=== PATIENT | female | born 1960 | race Caucasian/White ===

== ENCOUNTER 2023-05-18 11:27 | Outpatient (OUT) | payer OTHER, SELFPAY ==
--- NOTE | 2023-05-18 | NM_ITS ---
[address] [address] Patient Name: RADHA VILLAREAL MRN: [id number] date: 1960 Sex: F Assigned Patient Location: [place] Current Patient Location: [place] Accession/Order Number: [id number] Exam Date: 05/18/2023 07:00 Report Date: 05/18/2023 15:59 At the request of: MATEUS UGALDE Procedure: UT bone scan whole body EXAMINATION: UT bone scan whole body HISTORY: MALIGNANT NEOPLASM OF UPPER OUTER QUADRANT OF RIGHT BREAST COMPARISON: No relevant comparison available. TECHNIQUE: After obtaining the patient's consent, Technetium 99m MDP was injected intravenously. Images were obtained approximately two hours later. FINDINGS: ABNORMALITIES: No suspicious foci to suggest metastatic disease. OTHER: Negative. UT/UT bone scan whole body IMPRESSION: 1. No evidence of skeletal metastasis. Electronically authenticated by: KARON HERNANDEZ Date: 05/18/2023 15:59
== END 2023-05-18 11:28 | disposition home or self-care (01) ==
LOC: NM 11:27
PROVIDERS: PCP Internal Medicine; Visit Provider Internal Medicine Hematology & Oncology
DX: C50.411 Malignant neoplasm of upper-outer quadrant of right female breast (principal); Z17.0 Estrogen receptor positive status [ER+]
CPT/HCPCS: 78306; A9503

== ENCOUNTER 2023-06-06 07:13 | Outpatient (OUT) | payer OTHER, SELFPAY ==
--- NOTE | 2023-06-06 | CT_ITS ---
[address] [address] Patient Name: RADHA VILLAREAL MRN: [id number] date: 1960 Sex: F Assigned Patient Location: LAB Current Patient Location: LAB Accession/Order Number: [id number] Exam Date: 06/06/2023 08:50 Report Date: 06/06/2023 17:47 At the request of: LAVERN TOLBERT Procedure: CT chest w con Indication: History of breast cancer. Comparison: None Procedure: Scans were made from the thoracic inlet through the symphysis pubis. Oral contrast Omnipaque was given prior to scanning. 98 mL Omnipaque 300 Intravenous contrast was given during scanning. Dose reduction techniques were achieved by using automated exposure control and/or adjustment of mA and/or kV according to patient size and/or use of iterative reconstruction technique. Chest Findings: Extrathoracic: A 3.2 x 2.3 cm right breast mass is seen. No axillary adenopathy. A 1 cm left thyroid nodule. Pleura: No pleural effusion or pneumothorax. No pleural calcifications Lungs: Mild atelectatic changes in right middle lobe of the lung. A 5 mm nodule in left upper lobe of the lung. No acute consolidation. Patent major airways. No bronchiectasis. Mediastinum/Jennifer: No hilar or mediastinal adenopathy or masses. 8 mm right internal lymph node is seen. Heart/Vessels: No pericardial effusion. No evidence of aortic aneurysm. Other: No aggressive osseous lesions are seen. A 4.2 x 1.7 cm intramuscular lipoma is seen posterior to the left scapula. Abdomen Findings: Liver/Biliary System: Couple of small hypodensities in left lobe of the liver, 4 mm each, too small to categorize. No liver masses are seen. No intra or extrahepatic biliary dilatation. Status postcholecystectomy. Pancreas/Spleen: No pancreatic masses are seen. Pancreatic duct is not dilated. No evidence of pancreatitis. No splenomegaly or splenic lesions. Kidneys/Adrenals: Normal symmetrical nephrograms. No renal masses are seen. No renal or ureteral stones are seen. No hydronephrosis or hydroureter bilaterally. 2 right adrenal nodules are seen measuring 1.4 cm and 1.2 cm. A 2.0 x 1.8 cm left adrenal nodule. Given history of malignancy, metastatic disease cannot be excluded. Aorta/Vessels: No evidence of aortic aneurysm. Patent IVC, renal veins, hepatic veins and portal venous system. Bowel/Fluid/Nodes: No bowel dilatation. No bowel wall thickening. No evidence of bowel obstruction. Colonic diverticulosis with no evidence of diverticulitis. Normal appendix. No ascites or fluid collections. No adenopathy. Other: No aggressive osseous lesions are seen. Pelvis Findings: No pelvic masses or adenopathy. No free fluid seen in the pelvis. Status post hysterectomy. Unremarkable bladder. Other: No aggressive osseous lesions are seen. CT/CT chest w con Impression: 1. A 3.2 x 2.3 cm right breast mass in keeping with known breast cancer. 2. A 5 mm nodule in left upper lobe of the lung. Given history of malignancy, metastatic disease cannot be excluded. Follow-up in 3 month is recommended to confirm stability. 3. 2 right adrenal nodules are seen measuring 1.4 cm and 1.2 cm. A 2.0 x 1.8 cm left adrenal nodule. Given history of malignancy, metastatic disease cannot be excluded. I would recommend CT/MRI adrenal protocol to rule out metastatic disease. 4. An 8 mm right internal mammary lymph node. Again, metastatic adenopathy cannot be excluded. This lymph node should be followed up on the subsequent surveillance exam. 4. Mild atelectatic changes in right middle lobe of the lung. A 1 cm left thyroid nodule. 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 5. Couple of small hepatic hypodensities, 4 mm each, too small to characterize. 6. Colonic diverticulosis with no evidence of diverticulitis. 7. Status post hysterectomy and cholecystectomy. Electronically authenticated by: JAMILA TORRES Date: 06/06/2023 17:47
--- NOTE | 2023-06-06 | CT_ITS ---
[address] [address] Patient Name: RADHA VILLAREAL MRN: [id number] date: 1960 Sex: F Assigned Patient Location: LAB Current Patient Location: LAB Accession/Order Number: [id number] Exam Date: 06/06/2023 08:50 Report Date: 06/06/2023 17:47 At the request of: LAVERN TOLBERT Procedure: CT abdomen pelvis w con Indication: History of breast cancer. Comparison: None Procedure: Scans were made from the thoracic inlet through the symphysis pubis. Oral contrast Omnipaque was given prior to scanning. 98 mL Omnipaque 300 Intravenous contrast was given during scanning. Dose reduction techniques were achieved by using automated exposure control and/or adjustment of mA and/or kV according to patient size and/or use of iterative reconstruction technique. Chest Findings: Extrathoracic: A 3.2 x 2.3 cm right breast mass is seen. No axillary adenopathy. A 1 cm left thyroid nodule. Pleura: No pleural effusion or pneumothorax. No pleural calcifications Lungs: Mild atelectatic changes in right middle lobe of the lung. A 5 mm nodule in left upper lobe of the lung. No acute consolidation. Patent major airways. No bronchiectasis. Mediastinum/Jennifer: No hilar or mediastinal adenopathy or masses. 8 mm right internal lymph node is seen. Heart/Vessels: No pericardial effusion. No evidence of aortic aneurysm. Other: No aggressive osseous lesions are seen. A 4.2 x 1.7 cm intramuscular lipoma is seen posterior to the left scapula. Abdomen Findings: Liver/Biliary System: Couple of small hypodensities in left lobe of the liver, 4 mm each, too small to categorize. No liver masses are seen. No intra or extrahepatic biliary dilatation. Status postcholecystectomy. Pancreas/Spleen: No pancreatic masses are seen. Pancreatic duct is not dilated. No evidence of pancreatitis. No splenomegaly or splenic lesions. Kidneys/Adrenals: Normal symmetrical nephrograms. No renal masses are seen. No renal or ureteral stones are seen. No hydronephrosis or hydroureter bilaterally. 2 right adrenal nodules are seen measuring 1.4 cm and 1.2 cm. A 2.0 x 1.8 cm left adrenal nodule. Given history of malignancy, metastatic disease cannot be excluded. Aorta/Vessels: No evidence of aortic aneurysm. Patent IVC, renal veins, hepatic veins and portal venous system. Bowel/Fluid/Nodes: No bowel dilatation. No bowel wall thickening. No evidence of bowel obstruction. Colonic diverticulosis with no evidence of diverticulitis. Normal appendix. No ascites or fluid collections. No adenopathy. Other: No aggressive osseous lesions are seen. Pelvis Findings: No pelvic masses or adenopathy. No free fluid seen in the pelvis. Status post hysterectomy. Unremarkable bladder. Other: No aggressive osseous lesions are seen. CT/CT abdomen pelvis w con Impression: 1. A 3.2 x 2.3 cm right breast mass in keeping with known breast cancer. 2. A 5 mm nodule in left upper lobe of the lung. Given history of malignancy, metastatic disease cannot be excluded. Follow-up in 3 month is recommended to confirm stability. 3. 2 right adrenal nodules are seen measuring 1.4 cm and 1.2 cm. A 2.0 x 1.8 cm left adrenal nodule. Given history of malignancy, metastatic disease cannot be excluded. I would recommend CT/MRI adrenal protocol to rule out metastatic disease. 4. An 8 mm right internal mammary lymph node. Again, metastatic adenopathy cannot be excluded. This lymph node should be followed up on the subsequent surveillance exam. 4. Mild atelectatic changes in right middle lobe of the lung. A 1 cm left thyroid nodule. 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 5. Couple of small hepatic hypodensities, 4 mm each, too small to characterize. 6. Colonic diverticulosis with no evidence of diverticulitis. 7. Status post hysterectomy and cholecystectomy. Electronically authenticated by: JAMILA TORRES Date: 06/06/2023 17:47
[2023-06-06 07:30] LABS: Estimated GFR (African America >60 (>=60); Estimated GFR (Non-African Ame >60 (>=60)
== END 2023-06-06 07:14 | disposition home or self-care (01) ==
LOC: LAB 07:13
PROVIDERS: PCP Internal Medicine; Visit Provider Nurse Practitioner Family
DX: C50.411 Malignant neoplasm of upper-outer quadrant of right female breast (principal); R97.8 Other abnormal tumor markers; R91.1 Solitary pulmonary nodule
CPT/HCPCS: 36415; 71260; 74177; 82565; Q9967

== ENCOUNTER 2023-06-16 06:48 | Outpatient (OUT) | payer OTHER, SELFPAY ==
--- NOTE | 2023-06-16 06:54 | US_ITS ---
The [address] [address] Patient Name: RADHA VILLAREAL MRN: [id number] date: 1960 Sex: F Assigned Patient Location: US Current Patient Location: US Accession/Order Number: [id number] Exam Date: 06/16/2023 07:05 Report Date: 06/16/2023 07:46 At the request of: MATEUS UGALDE Procedure: US right upper quadrant EXAMINATION: US right upper quadrant HISTORY: Malignant Neoplasm of Right Breast, Elevated Liver Function COMPARISON: No relevant comparison available. TECHNIQUE: Transabdominal evaluation of the right upper quadrant. FINDINGS: LIVER: Normal size and echotexture. 0.4 cm slightly hyperechoic focus within left lobe, also seen on prior CT study, most compatible with a small hemangioma. Color Doppler demonstrates patent hepatic veins. PORTAL VEIN: Duplex Doppler demonstrates normal hepatopetal flow pattern with flow velocity averaging 25 cm/s. GALLBLADDER: Cholecystectomy. BILIARY: No abnormal dilation or stones. Common bile duct diameter is within normal limits. PANCREASE: No visible mass, abnormal atrophy, or duct dilation. KIDNEY: No hydronephrosis. No visible mass or stones. Size: 9.8 x 5.2 x 4.4 cm US/US right upper quadrant IMPRESSION: 1. No acute findings. 2. Small hepatic lesion; nonspecific but consistent with a benign hemangioma. Electronically authenticated by: KARON HERNANDEZ Date: 06/16/2023 07:46
== END 2023-06-16 06:49 | disposition home or self-care (01) ==
LOC: US 06:49
PROVIDERS: PCP Internal Medicine; Visit Provider Internal Medicine Hematology & Oncology
DX: C50.411 Malignant neoplasm of upper-outer quadrant of right female breast (principal); R79.89 Other specified abnormal findings of blood chemistry
CPT/HCPCS: 76705

== ENCOUNTER 2023-09-11 10:13 | Outpatient (OUT) | payer OTHER, SELFPAY ==
--- NOTE | 2023-09-11 10:18 | XR_ITS ---
The [address] [address] Patient Name: RADHA VILLAREAL MRN: [id number] date: 1960 Sex: F Assigned Patient Location: [facility] Current Patient Location: [facility] Accession/Order Number: [id number] Exam Date: 09/11/2023 10:28 Report Date: 09/11/2023 10:55 At the request of: ANUSHKA WHALEN Procedure: XR wrist LT min 3V PROCEDURE: XR wrist LT min 3V HISTORY: Left Wrist Pain M25.532 ; fell 1 month ago COMPARISON: None. FINDINGS: BONES:No fracture, acute abnormality, or significant arthropathy. SOFT TISSUES:No visible soft tissue swelling. EFFUSION:None visible. OTHER: Negative. XR/XR wrist LT min 3V IMPRESSION: 1. No acute bone abnormality. Mild degenerative changes. Electronically authenticated by: KARON HERNANDEZ Date: 09/11/2023 10:55
== END 2023-09-11 10:14 | disposition home or self-care (01) ==
PROVIDERS: PCP Internal Medicine; Visit Provider Internal Medicine
DX: M25.532 Pain in left wrist (principal)
CPT/HCPCS: 73110

== ENCOUNTER 2023-10-26 13:17 | Outpatient (OUT) | payer OTHER, SELFPAY | END 2023-10-26 13:18 | disposition home or self-care (01) | LOC: PST 13:17 | PROVIDERS: PCP Internal Medicine; Visit Provider Surgery | DX: Z01.818 Encounter for other preprocedural examination (principal); Z80.0 Family history of malignant neoplasm of digestive organs ==

== ENCOUNTER 2023-11-04 07:58 | Day surgery (SDC) | payer BC, SELFPAY ==
--- NOTE | 2023-11-04 | OP_ITS ---
OPERATION DATE: 11/04/2023 PREOPERATIVE DIAGNOSIS: Family history of colon cancer. POSTOPERATIVE DIAGNOSIS: Sigmoid diverticulosis. PROCEDURE: Colonoscopy to cecum. SURGEON: Ciaran Dunn M.D. ANESTHESIA: Monitored anesthesia care. ESTIMATED BLOOD LOSS: Zero. INDICATIONS AND CONSENT: Patient is a 63-year-old female with a family history of colon cancer, presents for surveillance colonoscopy. Last colonoscopy was 2016. Indications, risks, benefits, alternatives of proceeding with colonoscopy were explained extensively to the patient, including the risks of bleeding, colon perforation or anesthetic complications. All of her questions were answered. Informed consent was obtained. PROCEDURE: Patient brought to the operating room, placed in the left lateral decubitus position. Monitored anesthesia care was provided. Rectal exam was performed which showed no masses or blood. The scope was inserted into the anal canal. Under direct visualization was advanced. It was advanced to the cecum where cecal markings were clearly identified. Upon withdrawal of the scope, mucosal surfaces were carefully examined. There were no mass lesions or polyps. No inflammatory changes or ulcerations. Within the sigmoid colon, there was moderate sigmoid diverticulosis without inflammatory changes or scarring. The scope was retroflexed in the anal canal. There was no significant hemorrhoidal disease. Scope was then withdrawn. Patient tolerated procedure well, was sent to recovery room in good condition. f/u colonoscopy in 5 years. CC: Dr. Ramesh REN
[2023-11-04 08:00] VITALS: BP 159/66; PULSE 84; RESP 20; TEMP 36.2; O2SAT 100; BMI 32.6
--- OUTSIDE RECORDS SUMMARY | 2023-11-04 08:04 | XMS_ITS | CCD ---
Author Name Unknown Address [address] [place] [address] Organization [facility] Care Team Providers Care Marketing Sales Manager Name Role Phone PEDRO WHALEN Primary Care Physician [phone] Pedro Whalen DO Primary Care Provider Pedro Whalen DO Primary Care Provider DR PEDRO WHALEN Primary Care Unavailable CHARITY HAWTHORNE Consulting Unavailable CHARITY HAWTHORNE Attending Unavailable CHARITY HAWTHORNE Admitting Unavailable Pedro Whalen Unavailable SA DUSTINJU Referring Unavailable MARLEE, PEDRO E Primary Care Unavailable MARLEE, PEDRO E Primary Care Unavailable DUSTIN, TORO Referring Unavailable BLAYNE PRETTY Referring Unavailable BLAYNE PRETTY Attending Unavailable MARLEE, PEDRO E Primary Care Unavailable BALL, PEDRO E Primary Care Unavailable DUSTIN, TORO Referring Unavailable BALL, PEDRO E Primary Care Unavailable BLAYNE PRETTY Attending Unavailable BLAYNE PRETTY R Referring Unavailable BALL, PEDRO E Primary Care Unavailable BALL, PEDRO E Primary Care Unavailable DUSTIN, TORO Attending Unavailable MARLEE, PEDRO E Primary Care Unavailable DUSTIN, TORO Attending Unavailable DUSTIN, TORO Referring Unavailable BALL, PEDRO E Referring Unavailable BALL, PEDRO E Primary Care Unavailable MARCELA WASHINGTON Referring Unavailable BALL, PEDRO E Primary Care Unavailable BLAYNE PRETTY R Referring Unavailable BALL, PEDRO E Primary Care Unavailable BLAYNE PRETTY R Referring Unavailable BLAYNE PRETTY R Attending Unavailable BALL, PEDRO E Primary Care Unavailable BALL, PEDRO E Primary Care Unavailable BALL, PEDRO E Primary Care Unavailable DUSTIN, TORO Attending Unavailable BALL, PEDRO E Primary Care Unavailable DUSTIN, TORO Attending Unavailable DUSTIN, TORO Referring Unavailable BALL, PEDRO E Primary Care Unavailable DUSTIN, TORO Referring Unavailable BALL, PEDRO E Primary Care Unavailable DUSTIN, TORO Attending Unavailable BALL, PEDRO E Primary Care Unavailable DUSTIN, TORO Referring Unavailable BALL, PEDRO E Primary Care Unavailable DUSTIN, TORO Referring Unavailable BALL, PEDRO E Primary Care Unavailable DUSTIN, TORO Referring Unavailable BALL, PEDRO E Primary Care Unavailable DUSTIN, TORO Referring Unavailable BALL, PEDRO E Primary Care Unavailable DUSTIN, TORO Referring Unavailable BALL, PEDRO E Primary Care Unavailable DUSTIN, TORO Referring Unavailable BLAYNE PRETTY R Referring Unavailable BALL, PEDRO E Primary Care Unavailable DUSTIN, TORO Attending Unavailable BALL, PEDRO E Primary Care Unavailable BALL, PEDRO E Primary Care Unavailable DUSTIN, TORO Referring Unavailable BALL, PEDRO E Primary Care Unavailable DUSTIN, TORO Attending Unavailable BALL, PEDRO E Primary Care Unavailable DUSTIN, TORO Referring Unavailable FELIXMARCELA Attending Unavailable TRAM, BLAYNE R Referring Unavailable BALL, PEDRO E Primary Care Unavailable BALL, PEDRO E Primary Care Unavailable DUSTIN, TORO Referring Unavailable BALL, PEDRO E Primary Care Unavailable DUSTIN, TORO Referring Unavailable BALL, PEDRO E Primary Care Unavailable DUSTIN, TORO Attending Unavailable BALL, PEDRO E Primary Care Unavailable DUSTIN, TORO Referring Unavailable BALL, PEDRO E Primary Care Unavailable DUSTIN, TORO Referring Unavailable FELIXKATINAY Referring Unavailable BALL, PEDRO E Primary Care Unavailable BALL, PEDRO E Primary Care Unavailable DUSTIN, TORO Referring Unavailable BLAYNE PRETTY R Referring Unavailable BALL, PEDRO E Primary Care Unavailable BALL, PEDRO E Primary Care Unavailable DUSTIN, TORO Attending Unavailable FELIX, MARCELA Referring Unavailable BALL, PEDRO E Primary Care Unavailable BALL, PEDRO E Primary Care Unavailable DUSTIN, TORO Referring Unavailable BALL, PEDRO E Primary Care Unavailable DUSTIN, TORO Attending Unavailable DUSTIN, TORO Referring Unavailable BALL, PEDRO E Primary Care Unavailable DUSTIN, TORO Attending Unavailable BALL, PEDRO E Primary Care Unavailable BLAYNE PRETTY R Referring Unavailable BLAYNE PRETTY R Attending Unavailable BALL, PEDRO E Primary Care Unavailable BLAYNE PRETTY R Referring Unavailable BLAYNE PRETTY R Attending Unavailable BALL, PEDRO E Primary Care Unavailable NILLCiaran R Attending Unavailable Dustin, Toro A Referring Unavailable Dustin, Toro A Admitting Unavailable Dustin, Toro A Attending Unavailable Blayne Pretty R Admitting Unavailable Blayne Pretty R Attending Unavailable Blayne Pretty R Referring Unavailable NILLCiaran R Attending Unavailable NILLCiaran R Attending Unavailable MARLEE, PEDRO Referring Unavailable NILLCiaran R Attending Unavailable Allergies Allergy Classification Reported Allergen(s) Allergy Type Date of Onset Reaction(s) Facility (20 sources) Doxycycline; Translations: [doxycycline] Drug Allergy 08-26-20 13 Unknown, [facility] Comment on above: monocycline allery s coral reaction (1 source) Doxycycline Drug Allergy 06-13-20 13 [facility] (1 source) Penicillins Drug allergy (disorder) [facility] (11 sources) Penicillins (Antibiotic) Propensity to adverse reactions Unknown [facility] Other (9 sources) Sulfamethoxazole Drug Allergy Unknown [facility] Other (13 sources) Tetracycline; Translations: [tetracycline] Drug Allergy Unknown [facility] [place] (7 sources) Penicillin; Translations: [penicillin] Drug Allergy Unknown [facility] [place] (7 sources) Substance with penicillin structure and antibacterial mechanism of action (substance) Drug allergy Unknown [facility] Other (5 sources) patient allergy list reviewed by nurse or physicia Propensity to adverse reactions 12-19-19 Comment:Done [facility] Other (7 sources) Sulfamethoxazole-Tr imethoprim *ANTI-INFECTIVE AGEN Propensity to adverse reactions Comment:Fatigu e [facility] Other (2 sources) Sulfonamides (Antibiotic); Translations: [sulfa drugs] Propensity to adverse reactions to drug [facility] [place] Medications Current Medications Medication Drug Class(es) Dates Sig (Normalized) Sig (Original) acetaminophen 325 mg / oxyCODONE hydrochloride 5 mg oral tablet (1 source) Opioid Agonist Start: 10-23-2022 End: 10-28-2022 acetaminophen-ox ycodone 325 mg-5 mg Tab 1 tab(s), Oral, q3hr Pain, 18 tab(s), Refill(s) 0, take with food or milk, [facility]/pharmacy #[id number], 157.5, cm, 10/15/22 14:57:00 EST, Height/Length Dosing, 82.1, kg, 10/15/22 14:57:00 EST, Weight Dosing Start Date: 10/23/22 Stop Date: 10/28/22 Status: Ordered amLODIPine 5 mg oral tablet (20 sources) Dihydropyridine Calcium Channel Mark Start: 10-29-2022 take 1 tablet by mouth once daily amLODIPine 5 mg Tab 5 mg = 1 tab(s), Oral, Daily, Refills(s) 0 Start Date: 11/04/22 Status: Ordered Comment on above: TAKE 1 TABLET BY ADINA TH EVERY DAY FOR 30 DAYS anastrozole 1 mg oral tablet (20 sources) Aromatase Inhibitor Start: 09-12-2022 End: 12-08-2022 take 1 tablet by mouth once daily Arimidex 1 mg Tab 1 mg = 1 tab(s), Oral, Daily, Hormone, Refills(s) 0 Start Date: 10/07/22 Status: Ordered Comment on above: Take 1 tablet by adina th once daily. clindamycin 150 mg oral capsule (8 sources) Lincosamide Antibacterial Start: 03-20-2023 take 3 capsules by mouth twice daily Clindamycin HCl 150 MG 3 capsules Orally twice daily for 7 days Mar, Active losartan potassium 25 mg oral tablet (20 sources) Angiotensin 2 Receptor Mark Start: 10-15-2022 take 1 tablet by mouth twice daily losartan 25 mg Tab 25 mg = 1 tab(s), Oral, BID, High blood pressure Start Date: 10/15/22 Status: Ordered Start: 10-15-2022 take 1 tablet by mouth once da juan manuel losartan 25 mg Tab 25 mg = 1 tab(s), Oral, Daily, High blood pressure Start Date: 10/15/22 Status: Ordered Comment on above: TAKE 1 TABLET BY ADINA TH TWICE A DAY FOR 30 DAYS omeprazole 10 mg delayed release oral capsule (20 sources) Proton Pump Inhibitor Start: 10-15-2022 take 1 capsule by mouth once daily omeprazole 10 mg Cap-EC 10 mg = 1 cap(s), Oral, Daily, Control of stomach acid Start Date: 10/15/22 Status: Ordered OMEPRAZOLE ORAL Take by mouth. 0 Active Comment on above: Take by mouth. Vitamin D3 1000 intl units oral tablet (5 sources) Start: 10-15-2022 take 1 tablet by mouth once daily Vitamin D3 1000 intl units oral tablet = 1 tab(s), Oral, Daily, Prophylaxis Start Date: 10/15/22 Status: Ordered Completed/Discontinued Medications Medication Drug Class(es) Dates Sig (Normalized) Sig (Original) ascorbic acid 4700 mg / polyethylene glycol 3350 830075 mg / potassium chloride 1015 mg / sodium ascorbate 5900 mg / sodium chloride 2690 mg / sodium sulfate 7500 mg powder for oral solution (20 sources) Osmotic Laxative, Vitamin C Start: 06-09-2013 MoviPrep 100 GM as directed Orally 1 for 1 May, Not-Taking atorvastatin 20 mg oral tablet (14 sources) HMG-CoA Reductase Inhibitor Start: 11-17-2017 take 1 tablet by mouth once atorvastatin (LIPITOR) 20 mg tablet Take 1 tablet by mouth every afternoon. 0 05/31/2023 Active Comment on above: Take 1 tablet by adina th every afternoon. cholecalciferol, vitamin D3, (VITAMIN D3 ORAL) (20 sources) cholecalciferol, vitamin D3, (VITAMIN D3 ORAL) Take by mouth. 0 Active Comment on above: Take by mouth. ergocalciferol, vitamin D2, (VITAMIN D2 ORAL) (11 sources) End: 11-10-2022 ergocalciferol, vitamin D2, (VITAMIN D2 ORAL) Take by mouth. 0 11/10/2022 Discontinued (Discontinued by Patient) ergocalciferol, vitamin D2, (VITAMIN D2 ORAL) Take by mouth. 0 Active Comment on above: Take by mouth. Problems Active Problems Problem Classification Problem Date Documented Date Episodic/Chronic Cancer of breast (20 sources) Malignant neoplasm of upper-outer quadrant of female breast; Translations: [Malignant neoplasm of upper-outer quadrant of right female breast] Onset: 2 Chronic Cataract (4 sources) Age-related nuclear cataract, right eye; Translations: [AGE-REL NUCLEAR CATARACT RT EYE] Onset: 2 Chronic Diabetes mellitus without complication (4 sources) Type 2 diabetes mellitus without complication; Translations: [Diabetes mellitus without mention of complication, type II or unspecified type, not stated as uncontrolled] 09-16-2023 Chronic Diabetes mellitus without complication (20 sources) Impaired fasting glycemia; Translations: [Impaired fasting glucose] Onset: 3 Episodic Disorders of lipid metabolism (20 sources) Pure hypercholesterolemia; Translations: [Familial hypercholesterolemia] Onset: 6 Chronic Diverticulosis and diverticulitis (20 sources) Diverticular disease of colon; Translations: [Diverticulosis of colon] Onset: 5 09-16-2023 Chronic Esophageal disorders (8 sources) Gastro-esophageal reflux disease without esophagitis; Translations: [Gastroesophageal reflux disease] Onset: 2 10-15-2022 Chronic Esophageal disorders (4 sources) Esophageal disorders; Translations: [Gastro-esophageal reflux disease with esophagitis, without bleeding] Essential hypertension (20 sources) Hypertensive disorder; Translations: [Essential hypertension] Onset: 5 10-15-2022 Chronic Inflammation; infection of eye (except that caused by tuberculosis or sexually transmitteddisease) (3 sources) Acute conjunctivitis; Translations: [Unspecified acute conjunctivitis, bilateral] Episodic Nonmalignant breast conditions (16 sources) Lump in lower outer quadrant of right breast; Translations: [Unspecified lump in the right breast, lower outer quadrant] Onset: 2 Episodic Nutritional deficiencies (8 sources) Vitamin D deficiency; Translations: [Vitamin D deficiency, unspecified] Onset: 3 Chronic Other and ill-defined heart disease (4 sources) Cardiomegaly; Translations: [Cardiomegaly] Onset: 7 09-16-2023 Chronic Other endocrine disorders (4 sources) Adrenal mass; Translations: [Other specified disorders of adrenal gland] Chronic Other endocrine disorders (1 source) Hyperparathyroidism 09-16-2023 Chronic Other gastrointestinal disorders (1 source) Adrenal mass 09-16-2023 Episodic Other inflammatory condition of skin (6 sources) Rosacea; Translations: [Rosacea, unspecified] 09-16-2023 Chronic Other lower respiratory disease (5 sources) Nodule of lung; Translations: [Solitary pulmonary nodule] 09-16-2023 Episodic Other non-traumatic joint disorders (1 source) Pain in left wrist Episodic Other nutritional; endocrine; and metabolic disorders (11 sources) Body mass index 30+ - obesity; Translations: [Body mass index 31.0-31.9, adult] Onset: 7 08-26-2022 Chronic Other nutritional; endocrine; and metabolic disorders (5 sources) Hypercalcemia; Translations: [Hypercalcemia] Chronic Other nutritional; endocrine; and metabolic disorders (4 sources) Obesity; Translations: [Obesity, unspecified] 09-16-2023 Chronic Other nutritional; endocrine; and metabolic disorders (3 sources) Simple obesity ; Translations: [Other obesity due to excess calories] Chronic Other nutritional; endocrine; and metabolic disorders (11 sources) History of primary hyperparathyroidism; Translations: [Personal history of other endocrine, nutritional and metabolic disease] Episodic Other nutritional; endocrine; and metabolic disorders (1 source) Personal history of other endocrine, nutritional and metabolic disease Episodic Other nutritional; endocrine; and metabolic disorders (5 sources) H/O: endocrine disorder; Translations: [Personal history of other endocrine, nutritional and metabolic disease] Episodic Other screening for suspected conditions (not mental disorders or infectious disease) (14 sources) Ultrasonography of breast abnormal; Translations: [Abnormal finding on evaluation procedure] Onset: 3 08-29-2022 Episodic Other upper respiratory infections (6 sources) Acute maxillary sinusitis; Translations: [Acute recurrent maxillary sinusitis] Onset: 5 Episodic Residual codes; unclassified (1 source) Acquired absence of both cervix and uterus; Translations: [ACQUIRED ABSENCE BOTH CERVIX AND UTERUS] Onset: 2 Episodic Residual codes; unclassified (20 sources) Family history of malignant neoplasm of gastrointestinal tract; Translations: [Family history of colon cancer] Episodic Residual codes; unclassified (3 sources) Estrogen receptor positive status [ER+]; Translations: [Malignant neoplasm of upper-outer quadrant of right breast in female, estrogen receptor positive (HCC) (HCC)] Onset: 3 Episodic Residual codes; unclassified (1 source) Family history of malignant neoplasm of digestive organs Episodic Residual codes; unclassified (1 source) Family history of malignant neoplasm of digestive organ; Translations: [Family history of malignant neoplasm of digestive organs] Onset: 3 Episodic Residual codes; unclassified (1 source) Family history of cancer of colon 09-16-2023 Episodic Residual codes; unclassified (1 source) Tobacco user 09-16-2023 Episodic Skin and subcutaneous tissue infections (7 sources) Localized infection of skin AND/OR subcutaneous tissue; Translations: [Local infection of the skin and subcutaneous tissue, unspecified] Episodic Substance-related disorders (5 sources) Tobacco user; Translations: [Nicotine dependence, cigarettes, in remission] Chronic Thyroid disorders (7 sources) Thyroid nodule; Translations: [Nontoxic single thyroid nodule] Onset: 3 Chronic Unclassified (3 sources) Long-term current use of drug therapy; Translations: [Long-term (current) use of other medications] Onset: 7 Past or Other Problems Problem Classification Problem Date Documented Date Episodic/Chronic Abdominal pain (3 sources) Left lower quadrant pain; Translations: [Left lower quadrant pain] Onset: 05-07-2015 Episodic Genitourinary symptoms and ill-defined conditions (3 sources) Dysuria; Translations: [Dysuria] Onset: 01-16-2015 Episodic Other liver diseases (3 sources) Elevated levels of transaminase & lactic acid dehydrogenase; Translations: [Nonspecific elevation of levels of transaminase or lactic acid dehydrogenase (LDH)] Onset: 09-15-2017 Episodic Other skin disorders (4 sources) Sebaceous cyst; Translations: [Sebaceous cyst] Resolved: 10-07-2022 Episodic Retinal detachments; defects; vascular occlusion; and retinopathy (5 sources) Serous retinal detachment; Translations: [Serous retinal detachment, left eye] Onset: 06-03-2022 Episodic Screening and history of mental health and substance abuse codes (3 sources) History of tobacco use; Translations: [Personal history of tobacco use, presenting hazards to health] Onset: 09-15-2017 Episodic Results Test Name Value Interpretation Reference Range Facility Insurance Correspondenceon 0 10-27-2023 Insurance Correspondence [id number]#[id number] F [facility] Consent for Procedure/Surger yon 10-08-2023 Consent for Procedure/Surgery [id number]#[id number] F [facility] Ambulatory Visit Summaryon 1 12-08-2022 Ambulatory Visit Summary ANGELIQUE CHERY :1960 Visit Date:10/07/2023 Ambulatory Visit Instructions Your Care Team Attending Physician - Ciaran REES MD Primary Care Physician - PEDRO WHALEN DO Referring Physician - PEDRO WHALEN DO This Is Your Medications List Contact prescribing physician if questions or concerns amlodipine (amLODIPine 5 mg Tab) anastrozole (Arimidex 1 mg Tab) losartan (losartan 25 mg Tab) Procedures Performed Breast lumpectomy (10/23/2022), Colonoscopy (2016), Colonoscopy (2012), Colonoscopy (2009), Colonoscopy (2005), Biopsy of parathyroid gland, Cataract extraction, Cataract extraction, Cholecystectomy, LASIK, Parathyroidectomy, Repair of retinal detachment, Vaginal hysterectomy. Discharge Vitals Heart Rate (Peripheral) 72 Respiratory Rate 16 Blood Pressure 126/78 Height 157.4 cm Height 62 in Weight 81.1 kg Weight 178.42 lb BMI 32.73 What to do next Scheduled Follow-Up Appointments Thursday 8:45 AM EDT Where: [facility] Thursday 9:30 AM EDT Where: [facility] Medications What How Much When Instructions Unchanged amlodipine (amLODIPine 5 mg Tab) 1 Tablets By Mouth Every day Contact prescribing physician if questions or concerns Unchanged anastrozole (Arimidex 1 mg Tab) 1 Tablets By Mouth Every day Hormone Contact prescribing physician if questions or concerns Unchanged losartan (losartan 25 mg Tab) 1 Tablets By Mouth 2 times a day Contact prescribing physician if questions or concerns Allergies doxycycline (Blisters) penicillin sulfa drugs tetracycline Problems Ongoing - Any problem that you are currently receiving treatment for. Abnormal ultrasound of breast Acid reflux Adrenal nodule BMI 32.0-32.9,adult Breast cancer of upper-outer quadrant of right female breast Cardiomegaly Diverticular disease of colon Family history of colon cancer in mother HTN (hypertension) Hyperlipidemia Hyperparathyroidism Mass of lower outer quadrant of right breast Mass of upper outer quadrant of right breast Nodule of lung Obesity Pure hypercholesterolemia Rosacea Thyroid nodule Tobacco user Type 2 diabetes mellitus without complication Vitamin D deficiency Patient Survey You may receive a survey via text or e-mail asking about your office visit. Please share your experience with us by completing your survey. We appreciate your feedback and thank you for choosing us for your care. [facility]07[facility] -------- ANGELIQUE CHERY ([id number]) 1960 F Date Time Provider Department 10/07/23 NANCY MARADIAGA During your visit today, we recorded the following information about you: Nancy Maradiaga RN 10/07/2023 2:00 PM Signed ----- Message from Blayne Pretty MD sent at 10/07/2023 1:56 PM EST ----- Please inform the patient that her liver functions are normal. Tumor marker remains slightly elevated but stable. Most likely not significant. We will continue as planned and see her back as scheduled. Nancy Maradiaga RN 10/07/2023 2:00 PM Signed Pt notified and verbalizes understanding. Nancy Maradiaga RN Allergies As of Date: 10/07/2023 Noted Allergy Reaction DOXYCYCLINE 06/13/2013 16 - Unknown 4 - Hives Comments: monocycline allery same reaction Date Reviewed: 10/06/2023 Reviewed by: Bhavesh January - Fully Assessed Reason for Visit: Results [95] Prescriptions as of 10/07/2023 - anastrozole (ARIMIDEX) 1 mg tablet Take 1 tablet by mouth once daily. - losartan (COZAAR) 25 mg tablet TAKE 1 TABLET BY MOUTH TWICE A DAY FOR 30 DAYS - amLODIPine (NORVASC) 5 mg tablet TAKE 1 TABLET BY MOUTH EVERY DAY FOR 30 DAYS - cholecalciferol, vitamin D3, (VITAMIN D3 ORAL) Take by mouth. Problem List As Of Date: 10/07/2023 (None) Encounter Status:Closed by NANCY MARADIAGA on 10/07/23 Normal [facility] Consultation Noteon 10-07-20 Consultation Note [id number] F Normal [facility] 25(OH)D3 SerPl-ncon 2022 25-hydroxyvitamin D3 [Mass/Vol] 55.0 ng/mL Normal 31.0-80.0 [facility] Comment on above: Order Comment: Speci men Type: BLOOD SPECIMENOrdering Facility: Dr Whalen and Dr Hodge Office Address: [address] [place] [address], [place] [address] Result Comment: Clas sification of 25 [place] Vitamin D status: Deficiency/Insufficiency: < or = 30 ng/ml. Sufficiency/Optimal Levels: 31-80 ng/mL Toxicity: > 100 ng/mL. Test performed by chemiluminescent immunoassay. Performed By: #### 1 989-3 ####[facility] LABCLIA [id number] [facility] [id number] [address] [place] CBC W Auto Differential pane l (Bld)on 10-06-2023 Basophils (Bld) [#/Vol] 0.03 10*3/uL Normal <0.11 [facility] Comment on above: Order Comment: Speci men Type: BLOOD SPECIMENOrdering Facility: [facility] Address: [address] [place] [address] Performed By: #### 5 7021-8 ####[facility] LABCLIA [id number] [place] [address] Basophils/100 WBC (Bld) 0.4 % Normal [facility] Comment on above: Order Comment: Speci men Type: BLOOD SPECIMENOrdering Facility: [facility] Address: [address] [place] [address] Performed By: #### 5 7021-8 ####[facility] LABCLIA [id number] [place] [address] Differential cell count method Nom (Bld) Auto Normal [facility] Comment on above: Order Comment: Speci men Type: BLOOD SPECIMENOrdering Facility: [facility] Address: [address] [place] [address] Performed By: #### 5 7021-8 ####[facility] LABCLIA [id number] [place] [address] Eosinophils (Bld) [#/Vol] 0.17 10*3/uL Normal <0.46 [facility] Comment on above: Order Comment: Speci men Type: BLOOD SPECIMENOrdering Facility: [facility] Address: [address] [place] [address] Performed By: #### 5 7021-8 ####[facility] LABIA [id number] [place] [address] Eosinophils/100 WBC (Bld) 2.4 % Normal [facility] Comment on above: Order Comment: Speci men Type: BLOOD SPECIMENOrdering Facility: [facility] Address: [address] [place] [address] Performed By: #### 5 7021-8 ####[facility] LABCLIA [id number] [place] [address] Erythrocyte distribution width (RBC) [Ratio] 14.2 % Normal 11.5-15.0 [facility] Comment on above: Order Comment: Speci men Type: BLOOD SPECIMENOrdering Facility: [facility] Address: [address] [place] [address] Performed By: #### 5 7021-8 ####[facility] LABCLIA [id number] [place] [address] Hematocrit (Bld) [Volume fraction] 39.7 % Normal 36.0-46.0 [facility] Comment on above: Order Comment: Speci men Type: BLOOD SPECIMENOrdering Facility: [facility] Address: [address] [place] [address] Performed By: #### 5 7021-8 ####[facility] LABCLIA [id number] [place] [address] Hemoglobin (Bld) [Mass/Vol] 12.9 g/dL Normal 11.5-15.5 [facility] Comment on above: Order Comment: Speci men Type: BLOOD SPECIMENOrdering Facility: [facility] Address: [address] [place] [address] Performed By: #### 5 7021-8 ####[facility] LABCLIA [id number] [place] [address] Immature granulocytes (Bld) [#/Vol] 0.07 10*3/uL Normal <0.10 [facility] Comment on above: Order Comment: Speci men Type: BLOOD SPECIMENOrdering Facility: [facility] Address: [address] [place] [address] Performed By: #### 5 7021-8 ####[facility] LABCLIA [id number] [place] [address] Immature granulocytes/100 WBC (Bld) 1.0 % Normal [facility] Comment on above: Order Comment: Speci men Type: BLOOD SPECIMENOrdering Facility: [facility] Address: [address] [place] [address] Performed By: #### 5 7021-8 ####[facility] LABCLIA [id number] [place] [address] Lymphocytes (Bld) [#/Vol] 1.33 10*3/uL Normal 1.00-4.00 [facility] Comment on above: Order Comment: Speci men Type: BLOOD SPECIMENOrdering Facility: [facility] Address: [address] [place] [address] Performed By: #### 5 7021-8 ####[facility] LABCLIA [id number] [place] [address] Lymphocytes/100 WBC (Bld) 19.1 % Normal [facility] Comment on above: Order Comment: Speci men Type: BLOOD SPECIMENOrdering Facility: [facility] Address: [address] [place] [address] Performed By: #### 5 7021-8 ####[facility] LABCLIA [id number] [place] [address] MCH (RBC) [Entitic mass] 29.1 pg Normal 26.0-34.0 [facility] Comment on above: Order Comment: Speci men Type: BLOOD SPECIMENOrdering Facility: [facility] Address: [address] [place] [address] Performed By: #### 5 7021-8 ####[facility] LABCLIA [id number] [place] [address] MCHC (RBC) [Mass/Vol] 32.5 g/dL Normal 30.5-36.0 [facility] Comment on above: Order Comment: Speci men Type: BLOOD SPECIMENOrdering Facility: [facility] Address: [address] [place] [address] Performed By: #### 5 7021-8 ####[facility] LABCLIA [id number] [place] [address] MCV (RBC) [Entitic vol] 89.4 fL Normal 80.0-100.0 [facility] Comment on above: Order Comment: Speci men Type: BLOOD SPECIMENOrdering Facility: [facility] Address: [address] [place] [address] Performed By: #### 5 7021-8 ####[facility] LABCLIA [id number] [place] [address] Monocytes (Bld) [#/Vol] 0.55 10*3/uL Normal <0.87 [facility] Comment on above: Order Comment: Speci men Type: BLOOD SPECIMENOrdering Facility: [facility] Address: [address] [place] [address] Performed By: #### 5 7021-8 ####[facility] LABCLIA [id number] [place] [address] Monocytes/100 WBC (Bld) 7.9 % Normal [facility] Comment on above: Order Comment: Speci men Type: BLOOD SPECIMENOrdering Facility: [facility] Address: [address] [place] [address] Performed By: #### 5 7021-8 ####[facility] LABCLIA [id number] [place] [address] Neutrophils (Bld) [#/Vol] 4.83 10*3/uL Normal 1.45-7.50 [facility] Comment on above: Order Comment: Speci men Type: BLOOD SPECIMENOrdering Facility: [facility] Address: [address] [place] [address] Performed By: #### 5 7021-8 ####[facility] LABCLIA [id number] [place] [address] Neutrophils/100 WBC (Bld) 69.2 % Normal [facility] Comment on above: Order Comment: Speci men Type: BLOOD SPECIMENOrdering Facility: [facility] Address: [address] [place] [address] Performed By: #### 5 7021-8 ####[facility] LABCLIA [id number] [place] [address] Nucleated RBC (Bld) [#/Vol] 10*3/uL Normal <0.01 [facility] Comment on above: Order Comment: Speci men Type: BLOOD SPECIMENOrdering Facility: [facility] Address: [address] [place] [address] Performed By: #### 5 7021-8 ####[facility] LABCLIA [id number] [place] [address] Nucleated RBC/100 WBC (Bld) [Ratio] 0.0 /100 WBC Normal [facility] Comment on above: Order Comment: Speci men Type: BLOOD SPECIMENOrdering Facility: [facility] Address: [address] [place] [address] Performed By: #### 5 7021-8 ####[facility] LABCLIA [id number] [place] [address] Platelet mean volume (Bld) [Entitic vol] 10.1 fL Normal 9.0-12.7 [facility] Comment on above: Order Comment: Speci men Type: BLOOD SPECIMENOrdering Facility: [facility] Address: [address] [place] [address] Performed By: #### 5 7021-8 ####[facility] LABCLIA [id number] [place] [address] Platelets (Bld) [#/Vol] 219 10*3/uL Normal 150-400 [facility] Comment on above: Order Comment: Speci men Type: BLOOD SPECIMENOrdering Facility: [facility] Address: [address] [place] [address] Performed By: #### 5 7021-8 ####[facility] LABCLIA [id number] [place] [address] RBC (Bld) [#/Vol] 4.44 10*6/uL Normal 3.90-5.20 [facility] Comment on above: Order Comment: Speci men Type: BLOOD SPECIMENOrdering Facility: [facility] Address: [address] [place] [address] Performed By: #### 5 7021-8 ####[facility] LABCLIA [id number] [place] [address] WBC (Bld) [#/Vol] 6.98 10*3/uL Normal 3.70-11.00 [facility] Comment on above: Order Comment: Speci men Type: BLOOD SPECIMENOrdering Facility: [facility] Address: [place] [address] Performed By: #### 5 7021-8 ####[facility] LABCLIA [id number] [place] [address] CNOVSPon 10-06-2023 CNOVSP Visit (SP) Office ([place]) -------- ANGELIQUE CHERY ([id number]) 1960 F Date Time Provider Department 10/06/23 3:30 PM BLAYNE PRETTY During your visit today, we recorded the following information about you: Temperature Pulse Respiration Blood pressure 97.3 degrees 85/minute 18/minute 139/61 Weight Height 80.9 kg 1.536 Blayne Patel MD 10/07/2023 6:42 AM Signed PATIENT NAME: Angelique Chery DATE: 10/06/2023 PRIMARY CARE PHYSICIAN: Pedro Whalen, OTHER PHYSICIANS: Dr. Ciaran Rees, Dr. Earnest Davis, Dr. Toro Chan Portions of this encounter note have been copied from my note from 07/14/2023 and has been updated where appropriate, and reflect my current medical decision making from today. CC: This is a 63 year old female with a history of breast cancer, seen for scheduled follow-up. INTERIM HISTORY: Since the patient's last visit here she has had no significant medical changes. She remains on Arimidex and is tolerating well. She has noticed no changes in her breasts. No abdominal pain, change in bowel habits, or other GI symptoms. No bone pain or other systemic complaints. Overall she feels quite well. MEDICATIONS: Current Outpatient Medications Medication Sig anastrozole (ARIMIDEX) 1 mg tablet Take 1 tablet by mouth once daily. losartan (COZAAR) 25 mg tablet TAKE 1 TABLET BY MOUTH TWICE A DAY FOR 30 DAYS amLODIPine (NORVASC) 5 mg tablet TAKE 1 TABLET BY MOUTH EVERY DAY FOR 30 DAYS cholecalciferol, vitamin D3, (VITAMIN D3 ORAL) Take by mouth. No current facility-administered medications for this visit. ALLERGIES: ALLERGIES Allergen Reactions Doxycycline Unknown, Hives monocycline allery same reaction PAST MEDICAL HISTORY: PAST MEDICAL HISTORY Diagnosis Date Breast lump Right PAST SURGICAL HISTORY: PAST SURGICAL HISTORY Procedure Laterality Date LASIK PAST SURGICAL HISTORY OF Biopsy Parathyroid gland REMOVAL GALLBLADDER REMV CATARACT EXTRACAP,INSERT LENS REPAIR RETINAL DETACHMENT SCLERAL BUCKLING VAGINAL HYSTERECTOMY FAMILY HISTORY: FAMILY HISTORY Problem Relation Age of Onset Dementia Mother Colon Cancer Mother Breast Cancer Father other (Cardiac arrest) Father Leukemia Father SOCIAL HISTORY: Social History Tobacco Use Smoking status: Former Types: Cigarettes Quit date: 1999 Years since quittin.9 Passive exposure: Past Smokeless tobacco: Never Vaping Use Vaping Use: Never used Substance Use Topics Alcohol use: Not Currently Drug use: Never COMPLETE REVIEW OF SYSTEMS: CONSTITUTION: Negative for pain, fatigue, weight loss, or appetite loss. EENT: Negative for mouth soreness, antibiotics use, epistaxis, visual problems, neck or facial swelling, fever/chills, bleeding gums, or hearing loss. CV: Negative for edema, calf swelling, palpitations, or chest pain. RESPIRATORY: Negative for cough, SOB, hemoptysis, or wheezing. GI: Negative for nausea/vomiting, heartburn, vomiting blood, dysphasia, diarrhea, blood in stool, constipation, early satiety, PICA, vegetarian, poor nutrition, abdominal fullness, or abdominal pain. NEUROLOGICAL: Negative for numbness/tingling, dizziness, gait disturbance, headache, speech disturbance, tremor, hemiparesis/sensory loss, or change in mental status. MUSCULOSKELETAL: right arm/axillary tenderness with certain ROM SKIN: Negative for hair loss, bruising, nail changes, rash, itching, pallor, or jaundice. ENDO/URO: Negative for hot flashes, cold or heat intolerance, urinary frequency, urinary hesitancy, menorrhagia, or hematuria. PSYCH: Negative for anxiety, depression, or other. PHYSICAL EXAM: BP 139/61 Pulse 85 Temp 36.3 ?C (97.3 ?F) (Temporal) Resp 18 Ht 153.6 cm (5' 0.47 ) Wt 80.9 kg (178 lb 5.6 oz) SpO2 98% BMI 34.29 kg/m? General: Alert and oriented, no distress, pleasant and cooperative. Heart: Regular, normal S1 and S2, no murmurs, rubs, or gallops Lungs: Clear to auscultation bilaterally Abdomen: Benign Extremities: Feet/ankles without edema, posterior tibial pulses full and symmetrical, right arm with swelling BREAST: right breast upper outer quadrant fullness consistent with fibrous tissue from previous surgery/radiation. No new masses. No adenopathy. PATHOLOGY: 10/23/2022 Right breast lumpectomy and sentinel node procedure (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 Margins negative for invasive carcinoma. DCIS present at deep margin, focal. 2 benign lymph nodes identified (0/2). Oncotype recurrence score 12 08/26/2022 Right breast core biopsy ([facility]) Invasive ductal carcinoma, grade 2. ER 80 to 90%, MT 40 to 50%, HER2 negative RADIOLOGY/OTHER STUDIES: 07/06/2023 PET scan IMPRESSION: 1. Neck: No suspicious hypermetabolic foci 2. Chest: Surgical changes in the right breast right axillary reg (more content not included)... Normal [facility] Cancer Ag27-29 SerPl-aCncon 10-06-2023 Cancer Ag 27-29 Qn 47.6 [arb'U]/mL High <38.6 C [facility] Comment on above: Order Comment: Speci men Type: BLOOD SPECIMENOrdering Facility: [facility] Address: [address] [place] [address] Result Comment: The CA27.29 test was performed using the [email or web address] XP chemiluminometric immunoassay method. Results obtained with different assay methods or kits cannot be used interchangeably. Performed By: #### 1 7842-6 ####[facility] LABCLIA [id number] [facility] [id number] [address] [place] Comprehensive metabolic 2000 panelon 10-06-2023 Albumin [Mass/Vol] 4.2 g/dL Normal 3.9-4.9 [facility] Comment on above: Order Comment: Speci men Type: BLOOD SPECIMENOrdering Facility: [facility] Address: [address] [place] [address] Performed By: #### 2 4323-8 ####[facility] LABCLIA [id number] [place] [address] ALP [Catalytic activity/Vol] 244 U/L High 34-123 [facility] Comment on above: Order Comment: Speci men Type: BLOOD SPECIMENOrdering Facility: [facility] Address: [address] [place] [address] Performed By: #### 2 4323-8 ####[facility] LABCLIA [id number] [place] [address] ALT [Catalytic activity/Vol] 21 U/L Normal 7-38 [facility] Comment on above: Order Comment: Speci men Type: BLOOD SPECIMENOrdering Facility: [facility] Address: [address] [place] [address] Performed By: #### 2 4323-8 ####[facility] LABCLIA [id number] [place] [address] Anion gap [Moles/Vol] 10 mmol/L Normal 9-18 [facility] Comment on above: Order Comment: Speci men Type: BLOOD SPECIMENOrdering Facility: [facility] Address: [address] [place] [address] Performed By: #### 2 4323-8 ####[facility] LABCLIA [id number] [place] [address] AST [Catalytic activity/Vol] 34 U/L Normal 13-35 [facility] Comment on above: Order Comment: Speci men Type: BLOOD SPECIMENOrdering Facility: [facility] Address: [address] [place] [address] Performed By: #### 2 4323-8 ####[facility] LABCLIA [id number] [place] [address] Bilirubin [Mass/Vol] 0.7 mg/dL Normal 0.2-1.3 [facility] Comment on above: Order Comment: Speci men Type: BLOOD SPECIMENOrdering Facility: [facility] Address: [address] [place] [address] Performed By: #### 2 4323-8 ####[facility] LABCLIA [id number] [place] [address] Calcium [Mass/Vol] 9.9 mg/dL Normal 8.5-10.2 [facility] Comment on above: Order Comment: Speci men Type: BLOOD SPECIMENOrdering Facility: [facility] Address: [address] [place] [address] Performed By: #### 2 4323-8 ####[facility] LABCLIA [id number] [place] [address] Chloride [Moles/Vol] 102 mmol/L Normal 97-105 [facility] Comment on above: Order Comment: Speci men Type: BLOOD SPECIMENOrdering Facility: [facility] Address: [address] [place] [address] Performed By: #### 2 4323-8 ####[facility] LABCLIA [id number] [place] [address] CO2 [Moles/Vol] 29 mmol/L Normal 22-30 [facility] Comment on above: Order Comment: Speci men Type: BLOOD SPECIMENOrdering Facility: [facility] Address: [address] [place] [address] Performed By: #### 2 4323-8 ####[facility] LABCLIA [id number] [place] [address] Creatinine [Mass/Vol] 0.77 mg/dL Normal 0.58-0.96 [facility] Comment on above: Order Comment: Nic espinosa Type: BLOOD SPECIMENOrdering Facility: [facility] Address: [address] [place] [address] Performed By: #### 2 4323-8 ####[facility] LABCLIA [id number] [place] [address] Creatinine and Glomerular filtration rate.predicted panel (S/P/Bld) 87 mL/min/1.73m??? Normal >=60 [facility] Comment on above: Order Comment: Nic espinosa Type: BLOOD SPECIMENOrdering Facility: [facility] Address: [address] [place] [address] Result Comment: Salima mated Glomerular Filtration Rate (eGFR) is calculated using the 2020 CKD-EPI creatinine equation. This equation utilizes serum creatinine, sex, and age as parameters. The creatinine assay has traceable calibration to isotope dilution-mass spectrometry. Refer to KDIGO guidelines for clinical interpretation. In patients with unstable renal function, e.g. those with acute kidney injury, the eGFR may not accurately reflect actual GFR. Performed By: #### 2 4323-8 ####[facility] LABIA [id number] [place] [address] Glucose [Mass/Vol] 109 mg/dL High 74-99 [facility] Comment on above: Order Comment: Nic espinosa Type: BLOOD SPECIMENOrdering Facility: [facility] Address: [address] [place] [address] Result Comment: The [place] Diabetes Association (ADA) provides guidance for cutoff values for fasting glucose and random glucose. The ADA defines fasting as no caloric intake for at least 8 hours. Fasting plasma glucose results between 100 to 125 mg/dL indicate increased risk for diabetes (prediabetes). Fasting plasma glucose results greater than or equal to 126 mg/dL meet the criteria for diagnosis of diabetes. In the absence of unequivocal hyperglycemia, results should be confirmed by repeat testing. In a patient with classic symptoms of hyperglycemia or hyperglycemic crisis, random plasma glucose results greater than or equal to 200 mg/dL meet the criteria for diagnosis of diabetes. Reference: Standards of Medical Care in Diabetes 2016, [place] [employer] Association. Diabetes Care. 2016.39(Suppl 1). Performed By: #### 2 4323-8 ####[facility] LABCLIA [id number] [place] [address] Potassium [Moles/Vol] 4.1 mmol/L Normal 3.7-5.1 [facility] Comment on above: Order Comment: Speci men Type: BLOOD SPECIMENOrdering Facility: [facility] Address: [address] [place] [address] Performed By: #### 2 4323-8 ####[facility] LABCLIA [id number] [place] [address] Protein [Mass/Vol] 8.8 g/dL High 6.3-8.0 [facility] Comment on above: Order Comment: Speci men Type: BLOOD SPECIMENOrdering Facility: [facility] Address: [address] [place] [address] Performed By: #### 2 4323-8 ####[facility] LABCLIA [id number] [place] [address] Sodium [Moles/Vol] 141 mmol/L Normal 136-144 [facility] Comment on above: Order Comment: Speci men Type: BLOOD SPECIMENOrdering Facility: [facility] Address: [address] [place] [address] Performed By: #### 2 4323-8 ####[facility] LABCLIA [id number] [place] [address] Urea nitrogen [Mass/Vol] 14 mg/dL Normal 7-21 [facility] Comment on above: Order Comment: Speci men Type: BLOOD SPECIMENOrdering Facility: [facility] Address: [address] [place] [address] Performed By: #### 2 4323-8 ####[facility] LABCLIA [id number] [place] [address] HbA1c (Bld)on 10-06-2023 Average glucose Estimated from glycated hemoglobin (Bld) [Mass/Vol] 108 mg/dL Normal [facility] Comment on above: Order Comment: Emilyi men Type: BLOOD SPECIMENOrdering Facility: Dr Teresa Hodge Office Address: [address] [place] [address] Result Comment: eAG: (Estimated average glucose) is a calculated value from HgbA1c and is dealer compliance representative of the average blood glucose level in the last 2-3 month period. Performed By: #### 5 5454-3 ####[facility] LABIA [id number] [place] [address] [place] [facility] HbA1c (Bld) [Mass fraction] 5.4 % Normal 4.3-5.6 [facility] Comment on above: Order Comment: Speci jesús Type: BLOOD SPECIMENOrdering Facility: Dr Teresa Hodge Office Address: [address] [place] [address] Result Comment: [place] Diabetes Association guidelines indicate that patients with HgbA1c in the range 5.7-6.4% are at increased risk for development of diabetes, and intervention by lifestyle modification may be beneficial. HgbA1c greater or equal to 6.5% is considered diagnostic of diabetes. Performed By: #### 5 5454-3 ####[facility] [id number] [place] [id number] [place] TSH SerPl-aCncon 10-06-2023 TSH Qn 0.786 m[IU]/L Normal 0.270-4.200 [facility] Comment on above: Order Comment: Speci men Type: BLOOD SPECIMENOrdering Facility: Dr Teresa Hodge Office Address: [address] [place] [address] Performed By: #### 3 016-3 ####[facility] LABIA [id number] [place] [id number] [place] Physician Referralon 09-15- 023 Physician Referral [id number] 1032 [id number]#1.00TIF F Normal [facility] Consultation Noteon 07-15-20 Consultation Note [id number] [id number]#1.00CD:1 27 Normal [facility] CBC W Auto Differential pane l (Bld)on 07-14-2023 Basophils (Bld) [#/Vol] 0.03 10*3/uL Normal <0.11 [facility] Comment on above: Order Comment: Speci men Type: BLOOD SPECIMENOrdering Facility: [facility] Address: [address] [place] [address] Performed By: #### 5 7021-8 ####[facility] LABCLIA [id number] [place] [address] Basophils/100 WBC (Bld) 0.4 % Normal [facility] Comment on above: Order Comment: Speci men Type: BLOOD SPECIMENOrdering Facility: [facility] Address: [address] [place] [address] Performed By: #### 5 7021-8 ####[facility] LABIA [id number] [place] [address] Differential cell count method Nom (Bld) Auto Normal [facility] Comment on above: Order Comment: Speci men Type: BLOOD SPECIMENOrdering Facility: [facility] Address: [address] [place] [address] Performed By: #### 5 7021-8 ####[facility] LABCLIA [id number] [place] [address] Eosinophils (Bld) [#/Vol] 0.22 10*3/uL Normal <0.46 [facility] Comment on above: Order Comment: Speci men Type: BLOOD SPECIMENOrdering Facility: [facility] Address: [address] [place] [address] Performed By: #### 5 7021-8 ####[facility] LABCLIA [id number] [place] [address] Eosinophils/100 WBC (Bld) 3.1 % Normal [facility] Comment on above: Order Comment: Speci men Type: BLOOD SPECIMENOrdering Facility: [facility] Address: [address] [place] [address] Performed By: #### 5 7021-8 ####[facility] LABCLIA [id number] [place] [address] Erythrocyte distribution width (RBC) [Ratio] 15.0 % Normal 11.5-15.0 [facility] Comment on above: Order Comment: Speci men Type: BLOOD SPECIMENOrdering Facility: [facility] Address: [address] [place] [address] Performed By: #### 5 7021-8 ####[facility] LABCLIA [id number] [place] [address] Hematocrit (Bld) [Volume fraction] 40.5 % Normal 36.0-46.0 [facility] Comment on above: Order Comment: Speci men Type: BLOOD SPECIMENOrdering Facility: [facility] Address: [address] [place] [address] Performed By: #### 5 7021-8 ####[facility] LABCLIA [id number] [place] [address] Hemoglobin (Bld) [Mass/Vol] 12.7 g/dL Normal 11.5-15.5 [facility] Comment on above: Order Comment: Speci men Type: BLOOD SPECIMENOrdering Facility: [facility] Address: [address] [place] [address] Performed By: #### 5 7021-8 ####[facility] LABCLIA [id number] [place] [address] Immature granulocytes (Bld) [#/Vol] 0.09 10*3/uL Normal <0.10 [facility] Comment on above: Order Comment: Speci men Type: BLOOD SPECIMENOrdering Facility: [facility] Address: [address] [place] [address] Performed By: #### 5 7021-8 ####[facility] LABCLIA [id number] [place] [address] Immature granulocytes/100 WBC (Bld) 1.3 % Normal [facility] Comment on above: Order Comment: Speci men Type: BLOOD SPECIMENOrdering Facility: [facility] Address: [address] [place] [address] Performed By: #### 5 7021-8 ####[facility] LABCLIA [id number] [place] [address] Lymphocytes (Bld) [#/Vol] 1.25 10*3/uL Normal 1.00-4.00 [facility] Comment on above: Order Comment: Speci men Type: BLOOD SPECIMENOrdering Facility: [facility] Address: [address] [place] [address] Performed By: #### 5 7021-8 ####[facility] LABCLIA [id number] [place] [address] Lymphocytes/100 WBC (Bld) 17.8 % Normal [facility] Comment on above: Order Comment: Speci men Type: BLOOD SPECIMENOrdering Facility: [facility] [facility] Address: [address] [place] [address] Performed By: #### 5 7021-8 ####[facility] LABCLIA [id number] [place] [address] MCH (RBC) [Entitic mass] 28.7 pg Normal 26.0-34.0 [facility] Comment on above: Order Comment: Speci men Type: BLOOD SPECIMENOrdering Facility: [facility] Address: [address] [place] [address] Performed By: #### 5 7021-8 ####[facility] LABCLIA [id number] [place] [address] MCHC (RBC) [Mass/Vol] 31.4 g/dL Normal 30.5-36.0 [facility] Comment on above: Order Comment: Speci men Type: BLOOD SPECIMENOrdering Facility: [facility] Address: [address] [place] [address] Performed By: #### 5 7021-8 ####[facility] LABCLIA [id number] [place] [address] MCV (RBC) [Entitic vol] 91.6 fL Normal 80.0-100.0 [facility] Comment on above: Order Comment: Speci men Type: BLOOD SPECIMENOrdering Facility: [facility] Address: [address] [place] [address] Performed By: #### 5 7021-8 ####[facility] LABCLIA [id number] [place] [address] Monocytes (Bld) [#/Vol] 0.67 10*3/uL Normal <0.87 [facility] Comment on above: Order Comment: Speci men Type: BLOOD SPECIMENOrdering Facility: [facility] Address: [address] [address] Performed By: #### 5 7021-8 ####[facility] LABCLIA [id number] [place] [address] Monocytes/100 WBC (Bld) 9.5 % Normal [facility] Comment on above: Order Comment: Speci men Type: BLOOD SPECIMENOrdering Facility: [facility] Address: [address] [place] [address] Performed By: #### 5 7021-8 ####[facility] LABCLIA [id number] [place] [address] Neutrophils (Bld) [#/Vol] 4.76 10*3/uL Normal 1.45-7.50 [facility] Comment on above: Order Comment: Speci men Type: BLOOD SPECIMENOrdering Facility: [facility] Address: [address] [place] [address] Performed By: #### 5 7021-8 ####[facility] LABCLIA [id number] [place] [address] Neutrophils/100 WBC (Bld) 67.9 % Normal [facility] Comment on above: Order Comment: Speci men Type: BLOOD SPECIMENOrdering Facility: [facility] Address: [address] [place] [address] Performed By: #### 5 7021-8 ####[facility] LABCLIA [id number] [place] [address] Nucleated RBC (Bld) [#/Vol] 10*3/uL Normal <0.01 [facility] Comment on above: Order Comment: Speci men Type: BLOOD SPECIMENOrdering Facility: [facility] Address: [address] [place] [address] Performed By: #### 5 7021-8 ####[facility] LABCLIA [id number] [place] [address] Nucleated RBC/100 WBC (Bld) [Ratio] 0.0 /100 WBC Normal [facility] Comment on above: Order Comment: Speci men Type: BLOOD SPECIMENOrdering Facility: [facility] Address: [address] [place] [address] Performed By: #### 5 7021-8 ####[facility] LABCLIA [id number] [place] [address] Platelet mean volume (Bld) [Entitic vol] 9.9 fL Normal 9.0-12.7 [facility] Comment on above: Order Comment: Speci men Type: BLOOD SPECIMENOrdering Facility: [facility] Address: [address] [place] [address] Performed By: #### 5 7021-8 ####[facility] LABCLIA [id number] [place] [address] Platelets (Bld) [#/Vol] 232 10*3/uL Normal 150-400 [facility] Comment on above: Order Comment: Speci men Type: BLOOD SPECIMENOrdering Facility: [facility] Address: [address] [place] [address] Performed By: #### 5 7021-8 ####[facility] [id number] [place] [address] RBC (Bld) [#/Vol] 4.42 10*6/uL Normal 3.90-5.20 [facility] Comment on above: Order Comment: Speci men Type: BLOOD SPECIMENOrdering Facility: [facility] Address: [address] [place] [address] Performed By: #### 5 7021-8 ####[facility] [id number] [place] [address] WBC (Bld) [#/Vol] 7.02 10*3/uL Normal 3.70-11.00 [facility] Comment on above: Order Comment: Speci men Type: BLOOD SPECIMENOrdering Facility: [facility] Address: [address] [place] [address] Performed By: #### 5 7021-8 ####[facility] [id number] [place] [address] CNOVSPon 07-14-2023 CNOVS Visit (SP) Office (HEMASA) -------- ANGELIQUE CHERY ([id number]) 1960 F Date Time Provider Department 07/14/23 1:45 PM BLAYNE PRETTY During your visit today, we recorded the following information about you: Temperature Pulse Respiration Blood pressure 97.7 degrees 78/minute 16/minute 132/78 Weight 80.5 kg Blayne Pretty MD 07/15/2023 7:52 AM Signed PATIENT NAME: Angelique Chery DATE: 07/14/2023 PRIMARY CARE PHYSICIAN: Pedro Whalen, OTHER PHYSICIANS: Dr. Ciaran Rees, Dr. Earnest Davis, Dr. Toro Chan Portions of this encounter note have been copied from my note from 06/15/2023 and has been updated where appropriate, and reflect my current medical decision making from today. CC: This is a 63 year old female with a history of stage I breast cancer and recently discovered elevated tumor markers, seen for scheduled follow-up. INTERIM HISTORY: Labs obtained at the patient's last visit here revealed significantly abnormal LFTs. The patient was recently started on Lipitor which was discontinued, and subsequent LFTs improved. She underwent a PET scan to evaluate for metastases. The PET scan revealed subtle uptake in the right breast and axillary area, felt to be postop/postradiation changes. No evidence of metastases. A diagnostic mammogram and right breast ultrasound revealed an apparent seroma plus postop changes, but no evidence of malignancy. On follow-up today the patient feels well. She has no significant discomfort in her right breast. No other systemic symptoms. She remains on adjuvant hormonal therapy with Arimidex which she is tolerating. MEDICATIONS: Current Outpatient Medications Medication Sig atorvastatin (LIPITOR) 20 mg tablet Take 1 tablet by mouth every afternoon. anastrozole (ARIMIDEX) 1 mg tablet Take 1 tablet by mouth once daily. losartan (COZAAR) 25 mg tablet TAKE 1 TABLET BY MOUTH TWICE A DAY FOR 30 DAYS amLODIPine (NORVASC) 5 mg tablet TAKE 1 TABLET BY MOUTH EVERY DAY FOR 30 DAYS cholecalciferol, vitamin D3, (VITAMIN D3 ORAL) Take by mouth. No current facility-administered medications for this visit. ALLERGIES: ALLERGIES Allergen Reactions Doxycycline Unknown, Hives monocycline allery same reaction PAST MEDICAL HISTORY: PAST MEDICAL HISTORY Diagnosis Date Breast lump Right PAST SURGICAL HISTORY: PAST SURGICAL HISTORY Procedure Laterality Date LASIK PAST SURGICAL HISTORY OF Biopsy Parathyroid gland REMOVAL GALLBLADDER REMV CATARACT EXTRACAP,INSERT LENS REPAIR RETINAL DETACHMENT SCLERAL BUCKLING VAGINAL HYSTERECTOMY FAMILY HISTORY: FAMILY HISTORY Problem Relation Age of Onset Dementia Mother Colon Cancer Mother Breast Cancer Father other (Cardiac arrest) Father Leukemia Father SOCIAL HISTORY: Social History Tobacco Use Smoking status: Former Types: Cigarettes Quit date: 2000 Years since quittin.7 Passive exposure: Past Smokeless tobacco: Never Vaping Use Vaping Use: Never used Substance Use Topics Alcohol use: Not Currently Drug use: Never COMPLETE REVIEW OF SYSTEMS: CONSTITUTION: Negative for pain, fatigue, weight loss, or appetite loss. EENT: Negative for mouth soreness, antibiotics use, epistaxis, visual problems, neck or facial swelling, fever/chills, bleeding gums, or hearing loss. CV: Negative for edema, calf swelling, palpitations, or chest pain. RESPIRATORY: Negative for cough, SOB, hemoptysis, or wheezing. GI: Negative for nausea/vomiting, heartburn, vomiting blood, dysphasia, diarrhea, blood in stool, constipation, early satiety, PICA, vegetarian, poor nutrition, abdominal fullness, or abdominal pain. NEUROLOGICAL: Negative for numbness/tingling, dizziness, gait disturbance, headache, speech disturbance, tremor, hemiparesis/sensory loss, or change in mental status. MUSCULOSKELETAL: right arm/axillary tenderness with certain ROM SKIN: Negative for hair loss, bruising, nail changes, rash, itching, pallor, or jaundice. ENDO/URO: Negative for hot flashes, cold or heat intolerance, urinary frequency, urinary hesitancy, menorrhagia, or hematuria. PSYCH: Negative for anxiety, depression, or other. PHYSICAL EXAM: BP 132/78 Pulse 78 Temp 36.5 ?C (97.7 ?F) (Temporal) Resp 16 Wt 80.5 kg (177 lb 6.4 oz) SpO2 97% BMI 34.11 kg/m? General: Alert and oriented, no distress, pleasant and cooperative. Heart: Regular, normal S1 and S2, no murmurs, rubs, or gallops Lungs: Clear to auscultation bilaterally Abdomen: Benign Extremities: Feet/ankles without edema, posterior tibial pulses full and symmetrical, right arm with swelling BREAST: right breast upper outer quadrant fullness consistent with fibrous tissue from previous surgery/radiation. No new masses. No adenopathy. PATHOLOGY: 10/23/2022 Right breast lumpectomy and sentinel node procedure ([facility]) Invasive ductal carcinom (more content not included)... Normal [facility] Cancer Ag27-29 SerPl-aCncon 07-14-2023 Cancer Ag 27-29 Qn 48.3 [arb'U]/mL High <38.6 C [facility] Comment on above: Order Comment: Speci men Type: BLOOD SPECIMENOrdering Facility: [facility] Address: [address] [address] Result Comment: The CA27.29 test was performed using the Siemens AdExtentaur XP chemiluminometric immunoassay method. Results obtained with different assay methods or kits cannot be used interchangeably. Performed By: #### 1 7842-6 ####[facility] LABCLIA [id number] [place] [address] [facility] Comprehensive metabolic 2000 panelon 07-14-2023 Albumin [Mass/Vol] 4.2 g/dL Normal 3.9-4.9 [facility] Comment on above: Order Comment: Speci men Type: BLOOD SPECIMENOrdering Facility: [facility] Address: [address] [place] [address] Performed By: #### 2 4323-8 ####[facility] LABCLIA [id number] [place] [address] ALP [Catalytic activity/Vol] 241 U/L High 34-123 [facility] Comment on above: Order Comment: Speci men Type: BLOOD SPECIMENOrdering Facility: [facility] Address: [address] [place] [address] Performed By: #### 2 4323-8 ####[facility] LABCLIA [id number] [place] [address] ALT [Catalytic activity/Vol] 26 U/L Normal 7-38 [facility] Comment on above: Order Comment: Speci men Type: BLOOD SPECIMENOrdering Facility: [facility] Address: [address] [address] Performed By: #### 2 4323-8 ####[facility] LABCLIA [id number] [place] [address] Anion gap [Moles/Vol] 8 mmol/L Low 9-18 [facility] Comment on above: Order Comment: Speci men Type: BLOOD SPECIMENOrdering Facility: [facility] Address: [address] [address] Performed By: #### 2 4323-8 ####[facility] LABCLIA [id number] [place] [address] AST [Catalytic activity/Vol] 44 U/L High 13-35 [facility] Comment on above: Order Comment: Speci men Type: BLOOD SPECIMENOrdering Facility: [facility] Address: [address] [place] [address] Performed By: #### 2 4323-8 ####[facility] LABCLIA [id number] [place] [address] Bilirubin [Mass/Vol] 0.8 mg/dL Normal 0.2-1.3 [facility] Comment on above: Order Comment: Speci men Type: BLOOD SPECIMENOrdering Facility: [facility] Address: [address] [place] [address] Performed By: #### 2 4323-8 ####[facility] LABCLIA [id number] [place] [address] Calcium [Mass/Vol] 9.8 mg/dL Normal 8.5-10.2 [facility] Comment on above: Order Comment: Speci men Type: BLOOD SPECIMENOrdering Facility: [facility] Address: [address] [place] [address] Performed By: #### 2 4323-8 ####[facility] LABCLIA [id number] [place] [address] Chloride [Moles/Vol] 103 mmol/L Normal 97-105 [facility] Comment on above: Order Comment: Speci men Type: BLOOD SPECIMENOrdering Facility: [facility] Address: [address] [place] [address] Performed By: #### 2 4323-8 ####[facility] LABCLIA [id number] [place] [address] CO2 [Moles/Vol] 29 mmol/L Normal 22-30 [facility] Comment on above: Order Comment: Speci men Type: BLOOD SPECIMENOrdering Facility: [facility] Address: [address] [address] Performed By: #### 2 4323-8 ####[facility] LABCLIA [id number] [place] [address] Creatinine [Mass/Vol] 0.85 mg/dL Normal 0.58-0.96 [facility] Comment on above: Order Comment: Speci men Type: BLOOD SPECIMENOrdering Facility: [facility] Address: [address] [address] Performed By: #### 2 4323-8 ####[facility] LABCLIA [id number] [place] [address] Creatinine and Glomerular filtration rate.predicted panel (S/P/Bld) 77 mL/min/1.73m??? Normal >=60 [facility] Comment on above: Order Comment: Speci men Type: BLOOD SPECIMENOrdering Facility: [facility] Address: [address] [place] [address] Result Comment: Salima mated Glomerular Filtration Rate (eGFR) is calculated using the 2020 CKD-EPI creatinine equation. This equation utilizes serum creatinine, sex, and age as parameters. The creatinine assay has traceable calibration to isotope dilution-mass spectrometry. Refer to KDIGO guidelines for clinical interpretation. In patients with unstable renal function, e.g. those with acute kidney injury, the eGFR may not accurately reflect actual GFR. Performed By: #### 2 4323-8 ####[facility] LABCLIA [id number] [place] [address] Glucose [Mass/Vol] 98 mg/dL Normal 74-99 [facility] Comment on above: Order Comment: Speci men Type: BLOOD SPECIMENOrdering Facility: [facility] Address: [address] [address] Result Comment: The [place] Diabetes Association (ADA) provides guidance for cutoff values for fasting glucose and random glucose. The ADA defines fasting as no caloric intake for at least 8 hours. Fasting plasma glucose results between 100 to 125 mg/dL indicate increased risk for diabetes (prediabetes). Fasting plasma glucose results greater than or equal to 126 mg/dL meet the criteria for diagnosis of diabetes. In the absence of unequivocal hyperglycemia, results should be confirmed by repeat testing. In a patient with classic symptoms of hyperglycemia or hyperglycemic crisis, random plasma glucose results greater than or equal to 200 mg/dL meet the criteria for diagnosis of diabetes. Reference: Standards of Medical Care in Diabetes 2016, [place] [employer]. Diabetes Care. 2016.39(Suppl 1). Performed By: #### 2 4323-8 ####[facility] LABCLIA [id number] [place] [address] Potassium [Moles/Vol] 4.3 mmol/L Normal 3.7-5.1 [facility] Comment on above: Order Comment: Speci men Type: BLOOD SPECIMENOrdering Facility: [facility] Address: [address] [place] [address] Performed By: #### 2 4323-8 ####[facility] LABCLIA [id number] [place] [address] Protein [Mass/Vol] 8.9 g/dL High 6.3-8.0 [facility] Comment on above: Order Comment: Speci men Type: BLOOD SPECIMENOrdering Facility: [facility] Address: [address] [place] [address] Performed By: #### 2 4323-8 ####[facility] LABCLIA [id number] [place] [address] Sodium [Moles/Vol] 140 mmol/L Normal 136-144 [facility] Comment on above: Order Comment: Speci men Type: BLOOD SPECIMENOrdering Facility: [facility] Address: [address] [address] Performed By: #### 2 4323-8 ####[facility] LABCLIA [id number] [place] [address] Urea nitrogen [Mass/Vol] 12 mg/dL Normal 7-21 [facility] Comment on above: Order Comment: Speci men Type: BLOOD SPECIMENOrdering Facility: [facility] Address: [place] [address] Performed By: #### 2 4323-8 ####[facility] LABCLIA [id number] [place] [address] Physician Orderon 07-13-2023 Physician Order [id number]:1 27 Normal [facility] 07-10-2023 CNPN Telephone (NCCAP) -------- ANGELIQUE CHERY ([id number]) 1960 F Date Time Provider Department 07/10/23 TORO CHAN [facility] During your visit today, we recorded the following information about you: Latisha Hutchinson 07/10/2023 7:14 AM Signed [facility] called asking if we could put in an order for a Complete breast ultrasound instead of the Limited, thanks Sayra Cortez LPN 07/10/2023 11:56 AM Signed The only order option is limited. We just typically write on the order-complete. I will adjust and refax the order. Sayra Cortez LPN Allergies As of Date: 07/10/2023 Noted Allergy Reaction DOXYCYCLINE 06/13/2013 16 - Unknown 4 - Hives Comments: monocycline allery same reaction Date Reviewed: 07/09/2023 Reviewed by: Sayra Cortez LPN - Fully Assessed Reason for Visit: Orders [681] Prescriptions as of 07/13/2023 - atorvastatin (LIPITOR) 20 mg tablet Take 1 tablet by mouth every afternoon. - anastrozole (ARIMIDEX) 1 mg tablet Take 1 tablet by mouth once daily. - losartan (COZAAR) 25 mg tablet TAKE 1 TABLET BY MOUTH TWICE A DAY FOR 30 DAYS - amLODIPine (NORVASC) 5 mg tablet TAKE 1 TABLET BY MOUTH EVERY DAY FOR 30 DAYS - cholecalciferol, vitamin D3, (VITAMIN D3 ORAL) Take by mouth. Problem List As Of Date: 07/10/2023 (None) Encounter Status:Closed by LATISHA HUTCHINSON on 07/13/23 [facility] CNOVon 07-09-2023 CNOV Office Visit (RADTSA ) -------- ANGELIQUE CHERY ([id number]) 1960 F Date Time Provider Department 07/09/23 2:30 PM TORO CHAN During your visit today, we recorded the following information about you: Temperature Pulse Respiration Blood pressure 97.5 degrees 85/minute 16/minute 136/82 Weight 80.6 kg Toro Chan MD 07/21/2023 11:44 PM Signed Radiation Oncology - Follow Up Note PATIENT NAME: Angelique Chery PATIENT DIAGNOSIS/PATIENT IDENTIFICATION: Ms. 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 Rees after starting preoperative course of endocrine therapy with Arimidex under the care of Dr. Pretty. Pathology revealed 1.8 cm of intermediate grade IDC with negative invasive margins (focal positive margin for DCIS) with 0/2 sentinel lymph nodes positive for metastatic disease and no plans for further resection. Oncotype score returned low at 12 and chemotherapy was not pursued and she continued on Arimidex. She completed a course of postoperative radiation therapy to the right breast on 01/02/2023 (5005 cGy delivered in 20 fractions). INTERVAL HISTORY/ROS: Ms. Chery returns to clinic today for routine follow-up approximately six months after the completion of her radiation treatments. In the interim, had initial posttreatment imaging with bilateral mammogram and right breast ultrasound on 06/26/2023 which noted was felt to be a postoperative seroma in the right breast with recommendation for short interval follow-up in 6 months (BI-RADS 3). He is also met with Dr. Pretty and her tumor markers were noted to be slowly rising and a PET/CT was ordered and she is meeting with him next week to review the results.. She also had a clinical breast exam last month with Dr. Pretty on 06/15/2023 which was without definite concern for disease. Today she denies any pain/discomfort or skin irritation/breakdown in the right breast but does note some tightness with range of motion. She continues to use a moisturizer and denies any new lumps or bumps or any signs of lymphedema with good range of motion of the right upper extremity. She endorses good energy as she continues to work with good appetite and hydration and stable weight. She has been tolerating her endocrine therapy with Arimidex well without any hot flashes or joint pains. She otherwise denies any recent fevers, chills, headaches, difficulty with speech/swallowing, shortness of breath, chest pain/palpitations, abdominal pain, nausea, vomiting, change in bowel/urinary habits, difficulty with gait/balance, recent falls, etc. The remainder of the review of systems was performed and was otherwise noncontributory. ALLERGIES ALLERGIES Allergen Reactions Doxycycline Unknown, Hives monocycline allery same reaction MEDICATIONS: Current Outpatient Medications: anastrozole (ARIMIDEX) 1 mg tablet losartan (COZAAR) 25 mg tablet amLODIPine (NORVASC) 5 mg tablet cholecalciferol, vitamin D3, (VITAMIN D3 ORAL) atorvastatin (LIPITOR) 20 mg tablet PHYSICAL EXAM: GENERAL: middle-aged woman sitting in chair in no acute distress. VITALS: BP 136/82 Pulse 85 Temp 97.5 Resp 16 Wt 177 lb 12.8 oz (80.7kg) SpO2 99% KPS: 90 HEENT: NC/AT, anicteric sclera HEART: S1S2 LUNGS: non-labored breathing ABDOMEN: soft MUSCULOSKELETAL: no peripheral edema, moves all extremities. NEURO: no focal deficit; AANDO X3. RADIOLOGIC DATA: Bilateral Mammogram and Right Breast Ultrasound (06/26/2023) ASSESSMENT AND PLAN: Ms. 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 Rees after starting preoperative course of endocrine therapy with Arimidex under the care of Dr. Pretty. Pathology revealed 1.8 cm of intermediate grade IDC with negative invasive margins (focal positive margin for DCIS) with 0/2 sentinel lymph nodes positive for metastatic disease and no plans for further resection. Oncotype score returned low at 12 and chemotherapy was not pursued and she continued on Arimidex. She completed a course of postoperative radiation therapy to the right breast on 01/02/2023 (5005 cGy delivered in 20 fractions). Ms. Chery is doing well clinically approximately 6 months after the completion of her radiation treatments to the right breast with no significant residual sequela at this time. She had her initial posttreatment imaging with bilateral mammogram and right breast ultrasound on 06/26/2023 showing what appears to be a postoperative seroma with recommendation for short interval imaging in 6 months ( (more content not included)... Normal [facility] Physician Orderon 07-09-2023 Physician Order [id number]: 127 Normal [facility] NM PET/CT SKULL-THIGH INITon 07-06-2023 NM PET/CT SKULL-THIGH INIT * * *Final Report* * * DATE OF EXAM: Jul 06 2023 2:44PM NRN 0060 - NM PET/CT SKULL-THIGH INIT / PROCEDURE REASON: multiple diagnoses * * * * Physician Interpretation * * * * RESULT: FDG PET/CT SCAN: CLINICAL HISTORY: Breast cancer. INDICATION: Initial treatment strategy. TECHNIQUE: 10.2 mCi 18-FDG IV, followed about 1 hour later by PET imaging from base of the skull to proximal femur. Non contrast CT was performed for attenuation correction and anatomic localization purposes. CT Dose-Length Product (DLP): 226 mGy*cm. CT Dose Reduction Employed: Yes BLOOD GLUCOSE: 93 mg/dL RESULT: NECK: Likely physiological activity in the oral cavity, tonsillar regions, salivary glands. No suspicious hypermetabolic foci. There is no hypermetabolic cervical lymphadenopathy. CHEST: There are aortic and coronary calcifications. There is no hypermetabolic hilar or mediastinal lymphadenopathy. Surgical changes in the right breast right axillary region with low-level activity. Right breast low-attenuation density with adjacent soft tissue stranding measures 2.6 x 3.2 cm with low FDG activity (Max SUV 2). Mild diffuse uptake associated with overlying cutaneous left breast region thickening (Max SUV 3.5). There is no hypermetabolic axillary lymphadenopathy. Activity at the left shoulder likely due to arthritic conditions. There are no hypermetabolic foci in the lungs. ABDOMEN AND PELVIS: The liver is slightly heterogeneous activity but no focal lesions are identified. There are no hypermetabolic foci in the liver, spleen, adrenals. Bilateral adrenal nodular thickening without significant FDG activity. There is no hypermetabolic abdominal or pelvic lymphadenopathy. Physiologic activity is noted in the liver, renal collecting system, bladder and bowel. SKELETON: There are no hypermetabolic osseous lesions. Planer Feeder (topogram) images:No additional findings. IMPRESSION: 1. Neck: No suspicious hypermetabolic foci 2. Chest: Surgical changes in the right breast right axillary region. Right breast density is associated with low-level uptake. Mild diffuse uptake associated with overlying cutaneous thickening. Possibly related to posttreatment changes. Otherwise no suspicious hypermetabolic foci. No hypermetabolic lymphadenopathy. 3. Abdomen and pelvis: No evidence of FDG avid neoplastic process. Bilateral adrenal nodules without significant FDG activity. 4. Skeleton: No hypermetabolic osseous lesions Transcribe Date/Time: Jul 07 2023 11:23A Dictated by: FRANKY OCHOA MD This examination was interpreted and the report reviewed and electronically signed by: FRANKY OCHOA MD on Jul 07 2023 11:41AM EST Thank you for allowing us to participate in the care of your patient. Should there be any questions regarding this interpretation, please call [phone]. If you are unable to reach us at the number above, please feel free to contact [facility] at [phone]. [id number] Normal [facility] Consent for Treatmenton -0 Consent for Treatment [id number]#[id number]: 127 Normal [facility] Consent for Treatment [id number]: 127 Normal [facility] MA Mamm Diag w/CAD if perf a nd 3D Bilon 06-26-2023 MA Mamm Diag w/CAD if perf and 3D Shayan Exam Date/Time: 06/26/2023 08:58 EDT Reason for Exam: C50.411 Malignant neoplasm of upper-outer quadrant of right female breast Report IMPRESSION: BIRADS 3 PROBABLY BENIGN, SHORT INTERVAL FOLLOW-UP INFECTION SHOULD BE EXCLUDED CLINICALLY. SIX-MONTH FOLLOW-UP ULTRASOUND IS SUGGESTED. Follow-up: 6 MONTH RECALL Density: Scattered tissue. Vascular calcifications: No. EXAM: MA Mamm Diag w/CAD if perf and 3D Shayan DATE: 06/26/2023 8:30 AM CLINICAL HISTORY: C50.411 Malignant neoplasm of upper-outer quadrant of right female breast. Right lumpectomy and axillary dissection 10/23/2022. COMPARISONS: 08/25/2022, 08/10/2019, and 08/11/2017. TECHNIQUE: Routine full-field digital mammograms and 3D breast tomosynthesis of both breasts were obtained. FINDINGS: An approximately 3 to 4 cm obscured mass with surrounding surgical clips is noted within the central to superior right breast anteriorly. No significant changes are identified from the prior studies, given differences in technique and positioning. On ultrasound, at the 10:00 position is an approximately 3.5 x 3.3 x 2 cm fluid collection with irregular margin anteriorly and a minimal septation posteriorly, most consistent with a postoperative seroma. No significant solid component, or other findings of concern identified. No suspicious lymphadenopathy within the axilla. Dense Breast: No. CAD analysis was performed and used in the interpretation. Board Certified Radiologists. Accredited by the ACR and FDA. MAMMOGRAPHY IS VERY IMPORTANT TO YOUR HEALTH. Report THE CURRENT [employer] GUIDELINES RECOMMENDS ANNUAL MAMMOGRAPHY BEGINNING AT AGE 40. THIS FACILITY UTILIZES A REMINDER SYSTEM TO ENSURE ALL PATIENTS RECEIVE REMINDER NOTIFICATIONS AT THE APPROPRIATE TIME BASED ON THE RECOMMENDATIONS OF THIS EXAM. Ordering Provider: Toro Chan FINAL REPORT Dictated: 06/26/2023 12:07 pm Russel Mejia MD Signed (Electronic Signature): 06/26/2023 12:07 pm Signed by: Russel Mejia MD Transcribed by: YARELY Technologist: AMY Assessment: BI-RADS Category 3-Probably benign - short interval follow-up Recommendation: Follow-up at short interval [facility] US Breast Unilateral Rt Comp leteon 06-26-2023 US Breast Unilateral Rt Complete Exam Date/Time: 06/26/2023 09:32 EDT Reason for Exam: C50.411 Report PLEASE SEE MA Mamm Diag w/CAD if perf and 3D Shayan REPORT DATED: 06/26/2023. Ordering Provider: Blayne Pretty FINAL REPORT Dictated: 06/26/2023 12:08 pm Russel Mejia MD Signed (Electronic Signature): 06/26/2023 12:08 pm Signed by: Russel Mejia MD Transcribed by: YARELY Technologist: GURMEET [facility] [place] 06-25-2023 CNPN Telephone (HEMASA) -------- ANGELIQUE CHERY ([id number]) 1960 F Date Time Provider Department 06/25/23 INDIO TRIVEDI HEMASA During your visit today, we recorded the following information about you: Indio Trivedi RN 06/25/2023 8:[address] [facility] US called to verify order as Limited, and to only include the upper outer quadrant and axilla. Discussed with DOMINIQUE and our [facility] Breast US order, only allows for LTD (NO complete order available) Verbal order taken for complete breast US to include axilla. Indio Trivedi RN Allergies As of Date: 06/25/2023 Noted Allergy Reaction DOXYCYCLINE 06/13/2013 16 - Unknown 4 - Hives Comments: monocycline allery same reaction Date Reviewed: 06/15/2023 Reviewed by: Lavern Tolbert APRN.BUSINESS PROJECT ANALYST - Fully Assessed Reason for Visit: Orders [681] Prescriptions as of 06/25/2023 - atorvastatin (LIPITOR) 20 mg tablet Take 1 tablet by mouth every afternoon. - anastrozole (ARIMIDEX) 1 mg tablet Take 1 tablet by mouth once daily. - losartan (COZAAR) 25 mg tablet TAKE 1 TABLET BY MOUTH TWICE A DAY FOR 30 DAYS - amLODIPine (NORVASC) 5 mg tablet TAKE 1 TABLET BY MOUTH EVERY DAY FOR 30 DAYS - cholecalciferol, vitamin D3, (VITAMIN D3 ORAL) Take by mouth. Problem List As Of Date: 06/25/2023 (None) Encounter Status:Closed by INDIO TRIVEDI on 06/25/23 Normal [facility] Physician Orderon 06-25-2023 Physician Order [id number]#[id number] :127 Normal [facility] CNPChristiana 06-17-2023 [facility] Telephone ([place]) -------- ANGELIQUE CHERY ([id number]) 1960 F Date Time Provider Department 06/17/23 INDIO TRIVEDI HEMASA During your visit today, we recorded the following information about you: Indio Trivedi RN 06/17/2023 12:52 PM Signed ----- Message from Blayne Pretty MD sent at 06/17/2023 10:52 AM EDT ----- Please inform the patient that her LFTs are stable/slightly improved. Her liver ultrasound was essentially negative, therefore these abnormalities may be more chemical induced versus related to any type of cancer. Agree with stopping Lipitor. If her PET scan shows nothing in her liver and her LFTs remain abnormal we would consider referring her to hepatology. Indio Trivedi RN 06/17/2023 12:56 PM Signed Pt informed of DOMINIQUE message. She will remain off Lipitor. She is agreeable to POC and denies any questions, needs or concerns at this time. Indio Trivedi RN Allergies As of Date: 06/17/2023 Noted Allergy Reaction DOXYCYCLINE 06/13/2013 16 - Unknown 4 - Hives Comments: monocycline allery same reaction Date Reviewed: 06/15/2023 Reviewed by: Lavern Tolbert APRN.BUSINESS PROJECT ANALYST - Fully Assessed Reason for Visit: Results [95] Appointment [186] Prescriptions as of 06/17/2023 - atorvastatin (LIPITOR) 20 mg tablet Take 1 tablet by mouth every afternoon. - anastrozole (ARIMIDEX) 1 mg tablet Take 1 tablet by mouth once daily. - losartan (COZAAR) 25 mg tablet TAKE 1 TABLET BY MOUTH TWICE A DAY FOR 30 DAYS - amLODIPine (NORVASC) 5 mg tablet TAKE 1 TABLET BY MOUTH EVERY DAY FOR 30 DAYS - cholecalciferol, vitamin D3, (VITAMIN D3 ORAL) Take by mouth. Problem List As Of Date: 06/17/2023 (None) Encounter Status:Closed by INDIO TRIVEDI on 06/17/23 Normal [facility] Hepatic function 2000 panelo n 06-17-2023 Albumin [Mass/Vol] 3.9 g/dL Normal 3.9-4.9 [facility] Comment on above: Order Comment: Speci men Type: BLOOD SPECIMENOrdering Facility: [facility] Address: [address] [address] Performed By: #### 2 4325-3 ####[facility] LABCLIA [id number] [place] [address] ALP [Catalytic activity/Vol] 518 U/L High 34-123 [facility] Comment on above: Order Comment: Speci men Type: BLOOD SPECIMENOrdering Facility: [facility] Address: [address] [address] Performed By: #### 2 4325-3 ####[facility] LABCLIA [id number] [place] [address] ALT [Catalytic activity/Vol] 174 U/L High 7-38 [facility] Comment on above: Order Comment: Speci men Type: BLOOD SPECIMENOrdering Facility: [facility] Address: [address] [address] Performed By: #### 2 4325-3 ####[facility] LABCLIA [id number] [place] [address] AST [Catalytic activity/Vol] 314 U/L High 13-35 [facility] Comment on above: Order Comment: Speci men Type: BLOOD SPECIMENOrdering Facility: [facility] Address: [address] [address] Performed By: #### 2 4325-3 ####[facility] LABCLIA [id number] [place] [address] Bilirubin [Mass/Vol] 1.4 mg/dL High 0.2-1.3 [facility] Comment on above: Order Comment: Speci men Type: BLOOD SPECIMENOrdering Facility: [facility] Address: [address] [address] Performed By: #### 2 4325-3 ####[facility] LABCLIA [id number] [place] [address] Bilirubin.conjugated [Mass/Vol] 0.7 mg/dL High <0.2 [facility] Comment on above: Order Comment: Speci men Type: BLOOD SPECIMENOrdering Facility: [facility] Address: [address] [address] Performed By: #### 2 5-3 ####[facility] LABCLIA [id number] [place] [address] Protein [Mass/Vol] 9.0 g/dL High 6.3-8.0 [facility] Comment on above: Order Comment: Speci men Type: BLOOD SPECIMENOrdering Facility: [facility] Address: [address] [place] [address] Performed By: #### 2 4325-3 ####[facility] LABCLIA [id number] [place] [address] [place] 06-16-2023 [facility] Telephone (HEM[place]) -------- ANGELIQUE CHERY ([id number]) 1960 F Date Time Provider Department 06/16/23 INDIO TRIVEDI HEMASA During your visit today, we recorded the following information about you: Indio Trivedi RN 06/16/2023 4:53 PM Signed Liver US reviewed by BRM. Pt aware of normal results. Pt states she started Lipitor, ordered by her PCP, following her Mag labs. She did not take today and will stop indefinitely. She will come tomorrow afternoon to recheck her liver studies, as recommended by BRM. BRM: Please sign pended lab Indio Trivedi RN Allergies As of Date: 06/16/2023 Noted Allergy Reaction DOXYCYCLINE 06/13/2013 16 - Unknown 4 - Hives Comments: monocycline allery same reaction Date Reviewed: 06/15/2023 Reviewed by: Lavern Tolbert APRN.BUSINESS PROJECT ANALYST - Fully Assessed Reason for Visit: Results [95] Primary Visit Diagnosis:Abnormal liver function tests [R79.89] Order(s):HEPATIC FUNCTION PNL [SQHFP] Order #: [id number] FUTURE Prescriptions as of 06/16/2023 - atorvastatin (LIPITOR) 20 mg tablet Take 1 tablet by mouth every afternoon. - anastrozole (ARIMIDEX) 1 mg tablet Take 1 tablet by mouth once daily. - losartan (COZAAR) 25 mg tablet TAKE 1 TABLET BY MOUTH TWICE A DAY FOR 30 DAYS - amLODIPine (NORVASC) 5 mg tablet TAKE 1 TABLET BY MOUTH EVERY DAY FOR 30 DAYS - cholecalciferol, vitamin D3, (VITAMIN D3 ORAL) Take by mouth. Problem List As Of Date: 06/16/2023 (None) Encounter Status:Closed by INDIO TRIVEDI on 06/16/23 Normal [facility] Consultation Noteon 06-16-20 Consultation Note [id number]: 127 Normal [facility] CBC W Auto Differential pane l (Bld)on 06-15-2023 Basophils (Bld) [#/Vol] 10*3/uL Normal <0.11 [facility] Comment on above: Order Comment: Speci men Type: BLOOD SPECIMENOrdering Facility: [facility] Address: [address] [place] [address] Performed By: #### 5 7021-8 ####[facility] LABCLIA [id number] [place] [address] Basophils/100 WBC (Bld) 0.3 % Normal [facility] Comment on above: Order Comment: Speci men Type: BLOOD SPECIMENOrdering Facility: [facility] Address: [address] [place] [address] Performed By: #### 5 7021-8 ####[facility] LABCLIA [id number] [place] [address] Differential cell count method Nom (Bld) Auto Normal [facility] Comment on above: Order Comment: Speci men Type: BLOOD SPECIMENOrdering Facility: [facility] Address: [address] [place] [address] Performed By: #### 5 7021-8 ####[facility] LABCLIA [id number] [place] [address] Eosinophils (Bld) [#/Vol] 0.17 10*3/uL Normal <0.46 [facility] Comment on above: Order Comment: Speci men Type: BLOOD SPECIMENOrdering Facility: [facility] Address: [address] [place] [address] Performed By: #### 5 7021-8 ####[facility] LABCLIA [id number] [place] [address] Eosinophils/100 WBC (Bld) 2.8 % Normal [facility] Comment on above: Order Comment: Speci men Type: BLOOD SPECIMENOrdering Facility: [facility] Address: [address] [address] Performed By: #### 5 7021-8 ####[facility] LABCLIA [id number] [place] [address] Erythrocyte distribution width (RBC) [Ratio] 16.4 % High 11.5-15.0 [facility] Comment on above: Order Comment: Speci men Type: BLOOD SPECIMENOrdering Facility: [facility] Address: [address] [place] [address] Performed By: #### 5 7021-8 ####[facility] LABCLIA [id number] [place] [address] Hematocrit (Bld) [Volume fraction] 41.4 % Normal 36.0-46.0 [facility] Comment on above: Order Comment: Speci men Type: BLOOD SPECIMENOrdering Facility: [facility] Address: [address] [place] [address] Performed By: #### 5 7021-8 ####[facility] LABIA [id number] [place] [address] Hemoglobin (Bld) [Mass/Vol] 12.9 g/dL Normal 11.5-15.5 [facility] Comment on above: Order Comment: Speci men Type: BLOOD SPECIMENOrdering Facility: [facility] Address: [address] [place] [address] Performed By: #### 5 7021-8 ####[facility] LABCLIA [id number] [place] [address] Immature granulocytes (Bld) [#/Vol] 0.10 10*3/uL High <0.10 [facility] Comment on above: Order Comment: Speci men Type: BLOOD SPECIMENOrdering Facility: [facility] Address: [address] [place] [address] Performed By: #### 5 7021-8 ####[facility] LABCLIA [id number] [place] [address] Immature granulocytes/100 WBC (Bld) 1.7 % Normal [facility] Comment on above: Order Comment: Speci men Type: BLOOD SPECIMENOrdering Facility: [facility] Address: [address] [place] [address] Performed By: #### 5 7021-8 ####[facility] LABCLIA [id number] [place] [address] Lymphocytes (Bld) [#/Vol] 0.90 10*3/uL Low 1.00-4.00 [facility] Comment on above: Order Comment: Speci men Type: BLOOD SPECIMENOrdering Facility: [facility] Address: [address] [place] [address] Performed By: #### 5 7021-8 ####[facility] LABCLIA [id number] [place] [address] Lymphocytes/100 WBC (Bld) 14.9 % Normal [facility] Comment on above: Order Comment: Speci men Type: BLOOD SPECIMENOrdering Facility: [facility] Address: [address] [place] [address] Performed By: #### 5 7021-8 ####[facility] LABCLIA [id number] [place] [address] MCH (RBC) [Entitic mass] 28.2 pg Normal 26.0-34.0 [facility] Comment on above: Order Comment: Speci men Type: BLOOD SPECIMENOrdering Facility: [facility] Address: [address] [place] [address] Performed By: #### 5 7021-8 ####[facility] LABCLIA [id number] [place] [address] MCHC (RBC) [Mass/Vol] 31.2 g/dL Normal 30.5-36.0 [facility] Comment on above: Order Comment: Speci men Type: BLOOD SPECIMENOrdering Facility: [facility] Address: [address] [place] [address] Performed By: #### 5 7021-8 ####[facility] LABCLIA [id number] [place] [address] MCV (RBC) [Entitic vol] 90.6 fL Normal 80.0-100.0 [facility] Comment on above: Order Comment: Speci men Type: BLOOD SPECIMENOrdering Facility: [facility] Address: [address] [place] [address] Performed By: #### 5 7021-8 ####[facility] LABCLIA [id number] [place] [address] Monocytes (Bld) [#/Vol] 0.49 10*3/uL Normal <0.87 [facility] Comment on above: Order Comment: Speci men Type: BLOOD SPECIMENOrdering Facility: [facility] Address: [address] [address] Performed By: #### 5 7021-8 ####[facility] LABCLIA [id number] [place] [address] Monocytes/100 WBC (Bld) 8.1 % Normal [facility] Comment on above: Order Comment: Speci men Type: BLOOD SPECIMENOrdering Facility: [facility] Address: [address] [place] [address] Performed By: #### 5 7021-8 ####[facility] LABCLIA [id number] [place] [address] Neutrophils (Bld) [#/Vol] 4.35 10*3/uL Normal 1.45-7.50 [facility] Comment on above: Order Comment: Speci men Type: BLOOD SPECIMENOrdering Facility: [facility] Address: [address] [place] [address] Performed By: #### 5 7021-8 ####[facility] LABCLIA [id number] [place] [address] Neutrophils/100 WBC (Bld) 72.2 % Normal [facility] Comment on above: Order Comment: Speci men Type: BLOOD SPECIMENOrdering Facility: [facility] Address: [address] [place] [address] Performed By: #### 5 7021-8 ####[facility] LABCLIA [id number] [place] [address] Nucleated RBC (Bld) [#/Vol] 10*3/uL Normal <0.01 [facility] Comment on above: Order Comment: Speci men Type: BLOOD SPECIMENOrdering Facility: [facility] Address: [address] [place] [address] Performed By: #### 5 7021-8 ####[facility] LABIA [id number] [place] [address] Nucleated RBC/100 WBC (Bld) [Ratio] 0.0 /100 WBC Normal [facility] Comment on above: Order Comment: Speci men Type: BLOOD SPECIMENOrdering Facility: [facility] Address: [address] [place] [address] Performed By: #### 5 7021-8 ####[facility] LABCLIA [id number] [place] [address] Platelet mean volume (Bld) [Entitic vol] 10.3 fL Normal 9.0-12.7 [facility] Comment on above: Order Comment: Speci men Type: BLOOD SPECIMENOrdering Facility: [facility] Address: [address] [place] [address] Performed By: #### 5 7021-8 ####[facility] LABIA [id number] [place] [address] Platelets (Bld) [#/Vol] 199 10*3/uL Normal 150-400 [facility] Comment on above: Order Comment: Speci men Type: BLOOD SPECIMENOrdering Facility: [facility] Address: [address] Performed By: #### 5 7021-8 ####[facility] LABIA [id number] [place] [address] RBC (Bld) [#/Vol] 4.57 10*6/uL Normal 3.90-5.20 [facility] Comment on above: Order Comment: Speci men Type: BLOOD SPECIMENOrdering Facility: [facility] Address: [address] [address] Performed By: #### 5 7021-8 ####[facility] LABIA [id number] [place] [address] WBC (Bld) [#/Vol] 6.03 10*3/uL Normal 3.70-11.00 [facility] Comment on above: Order Comment: Speci men Type: BLOOD SPECIMENOrdering Facility: [facility] Address: [address] [address] Performed By: #### 5 7021-8 ####[facility] LABIA [id number] [place] [address] CNOVSPon 06-15-2023 OVS Visit (SP) Office (HEMASA) -------- GERDAANGELIQUE LOPEZ ([id number]) 1960 F Date Time Provider Department 06/15/23 11:00 AM BLAYNE PRETTY During your visit today, we recorded the following information about you: Temperature Pulse Respiration Blood pressure 97.6 degrees 76/minute 18/minute 150/76 Weight 80.2 kg Blayne Pretty MD 06/15/2023 8:07 PM Signed PATIENT NAME: Angelique Chery DATE: 06/15/2023 PRIMARY CARE PHYSICIAN: Pedro Whalen DO OTHER PHYSICIANS: Dr. Ciaran Rees, Dr. Earnest Davis, Dr. Toro Chan Portions of this encounter note have been copied from my note from 04/06/2023 and has been updated where appropriate, and reflect my current medical decision making from today. CC: This is a 63 year old female with a history of stage I breast cancer and recently discovered elevated tumor markers, seen for scheduled follow-up. INTERIM HISTORY: Labs obtained at the patient's last visit here revealed slight elevation of her tumor marker, which remained elevated on repeat. Subsequent staging scans were obtained. Bone scan was negative. CT chest/abdomen/pelvis revealed several abnormalities of unclear significance including a small pulmonary nodule, an internal mammary lymph node, small liver lesions, and small adrenal lesions. Also seen was a persistent mass in her right breast at the area of surgery/radiation. On follow-up today the patient feels well. She denies any unusual pain. No fevers, night sweats or weight loss. Appetite and energy remain stable. She remains on adjuvant hormonal therapy with Arimidex, and is tolerated well. MEDICATIONS: Current Outpatient Medications Medication Sig anastrozole (ARIMIDEX) 1 mg tablet Take 1 tablet by mouth once daily. losartan (COZAAR) 25 mg tablet TAKE 1 TABLET BY MOUTH TWICE A DAY FOR 30 DAYS amLODIPine (NORVASC) 5 mg tablet TAKE 1 TABLET BY MOUTH EVERY DAY FOR 30 DAYS cholecalciferol, vitamin D3, (VITAMIN D3 ORAL) Take by mouth. No current facility-administered medications for this visit. ALLERGIES: ALLERGIES Allergen Reactions Doxycycline Unknown, Hives monocycline allery same reaction PAST MEDICAL HISTORY: PAST MEDICAL HISTORY Diagnosis Date Breast lump Right PAST SURGICAL HISTORY: PAST SURGICAL HISTORY Procedure Laterality Date LASIK PAST SURGICAL HISTORY OF Biopsy Parathyroid gland REMOVAL GALLBLADDER REMV CATARACT EXTRACAP,INSERT LENS REPAIR RETINAL DETACHMENT SCLERAL BUCKLING VAGINAL HYSTERECTOMY FAMILY HISTORY: FAMILY HISTORY Problem Relation Age of Onset Dementia Mother Colon Cancer Mother Breast Cancer Father other (Cardiac arrest) Father Leukemia Father SOCIAL HISTORY: Social History Tobacco Use Smoking status: Former Types: Cigarettes Quit date: 1999 Years since quittin.6 Passive exposure: Past Smokeless tobacco: Never Vaping Use Vaping Use: Never used Substance Use Topics Alcohol use: Not Currently Drug use: Never COMPLETE REVIEW OF SYSTEMS: CONSTITUTION: Negative for pain, fatigue, weight loss, or appetite loss. EENT: Negative for mouth soreness, antibiotics use, epistaxis, visual problems, neck or facial swelling, fever/chills, bleeding gums, or hearing loss. CV: Negative for edema, calf swelling, palpitations, or chest pain. RESPIRATORY: Negative for cough, SOB, hemoptysis, or wheezing. GI: Negative for nausea/vomiting, heartburn, vomiting blood, dysphasia, diarrhea, blood in stool, constipation, early satiety, PICA, vegetarian, poor nutrition, abdominal fullness, or abdominal pain. NEUROLOGICAL: Negative for numbness/tingling, dizziness, gait disturbance, headache, speech disturbance, tremor, hemiparesis/sensory loss, or change in mental status. MUSCULOSKELETAL: right arm/axillary tenderness with certain ROM SKIN: Negative for hair loss, bruising, nail changes, rash, itching, pallor, or jaundice. ENDO/URO: Negative for hot flashes, cold or heat intolerance, urinary frequency, urinary hesitancy, menorrhagia, or hematuria. PSYCH: Negative for anxiety, depression, or other. PHYSICAL EXAM: BP 150/76 Pulse 76 Temp 36.4 ?C (97.6 ?F) (Temporal) Resp 18 Wt 80.2 kg (176 lb 12.8 oz) SpO2 97% BMI 33.99 kg/m? General: Alert and oriented, no distress, pleasant and cooperative. Heart: Regular, normal S1 and S2, no murmurs, rubs, or gallops Lungs: Clear to auscultation bilaterally Abdomen: Benign Extremities: Feet/ankles without edema, posterior tibial pulses full and symmetrical, right arm with swelling BREAST: right breast upper outer quadrant fullness consistent with fibrous tissue from previous surgery/radiation. No new masses. No adenopathy. PATHOLOGY: 10/23/2022 Right breast lumpectomy and sentinel node procedure (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 Margins negative for invasive carcinoma. (more content not included)... Normal [facility] [place] 06-15-2023 MARLYN Telephone ([employer]) -------- ANGELIQUE CHERY ([id number]) 1960 F Date Time Provider Department 06/15/23 INDIO TRIVEDI During your visit today, we recorded the following information about you: Indio Trivedi RN 06/15/2023 12:58 PM Signed ----- Message from Blayne Pretty MD sent at 06/15/2023 12:56 PM EDT ----- Please inform the patient that her LFTs are significant elevated which is a new finding. I would recommend a liver/gallbladder ultrasound LESLIE for evaluation. Indio Trivedi RN 06/15/2023 1:08 PM Signed Pt aware of BRM findings. Discussed labs per request. Pt agrees to US. FYI, She does not have a gallbladder. Pt prefers [facility], but is willing to go wherever can get her in the soonest available. BRM would like today or tomorrow if at all possible d/t drastic elevation of liver enzymes (new finding). PSS: please arrange LAURA Macias Natalie, RN 06/15/2023 1:24 PM Signed BRM: Placed new order for STAT US to be completed LAURA Macias Holly, APRN.CNP 06/15/2023 1:59 PM Signed Signed. Lavern Tolbert APRN.Ruth Ann Lara 06/15/2023 2:05 PM Signed Patient has been scheduled for US tomorrow, 06/16 at [facility] at 7 am. Patient notified. Patient to be fasting for 8 hours, fat free supper tonight; patient notified of these instructions. Order faxed June 15, 2023 2:04 PM Ruth Ann Berry Allergies As of Date: 06/15/2023 Noted Allergy Reaction DOXYCYCLINE 06/13/2013 16 - Unknown 4 - Hives Comments: monocycline allery same reaction Date Reviewed: 06/15/2023 Reviewed by: Lavern Tolbert APRN.BUSINESS PROJECT ANALYST - Fully Assessed Reason for Visit: Results [95] Orders [681] Primary Visit Diagnosis:Abnormal liver function tests [R79.89] Other Visit Diagnoses:Malignant neoplasm of upper-outer quadrant of right female breast, unspecified estrogen receptor status (HCC) [C50.411] Elevated liver function tests [R79.89] Order(s):US ABD RIGHT UPPER QUADRANT [[id number]] Order #: [id number] FUTURE Prescriptions as of 06/15/2023 - atorvastatin (LIPITOR) 20 mg tablet Take 1 tablet by mouth every afternoon. - anastrozole (ARIMIDEX) 1 mg tablet Take 1 tablet by mouth once daily. - losartan (COZAAR) 25 mg tablet TAKE 1 TABLET BY MOUTH TWICE A DAY FOR 30 DAYS - amLODIPine (NORVASC) 5 mg tablet TAKE 1 TABLET BY MOUTH EVERY DAY FOR 30 DAYS - cholecalciferol, vitamin D3, (VITAMIN D3 ORAL) Take by mouth. Problem List As Of Date: 06/15/2023 (None) Encounter Status:Closed by INDIO TRIVEDI on 06/15/23 Normal [facility] Cancer Ag27-29 SerPl-aCncon 06-15-2023 Cancer Ag 27-29 Qn 51.9 [arb'U]/mL High <38.6 C [facility] Comment on above: Order Comment: Speci men Type: BLOOD SPECIMENOrdering Facility: [facility] Address: [address] [place] [address] Result Comment: The CA27.29 test was performed using the Siemens Centaur XP chemiluminometric immunoassay method. Results obtained with different assay methods or kits cannot be used interchangeably. Performed By: #### 1 7842-6 ####[facility] LABCLIA [id number] [place] [address] [place] Comprehensive metabolic 2000 panelon 06-15-2023 Albumin [Mass/Vol] 4.0 g/dL Normal 3.9-4.9 [facility] Comment on above: Order Comment: Speci men Type: BLOOD SPECIMENOrdering Facility: [facility] Address: [address] [id number] Performed By: #### 2 4323-8 ####[facility] LABCLIA [id number] [place] [address] ALP [Catalytic activity/Vol] 536 U/L High 34-123 [facility] Comment on above: Order Comment: Speci men Type: BLOOD SPECIMENOrdering Facility: [facility] Address: [address] [address] Performed By: #### 2 4323-8 ####[facility] LABCLIA [id number] [place] [address] ALT [Catalytic activity/Vol] 187 U/L High 7-38 [facility] Comment on above: Order Comment: Speci men Type: BLOOD SPECIMENOrdering Facility: [facility] Address: [address] [address] Performed By: #### 2 4323-8 ####[facility] LABCLIA [id number] [place] [address] Anion gap [Moles/Vol] 12 mmol/L Normal 9-18 [facility] Comment on above: Order Comment: Speci men Type: BLOOD SPECIMENOrdering Facility: [facility] Address: [address] [address] Performed By: #### 2 4323-8 ####[facility] LABCLIA [id number] [place] [address] AST [Catalytic activity/Vol] 377 U/L High 13-35 [facility] Comment on above: Order Comment: Speci men Type: BLOOD SPECIMENOrdering Facility: [facility] Address: [address] [address] Performed By: #### 2 4323-8 ####[facility] LABCLIA [id number] [place] [address] Bilirubin [Mass/Vol] 1.6 mg/dL High 0.2-1.3 [facility] Comment on above: Order Comment: Speci men Type: BLOOD SPECIMENOrdering Facility: [facility] Address: [address] [address] Performed By: #### 2 4323-8 ####[facility] LABCLIA [id number] [place] [address] Calcium [Mass/Vol] 9.8 mg/dL Normal 8.5-10.2 [facility] Comment on above: Order Comment: Speci men Type: BLOOD SPECIMENOrdering Facility: [facility] Address: [address] [place] [address] Performed By: #### 2 4323-8 ####[facility] LABCLIA [id number] [place] [address] Chloride [Moles/Vol] 103 mmol/L Normal 97-105 [facility] Comment on above: Order Comment: Speci men Type: BLOOD SPECIMENOrdering Facility: [facility] Address: [address] [place] [address] Performed By: #### 2 4323-8 ####[facility] LABCLIA [id number] [place] [address] CO2 [Moles/Vol] 25 mmol/L Normal 22-30 [facility] Comment on above: Order Comment: Speci men Type: BLOOD SPECIMENOrdering Facility: [facility] Address: [address] [place] [address] Performed By: #### 2 4323-8 ####[facility] LABCLIA [id number] [place] [address] Creatinine [Mass/Vol] 0.75 mg/dL Normal 0.58-0.96 [facility] Comment on above: Order Comment: Speci men Type: BLOOD SPECIMENOrdering Facility: [facility] Address: [address] [place] [address] Performed By: #### 2 4323-8 ####[facility] LABCLIA [id number] [place] [address] Creatinine and Glomerular filtration rate.predicted panel (S/P/Bld) 90 mL/min/1.73m??? Normal >=60 [facility] Comment on above: Order Comment: Speci men Type: BLOOD SPECIMENOrdering Facility: [facility] Address: [address] [id number] Result Comment: Salima mated Glomerular Filtration Rate (eGFR) is calculated using the 2020 CKD-EPI creatinine equation. This equation utilizes serum creatinine, sex, and age as parameters. The creatinine assay has traceable calibration to isotope dilution-mass spectrometry. Refer to KDIGO guidelines for clinical interpretation. In patients with unstable renal function, e.g. those with acute kidney injury, the eGFR may not accurately reflect actual GFR. Performed By: #### 2 4323-8 ####[facility] LABIA [id number] [place] [address] Glucose [Mass/Vol] 104 mg/dL High 74-99 [facility] Comment on above: Order Comment: Nic espinosa Type: BLOOD SPECIMENOrdering Facility: [facility] Address: [address] [place] [address] Result Comment: The [place] Diabetes Association (ADA) provides guidance for cutoff values for fasting glucose and random glucose. The ADA defines fasting as no caloric intake for at least 8 hours. Fasting plasma glucose results between 100 to 125 mg/dL indicate increased risk for diabetes (prediabetes). Fasting plasma glucose results greater than or equal to 126 mg/dL meet the criteria for diagnosis of diabetes. In the absence of unequivocal hyperglycemia, results should be confirmed by repeat testing. In a patient with classic symptoms of hyperglycemia or hyperglycemic crisis, random plasma glucose results greater than or equal to 200 mg/dL meet the criteria for diagnosis of diabetes. Reference: Standards of Medical Care in Diabetes 2016, [place] [employer] Association. Diabetes Care. 2016.39(Suppl 1). Performed By: #### 2 4323-8 ####[facility] LABIA [id number] [place] [address] Potassium [Moles/Vol] 3.8 mmol/L Normal 3.7-5.1 [facility] Comment on above: Order Comment: Nic espinosa Type: BLOOD SPECIMENOrdering Facility: [facility] Address: [address] [phone] Performed By: #### 2 4323-8 ####[facility] LABIA [id number] [place] [address] Protein [Mass/Vol] 9.2 g/dL High 6.3-8.0 [facility] Comment on above: Order Comment: Speci men Type: BLOOD SPECIMENOrdering Facility: [facility] Address: [address] [place] [address] Performed By: #### 2 4323-8 ####[facility] LABIA [id number] [place] [address] Sodium [Moles/Vol] 140 mmol/L Normal 136-144 [facility] Comment on above: Order Comment: Speci men Type: BLOOD SPECIMENOrdering Facility: [facility] Address: [address] [place] [address] Performed By: #### 2 4323-8 ####[facility] LABIA [id number] [place] [address] Urea nitrogen [Mass/Vol] 12 mg/dL Normal 7-21 [facility] Comment on above: Order Comment: Speci men Type: BLOOD SPECIMENOrdering Facility: [facility] Address: [address] [place] [address] Performed By: #### 2 4323-8 ####[facility] LABIA [id number] [place] [address] Physician Orderon 06-15-2023 Physician Order [id number]#1.00CD:1 27 Normal [facility] [place] 06-08-2023 CNPN Telephone (HEMTSA) -------- ANGELIQUE CHERY ([id number]) 1960 F Date Time Provider Department 06/08/23 SALOME ARVIZU During your visit today, we recorded the following information about you: Salome Arvizu RN 06/08/2023 10:26 AM Signed Patient notified of Dr. Pretty's review of CT scan and that he would like to see her in the next 1-2 weeks for some subtle changes. Plans to recheck lab and discuss next course of action. PSS: Please call patient and schedule. She would prefer to schedule sooner rather than later. LAURA Olivier Amy S 06/08/2023 10:34 AM Signed Riri: Dr Pretty doesn't have any openings in the next 2 weeks. Can you help in scheduling? Riri Saxena RN 06/08/2023 10:41 AM Signed Please go ahead and schedule her in a new patient slot next week as an established patient new problem and give him 30 minutes with her. Thanks LAURA Aponte Amy S 06/08/2023 11:14 AM Signed Spoke to patient AND scheduled her on 06/15/2023 labs @10:45 am AND BRM@11 am. Blayne Rodriguez MD 06/08/2023 12:00 PM Signed Addended by: BLAYNE PRETTY on: 06/08/2023 12:00 PM Modules accepted: Orders Allergies As of Date: 06/08/2023 Noted Allergy Reaction DOXYCYCLINE 06/13/2013 16 - Unknown 4 - Hives Comments: monocycline allery same reaction Date Reviewed: 06/02/2023 Reviewed by: Lavern Tolbert APRN.BUSINESS PROJECT ANALYST - Fully Assessed Reason for Visit: Appointment [186] Primary Visit Diagnosis:Malignant neoplasm of upper-outer quadrant of right female breast, unspecified estrogen receptor status (HCC) [C50.411] Order(s):CBC + DIFF [SQCBCDIF] Order #: [id number] FUTURE COMP METABOLIC PANEL [SQCMP] Order #: [id number] FUTURE CA 27.29 BLOOD [[id number]] Order #: [id number] FUTURE Prescriptions as of 06/08/2023 - anastrozole (ARIMIDEX) 1 mg tablet Take 1 tablet by mouth once daily. - losartan (COZAAR) 25 mg tablet TAKE 1 TABLET BY MOUTH TWICE A DAY FOR 30 DAYS - amLODIPine (NORVASC) 5 mg tablet TAKE 1 TABLET BY MOUTH EVERY DAY FOR 30 DAYS - cholecalciferol, vitamin D3, (VITAMIN D3 ORAL) Take by mouth. Problem List As Of Date: 06/08/2023 (None) Encounter Status:Closed by SALOME ARVIZU on 06/08/23 [facility] [place] 06-01-2023 CNPN Telephone (HEMTSA) -------- ANGELIQUE CHERY ([id number]) 1960 F Date Time Provider Department 06/01/23 INDIO TRIVEDI HEMJATINDER During your visit today, we recorded the following information about you: Indio Trivedi RN 06/01/2023 4:22 PM Signed BRM looking for CT results. Bone scan negative; pt aware. Spoke to pt and she reports, no one called her to schedule CT's at our office. She is available by cell 05/11 telephone encounter does state schedule CT and pt to have bone scan at [facility] (completed 05/18) PSS: Please call to schedule LESLIE LAURA Macias Angela D 06/02/2023 8:00 AM Signed Called [facility] and had to leave a message to ask why only the bone scan was scheduled and not the ct at the same time? And when they call back we will get it scheduled. Indio Trivedi RN 06/02/2023 2:42 PM Signed Please sign pended CRE for pt to have completed for her CT at [facility]. LAURA Macias Tiffany 06/03/2023 7:55 AM Signed CRE order faxed Indio Trivedi RN 06/03/2023 8:31 AM Signed Spoke with [facility] scheduling. CT CAP auth's rec'd. She will call pt today to schedule. LAURA Macias Tiffany 06/04/2023 10:49 AM Signed Patient is scheduled sat jun [address] Allergies As of Date: 06/01/2023 Noted Allergy Reaction DOXYCYCLINE 06/13/2013 16 - Unknown 4 - Hives Comments: monocycline allery same reaction Date Reviewed: 04/08/2023 Reviewed by: Marcela Washington PASydneyC - Fully Assessed Reason for Visit: Appointment [186] Primary Visit Diagnosis:Malignant neoplasm of upper-outer quadrant of right female breast, unspecified estrogen receptor status (HCC) [C50.411] Other Visit Diagnosis:Abnormal tumor markers [R97.8] Order(s):CREATININE BLD [SQCRET] Order #: [id number] FUTURE Prescriptions as of 06/04/2023 - anastrozole (ARIMIDEX) 1 mg tablet Take 1 tablet by mouth once daily. - losartan (COZAAR) 25 mg tablet TAKE 1 TABLET BY MOUTH TWICE A DAY FOR 30 DAYS - amLODIPine (NORVASC) 5 mg tablet TAKE 1 TABLET BY MOUTH EVERY DAY FOR 30 DAYS - cholecalciferol, vitamin D3, (VITAMIN D3 ORAL) Take by mouth. Problem List As Of Date: 06/01/2023 (None) Encounter Status:Closed by LAVERN TOLBERT [facility]02/23 [facility] ([facility]) -------- ANGELIQUE CHERY ([id number]) 1960 F Date Time Provider Department 05/11/23 LATISHA LEES During your visit today, we recorded the following information about you: Latisha Lees RN 05/11/2023 2:18 PM Signed ----- Message from Blayne Pretty MD sent at 05/10/2023 9:15 AM EDT ----- Please inform the patient that her tumor marker has increased slightly. Most likely not significant, but would be reasonable to stage with CT scans and bone scan if the patient is in agreement. Please schedule, we will then call her with results. Latisha Lees RN 05/11/2023 2:23 PM Signed Pt notified of results. Pt will be gone 05/29-06/01. It these can be arranged before or after would be great. Pt would like bone scan done at [facility]. Thanks LAURA Casanova Jodi 05/12/2023 10:09 AM Signed Hello there, could you please put order in and Ill be happy to get it scheduled. Thank you. Nancy Maradiaga RN 05/12/2023 10:15 AM Signed Orders pended. LAURA Mancilla Jodi 05/12/2023 10:30 AM Signed Left message at [facility] to call us back to schedule. Lavern Tolbert APRN.CNP 05/12/2023 10:35 AM Signed Signed. AUGUSTIN Hummel Jodi 05/13/2023 1:18 PM Signed Spoke to [facility], they do have the order, they are checking for prior authorization and they will be calling patient to schedule. Allergies As of Date: 05/11/2023 Noted Allergy Reaction DOXYCYCLINE 06/13/2013 16 - Unknown 4 - Hives Comments: monocycline allery same reaction Date Reviewed: 04/08/2023 Reviewed by: Marcela Washington PASydneyC - Fully Assessed Reason for Visit: Care Coordination [3491] Cmt: New orders Primary Visit Diagnosis:Malignant neoplasm of upper-outer quadrant of right breast in female, estrogen receptor positive (HCC) [C50.411, Z17.0] Other Visit Diagnosis:Elevated tumor markers [R97.8] Order(s):CT ABD/PEL W IVCON [[id number]] Order #: [id number] FUTURE CT CHEST W IVCON [[id number]] Order #: [id number] FUTURE [] iv contrast (will be provided with radiology test)CT Chest ABD/PEL-Inject, intravenously, once for 1 dose.No IV access, insert saline lock prior to the beginning of sedation, infusion, injection of imaging exam. Discontinue saline lock post exam. If Pt. has a central line or IVAD, may access for administration according to line specific nursing protocol. Once exam is complete flush line and de-access according to line specific nursing protocol in the CT contrast administration guidelines link.Disp: 1 EachRfl: 0 [] enteric contrast (will be provided with radiology test)For CT CHESTABD/PEL W IVCON Routine order Administer, As Directed One Time Only, via Oral, Rectal, both Oral and Rectal, Enteric Tube, Stoma or Indwelling Catheter, Enteric Contrast as designated per enteric contrast guidelinesDisp: 1 EachRfl: 0 NM BONE WHOLE BODY [[id number]] Order #: [id number] FUTURE Prescriptions as of 05/29/2023 - anastrozole (ARIMIDEX) 1 mg tablet Take 1 tablet by mouth once daily. - losartan (COZAAR) 25 mg tablet TAKE 1 TABLET BY MOUTH TWICE A DAY FOR 30 DAYS - amLODIPine (NORVASC) 5 mg tablet TAKE 1 TABLET BY MOUTH EVERY DAY FOR 30 DAYS - cholecalciferol, vitamin D3, (VITAMIN D3 ORAL) Take by mouth. Problem List As Of Date: 05/11/2023 (None) Prescriptions ordered this encounter Disp Refills Start End IV CONTRAST (RADIOLOGY PROCEDURE) 1 Ea* 0 05/12/2023 05/13/2023 Class: In Office Sig: CT Chest ABD/PEL-Inject, intravenously, once for 1 dose.No IV access, insert saline lock prior to the beginning of sedation, infusion, injection of imaging exam. Discontinue saline lock post exam. If Pt. has a central line or IVAD, may access for administration according to line specific nursing protocol. Once exam is complete flush line and de-access according to line specific nursing protocol in the CT contrast administration guidelines link. ENTERIC CONTRAST (RADIOLOGY PROCEDUR* 1 Ea* 0 05/12/2023 05/13/2023 Class: In Office Sig: For CT CHESTABD/PEL W IVCON Routine order Administer, As Directed One Time Only, via Oral, Rectal, both Oral and Rectal, Enteric Tube, Stoma or Indwelling Catheter, Enteric Contrast as designated per enteric contrast guidelines Encounter Status:Closed by RIRI OSPINA on 05/29/23 [facility] Cancer Ag27-29 [facility] 05-07-2023 Cancer Ag 27-29 Qn 47.4 [arb'U]/mL High <38.6 C [facility] Comment on above: Order Comment: Speci men Type: BLOOD SPECIMENOrdering Facility: [facility] Address: [address] [place] [address] Result Comment: The CA27.29 test was performed using the Siemens Centaur XP chemiluminometric immunoassay method. Results obtained with different assay methods or kits cannot be used interchangeably. Performed By: #### 1 7842-6 ####[facility] LABCLIA [id number] [facility] [id number] [id number] [facility] [place] CNPChristiana 04-08-2023 CNPN Telephone (HEMASA) -------- ANGELIQUE CHERY ([id number]) 1960 F Date Time Provider Department 04/08/23 MARCELA WASHINGTON During your visit today, we recorded the following information about you: Marcela Washington PA-C 04/08/2023 1:54 PM Signed Please call and inform her that her tumor marker was slightly elevated and we'd like her to come back in 4 weeks to have it repeated. Schedule with lab. No visit with a provider DANIAL Jimenes RN 04/08/2023 2:18 PM Signed Pt aware of MM message and agrees to repeat in 4 weeks. BRM/MM: please sign pended Ca 27.29 PSS: please add pt to lab schedule late afternoon, any time 4 weeks from now. She will see the appt on [employer], so she will not need called. LAURA Macias Pss 04/08/2023 2:24 PM Signed Patient has been scheduled 05/07 @ 2:00. Bethany Hernandez Pss Allergies As of Date: 04/08/2023 Noted Allergy Reaction DOXYCYCLINE 06/13/2013 16 - Unknown 4 - Hives Comments: monocycline allery same reaction Date Reviewed: 04/08/2023 Reviewed by: Marcela Washington PA-C - Fully Assessed Reason for Visit: Results [95] Orders [681] Primary Visit Diagnosis:Malignant neoplasm of upper-outer quadrant of right breast in female, estrogen receptor positive (HCC) [C50.411, Z17.0] Order(s):CA 27.29 BLOOD [[id number]] Order #: [id number] FUTURE Prescriptions as of 04/08/2023 - anastrozole (ARIMIDEX) 1 mg tablet Take 1 tablet by mouth once daily. - losartan (COZAAR) 25 mg tablet TAKE 1 TABLET BY MOUTH TWICE A DAY FOR 30 DAYS - amLODIPine (NORVASC) 5 mg tablet TAKE 1 TABLET BY MOUTH EVERY DAY FOR 30 DAYS - cholecalciferol, vitamin D3, (VITAMIN D3 ORAL) Take by mouth. Problem List As Of Date: 04/08/2023 (None) Encounter Status:Closed by BLAYNE PRETTY on 04/08/23 Normal [facility] Physician Orderon 04-07-2023 Physician Order [id number]:1 27 Normal [facility] CBC W Auto Differential pane l (Bld)on 04-06-2023 Basophils (Bld) [#/Vol] 10*3/uL Normal <0.11 [facility] Comment on above: Order Comment: Speci men Type: BLOOD SPECIMENOrdering Facility: [facility] Address: [address] [address] Performed By: #### 5 7021-8 ####[facility] LABCLIA [id number] [place] [address] Basophils/100 WBC (Bld) 0.4 % Normal [facility] Comment on above: Order Comment: Speci men Type: BLOOD SPECIMENOrdering Facility: [facility] Address: [address] [address] Performed By: #### 5 7021-8 ####[facility] LABCLIA [id number] [place] [address] Differential cell count method Nom (Bld) Auto Normal [facility] Comment on above: Order Comment: Speci men Type: BLOOD SPECIMENOrdering Facility: [facility] Address: [address] [place] [address] Performed By: #### 5 7021-8 ####[facility] LABCLIA [id number] [place] [address] Eosinophils (Bld) [#/Vol] 0.11 10*3/uL Normal <0.46 [facility] Comment on above: Order Comment: Speci men Type: BLOOD SPECIMENOrdering Facility: [facility] Address: [address] [place] [address] Performed By: #### 5 7021-8 ####[facility] LABIA [id number] [place] [address] Eosinophils/100 WBC (Bld) 2.1 % Normal [facility] Comment on above: Order Comment: Speci men Type: BLOOD SPECIMENOrdering Facility: [facility] Address: [address] [place] [address] Performed By: #### 5 7021-8 ####[facility] LABCLIA [id number] [place] [address] Erythrocyte distribution width (RBC) [Ratio] 15.0 % Normal 11.5-15.0 [facility] Comment on above: Order Comment: Speci men Type: BLOOD SPECIMENOrdering Facility: [facility] Address: [address] [place] [address] Performed By: #### 5 7021-8 ####[facility] LABIA [id number] [place] [address] Hematocrit (Bld) [Volume fraction] 39.5 % Normal 36.0-46.0 [facility] Comment on above: Order Comment: Speci men Type: BLOOD SPECIMENOrdering Facility: [facility] Address: [address] [address] Performed By: #### 5 7021-8 ####[facility] LABCLIA [id number] [place] [address] Hemoglobin (Bld) [Mass/Vol] 12.4 g/dL Normal 11.5-15.5 [facility] Comment on above: Order Comment: Speci men Type: BLOOD SPECIMENOrdering Facility: [facility] Address: [address] [place] [address] Performed By: #### 5 7021-8 ####[facility] LABCLIA [id number] [place] [address] Immature granulocytes (Bld) [#/Vol] 0.06 10*3/uL Normal <0.10 [facility] Comment on above: Order Comment: Speci men Type: BLOOD SPECIMENOrdering Facility: [facility] Address: [address] [place] [address] Performed By: #### 5 7021-8 ####[facility] LABCLIA [id number] [place] [address] Immature granulocytes/100 WBC (Bld) 1.2 % Normal [facility] Comment on above: Order Comment: Speci men Type: BLOOD SPECIMENOrdering Facility: [facility] Address: [address] [place] [address] Performed By: #### 5 7021-8 ####[facility] LABCLIA [id number] [place] [address] Lymphocytes (Bld) [#/Vol] 1.06 10*3/uL Normal 1.00-4.00 [facility] Comment on above: Order Comment: Speci men Type: BLOOD SPECIMENOrdering Facility: [facility] Address: [address] [place] [address] Performed By: #### 5 7021-8 ####[facility] LABCLIA [id number] [place] [address] Lymphocytes/100 WBC (Bld) 20.3 % Normal [facility] Comment on above: Order Comment: Speci men Type: BLOOD SPECIMENOrdering Facility: [facility] Address: [address] [address] Performed By: #### 5 7021-8 ####[facility] LABCLIA [id number] [place] [address] MCH (RBC) [Entitic mass] 28.1 pg Normal 26.0-34.0 [facility] Comment on above: Order Comment: Speci men Type: BLOOD SPECIMENOrdering Facility: [facility] Address: [address] [place] [address] Performed By: #### 5 7021-8 ####[facility] LABCLIA [id number] [place] [address] MCHC (RBC) [Mass/Vol] 31.4 g/dL Normal 30.5-36.0 [facility] Comment on above: Order Comment: Speci men Type: BLOOD SPECIMENOrdering Facility: [facility] Address: [address] [place] [address] Performed By: #### 5 7021-8 ####[facility] LABCLIA [id number] [place] [address] MCV (RBC) [Entitic vol] 89.4 fL Normal 80.0-100.0 [facility] Comment on above: Order Comment: Speci men Type: BLOOD SPECIMENOrdering Facility: [facility] Address: [address] [address] Performed By: #### 5 7021-8 ####[facility] LABCLIA [id number] [place] [address] Monocytes (Bld) [#/Vol] 0.50 10*3/uL Normal <0.87 [facility] Comment on above: Order Comment: Speci men Type: BLOOD SPECIMENOrdering Facility: [facility] Address: [address] [place] [address] Performed By: #### 5 7021-8 ####[facility] LABCLIA [id number] [place] [address] Monocytes/100 WBC (Bld) 9.6 % Normal [facility] Comment on above: Order Comment: Speci men Type: BLOOD SPECIMENOrdering Facility: [facility] Address: [address] [place] [address] Performed By: #### 5 7021-8 ####[facility] LABCLIA [id number] [place] [address] Neutrophils (Bld) [#/Vol] 3.46 10*3/uL Normal 1.45-7.50 [facility] Comment on above: Order Comment: Speci men Type: BLOOD SPECIMENOrdering Facility: [facility] Address: [address] [place] [address] Performed By: #### 5 7021-8 ####[facility] LABCLIA [id number] [place] [address] Neutrophils/100 WBC (Bld) 66.4 % Normal [facility] Comment on above: Order Comment: Speci men Type: BLOOD SPECIMENOrdering Facility: [facility] Address: [address] [place] [address] Performed By: #### 5 7021-8 ####[facility] LABCLIA [id number] [place] [address] Nucleated RBC (Bld) [#/Vol] 10*3/uL Normal <0.01 [facility] Comment on above: Order Comment: Speci men Type: BLOOD SPECIMENOrdering Facility: [facility] Address: [address] [place], [place] [address] Performed By: #### 5 7021-8 ####[facility] LABCLIA [id number] [place] [address] Nucleated RBC/100 WBC (Bld) [Ratio] 0.0 /100 WBC Normal [facility] Comment on above: Order Comment: Speci men Type: BLOOD SPECIMENOrdering Facility: [facility] Address: [address] [place] [address] Performed By: #### 5 7021-8 ####[facility] LABCLIA [id number] [place] [address] Platelet mean volume (Bld) [Entitic vol] 9.7 fL Normal 9.0-12.7 [facility] Comment on above: Order Comment: Speci men Type: BLOOD SPECIMENOrdering Facility: [facility] Address: [address] [address] Performed By: #### 5 7021-8 ####[facility] LABCLIA [id number] [place] [address] Platelets (Bld) [#/Vol] 216 10*3/uL Normal 150-400 [facility] Comment on above: Order Comment: Speci men Type: BLOOD SPECIMENOrdering Facility: [facility] Address: [address] [place] [address] Performed By: #### 5 7021-8 ####[facility] LABCLIA [id number] [place] [address] RBC (Bld) [#/Vol] 4.42 10*6/uL Normal 3.90-5.20 [facility] Comment on above: Order Comment: Speci men Type: BLOOD SPECIMENOrdering Facility: [facility] Address: [address] [place] [address] Performed By: #### 5 7021-8 ####[facility] LABIA [id number] [place] [address] WBC (Bld) [#/Vol] 5.21 10*3/uL Normal 3.70-11.00 [facility] Comment on above: Order Comment: Speci men Type: BLOOD SPECIMENOrdering Facility: [facility] Address: [address] [place] [address] Performed By: #### 5 7021-8 ####[facility] [id number] [place] [address] CNOVSPon 04-06-2023 CNOVSP Visit (SP) Office ([facility]) -------- ANGELIQUE CHERY ([id number]) 1960 F Date Time Provider Department 04/06/23 2:30 PM MARCELA WASHINGTON During your visit today, we recorded the following information about you: Temperature Pulse Respiration Blood pressure 97.6 degrees 74/minute 18/minute 138/64 Weight Height 83.1 kg 1.536 m Marcela Washington PA-C 04/06/2023 3:04 PM Signed PATIENT NAME: Angelique Chery DATE: 04/06/2023 PRIMARY CARE PHYSICIAN: Pedro Whalen, OTHER PHYSICIANS: Dr. Ciaran Rees, Dr. Earnest Davis, Dr. Toro Chan (Elements copied from Dr. Pretty's note dated December 08, 2022, have been reviewed and updated where appropriate, and all reflect current assessment and medical decision making during today's encounter, April 06, 2023) CC: This is a 62 year old female with recently diagnosed breast cancer, seen for scheduled follow-up. INTERIM HISTORY: Angelique returns for follow up. She remains on Arimidex and she does have some arthralgias at times, but it is manageable. She has noticed some difficulty raising her arm above her head and back behind her head. No swelling or redness. This has been ongoing since surgery. She just noticed it this morning was more sore than before when she was reaching for her phone. MEDICATIONS: Current Outpatient Medications Medication Sig anastrozole (ARIMIDEX) 1 mg tablet Take 1 tablet by mouth once daily. losartan (COZAAR) 25 mg tablet TAKE 1 TABLET BY MOUTH TWICE A DAY FOR 30 DAYS amLODIPine (NORVASC) 5 mg tablet TAKE 1 TABLET BY MOUTH EVERY DAY FOR 30 DAYS cholecalciferol, vitamin D3, (VITAMIN D3 ORAL) Take by mouth. No current facility-administered medications for this visit. ALLERGIES: ALLERGIES Allergen Reactions Doxycycline Unknown, Hives monocycline allery same reaction PAST MEDICAL HISTORY: PAST MEDICAL HISTORY Diagnosis Date Breast lump Right PAST SURGICAL HISTORY: PAST SURGICAL HISTORY Procedure Laterality Date LASIK PAST SURGICAL HISTORY OF Biopsy Parathyroid gland REMOVAL GALLBLADDER REMV CATARACT EXTRACAP,INSERT LENS REPAIR RETINAL DETACHMENT SCLERAL BUCKLING VAGINAL HYSTERECTOMY FAMILY HISTORY: FAMILY HISTORY Problem Relation Age of Onset Dementia Mother Colon Cancer Mother Breast Cancer Father other (Cardiac arrest) Father Leukemia Father SOCIAL HISTORY: Social History Tobacco Use Smoking status: Former Types: Cigarettes Quit date: 1999 Years since quittin.4 Passive exposure: Past Smokeless tobacco: Never Vaping Use Vaping Use: Never used Substance Use Topics Alcohol use: Not Currently Drug use: Never COMPLETE REVIEW OF SYSTEMS: CONSTITUTION: Negative for pain, fatigue, weight loss, or appetite loss. EENT: Negative for mouth soreness, antibiotics use, epistaxis, visual problems, neck or facial swelling, fever/chills, bleeding gums, or hearing loss. CV: Negative for edema, calf swelling, palpitations, or chest pain. RESPIRATORY: Negative for cough, SOB, hemoptysis, or wheezing. GI: Negative for nausea/vomiting, heartburn, vomiting blood, dysphasia, diarrhea, blood in stool, constipation, early satiety, PICA, vegetarian, poor nutrition, abdominal fullness, or abdominal pain. NEUROLOGICAL: Negative for numbness/tingling, dizziness, gait disturbance, headache, speech disturbance, tremor, hemiparesis/sensory loss, or change in mental status. MUSCULOSKELETAL: right arm/axillary tenderness with certain ROM SKIN: Negative for hair loss, bruising, nail changes, rash, itching, pallor, or jaundice. ENDO/URO: Negative for hot flashes, cold or heat intolerance, urinary frequency, urinary hesitancy, menorrhagia, or hematuria. PSYCH: Negative for anxiety, depression, or other. PHYSICAL EXAM: BP 138/64 Pulse 74 Temp 36.4 ?C (97.6 ?F) (Temporal) Resp 18 Ht 153.6 cm (5' 0.47 ) Wt 83.1 kg (183 lb 3.2 oz) SpO2 97% BMI 35.22 kg/m? General: Alert and oriented, no distress, pleasant and cooperative. Heart: Regular, normal S1 and S2, no murmurs, rubs, or gallops Lungs: Clear to auscultation bilaterally Abdomen: Benign Extremities: Feet/ankles without edema, posterior tibial pulses full and symmetrical, right arm with swelling BREAST: right breast incisions without erythema or edema, no lesions in either breast or axilla. PATHOLOGY: 10/23/2022 Right breast lumpectomy and sentinel node procedure (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 Margins negative for invasive carcinoma. DCIS present at deep margin, focal. 2 benign lymph nodes identified (0/2). Oncotype recurrence score 12 08/26/2022 Right breast core biopsy ([facility]) Invasive ductal carcinoma, grade 2. ER 80 to 90%, MT 40 to 50%, HER2 negative RADIOLOGY/OTHER STUDIES: 08/25/2022 Diagnostic mammogram and right breast ultrasound ([facility]) BI-RADS 5, high (more content not included)... Normal [facility] 04-06-2023 CNPN Telephone (RADTSA) -------- ANGELIQUE CHERY ([id number]) 1960 F Date Time Provider Department 04/06/23 TORO CHAN During your visit today, we recorded the following information about you: Sayra Cortez LPN 04/06/2023 4:05 PM Signed Post treatment follow up was not arranged for Angelique . Patient was here for follow up with Marcela today and denies questions/concerns per Ruth Ann. Dr. Chan: angelique completed treatment 01/02/23. Do you want follow up with mammogram in June? please sign pended mammogram order. Latisha: Please schedule Angelique per Dr. Chan's recommendation. GRAY Hudson MD 04/06/2023 4:29 PM Signed Mammogram at approximately six months post-radiation with follow-up afterwards. Thanks! Toro Tao Sec 04/07/2023 11:14 AM Signed Patient is called and scheduled for appoinments Allergies As of Date: 04/06/2023 Noted Allergy Reaction DOXYCYCLINE 06/13/2013 16 - Unknown 4 - Hives Comments: monocycline allery same reaction Date Reviewed: 04/06/2023 Reviewed by: Marcela Washington PA-C - Fully Assessed Reason for Visit: Orders [681] Primary Visit Diagnosis:Malignant neoplasm of upper-outer quadrant of right breast in female, estrogen receptor positive (HCC) [C50.411, Z17.0] Order(s):OSIRIS DIAGNOSTIC BILATERAL [[id number]] Order #: [id number] FUTURE Prescriptions as of 04/07/2023 - anastrozole (ARIMIDEX) 1 mg tablet Take 1 tablet by mouth once daily. - losartan (COZAAR) 25 mg tablet TAKE 1 TABLET BY MOUTH TWICE A DAY FOR 30 DAYS - amLODIPine (NORVASC) 5 mg tablet TAKE 1 TABLET BY MOUTH EVERY DAY FOR 30 DAYS - cholecalciferol, vitamin D3, (VITAMIN D3 ORAL) Take by mouth. Problem List As Of Date: 04/06/2023 (None) Encounter Status:Closed by SAYRA CORTEZ on 04/07/23 Normal [facility] Cancer Ag27-29 SerPl-aCncon 04-06-2023 Cancer Ag 27-29 Qn 42.2 [arb'U]/mL High <38.6 C [facility] Comment on above: Order Comment: Speci men Type: BLOOD SPECIMENOrdering Facility: [facility] Address: [address] [place] [address] Result Comment: The CA27.29 test was performed using the Siemens Centaur XP chemiluminometric immunoassay method. Results obtained with different assay methods or kits cannot be used interchangeably. Performed By: #### 1 7842-6 ####[facility] LABCLIA [id number] [place] [address] [place] Comprehensive metabolic 2000 panelon 04-06-2023 Albumin [Mass/Vol] 4.5 g/dL Normal 3.9-4.9 [facility] Comment on above: Order Comment: Speci men Type: BLOOD SPECIMENOrdering Facility: [facility] Address: [address] [address] Performed By: #### 2 4323-8 ####[facility] LABCLIA [id number] [place] [address] ALP [Catalytic activity/Vol] 212 U/L High 34-123 [facility] Comment on above: Order Comment: Speci men Type: BLOOD SPECIMENOrdering Facility: [facility] Address: [address] [address] Performed By: #### 2 4323-8 ####[facility] LABCLIA [id number] [place] [address] ALT [Catalytic activity/Vol] 15 U/L Normal 7-38 [facility] Comment on above: Order Comment: Speci men Type: BLOOD SPECIMENOrdering Facility: [facility] Address: [address] [place] [address] Performed By: #### 2 4323-8 ####[facility] LABCLIA [id number] [place] [address] Anion gap [Moles/Vol] 8 mmol/L Low 9-18 [facility] Comment on above: Order Comment: Speci men Type: BLOOD SPECIMENOrdering Facility: [facility] Address: [address] [place] [address] Performed By: #### 2 4323-8 ####[facility] LABCLIA [id number] [place] [address] AST [Catalytic activity/Vol] 26 U/L Normal 13-35 [facility] Comment on above: Order Comment: Speci men Type: BLOOD SPECIMENOrdering Facility: [facility] Address: [address] [place] [address] Performed By: #### 2 4323-8 ####[facility] LABCLIA [id number] [place] [address] Bilirubin [Mass/Vol] 0.6 mg/dL Normal 0.2-1.3 [facility] Comment on above: Order Comment: Speci men Type: BLOOD SPECIMENOrdering Facility: [facility] Address: [address] [address] Performed By: #### 2 4323-8 ####[facility] LABCLIA [id number] [place] [address] Calcium [Mass/Vol] 10.1 mg/dL Normal 8.5-10.2 [facility] Comment on above: Order Comment: Speci men Type: BLOOD SPECIMENOrdering Facility: [facility] Address: [address] [place] [address] Performed By: #### 2 4323-8 ####[facility] LABCLIA [id number] [place] [address] Chloride [Moles/Vol] 104 mmol/L Normal 97-105 [facility] Comment on above: Order Comment: Speci men Type: BLOOD SPECIMENOrdering Facility: [facility] Address: [address] [address] Performed By: #### 2 4323-8 ####[facility] LABCLIA [id number] [place] [address] CO2 [Moles/Vol] 28 mmol/L Normal 22-30 [facility] Comment on above: Order Comment: Speci men Type: BLOOD SPECIMENOrdering Facility: [facility] Address: [address] [address] Performed By: #### 2 4323-8 ####[facility] LABCLIA [id number] [place] [address] Creatinine [Mass/Vol] 0.79 mg/dL Normal 0.58-0.96 [facility] Comment on above: Order Comment: Speci men Type: BLOOD SPECIMENOrdering Facility: [facility] Address: [address] [place] [address] Performed By: #### 2 4323-8 ####[facility] LABCLIA [id number] [place] [address] ESTIMATED GLOMERULAR FILTRATION RATE 85 mL/min/1.73m??? Normal >=60 [facility] Comment on above: Order Comment: Nic espinosa Type: BLOOD SPECIMENOrdering Facility: [facility] Address: [address] [place] [address] Result Comment: Salima mated Glomerular Filtration Rate (eGFR) is calculated using the 2020 CKD-EPI creatinine equation. This equation utilizes serum creatinine, sex, and age as parameters. The creatinine assay has traceable calibration to isotope dilution-mass spectrometry. Refer to KDIGO guidelines for clinical interpretation. In patients with unstable renal function, e.g. those with acute kidney injury, the eGFR may not accurately reflect actual GFR. Performed By: #### 2 4323-8 ####[facility] LABCLIA [id number] [place] [address] Glucose [Mass/Vol] 96 mg/dL Normal 74-99 [facility] Comment on above: Order Comment: Specmaximilian espinosa Type: BLOOD SPECIMENOrdering Facility: [facility] Address: [address] [place] [address] Result Comment: The [place] [employer] (ADA) provides guidance for cutoff values for fasting glucose and random glucose. The ADA defines fasting as no caloric intake for at least 8 hours. Fasting plasma glucose results between 100 to 125 mg/dL indicate increased risk for diabetes (prediabetes). Fasting plasma glucose results greater than or equal to 126 mg/dL meet the criteria for diagnosis of diabetes. In the absence of unequivocal hyperglycemia, results should be confirmed by repeat testing. In a patient with classic symptoms of hyperglycemia or hyperglycemic crisis, random plasma glucose results greater than or equal to 200 mg/dL meet the criteria for diagnosis of diabetes. Reference: Standards of Medical Care in Diabetes 2016, [place] [employer]. Diabetes Care. 2016.39(Suppl 1). Performed By: #### 2 4323-8 ####[facility] LABCLIA [id number] [place] [address] Potassium [Moles/Vol] 3.8 mmol/L Normal 3.7-5.1 [facility] Comment on above: Order Comment: Speci men Type: BLOOD SPECIMENOrdering Facility: [facility] Address: [address] [address] Performed By: #### 2 4323-8 ####[facility] LABCLIA [id number] [place] [address] Protein [Mass/Vol] 8.3 g/dL High 6.3-8.0 [facility] Comment on above: Order Comment: Speci men Type: BLOOD SPECIMENOrdering Facility: [facility] Address: [address] [place] [address] Performed By: #### 2 4323-8 ####[facility] LABCLIA [id number] [place] [address] Sodium [Moles/Vol] 140 mmol/L Normal 136-144 [facility] Comment on above: Order Comment: Speci men Type: BLOOD SPECIMENOrdering Facility: [facility] Address: [address] [address] Performed By: #### 2 4323-8 ####[facility] LABCLIA [id number] [place] [address] Urea nitrogen [Mass/Vol] 11 mg/dL Normal 7-21 [facility] Comment on above: Order Comment: Speci men Type: BLOOD SPECIMENOrdering Facility: [facility] Address: [address] [address] Performed By: #### 2 4323-8 ####[facility] LABCLIA [id number] [place] [address] Lipid 1996 panelon 3 Cholesterol [Mass/Vol] 249 mg/dL High <200 [facility] Comment on above: Order Comment: Speci men Type: BLOOD SPECIMENOrdering Facility: External Submitter Address: , , Result Comment: <200 mg/dL, Desirable 200-239 mg/dL, Borderline high >239 mg/dL, High Performed By: #### 2 4331-1 ####[facility] LABCLIA [id number] [facility] [address] [address] [facility] LABCLIA [id number] [place] [address]#### 3016-3 ####[facility] LABCLIA [id number] [address] [address] [place] Cholesterol in HDL [Mass/Vol] 34 mg/dL Low >39 [facility] Comment on above: Order Comment: Speci men Type: BLOOD SPECIMENOrdering Facility: External Submitter Address: , , Result Comment: 40-5 9 mg/dL, Acceptable >59 mg/dL, High: Negative risk factor for coronary heart disease <40 mg/dL, Low: Positive risk factor for coronary heart disease Performed By: #### 2 4331-1 ####[facility] LABCLIA [id number] [address] LABCLIA [id number] [place] [address]#### 3016-3 ####[facility] LABCLIA [id number] [place] [id number] [place] Cholesterol in LDL [Mass/Vol] 178 mg/dL High <100 [facility] Comment on above: Order Comment: Speci men Type: BLOOD SPECIMENOrdering Facility: External Submitter Address: , , Result Comment: <100 mg/dL, Optimal 100-129 mg/dL, Near optimal/above optimal 130-159 mg/dL, Borderline high 160-189 mg/dL, High >189 mg/dL, Very high Secondary prevention optimal LDL Cholesterol levels are recommended to be < 70 mg/dL Performed By: #### 2 4331-1 ####[facility] LABCLIA [id number] [place] [id number] [facility] LABCLIA [id number] [place] [address]#### 3016-3 ####[facility] LABCLIA [id number] [place] [address] [place] Cholesterol in LDL/Cholesterol in HDL [Mass ratio] 5.24 {ratio} High <2.54 [facility] Comment on above: Order Comment: Speci men Type: BLOOD SPECIMENOrdering Facility: External Submitter Address: , , Result Comment: Venancio hicks: 1. National Cholesterol Education Program ATP III Guideline At-A-Glance Quick Desk Reference: National Heart, Lung, and Blood Volborg. National Institutes of Health. 2001: NIH Publication No. 01-3305. 2. An International Atherosclerosis Society position paper: global recommendations for the management of dyslipidemia: executive summary, Atherosclerosis. 2014: 232(2):410-413. Performed By: #### 2 4331-1 ####[facility] LABCLIA [id number] [address] LABCLIA [id number] [place] [address]#### 3016-3 ####[facility] LABCLIA [id number] [place] [address] [place] Cholesterol in VLDL [Mass/Vol] 37 mg/dL High <30 [facility] Comment on above: Order Comment: Speci men Type: BLOOD SPECIMENOrdering Facility: External Submitter Address: , , Performed By: #### 2 4331-1 ####[facility] LABCLIA [id number] [place] [id number] [facility] LABCLIA [id number] [place] [address]#### 3016-3 ####[facility] LABCLIA [id number] [place] [id number] [place] Cholesterol non HDL [Mass/Vol] 215 mg/dL High <130 [facility] Comment on above: Order Comment: Speci men Type: BLOOD SPECIMENOrdering Facility: External Submitter Address: , , Result Comment: <130 mg/dL, Optimal 130-159 mg/dL, Near optimal/above optimal 160-189 mg/dL, Borderline high 190-219 mg/dL, High >219 mg/dL, Very high Secondary prevention optimal non HDL Cholesterol levels are recommended to be <100 mg/dL Performed By: #### 2 4331-1 ####[facility] LABCLIA [id number] [address] LABCLIA [id number] [place] [address]#### 3016-3 ####[facility] LABCLIA [id number] [place] [address] [place] Cholesterol.total/Cho lesterol in HDL [Mass ratio] 7.32 {ratio} High <5.10 [facility] Comment on above: Order Comment: Speci men Type: BLOOD SPECIMENOrdering Facility: External Submitter Address: , , Performed By: #### 2 4331-1 ####[facility] LABCLIA [id number] [address] LABCLIA [id number] [place] [address]#### 3016-3 ####[facility] LABCLIA [id number] [place] [id number] [place] FASTING TIME 15 hrs Normal [facility] Comment on above: Order Comment: Speci men Type: BLOOD SPECIMENOrdering Facility: External Submitter Address: , , Performed By: #### 2 4331-1 ####[facility] LABCLIA [id number] [address] LABCLIA [id number] [place] [address]#### 3016-3 ####[facility] LABIA [id number] [place] [address] [place] Triglyceride [Mass/Vol] 185 mg/dL High <150 [facility] Comment on above: Order Comment: Speci men Type: BLOOD SPECIMENOrdering Facility: External Submitter Address: , , Result Comment: <150 mg/dL, Normal 150-199 mg/dL, Borderline high 200-499 mg/dL, High >499 mg/dL, Very high Performed By: #### 2 4331-1 ####[facility] LABCLIA [id number] [address] LABCLIA [id number] [place] [address]#### 3016-3 ####[facility] LABIA [id number] [place] [address] [place] TSH SerPl-aCncon 04-06-2023 TSH Qn 0.675 m[IU]/L Normal 0.270-4.200 [facility] Comment on above: Order Comment: Speci men Type: BLOOD SPECIMENOrdering Facility: External Submitter Address: , , Performed By: #### 2 4331-1 ####[facility] LABCLIA [id number] [address] LABCLIA [id number] [place] [address]#### 3016-3 ####[facility] LABIA [id number] [address] [place] CNPChristiana 03-31-2023 CNPN Telephone (HEMASA) -------- ANGELIQUE CHERY ([id number]) 1960 F Date Time Provider Department 03/31/23 MARCELA WASHINGTON During your visit today, we recorded the following information about you: Adela Ospina 03/31/2023 8:39 AM Signed Patient coming in Thursday04/06/23 for follow up with labs per BR notes. Please add lab orders. Thanks. Adela Ospina MA Allergies As of Date: 03/31/2023 Noted Allergy Reaction DOXYCYCLINE 06/13/2013 16 - Unknown 4 - Hives Comments: monocycline allery same reaction Date Reviewed: 03/31/2023 Reviewed by: Marcela Washington PA-C - Fully Assessed Reason for Visit: Lab Orders [4594] Primary Visit Diagnosis:Malignant neoplasm of upper-outer quadrant of right breast in female, estrogen receptor positive (HCC) [C50.411, Z17.0] Order(s):COMP METABOLIC PANEL [SQCMP] Order #: [id number] FUTURE CA 27.29 BLOOD [[id number]] Order #: [id number] FUTURE CBC + DIFF [SQCBCDIF] Order #: [id number] FUTURE Prescriptions as of 04/01/2023 - anastrozole (ARIMIDEX) 1 mg tablet Take 1 tablet by mouth once daily. - losartan (COZAAR) 25 mg tablet TAKE 1 TABLET BY MOUTH TWICE A DAY FOR 30 DAYS - amLODIPine (NORVASC) 5 mg tablet TAKE 1 TABLET BY MOUTH EVERY DAY FOR 30 DAYS - cholecalciferol, vitamin D3, (VITAMIN D3 ORAL) Take by mouth. - OMEPRAZOLE ORAL Take by mouth. Problem List As Of Date: 03/31/2023 (None) Encounter Status:Closed by LAVERN TOLBERT on 04/01/23 Normal [facility] Consultation Noteon 01-12-20 Consultation Note [id number]#1.00CD: 27 Normal [facility] CNOVon 12-29-2022 CNOV Office Visit (RADTSA ) -------- ANGELIQUE CHERY ([id number]) 1960 F Date Time Provider Department 12/29/22 2:40 PM TORO CHAN During your visit today, we recorded the following information about you: Temperature Pulse Respiration Blood pressure 97.8 degrees 76/minute 16/minute 132/84 Weight 82.5 kg Tila Johns RN 12/29/2022 2:56 PM Signed Status: Post-menopausal. LAURA Artis MD 01/06/2023 11:00 PM Signed RADIATION ONCOLOGY- ON TREATMENT REVIEW (OTR) NOTE PATIENT NAME: Angelique Chery PATIENT DIAGNOSIS: Ms. 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 Rees after starting preoperative course of endocrine therapy with Arimidex under the care of Dr. Pretty. Pathology revealed 1.8 cm of intermediate grade IDC with negative invasive margins (focal positive margin for DCIS) with 0/2 sentinel lymph nodes positive for metastatic disease and no plans for further resection. Oncotype score returned low at 12 and chemotherapy was not pursued and she will continue on Arimidex. COURSE: post-operative Area Treated: Right breast Current dose: 4205 cGy in 16 fx Planned dose: 5005 cGy in 20 fx SUBJECTIVE: Tolerating XRT well and reports improvement in her axillary rash/irritation and is started using a natural deodorant. She continues to note some kristen-incisional discomfort and mild itching and skin erythema without breakdown. She uses a moisturizer twice a day. She does endorse fatigue as she continues to work with stable appetite hydration and weight. PHYSICAL EXAM: KPS: 90 General Appearance: Alert and oriented. No acute distress. Skin erythema/hyperpigmentati on: Mild Desquamation: No TOXICITY ASSESSMENT (CTC v4.0): Fatigue: grade 1 - Fatigue relieved by rest Radiation dermatitis: grade 1 - Faint erythema or dry desquamation Treatment chart checked: Yes Patient treatment site reviewed and verified:Yes Port films reviewed and current:Yes Medications started: None ASSESSMENT/PLAN: Clinically stable. Toxicity within expected parameters. Continue radiation treatment as planned. Signed by: Toro Chan MD Allergies As of Date: 12/29/2022 Noted Allergy Reaction DOXYCYCLINE 06/13/2013 16 - Unknown 4 - Hives Comments: monocycline allery same reaction Date Reviewed: 12/24/2022 Reviewed by: Sayra Cortez LPN - Fully Assessed Reason for Visit: Radiotherapy On-treatment Visit [1722] Primary Visit Diagnosis:Malignant neoplasm of upper-outer quadrant of right breast in female, estrogen receptor positive (HCC) [C50.411, Z17.0] Prescriptions as of 01/06/2023 - anastrozole (ARIMIDEX) 1 mg tablet Take 1 tablet by mouth once daily. - losartan (COZAAR) 25 mg tablet TAKE 1 TABLET BY MOUTH TWICE A DAY FOR 30 DAYS - amLODIPine (NORVASC) 5 mg tablet TAKE 1 TABLET BY MOUTH EVERY DAY FOR 30 DAYS - cholecalciferol, vitamin D3, (VITAMIN D3 ORAL) Take by mouth. - OMEPRAZOLE ORAL Take by mouth. Problem List As Of Date: 12/29/2022 (None) Visit Notes: >> Tila Johns RN ThuDec 29, 2022 2:51 PM Status: Signed Status: Post-menopausal. Tila Johns RN Encounter Status:Closed by TORO CHAN on 01/06/23 [facility] CNOVon 12-24-2022 CNOV Office Visit (RADTSA ) -------- ANGELIQUE CHERY ([id number]) 1960 F Date Time Provider Department 12/24/22 3:00 PM TORO CHAN During your visit today, we recorded the following information about you: Temperature Pulse Respiration Blood pressure 97.6 degrees 71/minute 16/minute 157/85 Weight 82.1 kg Sayra CortezGRAY 01/06/2023 10:36 PM Signed Status: Post-menopausal. Toro Chan MD 01/06/2023 10:36 PM Signed RADIATION ONCOLOGY- ON TREATMENT REVIEW (OTR) NOTE PATIENT NAME: Angelique Chery PATIENT DIAGNOSIS: Ms. Chery is a 62-year-old woman diagnosed with Stage I, [id number], IDC arising from the right breast, ER/MT positive, Her2 negative status post right breast wide local excision and sentinel lymph node biopsy on 10/23/[address] Rees after starting preoperative course of endocrine therapy with Arimidex under the care of Dr. Pretty. Pathology revealed 1.8 cm of intermediate grade IDC with negative invasive margins (focal positive margin for DCIS) with 0/2 sentinel lymph nodes positive for metastatic disease and no plans for further resection. Oncotype score returned low at 12 and chemotherapy was not pursued and she will continue on Arimidex. COURSE: post-operative Area Treated: Right breast Current dose: 3471 cGy in 13 fx Planned dose: 5005 cGy in 20 fx SUBJECTIVE: XRT well and notes occasional kristen-incisional discomfort but no other pain/discomfort. She does note some erythema in the area of the axilla with no itching or swelling with intact range of motion. She does use a moisturizer at least twice a day. She endorses mild fatigue as she continues to work with stable weight appetite and hydration. PHYSICAL EXAM: KPS: 90 General Appearance: Alert and oriented. No acute distress. Skin erythema/hyperpigmentati on: Mild Desquamation: No TOXICITY ASSESSMENT (CTC v4.0): Fatigue: grade 1 - Fatigue relieved by rest Radiation dermatitis: grade 1 - Faint erythema or dry desquamation Treatment chart checked: Yes Patient treatment site reviewed and verified:Yes Port films reviewed and current:Yes Medications started: None ASSESSMENT/PLAN: Clinically stable. Toxicity within expected parameters. Continue radiation treatment as planned. Signed by: Toro Chan MD Allergies As of Date: 12/24/2022 Noted Allergy Reaction DOXYCYCLINE 06/13/2013 16 - Unknown 4 - Hives Comments: monocycline allery same reaction Date Reviewed: 12/24/2022 Reviewed by: Sayra Cortez LPN - Fully Assessed Reason for Visit: Radiotherapy On-treatment Visit [1721] Primary Visit Diagnosis:Malignant neoplasm of upper-outer quadrant of right breast in female, estrogen receptor positive (HCC) [C50.411, Z17.0] Prescriptions as of 01/06/2023 - anastrozole (ARIMIDEX) 1 mg tablet Take 1 tablet by mouth once daily. - losartan (COZAAR) 25 mg tablet TAKE 1 TABLET BY MOUTH TWICE A DAY FOR 30 DAYS - amLODIPine (NORVASC) 5 mg tablet TAKE 1 TABLET BY MOUTH EVERY DAY FOR 30 DAYS - cholecalciferol, vitamin D3, (VITAMIN D3 ORAL) Take by mouth. - OMEPRAZOLE ORAL Take by mouth. Problem List As Of Date: 12/24/2022 (None) Visit Notes: >> Sayra Cortez LPN ThuDec 24, 2022 3:04 PM Status: Signed Status: Post-menopausal. Encounter Status:Closed by TORO CHAN on 01/06/23 [facility] CNOVon 12-16-2022 CNOV Office Visit (RADTSA ) -------- ANGELIQUE CHERY ([id number]) 1960 F Date Time Provider Department 12/16/22 3:00 PM TORO CHAN RADTSA During your visit today, we recorded the following information about you: Temperature Pulse Respiration Blood pressure 98.3 degrees 75/minute 16/minute 152/68 Weight 82.6 kg Tila Johns RN 12/23/2022 11:44 PM Signed Status: Post-menopausal. LAURA Artis MD 12/24/2022 6:30 AM Addendum RADIATION ONCOLOGY- ON TREATMENT REVIEW (OTR) NOTE PATIENT NAME: Angelique Chery PATIENT DIAGNOSIS: Ms. Chery is a 62-year-old woman diagnosed with Stage I, [id number], IDC arising from the right breast, ER/MT positive, Her2 negative status post right breast wide local excision and sentinel lymph node biopsy on 10/23/[address] Rees after starting preoperative course of endocrine therapy with Arimidex under the care of Dr. Pretty. Pathology revealed 1.8 cm of intermediate grade IDC with negative invasive margins (focal positive margin for DCIS) with 0/2 sentinel lymph nodes positive for metastatic disease and no plans for further resection. Oncotype score returned low at 12 and chemotherapy was not pursued and she will continue on Arimidex. COURSE: post-operative Area Treated: Right breast Current dose: 1869 cGy in 7 fx Planned dose: 5005 cGy in 20 fx SUBJECTIVE: Tolerating XRT well and denies any pain/discomfort or skin irritation/breakdown or itching/swelling in the right breast and reports using a moisturizer twice a day. She reports intact range of motion of the right upper extremity. She does note slight fatigue with good appetite and hydration and stable weight. PHYSICAL EXAM: KPS: 90 General Appearance: Alert and oriented. No acute distress. Skin erythema/hyperpigmentati on: Minimal Desquamation: No TOXICITY ASSESSMENT (CTC v4.0): Fatigue: grade 1 - Fatigue relieved by rest Radiation dermatitis: grade 1 - Faint erythema or dry desquamation Treatment chart checked: Yes Patient treatment site reviewed and verified:Yes Port films reviewed and current:Yes Medications started: None ASSESSMENT/PLAN: Clinically stable. Toxicity within expected parameters. Continue radiation treatment as planned. Signed by: Toro Chan MD Allergies As of Date: 12/16/2022 Noted Allergy Reaction DOXYCYCLINE 06/13/2013 16 - Unknown 4 - Hives Comments: monocycline allery same reaction Date Reviewed: 12/16/2022 Reviewed by: Tila Johns RN - Fully Assessed Reason for Visit: Radiotherapy On-treatment Visit [1722] Primary Visit Diagnosis:Malignant neoplasm of upper-outer quadrant of right breast in female, estrogen receptor positive (HCC) [C50.411, Z17.0] Prescriptions as of 12/24/2022 - anastrozole (ARIMIDEX) 1 mg tablet Take 1 tablet by mouth once daily. - losartan (COZAAR) 25 mg tablet TAKE 1 TABLET BY MOUTH TWICE A DAY FOR 30 DAYS - amLODIPine (NORVASC) 5 mg tablet TAKE 1 TABLET BY MOUTH EVERY DAY FOR 30 DAYS - cholecalciferol, vitamin D3, (VITAMIN D3 ORAL) Take by mouth. - OMEPRAZOLE ORAL Take by mouth. Problem List As Of Date: 12/16/2022 (None) Visit Notes: >> LAURA Artis Dec 16, 2022 3:28 PM Status: Signed Status: Post-menopausal. Tila Johns RN Encounter Status:Closed by TORO CHAN on 12/23/22 [facility] CNOVon 12-10-2022 CNOV Office Visit (RADTSA ) -------- ANGELIQUE CHERY ([id number]) 1960 F Date Time Provider Department 12/10/22 3:00 PM TORO CHAN During your visit today, we recorded the following information about you: Temperature Pulse Respiration Blood pressure 98.3 degrees 79/minute 16/minute 129/75 Weight 82.6 kg Sayra GRAY Cortez 12/10/2022 3:18 PM Signed Status: Post-menopausal. Toro Chan MD 12/24/2022 5:54 AM Addendum RADIATION ONCOLOGY- ON TREATMENT REVIEW (OTR) NOTE PATIENT NAME: Angelique Chery PATIENT DIAGNOSIS: Ms. 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 Rees after starting preoperative course of endocrine therapy with Arimidex under the care of Dr. Pretty. Pathology revealed 1.8 cm of intermediate grade IDC with negative invasive margins (focal positive margin for DCIS) with 0/2 sentinel lymph nodes positive for metastatic disease and no plans for further resection. Oncotype score returned low at 12 and chemotherapy was not pursued and she will continue on Arimidex. COURSE: post-operative Area Treated: Right breast Current dose: 801 cGy in 3 fx Planned dose: 5005 cGy in 20 fx SUBJECTIVE: Tolerating [place] of XRT well and denies any pain/discomfort in the breast or any skin irritation/breakdown or itching/swelling. She reports intact range of motion of the right upper extremity. She does note fatigue as she is working full-time good appetite and hydration and stable weight. PHYSICAL EXAM: KPS: 90 General Appearance: Alert and oriented. No acute distress. Skin erythema/hyperpigmentati on: No Desquamation: No TOXICITY ASSESSMENT (CTC v4.0): Fatigue: grade 1 - Fatigue relieved by rest Radiation dermatitis: grade 0 - No symptoms Treatment chart checked: Yes Patient treatment site reviewed and verified:Yes Port films reviewed and current:Yes Medications started: None ASSESSMENT/PLAN: Clinically stable. Toxicity within expected parameters. Continue radiation treatment as planned. We reviewed skincare as well as general precautions during radiation treatment to the breast and discussed the potential acute toxicities during treatment and their time course. Encouraged the use of a good moisturizer in the treatment area and discussed the importance of a well-balanced diet, hydration, and exercise/activity as tolerated through the course of treatment. Signed by: Toro Chan MD Allergies As of Date: 12/10/2022 Noted Allergy Reaction DOXYCYCLINE 06/13/2013 16 - Unknown 4 - Hives Comments: monocycline allery same reaction Date Reviewed: 12/10/2022 Reviewed by: Sayra Cortez LPN - Fully Assessed Reason for Visit: Radiotherapy On-treatment Visit [172] Primary Visit Diagnosis:Malignant neoplasm of upper-outer quadrant of right breast in female, estrogen receptor positive (HCC) [C50.411, Z17.0] Prescriptions as of 12/24/2022 - anastrozole (ARIMIDEX) 1 mg tablet Take 1 tablet by mouth once daily. - losartan (COZAAR) 25 mg tablet TAKE 1 TABLET BY MOUTH TWICE A DAY FOR 30 DAYS - amLODIPine (NORVASC) 5 mg tablet TAKE 1 TABLET BY MOUTH EVERY DAY FOR 30 DAYS - cholecalciferol, vitamin D3, (VITAMIN D3 ORAL) Take by mouth. - OMEPRAZOLE ORAL Take by mouth. Problem List As Of Date: 12/10/2022 (None) Visit Notes: >> Sayra Cortez LPN ThuDec 10, 2022 2:53 PM Status: Signed Status: Post-menopausal. Encounter Status:Closed by TORO CHAN on 12/23/22 Normal [facility] Consultation Noteon 12-10-19 Consultation Note [id number]: 127 Normal [facility] CBC W Auto Differential pane l (Bld)on 12-08-2022 Basophils (Bld) [#/Vol] 0.04 10*3/uL Normal <0.11 [facility] Comment on above: Order Comment: Speci men Type: BLOOD SPECIMENOrdering Facility: [facility] Address: [address] [place] [address] Performed By: #### 5 7021-8 ####[facility] LABCLIA [id number] [place] [address] Basophils/100 WBC (Bld) 0.6 % Normal [facility] Comment on above: Order Comment: Speci men Type: BLOOD SPECIMENOrdering Facility: [facility] Address: [address] [place] [address] Performed By: #### 5 7021-8 ####[facility] LABCLIA [id number] [place] [address] Differential cell count method Nom (Bld) Auto Normal [facility] Comment on above: Order Comment: Speci men Type: BLOOD SPECIMENOrdering Facility: [facility] Address: [address] [place] [address] Performed By: #### 5 7021-8 ####[facility] LABCLIA [id number] [place] [address] Eosinophils (Bld) [#/Vol] 0.15 10*3/uL Normal <0.46 [facility] Comment on above: Order Comment: Speci men Type: BLOOD SPECIMENOrdering Facility: [facility] Address: [address] [place] [place] [address] Performed By: #### 5 7021-8 ####[facility] LABCLIA [id number] [place] [address] Eosinophils/100 WBC (Bld) 2.2 % Normal [facility] Comment on above: Order Comment: Speci men Type: BLOOD SPECIMENOrdering Facility: [facility] Address: [address] [place] [address] Performed By: #### 5 7021-8 ####[facility] LABCLIA [id number] [place] [address] Erythrocyte distribution width (RBC) [Ratio] 14.7 % Normal 11.5-15.0 [facility] Comment on above: Order Comment: Speci men Type: BLOOD SPECIMENOrdering Facility: [facility] Address: [address] [place] [address] Performed By: #### 5 7021-8 ####[facility] LABCLIA [id number] [place] [address] Hematocrit (Bld) [Volume fraction] 39.5 % Normal 36.0-46.0 [facility] Comment on above: Order Comment: Speci men Type: BLOOD SPECIMENOrdering Facility: [facility] Address: [address] [place] [address] Performed By: #### 5 7021-8 ####[facility] LABCLIA [id number] [place] [address] Hemoglobin (Bld) [Mass/Vol] 12.6 g/dL Normal 11.5-15.5 [facility] Comment on above: Order Comment: Speci men Type: BLOOD SPECIMENOrdering Facility: [facility] Address: [address] [place] [address] Performed By: #### 5 7021-8 ####[facility] LABCLIA [id number] [place] [address] Immature granulocytes (Bld) [#/Vol] 0.08 10*3/uL Normal <0.10 [facility] Comment on above: Order Comment: Speci men Type: BLOOD SPECIMENOrdering Facility: [facility] Address: [address] [place] [address] Performed By: #### 5 7021-8 ####[facility] LABCLIA [id number] [place] [address] Immature granulocytes/100 WBC (Bld) 1.2 % Normal [facility] Comment on above: Order Comment: Speci men Type: BLOOD SPECIMENOrdering Facility: [facility] Address: [address] [place] [address] Performed By: #### 5 7021-8 ####[facility] LABCLIA [id number] [place] [address] Lymphocytes (Bld) [#/Vol] 1.42 10*3/uL Normal 1.00-4.00 [facility] Comment on above: Order Comment: Speci men Type: BLOOD SPECIMENOrdering Facility: [facility] Address: [address] [place] [address] Performed By: #### 5 7021-8 ####[facility] LABCLIA [id number] [place] [address] Lymphocytes/100 WBC (Bld) 20.5 % Normal [facility] Comment on above: Order Comment: Speci men Type: BLOOD SPECIMENOrdering Facility: [facility] Address: [address] [place] [address] Performed By: #### 5 7021-8 ####[facility] LABIA [id number] [place] [address] MCH (RBC) [Entitic mass] 28.1 pg Normal 26.0-34.0 [facility] Comment on above: Order Comment: Speci men Type: BLOOD SPECIMENOrdering Facility: [facility] Address: [address] [place] [address] Performed By: #### 5 7021-8 ####[facility] LABCLIA [id number] [place] [address] MCHC (RBC) [Mass/Vol] 31.9 g/dL Normal 30.5-36.0 [facility] Comment on above: Order Comment: Speci men Type: BLOOD SPECIMENOrdering Facility: [facility] Address: [address] [place] [address] Performed By: #### 5 7021-8 ####[facility] LABCLIA [id number] [place] [address] MCV (RBC) [Entitic vol] 88.2 fL Normal 80.0-100.0 [facility] Comment on above: Order Comment: Speci men Type: BLOOD SPECIMENOrdering Facility: [facility] Address: [address] [place] [address] Performed By: #### 5 7021-8 ####[facility] LABCLIA [id number] [place] [address] Monocytes (Bld) [#/Vol] 0.56 10*3/uL Normal <0.87 [facility] Comment on above: Order Comment: Speci men Type: BLOOD SPECIMENOrdering Facility: [facility] Address: [address] [place] [address] Performed By: #### 5 7021-8 ####[facility] LABCLIA [id number] [place] [address] Monocytes/100 WBC (Bld) 8.1 % Normal [facility] Comment on above: Order Comment: Speci men Type: BLOOD SPECIMENOrdering Facility: [facility] Address: [address] [place] [address] Performed By: #### 5 7021-8 ####[facility] LABCLIA [id number] [place] [address] Neutrophils (Bld) [#/Vol] 4.69 10*3/uL Normal 1.45-7.50 [facility] Comment on above: Order Comment: Speci men Type: BLOOD SPECIMENOrdering Facility: [facility] Address: [address] [place] [address] Performed By: #### 5 7021-8 ####[facility] LABCLIA [id number] [place] [address] Neutrophils/100 WBC (Bld) 67.4 % Normal [facility] Comment on above: Order Comment: Speci men Type: BLOOD SPECIMENOrdering Facility: [facility] Address: [address] [place] [address] Performed By: #### 5 7021-8 ####[facility] LABCLIA [id number] [place] [address] Nucleated RBC (Bld) [#/Vol] 10*3/uL Normal <0.01 [facility] Comment on above: Order Comment: Speci men Type: BLOOD SPECIMENOrdering Facility: [facility] Address: [address] [place] [address] Performed By: #### 5 7021-8 ####[facility] LABCLIA [id number] [place] [address] Nucleated RBC/100 WBC (Bld) [Ratio] 0.0 /100 WBC Normal [facility] Comment on above: Order Comment: Speci men Type: BLOOD SPECIMENOrdering Facility: [facility] Address: [address] [place] [address] Performed By: #### 5 7021-8 ####[facility] LABCLIA [id number] [place] [address] Platelet mean volume (Bld) [Entitic vol] 10.1 fL Normal 9.0-12.7 [facility] Comment on above: Order Comment: Speci men Type: BLOOD SPECIMENOrdering Facility: [facility] Address: [address] [place] [address] Performed By: #### 5 7021-8 ####[facility] LABCLIA [id number] [place] [address] Platelets (Bld) [#/Vol] 257 10*3/uL Normal 150-400 [facility] Comment on above: Order Comment: Speci men Type: BLOOD SPECIMENOrdering Facility: [facility] Address: [address] [place] [address] Performed By: #### 5 7021-8 ####[facility] LABIA [id number] [place] [address] RBC (Bld) [#/Vol] 4.48 10*6/uL Normal 3.90-5.20 [facility] Comment on above: Order Comment: Speci men Type: BLOOD SPECIMENOrdering Facility: [facility] Address: [address] [place] [address] Performed By: #### 5 7021-8 ####[facility] LABIA [id number] [place] [address] WBC (Bld) [#/Vol] 6.94 10*3/uL Normal 3.70-11.00 [facility] Comment on above: Order Comment: Speci men Type: BLOOD SPECIMENOrdering Facility: [facility] Address: [address] [place] [address] Performed By: #### 5 7021-8 ####[facility] LABIA [id number] [place] [address] Basophils (Bld) [#/Vol] 0.04 10*3/uL <0.11 k/uL [facility] Basophils/100 WBC (Bld) 0.6 % [facility] Differential cell count method Nom (Bld) Auto [facility] Eosinophils (Bld) [#/Vol] 0.15 10*3/uL <0.46 k/uL [facility] Eosinophils/100 WBC (Bld) 2.2 % [facility] Erythrocyte distribution width (RBC) [Ratio] 14.7 % 11.5 - 15.0 % [facility] Hematocrit (Bld) [Volume fraction] 39.5 % 36.0 - 46.0 % [facility] Hemoglobin (Bld) [Mass/Vol] 12.6 g/dL 11.5 - 15.5 g/dL [facility] Immature granulocytes (Bld) [#/Vol] 0.08 10*3/uL <0.10 k/uL [facility] Immature granulocytes/100 WBC (Bld) 1.2 % [facility] Lymphocytes (Bld) [#/Vol] 1.42 10*3/uL 1.00 - 4.00 k/uL [facility] Lymphocytes/100 WBC (Bld) 20.5 % [facility] MCH (RBC) [Entitic mass] 28.1 pg 26.0 - 34.0 pg [facility] MCHC (RBC) [Mass/Vol] 31.9 g/dL 30.5 - 36.0 g/dL [facility] MCV (RBC) [Entitic vol] 88.2 fL 80.0 - 100.0 fL [facility] Monocytes (Bld) [#/Vol] 0.56 10*3/uL <0.87 k/uL [facility] Monocytes/100 WBC (Bld) 8.1 % [facility] Neutrophils (Bld) [#/Vol] 4.69 10*3/uL 1.45 - 7.50 k/uL [facility] Neutrophils/100 WBC (Bld) 67.4 % [facility] Nucleated RBC (Bld) [#/Vol] <0.01 k/uL [facility] Nucleated RBC/100 WBC (Bld) [Ratio] 0.0 /100 WBC [facility] Platelet mean volume (Bld) [Entitic vol] 10.1 fL 9.0 - 12.7 fL [facility] Platelets (Bld) [#/Vol] 257 10*3/uL 150 - 400 k/uL [facility] RBC (Bld) [#/Vol] 4.48 10*6/uL 3.90 - 5.2 0 m/uL [facility] WBC (Bld) [#/Vol] 6.94 10*3/uL 3.70 - 11. 00 k/uL [facility] CNOVSPon 12-08-2022 CNOVSP Visit (SP) Office ([facility]) -------- ANGELIQUE CHERY ([id number]) 1960 F Date Time Provider Department 12/08/22 1:00 PM BLAYNE PRETTY During your visit today, we recorded the following information about you: Temperature Pulse Respiration Blood pressure 97.7 degrees 82/minute 16/minute 154/94 Weight Height 83.4 kg 1.536 m Blayne Pretty MD 12/08/2022 9:19 PM Signed PATIENT NAME: Angelique Chery DATE: 11/10/2022 PRIMARY CARE PHYSICIAN: Pedro Whalen DO OTHER PHYSICIANS: Dr. Ciaran Rees, Dr. Earnest Davis, Dr. Toro Chan Portions of this encounter note have been copied from my note from 10/06/2022 and has been updated where appropriate, and reflect my current medical decision making from today. CC: This is a 62 year old female with recently diagnosed breast cancer, seen for scheduled follow-up. INTERIM HISTORY: Since the patient's last visit here her Oncotype analysis was obtained, and revealed a recurrence score of 12. This would predict a 9-year recurrence risk of 3% with hormonal therapy alone, and no benefit from adjuvant chemotherapy. Currently the patient feels well with no complaints. She is completely healed from her previous breast surgery. Since her last visit she has remained on Arimidex 1 mg daily, and is tolerating it well. She is scheduled to start adjuvant radiation therapy later today. MEDICATIONS: Current Outpatient Medications Medication Sig losartan (COZAAR) 25 mg tablet TAKE 1 TABLET BY MOUTH TWICE A DAY FOR 30 DAYS amLODIPine (NORVASC) 5 mg tablet TAKE 1 TABLET BY MOUTH EVERY DAY FOR 30 DAYS cholecalciferol, vitamin D3, (VITAMIN D3 ORAL) Take by mouth. anastrozole (ARIMIDEX) 1 mg tablet Take 1 tablet by mouth once daily. OMEPRAZOLE ORAL Take by mouth. No current facility-administered medications for this visit. ALLERGIES: ALLERGIES Allergen Reactions Doxycycline Unknown, Hives monocycline allery same reaction PAST MEDICAL HISTORY: PAST MEDICAL HISTORY Diagnosis Date Breast lump Right PAST SURGICAL HISTORY: PAST SURGICAL HISTORY Procedure Laterality Date LASIK PAST SURGICAL HISTORY OF Biopsy Parathyroid gland REMOVAL GALLBLADDER REMV CATARACT EXTRACAP,INSERT LENS REPAIR RETINAL DETACHMENT SCLERAL BUCKLING VAGINAL HYSTERECTOMY FAMILY HISTORY: FAMILY HISTORY Problem Relation Age of Onset Dementia Mother Colon Cancer Mother Breast Cancer Father other (Cardiac arrest) Father Leukemia Father SOCIAL HISTORY: Social History Tobacco Use Smoking status: Former Types: Cigarettes Quit date: 1999 Years since quittin.1 Passive exposure: Past Smokeless tobacco: Never Vaping Use Vaping Use: Never used Substance Use Topics Alcohol use: Not Currently Drug use: Never COMPLETE REVIEW OF SYSTEMS: CONSTITUTION: Negative for pain, fatigue, weight loss, or appetite loss. EENT: Negative for mouth soreness, antibiotics use, epistaxis, visual problems, neck or facial swelling, fever/chills, bleeding gums, or hearing loss. CV: Negative for edema, calf swelling, palpitations, or chest pain. RESPIRATORY: Negative for cough, SOB, hemoptysis, or wheezing. GI: Negative for nausea/vomiting, heartburn, vomiting blood, dysphasia, diarrhea, blood in stool, constipation, early satiety, PICA, vegetarian, poor nutrition, abdominal fullness, or abdominal pain. NEUROLOGICAL: Negative for numbness/tingling, dizziness, gait disturbance, headache, speech disturbance, tremor, hemiparesis/sensory loss, or change in mental status. MUSCULOSKELETAL: Negative for joint pain, joint swelling, or proximal muscle weakness. SKIN: Negative for hair loss, bruising, nail changes, rash, itching, pallor, or jaundice. ENDO/URO: Negative for hot flashes, cold or heat intolerance, urinary frequency, urinary hesitancy, menorrhagia, or hematuria. PSYCH: Negative for anxiety, depression, or other. PHYSICAL EXAM: BP 154/94 Pulse 82 Temp 36.5 ?C (97.7 ?F) (Temporal) Resp 16 Ht 153.6 cm (5' 0.47 ) Wt 83.4 kg (183 lb 12.8 oz) SpO2 99% BMI 35.34 kg/m? GENERAL EXAM: Well developed/well nourished; in no acute distress. SKIN: Negative for lesions, rashes, or ulcers on the upper and lower extremities and face. Negative for palpations/nodules, purpura, and ecchymosis. EENT: Negative for conjunctiva, mucosal pallor, JVD, LAP, thyromegaly, and glossitis. Supple AND PERRL. EXTREMITIES: Negative for cyanosis, clubbing, and crepitus. LUNGS: Negative to auscultation, respiratory effort, and percussion. BREAST: Breasts not examined today CARDIOVASCULAR: Regular rate. Negative for murmurs/S3S4/abnormal sounds, edema, and carotid bruits. ABDOMEN: Negative for masses, hernia, and spleen/liver abnormalities. RECTAL: Not done PSYCHIATRIC: Negative for mood/affect changes, recent AND remote memory changes, and judgement and insight. NEURO (more content not included)... Normal [facility] Cancer Ag27-29 SerPl-aCncon 12-08-2022 Cancer Ag 27-29 Qn 35.7 [arb'U]/mL Normal <38.6 [facility] Comment on above: Order Comment: Speci men Type: BLOOD SPECIMENOrdering Facility: [facility] Address: [address] [place] [address] Result Comment: The CA27.29 test was performed using the Siemens AdExtentaur XP chemiluminometric immunoassay method. Results obtained with different assay methods or kits cannot be used interchangeably. Performed By: #### 1 7842-6 ####[facility] LABCLIA [id number] [place] [address] [place] Comprehensive metabolic 2000 panelon 12-08-2022 Albumin [Mass/Vol] 4.3 g/dL Normal 3.9-4.9 [facility] Comment on above: Order Comment: Speci men Type: BLOOD SPECIMENOrdering Facility: [facility] Address: [address] [place] [address] Performed By: #### 2 4323-8 ####[facility] LABCLIA [id number] [place] [address] ALP [Catalytic activity/Vol] 222 U/L High 34-123 [facility] Comment on above: Order Comment: Speci men Type: BLOOD SPECIMENOrdering Facility: [facility] Address: [address] [place] [address] Performed By: #### 2 4323-8 ####[facility] LABCLIA [id number] [place] [address] ALT [Catalytic activity/Vol] 20 U/L Normal 7-38 [facility] Comment on above: Order Comment: Speci men Type: BLOOD SPECIMENOrdering Facility: [facility] Address: [address] [address] Performed By: #### 2 4323-8 ####[facility] LABCLIA [id number] [place] [address] Anion gap [Moles/Vol] 10 mmol/L Normal 9-18 [facility] Comment on above: Order Comment: Speci men Type: BLOOD SPECIMENOrdering Facility: [facility] Address: [address] [place] [address] Performed By: #### 2 4323-8 ####[facility] LABCLIA [id number] [place] [address] AST [Catalytic activity/Vol] 34 U/L Normal 13-35 [facility] Comment on above: Order Comment: Speci men Type: BLOOD SPECIMENOrdering Facility: [facility] Address: [address] [place] [address] Performed By: #### 2 4323-8 ####[facility] LABCLIA [id number] [place] [address] Bilirubin [Mass/Vol] 0.5 mg/dL Normal 0.2-1.3 [facility] Comment on above: Order Comment: Speci men Type: BLOOD SPECIMENOrdering Facility: [facility] Address: [address] [address] Performed By: #### 2 4323-8 ####[facility] LABCLIA [id number] [place] [address] Calcium [Mass/Vol] 9.9 mg/dL Normal 8.5-10.2 [facility] Comment on above: Order Comment: Speci men Type: BLOOD SPECIMENOrdering Facility: [facility] Address: [address] [place] [address] Performed By: #### 2 4323-8 ####[facility] LABCLIA [id number] [place] [address] Chloride [Moles/Vol] 102 mmol/L Normal 97-105 [facility] Comment on above: Order Comment: Speci men Type: BLOOD SPECIMENOrdering Facility: [facility] Address: [address] [place] [address] Performed By: #### 2 4323-8 ####[facility] LABCLIA [id number] [place] [address] CO2 [Moles/Vol] 29 mmol/L Normal 22-30 [facility] Comment on above: Order Comment: Speci men Type: BLOOD SPECIMENOrdering Facility: [facility] Address: [address] [place] [address] Performed By: #### 2 4323-8 ####[facility] LABCLIA [id number] [place] [address] Creatinine [Mass/Vol] 0.79 mg/dL Normal 0.58-0.96 [facility] Comment on above: Order Comment: Speci men Type: BLOOD SPECIMENOrdering Facility: [facility] Address: [address] [place] [address] Performed By: #### 2 4323-8 ####[facility] LABCLIA [id number] [place] [address] ESTIMATED GLOMERULAR FILTRATION RATE 85 mL/min/1.73m??? Normal >=60 [facility] Comment on above: Order Comment: Speci men Type: BLOOD SPECIMENOrdering Facility: [facility] Address: [address] [place] [address] Result Comment: Salima mated Glomerular Filtration Rate (eGFR) is calculated using the 2020 CKD-EPI creatinine equation. This equation utilizes serum creatinine, sex, and age as parameters. The creatinine assay has traceable calibration to isotope dilution-mass spectrometry. Refer to KDIGO guidelines for clinical interpretation. In patients with unstable renal function, e.g. those with acute kidney injury, the eGFR may not accurately reflect actual GFR. Performed By: #### 2 4323-8 ####[facility] LABCLIA [id number] [place] [address] Glucose [Mass/Vol] 109 mg/dL High 74-99 [facility] Comment on above: Order Comment: Nic espinosa Type: BLOOD SPECIMENOrdering Facility: [facility] Address: [address] [address] Result Comment: The [place] [employer] (ADA) provides guidance for cutoff values for fasting glucose and random glucose. The ADA defines fasting as no caloric intake for at least 8 hours. Fasting plasma glucose results between 100 to 125 mg/dL indicate increased risk for diabetes (prediabetes). Fasting plasma glucose results greater than or equal to 126 mg/dL meet the criteria for diagnosis of diabetes. In the absence of unequivocal hyperglycemia, results should be confirmed by repeat testing. In a patient with classic symptoms of hyperglycemia or hyperglycemic crisis, random plasma glucose results greater than or equal to 200 mg/dL meet the criteria for diagnosis of diabetes. Reference: Standards of Medical Care in Diabetes 2016, [place] [employer]. Diabetes Care. 2016.39(Suppl 1). Performed By: #### 2 4323-8 ####[facility] LABCLIA [id number] [place] [address] Potassium [Moles/Vol] 3.5 mmol/L Low 3.7-5.1 [facility] Comment on above: Order Comment: Nic espinosa Type: BLOOD SPECIMENOrdering Facility: [facility] Address: [address] [id number] Performed By: #### 2 4323-8 ####[facility] LABCLIA [id number] [place] [address] Protein [Mass/Vol] 7.9 g/dL Normal 6.3-8.0 [facility] Comment on above: Order Comment: Nic espinosa Type: BLOOD SPECIMENOrdering Facility: [facility] Address: [address] [id number] Performed By: #### 2 4323-8 ####[facility] LABCLIA [id number] [place] [address] Sodium [Moles/Vol] 141 mmol/L Normal 136-144 [facility] Comment on above: Order Comment: Speci men Type: BLOOD SPECIMENOrdering Facility: [facility] Address: [address] [address] Performed By: #### 2 4323-8 ####[facility] LABCLIA [id number] [place] [address] Urea nitrogen [Mass/Vol] 12 mg/dL Normal 7-21 [facility] Comment on above: Order Comment: Speci men Type: BLOOD SPECIMENOrdering Facility: [facility] Address: [address] [address] Performed By: #### 2 4323-8 ####[facility] LABCLIA [id number] [place] [address] Albumin [Mass/Vol] 4.3 g/dL 3.9 - 4.9 g/dL [facility] ALP [Catalytic activity/Vol] 222 U/L High 34 - 123 U/L [facility] ALT [Catalytic activity/Vol] 20 U/L 7 - 38 U/L [facility] Anion gap [Moles/Vol] 10 mmol/L 9 - 18 mmol/L [facility] AST [Catalytic activity/Vol] 34 U/L 13 - 35 U/L [facility] Bilirubin [Mass/Vol] 0.5 mg/dL 0.2 - 1 .3 mg/dL [facility] Calcium [Mass/Vol] 9.9 mg/dL 8.5 - 10. 2 mg/dL [facility] Chloride [Moles/Vol] 102 mmol/L 97 - 10 5 mmol/L [facility] CO2 [Moles/Vol] 29 mmol/L 22 - 30 mmol/L [facility] Creatinine [Mass/Vol] 0.79 mg/dL 0.58 - 0.96 mg/dL [facility] Estimated Glomerular Filtration Rate 85 mL/min/1.73m >=60 mL/min/1.73m [facility] Glucose [Mass/Vol] 109 mg/dL High 74 - 99 mg/dL [facility] Potassium [Moles/Vol] 3.5 mmol/L Low 3.7 - 5.1 mmol/L [facility] Protein [Mass/Vol] 7.9 g/dL 6.3 - 8.0 g/dL [facility] Sodium [Moles/Vol] 141 mmol/L 136 - 144 mmol/L [facility] Urea nitrogen [Mass/Vol] 12 mg/dL 7 - 21 mg/dL [facility] CNOVon 11-26-2022 CNOV Office Visit ([facility] ) -------- ANGELIQUE CHERY ([id number]) 1960 F Date Time Provider Department 11/26/22 3:00 PM TORO CHAN During your visit today, we recorded the following information about you: Toro Chan MD 12/10/2022 6:42 AM Addendum Radiation Oncology - Follow Up Note PATIENT NAME: Angelique Chery PATIENT DIAGNOSIS/PATIENT IDENTIFICATION: Ms. 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 Rees after starting preoperative course of endocrine therapy with Arimidex under the care of Dr. Pretty. Pathology revealed 1.8 cm of intermediate grade IDC with negative invasive margins (focal positive margin for DCIS) with 0/2 sentinel lymph nodes positive for metastatic disease and no plans for further resection. She has met with Dr. Pretty and is awaiting the results of her Oncotype DX score to make decision regarding adjuvant chemotherapy and was referred to the radiation medicine clinic to have a discussion regarding the role of radiation therapy in the postoperative treatment of her early stage breast cancer. Ms. Chery returns to clinic today for follow-up and simulation as previously discussed during consultation on 11/14/2022. In the interim, her Oncotype recurrence score returned low at 12 and chemotherapy was not recommended. She will continue on her Arimidex. We again briefly reviewed the rationale, logistics, and toxicity of radiation therapy to the right breast in this postoperative setting. After all of her questions were answered, informed consent was obtained. She will proceed to CT simulation following this visit to begin treatment planning and I anticipate starting radiation shortly. Thank you for allowing us to participate in the care of this patient. Signed by: Toro Chan MD I spent a total of 15 minutes on the date of the service which included preparing to see the patient, [id number] patient care, and counseling and educating the patient/family/caregiver . This document has been created with the use of voice recognition technology. It may contain inaccuracies, misspellings, inaccurate syntax or inappropriate word context that are a result of the inadequacies/shortcoming s of said technology/software. Allergies As of Date: 11/26/2022 Noted Allergy Reaction DOXYCYCLINE 06/13/2013 16 - Unknown 4 - Hives Comments: monocycline allery same reaction Date Reviewed: 11/14/2022 Reviewed by: Clari Clark RN - Fully Assessed Reason for Visit: Simulation Request Form [4321] Primary Visit Diagnosis:Malignant neoplasm of upper-outer quadrant of right breast in female, estrogen receptor positive (HCC) [C50.411, Z17.0] Order(s):RADIATION TREATMENT PER RADIATION ONCOLOGIST PLAN [6390371] Order #: [id number]: 1 PT ED CANCER [8897651] Order #: [id number]: 1 CT SIM PLANNING RADIATION ONCOLOGY [8435740] Order #: [id number] Prescriptions as of 12/10/2022 - anastrozole (ARIMIDEX) 1 mg tablet Take 1 tablet by mouth once daily. - losartan (COZAAR) 25 mg tablet TAKE 1 TABLET BY MOUTH TWICE A DAY FOR 30 DAYS - amLODIPine (NORVASC) 5 mg tablet TAKE 1 TABLET BY MOUTH EVERY DAY FOR 30 DAYS - cholecalciferol, vitamin D3, (VITAMIN D3 ORAL) Take by mouth. - OMEPRAZOLE ORAL Take by mouth. Problem List As Of Date: 11/26/2022 (None) Letter Text Encounter Status:Closed by TORO CHAN on 12/09/22 Normal [facility] Consultation Noteon 11-26-19 Consultation Note [id number] 2040 [id number]: 127 Normal [facility] Ambulatory Visit Summaryon 0 11-19-2022 Ambulatory Visit Summary ANGELIQUE CHERY :1960 Visit Date:11/18/2022 Ambulatory Visit Instructions Your Diagnosis Breast cancer of upper-outer quadrant of right female breast Your Care Team Attending Physician - Ciaran REES MD Primary Care Physician - PEDRO WHALEN DO This Is Your Medications List Contact prescribing physician if questions or concerns amlodipine (amLODIPine 5 mg Tab) anastrozole (Arimidex 1 mg Tab) cholecalciferol (Vitamin D3 1000 intl units oral tablet) losartan (losartan 25 mg Tab) omeprazole (omeprazole 10 mg Cap-EC) Procedures Performed Breast lumpectomy (10/23/2022), Biopsy of parathyroid gland, Cataract extraction, Cataract extraction, Cholecystectomy, LASIK, Repair of retinal detachment, Vaginal hysterectomy. What to do next You Need to Schedule the Following Appointments Follow Up with [facility] GALEANO, JAROD Gonzales When: Only if needed Where: [address] [place] [address] Medications What How Much When Instructions Unchanged amlodipine (amLODIPine 5 mg Tab) 1 Tablets By Mouth Every day Contact prescribing physician if questions or concerns Unchanged anastrozole (Arimidex 1 mg Tab) 1 Tablets By Mouth Every day Hormone Contact prescribing physician if questions or concerns Unchanged cholecalciferol (Vitamin D3 1000 intl units oral tablet) 1 Tablets By Mouth Every day Contact prescribing physician if questions or concerns Unchanged losartan (losartan 25 mg Tab) 1 Tablets By Mouth 2 times a day Contact prescribing physician if questions or concerns Unchanged omeprazole (omeprazole 10 mg Cap-EC) 1 Capsules By Mouth Every day Contact prescribing physician if questions or concerns Allergies doxycycline (Blisters) Problems Ongoing - Any problem that you are currently receiving treatment for. Abnormal ultrasound of breast Acid reflux BMI 33.0-33.9,adult Breast cancer of upper-outer quadrant of right female breast HTN (hypertension) Mass of lower outer quadrant of right breast Mass of upper outer quadrant of right breast Alicia Yury [facility] General Surgery Office/Clini c Noteon 11-18-2022 General Surgery Office/Clinic Note Chief Complaint post operative follow up HPI Staff 26 day post operative follow up post right breast lumpectomy. Denies pain, bleeding or drainage. History of Present Illness almost 4 weeks s/p right breast lumpectomy and sentinel lymph node biopsy for T1cN0 disease; saw Oncology, Oncotype Dx obtained, pending; seen by Radiation Oncologist; mild soreness at times, no drainage from incisions. Review of Systems ROS - Provider Constitutional: no fever, no sweats, no weight loss. Eyes: no glasses, no blurred vision, no visual loss. ENMT: no dentures, no hoarseness, no swallowing difficulties, no hearing loss, no ear infection(s), no nose bleeds. Cardiovascular: normal blood pressure, no chest pain, regular heartbeat, no heart murmur. Respiratory: no shortness of breath, no cough, no asthma, no wheezing. Gastrointestinal: no nausea, no vomiting, no diarrhea, no constipation, no blood in stool, no change in bowel habits, no abdominal pain, no hepatitis. Genitourinary: no kidney stones, no urine infection, no dysuria. Musculoskeletal: no pain, no weakness. Skin: no changing moles, no rash, no skin lumps. Neurologic: no seizures, no epilepsy, no headache. Psychiatric: no emotional or psychiatric problem. Heme/Lymph: no bleeding problems, no anemia, no blood clots, no transfusions. Allergy/Immunologic: no swollen lymph nodes/glands, no IV drug abuse. Other: Additional ROS info: Except as noted in the above Review of Systems and in the History of Present Illness, all other systems have been reviewed and are negative or noncontributory. Physical Exam skin: incisions healing well, no erythema or drainage, no ecchymoses; minimal scab on breast incision Assessment/Plan 1. Breast cancer of upper-outer quadrant of right female breast (C50.411: Malignant neoplasm of upper-outer quadrant of right female breast) doing well; recommend f/u mammogram of right breast 6 months after completion of radiation; patient to f/u for screening colonoscopy after radiation completed; call with problems/questions. Follow-up With When Contact Information CABRERA GALEANO, Ciaran R, JAROD Only if needed [address] [place] [address]- Additional Instructions: Problem List/Past Medical History Ongoing Abnormal ultrasound of breast Acid reflux BMI 33.0-33.9,adult Breast cancer of upper-outer quadrant of right female breast HTN (hypertension) Mass of lower outer quadrant of right breast Mass of upper outer quadrant of right breast Historical No qualifying data Procedure/Surgical History Breast lumpectomy (10/23/2022), Biopsy of parathyroid gland, Cataract extraction, Cataract extraction, Cholecystectomy, LASIK, Repair of retinal detachment, Vaginal hysterectomy. Medications amLODIPine 5 mg Tab, 5 mg= 1 tab(s), Oral, Daily Arimidex 1 mg Tab, 1 mg= 1 tab(s), Oral, Daily losartan 25 mg Tab, 25 mg= 1 tab(s), Oral, BID omeprazole 10 mg Cap-EC, 10 mg= 1 cap(s), Oral, Daily Vitamin D3 1000 intl units oral tablet, 1 tab(s), Oral, Daily Allergies doxycycline (Blisters) Social History Alcohol - Denies Alcohol Use, 08/26/2022 Substance Abuse - Denies Substance Abuse, 08/26/2022 Tobacco - Denies Tobacco Use, 10/15/2022 Former smoker, quit more than 30 days ago Tobacco Use:. Never Smokeless Tobacco Use:. Cigarettes, 1 per day. Started age 16.0 Years. Stopped age 38 Years., 08/26/2022 Family History Breast cancer: Father. Cardiac arrest: Father. Dementia: Mother. Leukemia: Father. Primary malignant neoplasm of colon: Mother. Immunizations Vaccine Date Status Comments influenza virus vaccine, inactivated - Not Given Patient Refuses SARS-CoV-2 (COVID-19) mRNA-1273 vaccine 09/24/2021 Recorded 2022-10-07: [id number] SARS-CoV-2 (COVID-19) mRNA-1273 vaccine 01/26/2021 Recorded SARS-CoV-2 (COVID-19) mRNA-1273 vaccine 12/29/2020 Recorded Normal [facility] Comment on above: Result Comment: Elec tronically Signed By: CABRERA GALEANO, Ciaran Olmedo\Date and Time Signed: 11/18/22 16:36 EST CNOVon 11-14-2022 CNOV Office Visit (RADTSA ) -------- ANGELIQUE CHERY ([id number]) 1960 F Date Time Provider Department 11/14/22 9:00 AM TORO CHAN During your visit today, we recorded the following information about you: Temperature Pulse Respiration Blood pressure 98.2 degrees 77/minute 18/minute 142/82 Weight Height 83.1 kg 1.536 m Toro Chan MD 11/26/2022 6:41 AM Addendum Radiation Oncology - New Patient/Consult Note PATIENT NAME: Angelique Chery PATIENT REQUESTING PHYSICIAN: Dr. Blayne Pretty, Dr. Ciaran Rees DIAGNOSIS: Stage I, [id number], IDC arising from the right breast, ER/MT positive, Her2 negative. PATIENT IDENTIFICATION: This patient was seen in the Department of Radiation Oncology at the [facility] with Toro Chan MD. Final recommendations will be communicated back to the requesting physician by way of the shared medical record, or letter to requesting physician via US mail. HISTORY OF PRESENT ILLNESS: per note from Dr. Pretty on 11/10/2022: '1. Malignant neoplasm of upper-outer quadrant of right breast in female, estrogen receptor positive (HCC) - ICD9: 174.4, V86.0, ICD10: C50.411, Z17.0 Stage I right-sided breast cancer diagnosed August 2022 (core biopsy 08/26/2022). The patient's initial pathology indicated grade 2 invasive ductal carcinoma, ER/MT positive, HER2 negative. Genomic analysis revealed no deleterious mutations. In preparation for surgery neoadjuvant Arimidex started 09/12/2022. On 10/23/2022 the patient underwent lumpectomy and sentinel node procedure. Final pathology: Invasive tumor 1.8 cm with DCIS, 0 of 2 sentinel nodes involved. Oncotype analysis pending. Options for further management were discussed at length with the patient and her . We will send her tumor for Oncotype analysis. If she is found to have a high recurrence score (greater than 26) adjuvant chemotherapy will be discussed. If her recurrence score is low there would be no indications for chemotherapy, and the patient will continue as is with adjuvant hormonal therapy.' She is referred today to the radiation medicine clinic to have a discussion regarding the potential role of radiation therapy in the postoperative treatment of her early stage breast cancer as we await her Oncotype score to make decision regarding chemotherapy.. INTERVAL/HISTORY/REVIEW OF SYSTEMS: Ms. Chery reports that she has been recovering well from her recent surgery on 10/23/2022 with no residual discomfort and denies any postoperative complications with wound healing or infection. She reports tolerating her endocrine therapy with Arimidex well and denies any hot flashes. She otherwise denies any recent fevers/chills, new headaches, changes in weight/appetite, difficulty with speech/swallowing, shortness of breath, chest pain/palpitations, abdominal pain, nausea/vomiting, change in bowel/urinary function, difficulty with gait/balance. The remainder of the review of systems was performed and was otherwise non-contributory except as described above. PAST MEDICAL HISTORY: PAST MEDICAL HISTORY Diagnosis Date Breast lump Right PAST SURGICAL HISTORY: PAST SURGICAL HISTORY Procedure Laterality Date LASIK PAST SURGICAL HISTORY OF Biopsy Parathyroid gland REMOVAL GALLBLADDER REMV CATARACT EXTRACAP,INSERT LENS REPAIR RETINAL DETACHMENT SCLERAL BUCKLING VAGINAL HYSTERECTOMY FAMILY HISTORY: FAMILY HISTORY Problem Relation Age of Onset Dementia Mother Colon Cancer Mother Breast Cancer Father other (Cardiac arrest) Father Leukemia Father SOCIAL HISTORY: Ms. Chery is , has 3 children, and lives in the [place], [place] area. 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 RADIATION HISTORY: The patient denies any history of therapeutic radiation. ALLERGIES: ALLERGIES Allergen Reactions Doxycycline Unknown, Hives monocycline allery same reaction MEDICATIONS: Current Outpatient Medications: losartan (COZAAR) 25 mg tablet amLODIPine (NORVASC) 5 mg tablet cholecalciferol, vitamin D3, (VITAMIN D3 ORAL) anastrozole (ARIMIDEX) 1 mg tablet OMEPRAZOLE ORAL PHYSICAL EXAMINATION: GENERAL: middle-aged woman sitting in chair, in no acute distress. VITALS: BP 142/82 Pulse 77 Temp 98.2 Resp 18 Ht 5' .472 (1.54m) Wt 183 lb 3.2 oz (83.1kg) SpO2 99% BMI 35.22 kg/(m2). KPS: 90 HEENT: NC/AT, anicteric sclera HEART: S1S2 LUNGS: non-labored breathing ABDOMEN: soft MUSCULOSKELETAL: no peripheral edema, moves all extremities. NEURO: no focal deficit; AANDO X3. LABORATORY DATA: 11/10/2022 WBC 3.70 - 11.00 k/uL 6.09 Abs Neut (ANC) 1.45 - 7.50 k/uL 4.04 Hemoglobin 11.5 - 15.5 g/dL 13.1 Hematocrit 36.0 - 46.0 % 41.3 Platelet Count 150 - 400 k/uL 250 RBC 3.90 - 5.20 m/uL 4.66 MCV 80.0 - 100.0 fL (more content not included)... Normal [facility] CNPNon 11-11-2022 CNPN Telephone (HE[facility]AS[facility]) -------- ANGELIQUE CHERY ([id number]) 1960 F Date Time Provider Department 11/11/22 NANCY MARADIAGA During your visit today, we recorded the following information about you: Nancy Maradiaga RN 11/11/2022 2:31 PM Signed FYI: Call placed to [employer] to assess status of pt's Oncotype testing. Specimen was received on 11/07/22. Prior authorization was initiated yesterday. Estimated result date is 11/21/22. Nothing required from our office at this time. LAURA Mancilla RN 11/24/2022 2:52 PM Signed FYI: Pt's Oncotype results are in your mail folder. LAURA Mancilla MD 11/24/2022 4:16 PM Signed Please inform the patient that her Oncotype recurrence score is low at 12, excellent news. No need for chemo. She should continue with Arimidex as planned. Okay to proceed with radiation per Dr. Chan. I will see her back as scheduled. Nancy Maradiaga RN 11/24/2022 4:30 PM Signed Pt notified and verbalizes understanding. Radiation Team: Pt does not have a f/u w/ [facility] at this time. LAURA Mancilla 11/25/2022 8:32 AM Signed Called patient to schedule her as instructed, however she was unable to make it into office today. Patient has been scheduled for tomorrow for follow up AND sim. Lawson Eason Allergies As of Date: 11/11/2022 Noted Allergy Reaction DOXYCYCLINE 06/13/2013 16 - Unknown 4 - Hives Comments: monocycline allery same reaction Date Reviewed: 11/10/2022 Reviewed by: Hayley Blair - Fully Assessed Reason for Visit: Care Coordination [7544] Cmt: Oncotype Update Prescriptions as of 12/10/2022 - anastrozole (ARIMIDEX) 1 mg tablet Take 1 tablet by mouth once daily. - losartan (COZAAR) 25 mg tablet TAKE 1 TABLET BY MOUTH TWICE A DAY FOR 30 DAYS - amLODIPine (NORVASC) 5 mg tablet TAKE 1 TABLET BY MOUTH EVERY DAY FOR 30 DAYS - cholecalciferol, vitamin D3, (VITAMIN D3 ORAL) Take by mouth. - OMEPRAZOLE ORAL Take by mouth. Problem List As Of Date: 11/11/2022 (None) Encounter Status:Closed by NANCY MARADIAGA on 12/10/22 Normal [facility] Consultation Noteon 11-11-19 Consultation Note [id number]: 127 Normal [facility] [place] 27.29 BLOODon 11-10-2022 Cancer Ag 27-29 Qn 28.8 [arb'U]/mL <38.6 U/mL C [facility] CBC W Auto Differential pane l (Bld)on 11-10-2022 Basophils (Bld) [#/Vol] 10*3/uL Normal <0.11 [facility] Comment on above: Order Comment: Speci men Type: BLOOD SPECIMENOrdering Facility: [facility] Address: [address] [place] [address] [place] [address] Performed By: #### 5 7021-8 ####[facility] LABCLIA [id number] [place] [address] Basophils/100 WBC (Bld) 0.3 % Normal [facility] Comment on above: Order Comment: Speci men Type: BLOOD SPECIMENOrdering Facility: [facility] Address: [address] [place] [address] Performed By: #### 5 7021-8 ####[facility] LABCLIA [id number] [place] [address] Differential cell count method Nom (Bld) Auto Normal [facility] Comment on above: Order Comment: Speci men Type: BLOOD SPECIMENOrdering Facility: [facility] Address: [address] [place] [address] Performed By: #### 5 7021-8 ####[facility] LABCLIA [id number] [place] [address] Eosinophils (Bld) [#/Vol] 0.23 10*3/uL Normal <0.46 [facility] Comment on above: Order Comment: Speci men Type: BLOOD SPECIMENOrdering Facility: [facility] Address: [address] [place] [address] Performed By: #### 5 7021-8 ####[facility] LABCLIA [id number] [place] [address] Eosinophils/100 WBC (Bld) 3.8 % Normal [facility] Comment on above: Order Comment: Speci men Type: BLOOD SPECIMENOrdering Facility: [facility] Address: [address] [place] [address] Performed By: #### 5 7021-8 ####[facility] LABIA [id number] [place] [address] Erythrocyte distribution width (RBC) [Ratio] 14.6 % Normal 11.5-15.0 [facility] Comment on above: Order Comment: Speci men Type: BLOOD SPECIMENOrdering Facility: [facility] Address: [address] [place] [address] Performed By: #### 5 7021-8 ####[facility] LABCLIA [id number] [place] [address] Hematocrit (Bld) [Volume fraction] 41.3 % Normal 36.0-46.0 [facility] Comment on above: Order Comment: Speci men Type: BLOOD SPECIMENOrdering Facility: [facility] Address: [address] [place] [address] Performed By: #### 5 7021-8 ####[facility] LABCLIA [id number] [place] [address] Hemoglobin (Bld) [Mass/Vol] 13.1 g/dL Normal 11.5-15.5 [facility] Comment on above: Order Comment: Speci men Type: BLOOD SPECIMENOrdering Facility: [facility] Address: [address] [place] [address] Performed By: #### 5 7021-8 ####[facility] LABIA [id number] [place] [address] Immature granulocytes (Bld) [#/Vol] 0.05 10*3/uL Normal <0.10 [facility] Comment on above: Order Comment: Speci men Type: BLOOD SPECIMENOrdering Facility: [facility] Address: [address] [place] [address] Performed By: #### 5 7021-8 ####[facility] LABCLIA [id number] [place] [address] Immature granulocytes/100 WBC (Bld) 0.8 % Normal [facility] Comment on above: Order Comment: Speci men Type: BLOOD SPECIMENOrdering Facility: [facility] Address: [address] [place] [address] Performed By: #### 5 7021-8 ####[facility] LABCLIA [id number] [place] [address] Lymphocytes (Bld) [#/Vol] 1.26 10*3/uL Normal 1.00-4.00 [facility] Comment on above: Order Comment: Speci men Type: BLOOD SPECIMENOrdering Facility: [facility] Address: [address] [place] [address] Performed By: #### 5 7021-8 ####[facility] LABCLIA [id number] [place] [address] Lymphocytes/100 WBC (Bld) 20.7 % Normal [facility] Comment on above: Order Comment: Speci men Type: BLOOD SPECIMENOrdering Facility: [facility] Address: [address] [place] [address] Performed By: #### 5 7021-8 ####[facility] LABIA [id number] [place] [address] MCH (RBC) [Entitic mass] 28.1 pg Normal 26.0-34.0 [facility] Comment on above: Order Comment: Speci men Type: BLOOD SPECIMENOrdering Facility: [facility] Address: [address] [place] [address] Performed By: #### 5 7021-8 ####[facility] LABCLIA [id number] [place] [address] MCHC (RBC) [Mass/Vol] 31.7 g/dL Normal 30.5-36.0 [facility] Comment on above: Order Comment: Speci men Type: BLOOD SPECIMENOrdering Facility: [facility] Address: [address] [place] [address] Performed By: #### 5 7021-8 ####[facility] LABIA [id number] [place] [address] MCV (RBC) [Entitic vol] 88.6 fL Normal 80.0-100.0 [facility] Comment on above: Order Comment: Speci men Type: BLOOD SPECIMENOrdering Facility: [facility] Address: [address] [place] [address] Performed By: #### 5 7021-8 ####[facility] LABCLIA [id number] [place] [address] Monocytes (Bld) [#/Vol] 0.49 10*3/uL Normal <0.87 [facility] Comment on above: Order Comment: Speci men Type: BLOOD SPECIMENOrdering Facility: [facility] Address: [address] [place] [address] Performed By: #### 5 7021-8 ####[facility] LABCLIA [id number] [place] [address] Monocytes/100 WBC (Bld) 8.0 % Normal [facility] Comment on above: Order Comment: Speci men Type: BLOOD SPECIMENOrdering Facility: [facility] Address: [address] [place] [address] Performed By: #### 5 7021-8 ####[facility] LABCLIA [id number] [place] [address] Neutrophils (Bld) [#/Vol] 4.04 10*3/uL Normal 1.45-7.50 [facility] Comment on above: Order Comment: Speci men Type: BLOOD SPECIMENOrdering Facility: [facility] Address: [address] [place] [address] Performed By: #### 5 7021-8 ####[facility] LABCLIA [id number] [place] [address] Neutrophils/100 WBC (Bld) 66.4 % Normal [facility] Comment on above: Order Comment: Speci men Type: BLOOD SPECIMENOrdering Facility: [facility] Address: [address] [place] [address] Performed By: #### 5 7021-8 ####[facility] LABCLIA [id number] [place] [address] Nucleated RBC (Bld) [#/Vol] 10*3/uL Normal <0.01 [facility] Comment on above: Order Comment: Speci men Type: BLOOD SPECIMENOrdering Facility: [facility] Address: [address] [place] [address] Performed By: #### 5 7021-8 ####[facility] LABCLIA [id number] [place] [address] Nucleated RBC/100 WBC (Bld) [Ratio] 0.0 /100 WBC Normal [facility] Comment on above: Order Comment: Speci men Type: BLOOD SPECIMENOrdering Facility: [facility] Address: [address] [place] [address] Performed By: #### 5 7021-8 ####[facility] LABIA [id number] [place] [address] Platelet mean volume (Bld) [Entitic vol] 10.2 fL Normal 9.0-12.7 [facility] Comment on above: Order Comment: Speci men Type: BLOOD SPECIMENOrdering Facility: [facility] Address: [address] [place] [address] Performed By: #### 5 7021-8 ####[facility] LABIA [id number] [place] [address] Platelets (Bld) [#/Vol] 250 10*3/uL Normal 150-400 [facility] Comment on above: Order Comment: Speci men Type: BLOOD SPECIMENOrdering Facility: [facility] Address: [address] [place] [address] Performed By: #### 5 7021-8 ####[facility] LABIA [id number] [place] [address] RBC (Bld) [#/Vol] 4.66 10*6/uL Normal 3.90-5.20 [facility] Comment on above: Order Comment: Speci men Type: BLOOD SPECIMENOrdering Facility: [facility] Address: [address] [place] [id number] Performed By: #### 5 7021-8 ####[facility] LABCLIA [id number] [place] [address] WBC (Bld) [#/Vol] 6.09 10*3/uL Normal 3.70-11.00 [facility] Comment on above: Order Comment: Speci men Type: BLOOD SPECIMENOrdering Facility: [facility] Address: [address] [place] [id number] Performed By: #### 5 7021-8 ####[facility] LABCLIA [id number] [place] [address] Basophils (Bld) [#/Vol] <0.11 k/uL [facility] Basophils/100 WBC (Bld) 0.3 % [facility] Differential cell count method Nom (Bld) Auto [facility] Eosinophils (Bld) [#/Vol] 0.23 10*3/uL <0.46 k/uL [facility] Eosinophils/100 WBC (Bld) 3.8 % [facility] Erythrocyte distribution width (RBC) [Ratio] 14.6 % 11.5 - 15.0 % [facility] Hematocrit (Bld) [Volume fraction] 41.3 % 36.0 - 46.0 % [facility] Hemoglobin (Bld) [Mass/Vol] 13.1 g/dL 11.5 - 15.5 g/dL [facility] Immature granulocytes (Bld) [#/Vol] 0.05 10*3/uL <0.10 k/uL [facility] Immature granulocytes/100 WBC (Bld) 0.8 % [facility] Lymphocytes (Bld) [#/Vol] 1.26 10*3/uL 1.00 - 4.00 k/uL [facility] Lymphocytes/100 WBC (Bld) 20.7 % [facility] MCH (RBC) [Entitic mass] 28.1 pg 26.0 - 34.0 pg [facility] MCHC (RBC) [Mass/Vol] 31.7 g/dL 30.5 - 36.0 g/dL [facility] MCV (RBC) [Entitic vol] 88.6 fL 80.0 - 100.0 fL [facility] Monocytes (Bld) [#/Vol] 0.49 10*3/uL <0.87 k/uL [facility] Monocytes/100 WBC (Bld) 8.0 % [facility] Neutrophils (Bld) [#/Vol] 4.04 10*3/uL 1.45 - 7.50 k/uL [facility] Neutrophils/100 WBC (Bld) 66.4 % [facility] Nucleated RBC (Bld) [#/Vol] <0.01 k/uL [facility] Nucleated RBC/100 WBC (Bld) [Ratio] 0.0 /100 WBC [facility] Platelet mean volume (Bld) [Entitic vol] 10.2 fL 9.0 - 12.7 fL [facility] Platelets (Bld) [#/Vol] 250 10*3/uL 150 - 400 k/uL [facility] RBC (Bld) [#/Vol] 4.66 10*6/uL 3.90 - 5.2 0 m/uL [facility] WBC (Bld) [#/Vol] 6.09 10*3/uL 3.70 - 11. 00 k/uL [facility] CNOVSPon 11-10-2022 CNOVSP Visit (SP) Office ([facility]) -------- ANGELIQUE CHERY ([id number]) 1960 F Date Time Provider Department 11/10/22 10:00 AM BLAYNE PRETTY During your visit today, we recorded the following information about you: Temperature Pulse Respiration Blood pressure 97 degrees 81/minute 16/minute 150/90 Weight Height 82.9 kg 1.536 m Blayne Pretty MD 11/10/2022 8:15 PM Signed PATIENT NAME: Angelique Chery DATE: 11/10/2022 PRIMARY CARE PHYSICIAN: Pedro Whalen, DO OTHER PHYSICIANS: Dr. Ciaran Rees, Dr. Earnest Davis, Dr. Toro Chan Portions of this encounter note have been copied from my note from 10/06/2022 and has been updated where appropriate, and reflect my current medical decision making from today. CC: This is a 62 year old female with recently diagnosed breast cancer, seen for scheduled follow-up. INTERIM HISTORY: Since the patient's last visit here she underwent surgery per Dr. Rees on 10/23/2022. Final pathology revealed a 1.8 cm invasive carcinoma with a component of DCIS. 0 of 2 sentinel nodes were involved. The patient tolerated her surgery well and has healed without complication. Currently she feels well with no particular complaints. The patient remains on hormonal therapy with Arimidex 1 mg daily, and is tolerating it well. MEDICATIONS: Current Outpatient Medications Medication Sig cholecalciferol, vitamin D3, (VITAMIN D3 ORAL) Take by mouth. anastrozole (ARIMIDEX) 1 mg tablet Take 1 tablet by mouth once daily. ergocalciferol, vitamin D2, (VITAMIN D2 ORAL) Take by mouth. OMEPRAZOLE ORAL Take by mouth. No current facility-administered medications for this visit. ALLERGIES: ALLERGIES Allergen Reactions Doxycycline Unknown, Hives monocycline allery same reaction PAST MEDICAL HISTORY: PAST MEDICAL HISTORY Diagnosis Date Breast lump Right PAST SURGICAL HISTORY: PAST SURGICAL HISTORY Procedure Laterality Date LASIK PAST SURGICAL HISTORY OF Biopsy Parathyroid gland REMOVAL GALLBLADDER REMV CATARACT EXTRACAP,INSERT LENS REPAIR RETINAL DETACHMENT SCLERAL BUCKLING VAGINAL HYSTERECTOMY FAMILY HISTORY: FAMILY HISTORY Problem Relation Age of Onset Dementia Mother Colon Cancer Mother Breast Cancer Father other (Cardiac arrest) Father Leukemia Father SOCIAL HISTORY: Social History Tobacco Use Smoking status: Former Types: Cigarettes Quit date: 2000 Years since quittin.0 Passive exposure: Past Smokeless tobacco: Never Vaping Use Vaping Use: Never used Substance Use Topics Alcohol use: Not Currently Drug use: Never COMPLETE REVIEW OF SYSTEMS: CONSTITUTION: Negative for pain, fatigue, weight loss, or appetite loss. EENT: Negative for mouth soreness, antibiotics use, epistaxis, visual problems, neck or facial swelling, fever/chills, bleeding gums, or hearing loss. CV: Negative for edema, calf swelling, palpitations, or chest pain. RESPIRATORY: Negative for cough, SOB, hemoptysis, or wheezing. GI: Negative for nausea/vomiting, heartburn, vomiting blood, dysphasia, diarrhea, blood in stool, constipation, early satiety, PICA, vegetarian, poor nutrition, abdominal fullness, or abdominal pain. NEUROLOGICAL: Negative for numbness/tingling, dizziness, gait disturbance, headache, speech disturbance, tremor, hemiparesis/sensory loss, or change in mental status. MUSCULOSKELETAL: Negative for joint pain, joint swelling, or proximal muscle weakness. SKIN: Negative for hair loss, bruising, nail changes, rash, itching, pallor, or jaundice. ENDO/URO: Negative for hot flashes, cold or heat intolerance, urinary frequency, urinary hesitancy, menorrhagia, or hematuria. PSYCH: Negative for anxiety, depression, or other. PHYSICAL EXAM: BP 150/90 Pulse 81 Temp 36.1 ?C (97 ?F) (Temporal) Resp 16 Ht 153.6 cm (5' 0.47 ) Wt 82.9 kg (182 lb 12.8 oz) SpO2 99% BMI 35.15 kg/m? GENERAL EXAM: Well developed/well nourished; in no acute distress. SKIN: Negative for lesions, rashes, or ulcers on the upper and lower extremities and face. Negative for palpations/nodules, purpura, and ecchymosis. EENT: Negative for conjunctiva, mucosal pallor, JVD, LAP, thyromegaly, and glossitis. Supple AND PERRL. EXTREMITIES: Negative for cyanosis, clubbing, and crepitus. LUNGS: Negative to auscultation, respiratory effort, and percussion. BREAST: Breasts not examined today CARDIOVASCULAR: Regular rate. Negative for murmurs/S3S4/abnormal sounds, edema, and carotid bruits. ABDOMEN: Negative for masses, hernia, and spleen/liver abnormalities. RECTAL: Not done PSYCHIATRIC: Negative for mood/affect changes, recent AND remote memory changes, and judgement and insight. NEUROLOGICAL: Alert, oriented x person, place, time. Cranial nerves 2-12 intact. Sensory for pain, light touch, vibration intact on all 4 extremities. Reflexes symmetric for duane (more content not included)... Normal [facility] Cancer Ag27-29 SerPl-aCncon 11-10-2022 Cancer Ag 27-29 Qn 28.8 [arb'U]/mL Normal <38.6 [facility] Comment on above: Order Comment: Speci men Type: BLOOD SPECIMENOrdering Facility: [facility] Address: [address] [address] Result Comment: The CA27.29 test was performed using the Siemens Centaur XP chemiluminometric immunoassay method. Results obtained with different assay methods or kits cannot be used interchangeably. Performed By: #### 1 7842-6 ####[facility] LABCLIA [id number] HYUNAngel [facility] [id number] [facility] [place] [facility] Comprehensive metabolic 2000 panelon 11-10-2022 Albumin [Mass/Vol] 4.5 g/dL Normal 3.9-4.9 [facility] Comment on above: Order Comment: Speci men Type: BLOOD SPECIMENOrdering Facility: [facility] Address: [address] [address] Performed By: #### 2 4323-8 ####[facility] LABCLIA [id number] [place] [address] ALP [Catalytic activity/Vol] 219 U/L High 34-123 [facility] Comment on above: Order Comment: Speci men Type: BLOOD SPECIMENOrdering Facility: [facility] Address: [address] [address] Performed By: #### 2 4323-8 ####[facility] LABCLIA [id number] [place] [address] ALT [Catalytic activity/Vol] 22 U/L Normal 7-38 [facility] Comment on above: Order Comment: Speci men Type: BLOOD SPECIMENOrdering Facility: [facility] Address: [address] [address] Performed By: #### 2 4323-8 ####[facility] LABCLIA [id number] [place] [address] Anion gap [Moles/Vol] 11 mmol/L Normal 9-18 [facility] Comment on above: Order Comment: Speci men Type: BLOOD SPECIMENOrdering Facility: [facility] Address: [address] [address] Performed By: #### 2 4323-8 ####[facility] LABCLIA [id number] [place] [address] AST [Catalytic activity/Vol] 28 U/L Normal 13-35 [facility] Comment on above: Order Comment: Speci men Type: BLOOD SPECIMENOrdering Facility: [facility] Address: [address] [place] [address] Performed By: #### 2 4323-8 ####[facility] LABCLIA [id number] [place] [address] Bilirubin [Mass/Vol] 0.5 mg/dL Normal 0.2-1.3 [facility] Comment on above: Order Comment: Speci men Type: BLOOD SPECIMENOrdering Facility: [facility] Address: [address] [place] [address] Performed By: #### 2 4323-8 ####[facility] LABCLIA [id number] [place] [address] Calcium [Mass/Vol] 9.6 mg/dL Normal 8.5-10.2 [facility] Comment on above: Order Comment: Speci men Type: BLOOD SPECIMENOrdering Facility: [facility] Address: [address] [place] [address] Performed By: #### 2 4323-8 ####[facility] LABCLIA [id number] [place] [address] Chloride [Moles/Vol] 102 mmol/L Normal 97-105 [facility] Comment on above: Order Comment: Speci men Type: BLOOD SPECIMENOrdering Facility: [facility] Address: [address] [place] [address] Performed By: #### 2 4323-8 ####[facility] LABCLIA [id number] [place] [address] CO2 [Moles/Vol] 28 mmol/L Normal 22-30 [facility] Comment on above: Order Comment: Speci men Type: BLOOD SPECIMENOrdering Facility: [facility] Address: [address] [address] Performed By: #### 2 4323-8 ####[facility] LABCLIA [id number] [place] [address] Creatinine [Mass/Vol] 0.70 mg/dL Normal 0.58-0.96 [facility] Comment on above: Order Comment: Speci men Type: BLOOD SPECIMENOrdering Facility: [facility] Address: [address] [address] Performed By: #### 2 4323-8 ####[facility] LABCLIA [id number] [place] [address] ESTIMATED GLOMERULAR FILTRATION RATE 98 mL/min/1.73m??? Normal >=60 [facility] Comment on above: Order Comment: Speci men Type: BLOOD SPECIMENOrdering Facility: [facility] Address: [address] [place] [address] Result Comment: Saliam mated Glomerular Filtration Rate (eGFR) is calculated using the 2020 CKD-EPI creatinine equation. This equation utilizes serum creatinine, sex, and age as parameters. The creatinine assay has traceable calibration to isotope dilution-mass spectrometry. Refer to KDIGO guidelines for clinical interpretation. In patients with unstable renal function, e.g. those with acute kidney injury, the eGFR may not accurately reflect actual GFR. Performed By: #### 2 4323-8 ####[facility] LABCLIA [id number] [place] [address] Glucose [Mass/Vol] 118 mg/dL High 74-99 [facility] Comment on above: Order Comment: Speci men Type: BLOOD SPECIMENOrdering Facility: [facility] Address: [address] [place] [address] Result Comment: The [place] Diabetes Association (ADA) provides guidance for cutoff values for fasting glucose and random glucose. The ADA defines fasting as no caloric intake for at least 8 hours. Fasting plasma glucose results between 100 to 125 mg/dL indicate increased risk for diabetes (prediabetes). Fasting plasma glucose results greater than or equal to 126 mg/dL meet the criteria for diagnosis of diabetes. In the absence of unequivocal hyperglycemia, results should be confirmed by repeat testing. In a patient with classic symptoms of hyperglycemia or hyperglycemic crisis, random plasma glucose results greater than or equal to 200 mg/dL meet the criteria for diagnosis of diabetes. Reference: Standards of Medical Care in Diabetes 2016, [place] [employer]. Diabetes Care. 2016.39(Suppl 1). Performed By: #### 2 4323-8 ####[facility] LABCLIA [id number] [place] [address] Potassium [Moles/Vol] 4.0 mmol/L Normal 3.7-5.1 [facility] Comment on above: Order Comment: Speci men Type: BLOOD SPECIMENOrdering Facility: [facility] Address: [address] [place] [address] Performed By: #### 2 4323-8 ####[facility] LABIA [id number] [place] [address] Protein [Mass/Vol] 8.2 g/dL High 6.3-8.0 [facility] Comment on above: Order Comment: Speci men Type: BLOOD SPECIMENOrdering Facility: [facility] Address: [address] [place] [address] Performed By: #### 2 4323-8 ####[facility] LABCLIA [id number] [place] [address] Sodium [Moles/Vol] 141 mmol/L Normal 136-144 [facility] Comment on above: Order Comment: Speci men Type: BLOOD SPECIMENOrdering Facility: [facility] Address: [address] [place] [address] Performed By: #### 2 4323-8 ####[facility] LABCLIA [id number] [place] [address] Urea nitrogen [Mass/Vol] 15 mg/dL Normal 7-21 [facility] Comment on above: Order Comment: Speci men Type: BLOOD SPECIMENOrdering Facility: [facility] Address: [place] [address] Performed By: #### 2 4323-8 ####[facility] LABCLIA [id number] [place] [address] Albumin [Mass/Vol] 4.5 g/dL 3.9 - 4.9 g/dL [facility] ALP [Catalytic activity/Vol] 219 U/L High 34 - 123 U/L [facility] ALT [Catalytic activity/Vol] 22 U/L 7 - 38 U/L [facility] Anion gap [Moles/Vol] 11 mmol/L 9 - 18 mmol/L [facility] AST [Catalytic activity/Vol] 28 U/L 13 - 35 U/L [facility] Bilirubin [Mass/Vol] 0.5 mg/dL 0.2 - 1 .3 mg/dL [facility] Calcium [Mass/Vol] 9.6 mg/dL 8.5 - 10. 2 mg/dL [facility] Chloride [Moles/Vol] 102 mmol/L 97 - 10 5 mmol/L [facility] CO2 [Moles/Vol] 28 mmol/L 22 - 30 mmol/L [facility] Creatinine [Mass/Vol] 0.70 mg/dL 0.58 - 0.96 mg/dL [facility] Estimated Glomerular Filtration Rate 98 mL/min/1.73m >=60 mL/min/1.73m [facility] Glucose [Mass/Vol] 118 mg/dL High 74 - 99 mg/dL [facility] Potassium [Moles/Vol] 4.0 mmol/L 3.7 - 5.1 mmol/L [facility] Protein [Mass/Vol] 8.2 g/dL High 6.3 - 8.0 g/dL [facility] Sodium [Moles/Vol] 141 mmol/L 136 - 144 mmol/L [facility] Urea nitrogen [Mass/Vol] 15 mg/dL 7 - 21 mg/dL [facility] General Surgery Office/Clini c Noteon 11-04-2022 General Surgery Office/Clinic Note Chief Complaint post operative follow up HPI Staff 12 day post operative follow up post right breast lumpectomy with SN biopsy. Denies pain, no use of pain medication. Denies bleeding or drainage. History of Present Illness 12 days s/p right breast lumpectomy with sentinel lymph node biopsy, doing well, mild soreness axillary area, no drainage, no pain meds; back to work at home; discussed pathology with patient on the phone; T1cN0 breast cancer; has follow up Oncology appointment next week; may recommend Oncotype Dx. Review of Systems ROS - Provider Constitutional: no fever, no sweats, no weight loss. Eyes: no glasses, no blurred vision, no visual loss. ENMT: no dentures, no hoarseness, no swallowing difficulties, no hearing loss, no ear infection(s), no nose bleeds. Cardiovascular: normal blood pressure, no chest pain, regular heartbeat, no heart murmur. Respiratory: no shortness of breath, no cough, no asthma, no wheezing. Gastrointestinal: no nausea, no vomiting, no diarrhea, no constipation, no blood in stool, no change in bowel habits, no abdominal pain, no hepatitis. Genitourinary: no kidney stones, no urine infection, no dysuria. Musculoskeletal: no pain, no weakness. Skin: no changing moles, no rash, no skin lumps. Neurologic: no seizures, no epilepsy, no headache. Psychiatric: no emotional or psychiatric problem. Heme/Lymph: no bleeding problems, no anemia, no blood clots, no transfusions. Allergy/Immunologic: no swollen lymph nodes/glands, no IV drug abuse. Other: Additional ROS info: Except as noted in the above Review of Systems and in the History of Present Illness, all other systems have been reviewed and are negative or noncontributory. Physical Exam Vitals & Measurements BP: 160/90 skin: incisions healing well, no erythema or drainage, no ecchymosis. Assessment/Plan 1. Breast cancer of upper-outer quadrant of right female breast (C50.411: Malignant neoplasm of upper-outer quadrant of right female breast) doing well; follow up in 2 weeks, call sooner if problems/questions. Follow-up No qualifying data available Problem List/Past Medical History Ongoing Abnormal ultrasound of breast Acid reflux BMI 33.0-33.9,adult Breast cancer of upper-outer quadrant of right female breast HTN (hypertension) Mass of lower outer quadrant of right breast Mass of upper outer quadrant of right breast Historical No qualifying data Procedure/Surgical History Breast lumpectomy (10/23/2022), Biopsy of parathyroid gland, Cataract extraction, Cataract extraction, Cholecystectomy, LASIK, Repair of retinal detachment, Vaginal hysterectomy. Medications amLODIPine 5 mg Tab, 5 mg= 1 tab(s), Oral, Daily Arimidex 1 mg Tab, 1 mg= 1 tab(s), Oral, Daily losartan 25 mg Tab, 25 mg= 1 tab(s), Oral, BID omeprazole 10 mg Cap-EC, 10 mg= 1 cap(s), Oral, Daily Vitamin D3 1000 intl units oral tablet, 1 tab(s), Oral, Daily Allergies doxycycline (Blisters) Social History Alcohol - Denies Alcohol Use, 08/26/2022 Substance Abuse - Denies Substance Abuse, 08/26/2022 Tobacco - Denies Tobacco Use, 10/15/2022 Former smoker, quit more than 30 days ago Tobacco Use:. Never Smokeless Tobacco Use:. Cigarettes, 1 per day. Started age 16.0 Years. Stopped age 38 Years., 08/26/2022 Family History Breast cancer: Father. Cardiac arrest: Father. Dementia: Mother. Leukemia: Father. Primary malignant neoplasm of colon: Mother. Immunizations Vaccine Date Status Comments influenza virus vaccine, inactivated - Not Given Patient Refuses SARS-CoV-2 (COVID-19) mRNA-1273 vaccine 09/24/2021 Recorded 2022-10-07: TPV60 SARS-CoV-2 (COVID-19) mRNA-1273 vaccine 01/26/2021 Recorded SARS-CoV-2 (COVID-19) mRNA-1273 vaccine 12/29/2020 Recorded Normal [facility] Comment on above: Result Comment: Elec tronically Signed By: CABRERA GALEANO, Ciaran Olmedo\Date and Time Signed: 11/04/22 16:28 EST [place] 11-03-2022 MAGALI Telephone (SANDRA) -------- ANGELIQUE CHERY ([id number]) 1960 F Date Time Provider Department 11/03/22 SESSLER, NANCY HEMASA During your visit today, we recorded the following information about you: Nancy Maradiaga RN 11/03/2022 9:[address] Pretty would like pt's breast pathology from [facility] sent for Oncotype. Right Breast Lumpectomy - Collected 10/23/[address] [facility] Specimen #: [id number] DOMINIQUE/Lavern: Order pended. Clerical: FYI.... LAURA Mancilla APRN.BUSINESS PROJECT ANALYST 11/03/2022 9:33 AM Signed Signed. Lavern Tolbert APRN.MAGALI Tao Sec 11/04/2022 9:35 AM Signed Oncotype order in Brm box to be signed Latisha Tao Sec 11/04/2022 10:52 AM Signed Oncotype sent. Allergies As of Date: 11/03/2022 Noted Allergy Reaction DOXYCYCLINE 06/13/2013 16 - Unknown 4 - Hives Comments: monocycline allery same reaction Date Reviewed: 11/03/2022 Reviewed by: Lavern Tolbert APRN.BUSINESS PROJECT ANALYST - Fully Assessed Reason for Visit: Oncotype DX [Other] Primary Visit Diagnosis:Malignant neoplasm of upper-outer quadrant of right breast in female, estrogen receptor positive (HCC) [C50.411, Z17.0] Order(s):ONCOTYPE DX [SQONCO] Order #: [id number] FUTURE Prescriptions as of 11/04/2022 - cholecalciferol, vitamin D3, (VITAMIN D3 ORAL) Take by mouth. - anastrozole (ARIMIDEX) 1 mg tablet Take 1 tablet by mouth once daily. - ergocalciferol, vitamin D2, (VITAMIN D2 ORAL) Take by mouth. - OMEPRAZOLE ORAL Take by mouth. Problem List As Of Date: 11/03/2022 (None) Encounter Status:Closed by NANCY MARADIAGA on 11/04/22 Normal [facility] Coding Summary.on 10-30-2022 Coding Summary. [id number] Gh0b Ww+PGhlYWQ+AP0GFTGlH85lp ULmaS4OC8gYYV3CVCDITGLPA Y8TRM5nwTM5JKgtS0UjpwRl TneisMIuTD65SVm1XJB5gBan NZnhzT7nwDVfC5t2KbUgAE17 vX64PLccQCCyIiJ0ZdUrskvc bWFy N9mpJxKefWQyEdd+PHRhYmxl IHdpZHRoPScxMDAlJyBzdHls CS2nPi3oQQWnBZMckEnteNHx OiBj f3yaTLAzCYvfCY9cxAizZ8Mp nSE4GJLnk7w2Ut62eZW+PHRk ZET2rVhqJRsvu199RqAtm4tj IDM3 dSIvWUumZBE2L80lv9B4QMBz UUTxNYV5bOJ2nE6peXnmmsrd O9XojLVaKhL8JWO6wDUjuP3s bGln rzhajP5cWbi+N77RSF5TOPWY EW1VLpx7P6HsWotocLB+PC90 IDTeQN85cSDtgYPcy0elhPp5 JzEw QQCuXXF2zRaqPWzas7IdJEOy O64xfIZfv5O7MQFtjFwllQSn JbZdgDP5sR1zLQjtpmimn0xk dzsn Dkrfl8pjyp82aF59K04hIUzx RLJqLTI8EMOwKENohJleyt4t aQ7fHp0+AUiuy4tka0kiyVj9 IjIw UOHbjcQgzEbuGPN6v3BgNn99 L1IhdBjfa7BjFoz9iv04rZBo j0Z4uZW2YNqfIKChfV4kJSrp ZnQ6 LOYqKmVvdL82nXIePIcbSc6s bHcexSrkZI6kPDTgchxrASEj wH4wESSgnVNxxYsoYC7qSHTm bjtm d678CaVoWTM3ZFMtlVNdN9Dp xK9nUqCeLERqYJFzG5UmyMIb YUlaR639JJprWdI3VQBshxDe Y2Fs DYVmbNhaQgL7z3J5Av3Bk7Tf stltPQS7HFzxFMYmNxNqHyDv HzY3W6ZqZxo8AINhkTweOM4w J3Bh VBUdvxuuahhygZT4ASSdTOAw dO81tVHwAPulHr6ot4Y3o754 BVUqWEZddG99Hu1waWdpBDMj dCBU pW2afwyzo4acqnkpEcPfXKIu KFi8BKv8DJHvpBshSnEgPLB0 WsQ3OAG2uNKyfB3jyPqgvtlc dG9w Oyc+M36jtA9qXND8GEX5vxlb NIWdccLxNG05UN59M5QdDqoy dGFibGU+GPXonaQkiSobXQ7h YmFj k9lot0LfPYuoD7NbLKMhOOyq Vug9DAXsFYE0vEU3iY5vSYNx FSwze9U0lMM6B3CyteEwjx7v b2xs TLMbQAxnM44poHWss3C9GSAp vYZ4OIRijFuyLlIioR87Nxi+ EOQdjGebm0CoObpyx7xyg1op dGg9 ZtTfWBTepuOwvTphDCZ0c2Ru Cw30T35dXDnoGVMmFJAiCTJr FKIajCcymd7dqO8nFu8+PGNv bCB3 iQI4iN2eBVPpZvU8AFsjC308 VzKdkTLkTycrp2usv8dpiHi0 NdZaFLGoprIfyYzmWUG5m4Hd Lz48 D86eETqlVOFuMMHqNOOnWTCl vVfbnz1rsR1cJk3+IG1go1dg yo88oR25jIC+UNHiFRP0cAhq PSdw GCBazS1gRKotReS5OTPlUgAr hD48gCPkACfbZm8yoFhvmJvr SN2cQJLtubhhb557XvQcq5qa IDEw cMUxGGicCIA4A72fb6W7HDOq XABkZXZ8hNC4qH0hrFgtufsf bGVmdDsgdmVydGljYWwtYWxp Z246 IHRvcDsnPlBhdGllbnQgTmFt IMv7J1XvOqk3AMKhqVtbES5b nKXyFOzhUc4ewXnzmBjhIK9p NTBp gwkyc934EePfw0egCACsgWEi UDrxYTF8O90kn4Q6JFNoGBWw UHD6pOB7rW9iwMmxbjgheSDc dDsg stPhzYhiBRfaPRrmK937ADTe rLezVnDrerTmQNJotPZ3UJ21 NQ14wKYdm2W0aWY5D1CsQGLe bmct xwxsfSL1ACLeUNPmuJ98Kf8n cShtYk5rFZWmJCX9OUKdeFTk G3MprF3eVqGkYVJeIFEtC4Bv eHQt KPumX376SDejUbR6OFGrgnMg J8YnYNOqrGinYvP5b6Y6Oi1Q T0F6BZ50HD95fUYqs7G7tFM0 J3Bh RURotmztbzhifLF2FGRhNXXw xM69Nr7zrSqjEy9nNONrLTK0 AJMkjROeS0TlkG8pRqPaEXZw MDAw J0DqhOIiHTamV731ENrxMpI7 LLWamqZjC5ThSWAxjLtrGkZ9 e9S0Sr5BBZm6JU65PC13kKAg c3R5 uIC4Z3EgIGUlwiapshwhuKX3 CHNeUTYybX03Dt6luFdsXa8t KBXgEKM9PFCnmCDuT8TijZ4a OiAj ZPMuZBQkY7XxoJAjLRqmE904 XRpoFwA2SISlbrIjL0OiSVUl kOklEvJ9k8C9Gr6LDKMlCL52 IFR5 dZW0MW08PR80M8ArYbzxjXEd bGU+PHRhYmxlIHdpZHRoPScx JMUwTfXvbFskUB9xSu2uPOOu LWNv vQbvpEXwDvHlo4glAQHwGGcg WW4noYrlB1EsuPK2ISDdp4u6 Tu86L86aH9EuxCK+PGNvbCB3 aWR0 oY7pCeGfLwQ2UFvkU966EzJo jSCxScdhu0wdn5wweMl3RtY0 HPKyglEinUdoYAH7g8KdJr81 Y29s IHdpZHRoPSIxNSUiIHZhbGln pk2ctC7qZp6+RRHdtFL8aSL0 yB7mQeFdFxN6XLsbN257CnWr cCIv Kgutk6qha2tjtXh7UgFmQXSk mxHmcOwpCNM0p6EhJu84F1Ih jCufa9SkArf1ev60lXHmw6T5 bGU9 G3BdCUWqajizbMUndYtoAY4w AGNdyamjJOMkbD4pYVWmX5l0 RgQxJlE4HZygG4UrjnR9ZWQo cHQg LOkpAYP7E63lf3U7VPWnWYCy XUP7bMM3fR8ozIgpgncqaPVd eTdfotIqcHxeRVcuYLfoD711 IHRv aCbdPRSurJ7rTRQajRFjmDst FU0sJZLnkvrfIfLGGrUSBqev Gb7NMQCMRM19QV00hPQzl7B6 bGU9 E6RdVSQjefhayqpfwSR5ZGBh SQFxxM56jHOrKBigMj3rk8Q0 c350KABePHUeuF74Gx6msMef MTBw hBFFvW0arwinm1oblkebLjKp NHLdOHy7QUi9ZCMrmYptZmTh FDB0KxI9NCN0fBMvcS8peQwk bjog fQ8qEhj+PLJpTfcbPMb8AQur dGQ+FAZeDCN5fIcuSZkhFTNi aJ5kTYNrL6q1EtEsEfD4RMql O3Bh VFElfqmrUu28pO2aVwUbNcH4 EIneI0UzjpS6ZVEkyIGkUGgv EDH2B16yz2R9BXKgSKVvFBC6 dGV4 lD9jhPkpfwyqhVYimPyuznHa bOakPKafNNwfM767SEQofXrr ZhEkHQinREJkLL33CW44vVTf c3R5 wZV1X5WhOJHigbevqrvagNP8 PPNoOAUzzV38xYJePHfcGx4h x7N3k083KBHbEHGgjP82Cn0e dDog RGIejRKHxZ8qittcj7tnqqbp JtOnZCVbQHz0YMe6UUEtxAos ToVhJYT9XoL9ANW4yHUkyX4u bGln mpdmsG0pTzk+VlKkPPfnEC26 KC49cWCvr5R7bOR0W1EfKLIh fzfzhsblmSR3NEQkJTGmgG08 cGFk BVvrHh0cj5Y6z092IHLxNUJl qL27Kb2xhRssHUDekMRVmO2u qsadw2uksyfqMyEgDYOkQVd1 ZXh0 KIIfsDprYsKcTWJ1NkL7IYK6 oWDuaP8glYtkcvbwhB2qUbh+ ML1jiBlilA1zdF1BBJ4mZAYm eSBT cFDoQNH9FZ06CX01Q7CkAoqm dGFibGU+PHRhYmxlIHdpZHRo ODsfRWOuVeKqiEhsPP1oBr8e ZGVy KGXddBblhBXfNaUwl8onPRYc ECuzIQ2duRyuR6HnaLE6GACd q0a7Wm01R61sJ0SpuBH+PGNv bCB3 jLP8zM4mRcJnXrE8LYcfF985 RiJywBUwVogqe3iao7kkdKn5 ZtNgWVAaohJfsGjjUFU3w3Jf Lz48 G01hAUatHCLrBRLzHRBnXMMn gAipbz9miA9dYb0+PGNvbCB3 dMW1bW2rQpFbDiI8UFneV085 InRv uZFeJoroB19dK9HrnTI+PHRy Den0HJGesMfyJS1snLMbPMyq Zu4bYIR0EeXiAbLkTPmmE4Ib ZGRp sdvcxvjupMZ4IFPpBKMesV32 Qx3fiThjAv7rCFDaWNA0GJDe gXJlU5MrfL4bAnTcKMLcIUMd O3Rl xHItUJvtX987KUnnGiA2VKEv xkXaL2EeXZZfpFboEpK7c7W4 Kc9EnTzkkQZyFS3yClDbXQe6 L3Rk Ode5TZXtyYicGS0wsKDyXDun Jd6vmRruqKusMA1pNAUszcjy o868YiYnn2heBPCmjXBfNOct ZXM7 H17in2Z8BVNoZJEmYWJ8zGX6 jO3qmVjahyfpnSLtaLjmcoMk uZouETqaDMajE275PXDhhUum PkZJ Rcl5S0XxMua8FKHhkHviAA5v gKGsZXexYu1ibEqjvNypGM5f DCAdmmfvo755VtHqb0seVTVd cHQg VTsdBIC4Q91lq8V3PJFnFZMl ZZP7qYG3gH3stRbfcbtsmHPm jPofqoKlhBrdFVbmTIsmT625 IHRv pUdhDh9CDsp0Y5GkEri3WNKr jLacVI7zvPHgNUgkEn7zjTnb xAisHG2xKSReezeob737NyNp b2xk SZOanYIdEGwsGIG4U85yt4N4 OVZbTNNcMJJ3dBI5lW3lcEyi bjogbGVmdDsgdmVydGljYWwt YWxp X532DUIakMfdLrHceQDpVzvg dGQ+CW60jl29J0NtCgeyVzb6 EDFiEXY0cRH5yV5gXJKlAMsp c3R5 bGU9 (more content not included)... Normal [facility] IntraOperative Documentson 0 10-29-2022 IntraOperative Documents [id number] :[id number] Normal [facility] General Surgery Office/Clini c Noteon 10-28-2022 General Surgery Office/Clinic Note Chief Complaint post operative follow up HPI Staff 5 day post operative follow up post right breast lumpectomy with sentinel node biopsy. Minimal discomfort. History of Present Illness 5 days s/p right breast lumpectomy with sentinel lymph node biopsy for right upper outer quadrant infiltrating ductal carcinoma; doing well, mild soreness right axilla, no drainage, taking occasional ibuprofen; wearing bra. no strenuous activities. Review of Systems ROS - Provider Constitutional: no fever, no sweats, no weight loss. Eyes: no glasses, no blurred vision, no visual loss. ENMT: no dentures, no hoarseness, no swallowing difficulties, no hearing loss, no ear infection(s), no nose bleeds. Cardiovascular: normal blood pressure, no chest pain, regular heartbeat, no heart murmur. Respiratory: no shortness of breath, no cough, no asthma, no wheezing. Gastrointestinal: no nausea, no vomiting, no diarrhea, no constipation, no blood in stool, no change in bowel habits, no abdominal pain, no hepatitis. Genitourinary: no kidney stones, no urine infection, no dysuria. Musculoskeletal: no pain, no weakness. Skin: no changing moles, no rash, no skin lumps. Neurologic: no seizures, no epilepsy, no headache. Psychiatric: no emotional or psychiatric problem. Heme/Lymph: no bleeding problems, no anemia, no blood clots, no transfusions. Allergy/Immunologic: no swollen lymph nodes/glands, no IV drug abuse. Other: Additional ROS info: Except as noted in the above Review of Systems and in the History of Present Illness, all other systems have been reviewed and are negative or noncontributory. Physical Exam skin: right axillary and right breast incisions healing well, no erythema or drainage, no ecchymoses; minimal edema; no hematoma. Assessment/Plan 1. Breast cancer of upper-outer quadrant of right female breast (C50.411: Malignant neoplasm of upper-outer quadrant of right female breast) doing well, continue to wear bra even at night for 1 week; ibuprofen as needed for pain; will call patient with pathology results; follow up in 1 week for wound check; call sooner if problems/questions. Orders: acetaminophen-oxycodone, 1 tab(s), Oral, q3hr Pain, 18 tab(s), Refill(s) 0, take with food or milk, [facility]/pharmacy #[id number], 157.5, cm, 10/15/22 14:57:00 EST, Height/Length Dosing, 82.1, kg, 10/15/22 14:57:00 EST, Weight Dosing Follow-up No qualifying data available Problem List/Past Medical History Ongoing Abnormal ultrasound of breast Acid reflux BMI 33.0-33.9,adult Breast cancer of upper-outer quadrant of right female breast HTN (hypertension) Mass of lower outer quadrant of right breast Mass of upper outer quadrant of right breast Historical No qualifying data Procedure/Surgical History Breast lumpectomy (10/23/2022), Biopsy of parathyroid gland, Cataract extraction, Cataract extraction, Cholecystectomy, LASIK, Repair of retinal detachment, Vaginal hysterectomy. Medications Arimidex 1 mg Tab, 1 mg= 1 tab(s), Oral, Daily losartan 25 mg Tab, 25 mg= 1 tab(s), Oral, BID omeprazole 10 mg Cap-EC, 10 mg= 1 cap(s), Oral, Daily Vitamin D3 1000 intl units oral tablet, 1 tab(s), Oral, Daily Allergies doxycycline (Blisters) Social History Alcohol - Denies Alcohol Use, 08/26/2022 Substance Abuse - Denies Substance Abuse, 08/26/2022 Tobacco - Denies Tobacco Use, 10/15/2022 Former smoker, quit more than 30 days ago Tobacco Use:. Never Smokeless Tobacco Use:. Cigarettes, 1 per day. Started age 16.0 Years. Stopped age 38 Years., 08/26/2022 Family History Breast cancer: Father. Cardiac arrest: Father. Dementia: Mother. Leukemia: Father. Primary malignant neoplasm of colon: Mother. Immunizations Vaccine Date Status Comments influenza virus vaccine, inactivated - Not Given Patient Refuses SARS-CoV-2 (COVID-19) mRNA-1273 vaccine 09/24/2021 Recorded 2022-10-07: [id number] SARS-CoV-2 (COVID-19) mRNA-1273 vaccine 01/26/2021 Recorded SARS-CoV-2 (COVID-19) mRNA-1273 vaccine 12/29/2020 Recorded Normal [facility] Comment on above: Result Comment: Elec tronically Signed By: Ciaran REES MD\Date and Time Signed: 10/28/22 16:17 EST CHEMISTRYOrdered By: SYSTEM SYSTEM on 10-15-2022 Anion gap [Moles/Vol] 11 mmol/L Normal 6 - 16 mEq/L [facility] Remisol Chloride [Moles/Vol] 101 mmol/L Normal 101 - 1 11 mmol/L [facility] CO2 [Moles/Vol] 27 mmol/L Normal 21 - 31 mmol/L [facility] Creatinine [Mass/Vol] 0.7 mg/dL Normal 0.5 - 1.3 mg/dL [facility] Remisol GFR/1.73 sq M.predicted among blacks MDRD (S/P/Bld) [Vol rate/Area] mL/min/1.73 m2 Normal >=59mL/min/1 .73 m2 FT Chem S GFR/1.73 sq M.predicted among non-blacks MDRD (S/P/Bld) [Vol rate/Area] mL/min/1.73 m2 Normal >=59mL/min/1 .73 m2 FT Chem S Glucose [Mass/Vol] 86 mg/dL Normal 55 - 199 mg/dL [facility] Rem[facility] Potassium [Moles/Vol] 3.7 mmol/L Normal 3.5 - 5.3 mmol/L [facility] Sodium [Moles/Vol] 135 mmol/L Normal 135 - 145 mmol/L [facility] Urea nitrogen [Mass/Vol] 14 mg/dL Normal 5 - 21 mg/dL [facility] Remisol CNPNon 10-15-2022 MARLYN Telephone (HE[place]AS[place]) -------- ANGELIQUE CHERY ([id number]) 1960 F Date Time Provider Department 10/15/22 BLAYNE PRETTY During your visit today, we recorded the following information about you: Nunu Tamez 10/15/2022 12:57 PM Signed Cancer claim form completed and 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 Dr. Thomas signed due to [employer] being off work. Nunu Tamez Allergies As of Date: 10/15/2022 Noted Allergy Reaction DOXYCYCLINE 06/13/2013 16 - Unknown 4 - Hives Comments: monocycline allery same reaction Date Reviewed: 10/06/2022 Reviewed by: Hayley Blair - Fully Assessed Reason for Visit: Forms [913] Prescriptions as of 10/15/2022 - cholecalciferol, vitamin D3, (VITAMIN D3 ORAL) Take by mouth. - anastrozole (ARIMIDEX) 1 mg tablet Take 1 tablet by mouth once daily. - ergocalciferol, vitamin D2, (VITAMIN D2 ORAL) Take by mouth. - OMEPRAZOLE ORAL Take by mouth. Problem List As Of Date: 10/15/2022 (None) Encounter Status:Closed by NUNU TAMEZ on 10/15/22 Normal [facility] HEMATOLOGYOrdered By: Rosemary Roe on 10-15-2022 Erythrocyte distribution width (RBC) [Ratio] 14.7 % High 10.9 - 14.2 % [facility] HemeAutoSS Hematocrit (Bld) [Volume fraction] 41.2 % Normal 34.0 - 46.0 % [facility] HemeAutoSS Hemoglobin (Bld) [Mass/Vol] 13.2 g/dL Normal 12.0 - 16.0 gm/dL [facility] HemeAutoSS MCH (RBC) [Entitic mass] 28.1 pg Normal 27.0 - 34.0 pg [facility] HemeAutoSS MCHC (RBC) [Mass/Vol] 32.0 g/dL Normal 31.4 - 36.0 gm/dL [facility] HemeAutoSS MCV (RBC) [Entitic vol] 87.6 fL Normal 80.0 - 100.0 fL [facility] HemeAutoSS Platelet mean volume (Bld) [Entitic vol] 8.8 fL Normal 6.4 - 10.8 fL [facility] HemeAutoSS Platelets (Bld) [#/Vol] 238.0 E9/L Normal 150.0 - 500.0 E9/L [facility] HemeAutoSS RBC (Bld) [#/Vol] 4.7 E12/L Normal 4.3 - 5.9 E12/L [facility] HemeAutoSS WBC corrected for nucl RBC Auto (Bld) [#/Vol] 6.6 E9/L Normal 4.0 - 11.0 E9/L [facility] HemeAutoSS Vital Signs Date Time Vital Sign Value Performing Clinician Facility 10-07-2023 15:01-0500 Blood Pressure Location [facility] 10-07-2023 15:01-0500 Diastolic blood pressure 78 mm[Hg] Ciaran [facility] 10-07-2023 15:01-0500 Heart rate 72 /min [facility] 10-07-2023 15:01-0500 Respiratory rate 16 /min [facility] 10-07-2023 15:01-0500 Systolic blood pressure 126 mm[Hg] [facility] 09-09-2023 10:30-0500 Body height 162.56 cm [facility] [employer] Other [facility] Other 09-09-2023 10:30-0500 Body mass index (BMI) [Ratio] 30.93 kg/m2 [facility] [employer] Other [facility] Other 09-09-2023 10:30-0500 Body weight 81.74 kg [facility] [employer] Other [facility] Other 09-09-2023 10:30-0500 Diastolic blood pressure 86 mm[Hg] [facility] [employer] Other [facility] Other 09-09-2023 10:30-0500 Respiratory rate 12 /min Pedro Ball Other [facility] Other 09-09-2023 10:30-0500 Systolic blood pressure 150 mm[Hg] Pedro Ball Other [facility] Other 06-15-2023 10:45-0400 Body temperature 97.59 [degF] Blayne Pretty MD Work Phone: [facility] 06-15-2023 10:45-0400 Body weight 80.2 kg Blayne Pretty MD Work Phone: [facility] 06-15-2023 10:45-0400 Diastolic blood pressure 76 mm[Hg] Blayne Pretty MD Work Phone: [facility] 06-15-2023 10:45-0400 Heart rate 76 /min Blayne Pretty MD Work Phone: [facility] 06-15-2023 10:45-0400 Respiratory rate 18 /min Blayne Pretty MD Work Phone: [facility] 06-15-2023 10:45-0400 SaO2% (BldA) [Mass fraction] 97 % Blayne Pretty MD Work Phone: [facility] 06-15-2023 10:45-0400 Systolic blood pressure 150 mm[Hg] Blayne Pretty MD Work Phone: [facility] 05-28-2023 13:56-0400 Body height 162.56 cm Pedro Ball Other [facility] Other 05-28-2023 13:56-0400 Diastolic blood pressure 76 mm[Hg] Pedro Ball Other [facility] Other 05-28-2023 13:56-0400 Systolic blood pressure 128 mm[Hg] Pedro Ball Other [facility] Other 05-21-2023 13:23-0400 Body height 162.56 cm Pedro Ball Other [facility] Other 05-21-2023 13:23-0400 Diastolic blood pressure 83 mm[Hg] Pedro Ball Other [facility] Other 05-21-2023 13:23-0400 Systolic blood pressure 131 mm[Hg] Pedro Ball Other [facility] Other 03-20-2023 11:30-0400 Body height 162.56 cm Pedro Ball Other [facility] Other 03-20-2023 11:30-0400 Body mass index (BMI) [Ratio] 31.24 kg/m2 Pedro Ball Other [facility] Other 03-20-2023 11:30-0400 Body weight 82.56 kg Pedro Ball Other [facility] Other 03-20-2023 11:30-0400 Diastolic blood pressure 84 mm[Hg] Pedro Ball Other [facility] Other 03-20-2023 11:30-0400 Respiratory rate 12 /min Pedro Ball Other [facility] Other 03-20-2023 11:30-0400 Systolic blood pressure 138 mm[Hg] Pedro Ball Other [facility] Other 01-12-2023 10:00-0400 Body height 162.56 cm Pedro Ball Other [facility] Other 01-12-2023 10:00-0400 Body mass index (BMI) [Ratio] 31.58 kg/m2 Pedro Ball Other [facility] Other 01-12-2023 10:00-0400 Body weight 83.46 kg Pedro Ball Other [facility] Other 01-12-2023 10:00-0400 Diastolic blood pressure 79 mm[Hg] Pedro Ball Other [facility] Other 01-12-2023 10:00-0400 Respiratory rate 12 /min Pedro Ball Other [facility] Other 01-12-2023 10:00-0400 Systolic blood pressure 161 mm[Hg] Pedro Ball Other [facility] Other 12-16-2022 15:27-0500 Body temperature 98.29 [degF] Toro Chan MD Work Phone: [facility] 12-16-2022 15:27-0500 Body weight 82.56 kg Toro Chan MD Work Phone: [facility] 12-16-2022 15:27-0500 Diastolic blood pressure 68 mm[Hg] Toro Chan MD Work Phone: [facility] 12-16-2022 15:27-0500 Heart rate 75 /min Toro Chan MD Work Phone: [facility] 12-16-2022 15:27-0500 Respiratory rate 16 /min Toro Chan MD Work Phone: [facility] 12-16-2022 15:27-0500 SaO2% (BldA) [Mass fraction] 99 % Toro Chan MD Work Phone: [facility] 12-16-2022 15:27-0500 Systolic blood pressure 152 mm[Hg] Toro Chna MD Work Phone: [facility] 12-10-2022 14:53-0500 Body temperature 98.29 [degF] Toro Chan MD Work Phone: [facility] 12-10-2022 14:53-0500 Body weight 82.56 kg Toro Chan MD Work Phone: [facility] 12-10-2022 14:53-0500 Diastolic blood pressure 75 mm[Hg] Toro Chan MD Work Phone: [facility] 12-10-2022 14:53-0500 Heart rate 79 /min Toro Chan MD Work Phone: [facility] 12-10-2022 14:53-0500 Respiratory rate 16 /min Toro Chan MD Work Phone: [facility] 12-10-2022 14:53-0500 SaO2% (BldA) [Mass fraction] 99 % Toro Chan MD Work Phone: [facility] 12-10-2022 14:53-0500 Systolic blood pressure 129 mm[Hg] Toro Chan MD Work Phone: [facility] 12-08-2022 12:52-0500 Body height 153.6 cm Blayne Pretty MD Work Phone: [facility] 12-08-2022 12:52-0500 Body temperature 97.7 [degF] Blayne Pretty MD Work Phone: [facility] 12-08-2022 12:52-0500 Body weight 83.37 kg Blayne Pretty MD Work Phone: [facility] 12-08-2022 12:52-0500 Diastolic blood pressure 94 mm[Hg] Blayne Pretty MD Work Phone: [facility] 12-08-2022 12:52-0500 Heart rate 82 /min Blayne Pretty MD Work Phone: [facility] 12-08-2022 12:52-0500 Respiratory rate 16 /min Blayne Pretty MD Work Phone: [facility] 12-08-2022 12:52-0500 SaO2% (BldA) [Mass fraction] 99 % Blayne Pretty MD Work Phone: [facility] 12-08-2022 12:52-0500 Systolic blood pressure 154 mm[Hg] Blayne Pretty MD Work Phone: [facility] 11-14-2022 09:04-0500 Body height 153.6 cm Toro Chan MD Work Phone: [facility] 11-14-2022 09:04-0500 Body temperature 98.2 [degF] Toro Chan MD Work Phone: [facility] 11-14-2022 09:04-0500 Body weight 83.1 kg Toro Chan MD Work Phone: [facility] 11-14-2022 09:04-0500 Diastolic blood pressure 82 mm[Hg] Toro Chan MD Work Phone: [facility] 11-14-2022 09:04-0500 Heart rate 77 /min Toro Chan MD Work Phone: [facility] 11-14-2022 09:04-0500 Respiratory rate 18 /min Toro Chan MD Work Phone: [facility] 11-14-2022 09:04-0500 SaO2% (BldA) [Mass fraction] 99 % Toro Chan MD Work Phone: [facility] 11-14-2022 09:04-0500 Systolic blood pressure 142 mm[Hg] Toro Chan MD Work Phone: [facility] 11-10-2022 09:42-0500 Body height 153.6 cm Blayne Pretty MD Work Phone: [facility] 11-10-2022 09:42-0500 Body temperature 97 [degF] Blayne Pretty MD Work Phone: [facility] 11-10-2022 09:42-0500 Body weight 82.92 kg Blayne Pretty MD Work Phone: [facility] 11-10-2022 09:42-0500 Diastolic blood pressure 90 mm[Hg] Blayne Pretty MD Work Phone: [facility] 11-10-2022 09:42-0500 Heart rate 81 /min Blayne Pretty MD Work Phone: [facility] 11-10-2022 09:42-0500 Respiratory rate 16 /min Blayne Pretty MD Work Phone: [facility] 11-10-2022 09:42-0500 SaO2% (BldA) [Mass fraction] 99 % Blayne Pretty MD Work Phone: [facility] 11-10-2022 09:42-0500 Systolic blood pressure 150 mm[Hg] Blayne Pretty MD Work Phone: [facility] 11-04-2022 16:15-0500 Blood Pressure Location Ciaran NILL [facility] [place] 11-04-2022 16:15-0500 Diastolic blood pressure 90 mm[Hg] Ciaran NILL [facility] 11-04-2022 16:15-0500 Systolic blood pressure 160 mm[Hg] Ciaran NILL [facility] 10-23-2022 15:24-0500 Heart rate 80 /min Ciaran NILL [facility] 10-23-2022 15:24-0500 SaO2% (BldA) [Mass fraction] 98 % Ciaran NILL [facility] 10-23-2022 15:23-0500 Body temperature 97.88 [degF] Ciaran NILL [facility] 10-23-2022 15:23-0500 Respiratory rate 16 /min Ciaran NILL [facility] 10-23-2022 15:22-0500 Diastolic blood pressure 83 mm[Hg] Ciaran NILL [facility] 10-23-2022 15:22-0500 Mean blood pressure 110 mm[Hg] Ciaran NILL [facility] 10-23-2022 15:22-0500 Systolic blood pressure 162 mm[Hg] Ciaran NILL [facility] 10-23-2022 14:25-0500 Heart rate 85 /min Ciaran NILL [facility] 10-23-2022 14:25-0500 SaO2% (BldA) [Mass fraction] 100 % Ciaran NILL [facility] 10-23-2022 14:24-0500 Body temperature 97.52 [degF] Ciaran NILL [facility] 10-23-2022 14:23-0500 Respiratory rate 15 /min Ciaran NILL [facility] 10-23-2022 14:23-0500 Diastolic blood pressure 92 mm[Hg] Ciaran NILL [facility] 10-23-2022 14:23-0500 Mean blood pressure 116 mm[Hg] Ciaran NILL [facility] 10-23-2022 14:23-0500 Systolic blood pressure 164 mm[Hg] Ciaran NILL [facility] 10-23-2022 14:23-0500 SaO2% (BldA) [Mass fraction] 96 % Ciaran NILL [facility] 10-23-2022 14:15-0500 Body temperature 97.7 [degF] Ciaran NILL [facility] 10-23-2022 14:15-0500 Diastolic blood pressure 90 mm[Hg] Ciaran NILL [facility] 10-23-2022 14:15-0500 Heart rate 86 /min Ciaran NILL [facility] 10-23-2022 14:15-0500 Respiratory rate 16 /min Ciaran NILL [facility] 10-23-2022 14:15-0500 Systolic blood pressure 157 mm[Hg] Ciaran NILL [facility] 10-23-2022 14:10-0500 Respiratory rate 18 /min Ciaran NILL [facility] 10-23-2022 14:05-0500 Respiratory rate 16 /min Ciaran NILL [facility] 10-23-2022 13:49-0500 Body temperature 97.52 [degF] Ciaran NILL [facility] 10-23-2022 13:45-0500 Respiratory rate 17 /min Ciaran NILL [facility] 10-23-2022 11:31-0500 Mean blood pressure 128 mm[Hg] Ciaran NILL [facility] 10-23-2022 09:30-0500 Heart rate 74 /min Ciaran NILL [facility] 10-23-2022 09:28-0500 Body temperature 98.06 [degF] Ciaran NILL [facility] 10-15-2022 14:40-0500 Diastolic blood pressure 95 mm[Hg] Ciaran NILL [facility] 10-15-2022 14:40-0500 Heart rate 69 /min Ciaran NILL [facility] 10-15-2022 14:40-0500 Mean blood pressure 123 mm[Hg] Ciaran NILL [facility] 10-15-2022 14:40-0500 Systolic blood pressure 178 mm[Hg] Ciaran NILL [facility] 10-15-2022 14:40-0500 Body temperature 98.06 [degF] Ciaran NILL [facility] 10-15-2022 14:39-0500 Heart rate 72 /min Ciaran NILL [facility] 10-15-2022 14:39-0500 SaO2% (BldA) [Mass fraction] 100 % Ciaran NILL [facility] 10-15-2022 14:38-0500 Respiratory rate 18 /min Ciaran NILL [facility] 10-15-2022 14:38-0500 Diastolic blood pressure 90 mm[Hg] Ciaran NILL [facility] 10-15-2022 14:38-0500 Mean blood pressure 117 mm[Hg] Ciaran NILL [facility] 10-15-2022 14:38-0500 Systolic blood pressure 170 mm[Hg] Ciaran NILL [facility] 10-07-2022 08:44-0500 Blood Pressure Location Ciaran NILL [facility] 10-07-2022 08:44-0500 Diastolic blood pressure 93 mm[Hg] Ciaran NILL [facility] [place] 10-07-2022 08:44-0500 Heart rate 86 /min Ciaran NILL [facility] 10-07-2022 08:44-0500 Respiratory rate 16 /min Ciaran NILL [facility] 10-07-2022 08:44-0500 Systolic blood pressure 175 mm[Hg] Ciaran NILL [facility] 10-06-2022 09:14-0500 Body height 153.6 cm Blayne Pretty MD Work Phone: [facility] 10-06-2022 09:14-0500 Body temperature 97.11 [degF] Blayne Pretty MD Work Phone: [facility] 10-06-2022 09:14-0500 Body weight 82.83 kg Blayne Pretty MD Work Phone: [facility] 10-06-2022 09:14-0500 Diastolic blood pressure 84 mm[Hg] Blayne Pretty MD Work Phone: [facility] 10-06-2022 09:14-0500 Heart rate 78 /min Blayne Pretty MD Work Phone: [facility] 10-06-2022 09:14-0500 Respiratory rate 16 /min Blayne Pretty MD Work Phone: [facility] 10-06-2022 09:14-0500 SaO2% (BldA) [Mass fraction] 100 % Blayne Pretty MD Work Phone: [facility] 10-06-2022 09:14-0500 Systolic blood pressure 188 mm[Hg] Blayne Pretty MD Work Phone: [facility] 09-08-2022 15:25-0500 Body height 153.6 cm Blayne Pretty MD Work Phone: [facility] 09-08-2022 15:25-0500 Body temperature 97.81 [degF] Blayne Pretty MD Work Phone: [facility] 09-08-2022 15:25-0500 Body weight 82.46 kg Blayne Pretty MD Work Phone: [facility] 09-08-2022 15:25-0500 Diastolic blood pressure 91 mm[Hg] Blayne Pretty MD Work Phone: [facility] 09-08-2022 15:25-0500 Heart rate 80 /min Blayne Pretty MD Work Phone: [facility] 09-08-2022 15:25-0500 Respiratory rate 16 /min Blayne Pretty MD Work Phone: [facility] 09-08-2022 15:25-0500 SaO2% (BldA) [Mass fraction] 96 % Blayne Pretty MD Work Phone: [facility] 09-08-2022 15:25-0500 Systolic blood pressure 189 mm[Hg] Blayne Pretty MD Work Phone: [facility] 08-26-2022 10:58-0500 Blood Pressure Location Ciaran NILL [facility] 08-26-2022 10:58-0500 Diastolic blood pressure 78 mm[Hg] Ciaran NILL [facility] 08-26-2022 10:58-0500 Heart rate 84 /min Ciaran NILL [facility] 08-26-2022 10:58-0500 Respiratory rate 16 /min Ciaran NILL [facility] 08-26-2022 10:58-0500 Systolic blood pressure 192 mm[Hg] Ciaran NILL [facility] Encounters Encounter Date Encounter Type Care Provider Facility Start: 10-07-2023 End: 10-08-2023 ambulatory PEDRO WHALEN Facility: [facility] Start: 10-07-2023 End: 10-07-2023 Patient encounter procedure Ciaran Jacobs NILL General Surgery [facility]aid [facility] Start: 10-06-2023 End: 10-06-2023 ambulatory PEDRO WHALEN Facility:[facility] Start: 10-06-2023 Encounter for genera l adult medical examination without abnormal findings TORO DUSTIN [facility] Start: 09-14-2023 End: 09-14-2023 ambulatory Pedro Whalen Other [facility] Other Start: 09-14-2023 Telephone encounter Pedro WILSON G [facility] Start: 09-09-2023 End: 09-09-2023 ambulatory Pedro Whalen Other [facility] Other Start: 09-09-2023 Encounter for genera l adult medical examination without abnormal findings Pedro Whalen [facility] Start: 09-09-2023 Periodic preventive med est patient 40-64yrs Pedro Whalen [facility] Start: 07-14-2023 End: 07-14-2023 ambulatory BLAYNE PRETTY [facility] [employer] Other Start: 07-14-2023 Telephone encounter Pedro WILSON G [facility] Start: 07-10-2023 Telephone encounter Toro Chan MD Work Phone: [facility] Comment on above: Orders Start: 07-09-2023 End: 07-09-2023 ambulatory PEDRO WHALEN Facility:[facility] Start: 07-06-2023 End: 07-06-2023 ambulatory BLAYNE PRETTY Facility:[facility] Start: 06-26-2023 End: 06-27-2023 ambulatory Blayne Pretty Facility:[facility] Start: 06-26-2023 End: 06-26-2023 Patient encounter procedure Blayne Pretty [facility] Start: 06-25-2023 Telephone encounter Indio Vogel Hemat[facility]/On[facility] Comment on above: Orders Start: 06-17-2023 Telephone encounter Indio Vogel Hematology/Oncology Comment on above: Results; Appointment Start: 06-17-2023 End: 06-17-2023 ambulatory PEDRO WHALEN [facility] [employer] Other Start: 06-16-2023 Telephone encounter Indio Vogel Hematology/Oncology Comment on above: Results Start: 06-15-2023 Telephone encounter Indio Vogel Hematology/Oncology Comment on above: Results; Orders Start: 06-15-2023 End: 06-15-2023 ambulatory Blayne Pretty MD Work Phone: Hematology/Oncology Comment on above: Malignant neoplasm o f upper-outer quadrant of right breast in female, estrogen receptor positive (HCC) (Primary Dx); Elevated tumor markers Start: 06-15-2023 End: 06-15-2023 Patient encounter procedure Blayne Pretty MD Work Phone: [facility] Start: 06-01-2023 Telephone encounter Indio Vogel Hematology/Oncology Comment on above: Appointment Start: 05-28-2023 End: 05-28-2023 ambulatory Pedro Whalen Other [facility] Other Start: 05-28-2023 Telephone encounter Pedro Whalen [facility] Start: 05-21-2023 End: 05-21-2023 ambulatory Pedro Whalen Other [facility] Other Start: 05-21-2023 Telephone encounter Pedro Whalen FP G [facility] Start: 05-15-2023 End: 05-15-2023 ambulatory Pedro Whalen Other [facility] Other Start: 05-15-2023 Telephone encounter Pedro Whalen [facility] Start: 05-07-2023 End: 05-07-2023 ambulatory [facility] Facility:[facility] Start: 04-08-2023 End: 04-08-2023 ambulatory Pedro Whalen Other [facility] Other Start: 04-08-2023 Telephone encounter Pedro Whalen [facility] Start: 04-06-2023 End: 04-06-2023 ambulatory [facility] Facility:[facility] Start: 04-06-2023 Telephone encounter Toro Chan MD Work Phone: Radiation Oncology Comment on above: Orders Start: 03-31-2023 Telephone encounter Marcela watts PA-C Work Phone: Hematology/Oncology Comment on above: Lab Orders Start: 03-20-2023 End: 03-20-2023 ambulatory Pedro Whalen Other [facility] Other Start: 03-20-2023 Encounter for genera l adult medical examination without abnormal findings Pedro Whalen [facility] Start: 03-20-2023 Office outpatient vi sit 15 minutes Pedro Whalen [facility] Start: 03-20-2023 Telephone encounter Pedro Whalen FP G [facility] Start: 01-12-2023 End: 01-12-2023 ambulatory Pedro Whalen Other [facility] Other Start: 01-12-2023 Office outpatient vi sit 25 minutes Pedro Whalen [facility] Start: 01-05-2023 Chart abstracting Jojo devlin RN Work Phone: Hematology/Oncology Comment on above: Research ([id number] Alert Week 1) Start: 01-02-2023 End: 01-02-2023 ambulatory PEDRO E MARLEE Facility:[facility] Start: 01-02-2023 Patient encounter procedure Toro Chan MD Work Phone: [facility] Start: 01-02-2023 Radiation Oncology Note Toro agustin MD Work Phone: Radiation Oncology Comment on above: Completion Note Start: 01-01-2023 End: 01-01-2023 ambulatory PEDRO E BALL Facility:[facility] Start: 12-31-2022 End: 12-31-2022 ambulatory PEDRO E BALL Facility:[facility] Start: 12-30-2022 End: 12-30-2022 ambulatory PEDRO E BALL Facility:[facility] Start: 12-29-2022 End: 12-29-2022 ambulatory PEDRO E BALL Facility:[facility] Start: 12-26-2022 End: 12-26-2022 ambulatory PEDRO E BALL Facility:[facility] Start: 12-25-2022 End: 12-25-2022 ambulatory PEDRO E BALL Facility:[facility] Start: 12-24-2022 End: 12-24-2022 ambulatory PEDRO E BALL Facility:[facility] Start: 12-24-2022 Chart abstracting Jojo devlin RN Work Phone: Hematology/Oncology Comment on above: Research ([id number] Alert management Week 0) Start: 12-23-2022 End: 12-23-2022 ambulatory PEDRO WHALEN Facility:[facility] Start: 12-22-2022 End: 12-22-2022 ambulatory PEDRO WHALEN Facility:[facility] Start: 12-19-2022 Chart abstracting Jojo devlin RN Work Phone: Hematology/Oncology Comment on above: Research ([id number] Consent Presentation) Start: 12-19-2022 End: 12-19-2022 ambulatory PEDRO WHALEN Facility:[facility] Start: 12-18-2022 End: 12-18-2022 ambulatory PEDRO WHALEN Facility:[facility] Start: 12-17-2022 End: 12-17-2022 ambulatory PEDRO WHALEN Facility:[facility] Start: 12-16-2022 End: 12-16-2022 ambulatory PEDRO WHALEN Facility:[facility] Start: 12-16-2022 End: 12-16-2022 Patient encounter procedure Toro Chan MD Work Phone: Radiation Oncology Comment on above: Malignant neoplasm o f upper-outer quadrant of right breast in female, estrogen receptor positive (HCC) (Primary Dx) Start: 12-15-2022 End: 12-15-2022 ambulatory TORO CHAN Facility:[facility] Start: 12-12-2022 End: 12-12-2022 ambulatory PEDRO WHALEN Facility:[facility] Start: 12-11-2022 End: 12-11-2022 ambulatory PEDRO WHALEN Facility:[facility] Start: 12-10-2022 End: 12-10-2022 ambulatory PEDRO WHALEN Facility:[facility] Start: 12-10-2022 End: 12-10-2022 Patient encounter procedure Toro Chan MD Work Phone: Radiation Oncology Comment on above: Malignant neoplasm o f upper-outer quadrant of right breast in female, estrogen receptor positive (HCC) (Primary Dx) Start: 12-09-2022 End: 12-09-2022 ambulatory PEDRO Samantha MARLEE [facility] Other Start: 12-09-2022 Telephone encounter Pedro [facility] Start: 12-08-2022 End: 12-08-2022 ambulatory Blayne Pretty MD Work Phone: Hematology/Oncology Comment on above: Malignant neoplasm o f upper-outer quadrant of right breast in female, estrogen receptor positive (HCC) (Primary Dx) Start: 12-08-2022 End: 12-08-2022 Patient encounter procedure Blayne Pretty MD Work Phone: [facility] Start: 11-26-2022 End: 11-27-2022 ambulatory Tila Johns RN Radiation Oncology Comment on above: Patient Education Start: 11-26-2022 End: 11-27-2022 Patient encounter procedure Toro Chan MD Work Phone: [facility] Comment on above: Malignant neoplasm o f upper-outer quadrant of right breast in female, estrogen receptor positive (HCC) (Primary Dx) Start: 11-26-2022 Radiation Oncology Note Toro agustin MD Work Phone: Radiation Oncology Comment on above: Simulation Note Treatment Planning Start: 11-26-2022 Telephone encounter Pedro [facility] Start: 11-18-2022 End: 11-19-2022 ambulatory Ciaran REES Facility:[facility] Start: 11-14-2022 End: 11-14-2022 ambulatory BLAYNE PRETTY Facility:[facility] Start: 11-14-2022 End: 11-14-2022 Patient encounter procedure Toro Chan MD Work Phone: Radiation Oncology Comment on above: Malignant neoplasm o f upper-outer quadrant of right breast in female, estrogen receptor positive (HCC) (Primary Dx) Start: 11-12-2022 End: 11-12-2022 ambulatory Pedro Whalen Other [facility] Other Start: 11-12-2022 Telephone encounter Pedro WILSON [facility] Start: 11-11-2022 Telephone encounter Nancy leonard RN Work Phone: Hematology/Oncology Comment on above: Care Coordination (O ncotype Update) Start: 11-10-2022 End: 11-10-2022 ambulatory Blayne Pretty MD Work Phone: Hematology/Oncology Comment on above: Malignant neoplasm o f upper-outer quadrant of right breast in female, estrogen receptor positive (HCC) (Primary Dx) Start: 11-10-2022 End: 11-10-2022 Patient encounter procedure Blayne Pretty MD Work Phone: [facility] Start: 11-04-2022 End: 11-05-2022 ambulatory Ciaran R CABRERA Facility: [facility] Start: 11-04-2022 End: 11-04-2022 Patient encounter procedure Ciaran R NILL [facility] Nill[facility] Start: 11-03-2022 Telephone encounter Nancy leonard RN Work Phone: Hematology/Oncology Comment on above: Oncotype DX Start: 10-30-2022 End: 10-30-2022 ambulatory Pedro Whalen Other [facility] Other Start: 10-30-2022 Telephone encounter Pedro [facility] Start: 10-29-2022 End: 10-29-2022 ambulatory Pedro Whalen Other [facility] Other Start: 10-29-2022 Telephone encounter Pedro [facility] Start: 10-28-2022 End: 10-29-2022 ambulatory Ciaran R EVERETTEL Facility: [place] Start: 10-28-2022 End: 10-28-2022 Patient encounter procedure Ciaran R NILL General Surgery Nill/Said [place] Start: 10-24-2022 End: 10-24-2022 ambulatory Pedro Whalen Other [facility] Other Start: 10-24-2022 Telephone encounter Pedro [facility] Start: 10-23-2022 End: 10-23-2022 Admission to same day surgery center Ciaran R CABRERA [facility] Start: 10-22-2022 End: 10-22-2022 ambulatory Pedro Whalen Other [facility] Other Start: 10-22-2022 Telephone encounter Pedro WILSON [facility] Start: 10-21-2022 End: 10-21-2022 ambulatory Pedro Whalen Other [facility] Other Start: 10-21-2022 Telephone encounter Pedro Burnham [facility] Start: 10-15-2022 ambulatory Facility:[id number] Start: 10-15-2022 End: 10-15-2022 Patient encounter procedure Ciaran Jacobs CABRERA [facility] Start: 10-15-2022 Telephone encounter Blayne ness MD Work Phone: Hematology/Oncology Comment on above: Forms Start: 10-08-2022 Telephone encounter Genevieve Somers RN Hematology/Oncology Comment on above: Patient Update; FYI- No Action Needed Start: 10-07-2022 End: 10-07-2022 Patient encounter procedure Ciaran Arlene REES [facility] Start: 10-06-2022 End: 10-06-2022 ambulatory Blayne Pretty MD Work Phone: Hematology/Oncology Comment on above: Malignant neoplasm o f upper-outer quadrant of right breast in female, estrogen receptor positive (HCC) (Primary Dx) Start: 10-06-2022 End: 10-06-2022 Patient encounter procedure Blayne Pretty MD Work Phone: [facility] Start: 09-29-2022 Telephone encounter Nancy Maradiaga Hematology/Oncology Comment on above: Consult (Surgery) Start: 09-24-2022 Telephone encounter Kai PASRTANA Work Phone: [facility] Comment on above: Results Start: 09-18-2022 Telephone encounter Nancy Maradiaga Hematology/Oncology Comment on above: Appointment Start: 09-18-2022 End: 09-18-[address] PEDRO WHALEN Facility:[facility] Start: 09-12-2022 Telephone encounter Nancy leonard RN Work Phone: Hematology/Oncology Comment on above: Treatment Planning ( Arimidex) Start: 09-10-2022 End: 09-10-2022 ambulatory Kai Garcia LGC Work Phone: [facility] Comment on above: Malignant neoplasm o f upper-outer quadrant of right breast in female, estrogen receptor positive (HCC) Start: 09-10-2022 End: 09-10-2022 Telemedicine consultation with patient Kai Garcia LGNicholas Work Phone: [facility] Start: 09-08-2022 End: 09-08-2022 ambulatory Blayne Pretty MD Work Phone: Hematology/Oncology Comment on above: Malignant neoplasm o f upper-outer quadrant of right breast in female, estrogen receptor positive (HCC) (Primary Dx) Start: 09-08-2022 End: 09-08-2022 Patient encounter procedure Blayne Pretty MD Work Phone: [facility] Start: 09-05-2022 Chart abstracting Blayne porras MD Work Phone: Hematology/Oncology Start: 08-26-2022 End: 08-26-2022 Patient encounter procedure Ciaran REES [facility] Start: 08-25-2022 End: 08-25-2022 Patient encounter procedure [facility] Start: 08-19-2022 End: 08-19-2022 Lab Drop off [facility] Procedures Date Procedure Procedure Detail Performing Clinician Start: 04-06-2023 Lipid 1996 panel - S deisi or Plasma Toro Chan MD Work Phone: Start: 10-23-2022 Lumpectomy of breast Mi otis REES Start: 07-05-2017 Screening for malign ant neoplasm of colon Pedro Whalen Other Start: 10-19-2016 Colonoscopy Ciaran AMIN Start: 06-06-2015 General examination of patient Pedro Whalen Other Start: 10-19-2012 Colonoscopy Ciaran NI LL Start: 10-19-2009 Colonoscopy Ciaran NI LL Start: 10-19-2005 Colonoscopy Ciaran NI LL Biopsy of parathyroid gland Ciaran REES Cholecystectomy Ciaran REES Extraction of cataract Giovanni GAIVRIAL Extraction of cataract Giovanni GAVIRIAL Laser assisted in si tu keratomileusis Ciaran REES Parathyroidectomy Ciaran AMIN Repair of retina for retinal detachment Ciaran REES Screening for malign ant neoplasm of colon Pedro Whalen Other Vaginal hysterectomy Ciaran REES Plan of Treatment Date Care Activity Detail Author Start: 04-06-2028 Lipid 1996 panel - S deisi or Plasma Lipid Screening [facility] Start: 04-06-2028 LIPID SCREEN LIPID SCREEN [facility] Start: 06-15-2026 DIABETES SCREEN DIABETES SCREEN [facility] Start: 06-15-2026 Diabetes Screening Diabetes Screenin g [facility] Start: 04-06-2026 DIABETES SCREEN DIABETES SCREEN [facility] Start: 12-08-2025 DIABETES SCREEN DIABETES SCREEN [facility] Start: 11-10-2025 DIABETES SCREEN DIABETES SCREEN [facility] Start: 07-08-2023 End: 05-05-2024 OSIRIS DIAGNOSTIC BILATERAL [facility] Radiology Routine Malignant neoplasm of upper-outer quadrant of right breast in female, estrogen receptor positive (HCC) Expected: 07/08/2023, Expires: 05/05/2024 [facility] Work Phone: Comment on above: Expected: 07/08/2023 , Expires: 05/05/2024 Start: 06-19-2023 Influenza vaccination [facility] Start: 06-16-2023 End: 08-16-2023 Hepatic function 2000 panel - Serum or Plasma HEPATIC FUNCTION PNL Lab Routine Abnormal liver function tests Expected: 06/16/2023, Expires: 08/16/2023 [facility] Work Phone: Comment on above: Expected: 06/16/2023 , Expires: 08/16/2023 Start: 06-02-2023 End: 08-02-2023 CREATININE BLD CREATININE BLD Lab Routine Malignant neoplasm of upper-outer quadrant of right female breast, unspecified estrogen receptor status (HCC) Abnormal tumor markers Expected: 06/02/2023, Expires: 08/02/2023 [facility] Work Phone: Comment on above: Expected: 06/02/2023 , Expires: 08/02/2023 Start: 03-31-2023 End: 05-31-2023 Cancer Ag 27-29 [Units/volume] in Serum or Plasma CA 27.29 BLOOD Lab Routine Malignant neoplasm of upper-outer quadrant of right breast in female, estrogen receptor positive (HCC) Expected: 03/31/2023, Expires: 05/31/2023 [facility] Work Phone: Comment on above: Expected: 03/31/2023 , Expires: 05/31/2023 Start: 03-31-2023 End: 05-31-2023 CBC W Auto Differential panel - Blood CBC + DIFF Lab Routine Malignant neoplasm of upper-outer quadrant of right breast in female, estrogen receptor positive (HCC) Expected: 03/31/2023, Expires: 05/31/2023 [facility] Work Phone: Comment on above: Expected: 03/31/2023 , Expires: 05/31/2023 Start: 03-31-2023 End: 05-31-2023 Comprehensive metabolic 2000 panel - Serum or Plasma COMP METABOLIC PANEL Lab Routine Malignant neoplasm of upper-outer quadrant of right breast in female, estrogen receptor positive (HCC) Expected: 03/31/2023, Expires: 05/31/2023 [facility] Work Phone: Comment on above: Expected: 03/31/2023 , Expires: 05/31/2023 Start: 12-08-2022 End: 02-07-2023 Cancer Ag 27-29 [Units/volume] in Serum or Plasma [facility] Work Phone: Comment on above: Expected: 12/08/2022 , Expires: 02/07/2023 Start: 11-03-2022 End: 01-03-2023 ONCOTYPE DX ONCOTYPE DX Lab Routine Malignant neoplasm of upper-outer quadrant of right breast in female, estrogen receptor positive (HCC) Expected: 11/03/2022, Expires: 01/03/2023 [facility] Work Phone: Comment on above: Expected: 11/03/2022 , Expires: 01/03/2023 Start: 10-19-2022 DEPRESSION ASSESSMENT DEPRESSION ASS ESSMENT [facility] Start: 09-10-2022 End: 11-10-2022 MISC SEND OUT TST 1 MISC SEND OUT TST 1 Lab Routine Malignant neoplasm of upper-outer quadrant of right breast in female, estrogen receptor positive (HCC) Expected: 09/10/2022, Expires: 11/10/2022 [facility] Work Phone: Comment on above: Expected: 09/10/2022 , Expires: 11/10/2022 Start: 06-19-2022 Influenza vaccination INFLUENZA (#1) [facility] Start: 11-19-2021 COVID-19 VACCINE (4 - Booster for Moderna series) COVID-19 VACCINE (4 - Booster for Moderna series) [facility] Start: 11-19-2021 COVID-19 VACCINE (4 - Moderna series) COVID-19 VACCINE (4 - Moderna series) [facility] Start: 10-19-2021 DEPRESSION ASSESSMENT DEPRESSION ASS ESSMENT [facility] Start: 2010 SHINGRIX VACCINE (1 of 2) SHINGRIX VACCINE (1 of 2) [facility] Start: 2005 COLOGUARD (FIT-DNA) COLOGUARD (FIT-D NA) [facility] Start: 2005 Colonoscopy COLONOSCOPY [facility] Start: 2005 COLORECTAL CANCER SCREENING COLORECTAL CANCER SCREENING [facility] Start: [address] COLONOGRAPHY [facility] Start: 2005 DIABETES SCREEN DIABETES SCREEN [facility] Start: 2005 FECAL OCCULT BLOOD FECAL OCCULT BLOO D [facility] Start: 2005 LIPID SCREEN LIPID SCREEN [facility] Start: 2005 SIGMOIDOSCOPY SIGMOIDOSCOPY [facility] Start: 2000 Mammography [facility] Start: 1990 HPV TESTING HPV TESTING [facility] Start: 1981 PAP TESTING PAP TESTING [facility] Start: 1979 Urine microalbumin profile [facility] Start: 1978 HEPATITIS C SCREENING HEPATITIS C SC REENING [facility] Start: 1978 HIV SCREENING HIV SCREENING [facility] Start: 1960 COVID-19 VACCINE (#1) COVID-19 VACCI NE (#1) [facility] CT SIM PLANNING RADIATION ONCOLOGY CT SIM PLANNING RADIATION ONCOLOGY Radiology Routine Malignant neoplasm of upper-outer quadrant of right breast in female, estrogen receptor positive (HCC) Ordered: 11/26/2022 [facility] Work Phone: Comment on above: Ordered: 11/26/2022 End: 07-14-[address] attenuation skull base mid-thigh NM PET/CT SKULL-THIGH INITIAL Radiology Routine Malignant neoplasm of upper-outer quadrant of right breast in female, estrogen receptor positive (HCC) 1 Occurrences starting 06/15/2023 until 07/14/2024 [facility] Work Phone: Comment on above: 1 Occurrences starti ng 06/15/2023 until 07/14/2024 End: 07-14-2024 US ABD RIGHT UPPER QUADRANT US ABD RIGHT UPPER QUADRANT Radiology STAT Malignant neoplasm of upper-outer quadrant of right female breast, unspecified estrogen receptor status (HCC) Elevated liver function tests 1 Occurrences starting 06/15/2023 until 07/14/2024 [facility] Work Phone: Comment on above: 1 Occurrences starti ng 06/15/2023 until 07/14/2024 End: 07-14-2024 US BREAST LTD RIGHT US BREAST LTD RIGHT Radiology Routine Malignant neoplasm of upper-outer quadrant of right breast in female, estrogen receptor positive (HCC) 1 Occurrences starting 06/15/2023 until 07/14/2024 [facility] Work Phone: Comment on above: 1 Occurrences starti ng 06/15/2023 until 07/14/2024 [facility] Immunizations Immunization Date Immunization Notes Care Provider Carmelo gallardo 09-09-2023 influenza, injectable, quadrivalent, preservative free Pedro Whalen Other [facility] Other 08-19-2023 influenza virus vaccine, unspecified formulation Ciaran REES [facility] [place] 09-24-2021 SARS-CoV-2 (COVID-19 ) mRNA-1273 vaccine Ciaran REES [facility] Comment on above: Result Comment: 2021: [id number] 01-26-2021 SARS-CoV-2 (COVID-19 ) mRNA-1273 vaccine Ciaran REES [facility] 12-29-2020 SARS-CoV-2 (COVID-19 ) mRNA-1273 vaccine Ciaran REES [facility] NEGATED: Highlighted row has not occurred!10-07-2022 influenza virus vaccine, unspecified formulation Ciaran REES [facility] Payers Date Payer Category Payer Unknown [id number] 1960 Unknown [id number] 1960 Unknown [id number] 1960 Unknown [id number] 2.16.8 [id number] 1960 Unknown [id number] [id number] 1960 Unknown [id number] 2.16.8 [id number] 1960 Unknown [id number] [id number] 1960 Unknown [id number] [id number] [id number] 1960 Unknown [id number] [id number] 1959 Unknown [id number] Social History Date Type Detail Facility Tobacco smoking status [facility] Start: 04-06-2023 End: 07-07-2023 Sex Assigned At Female [facility] Start: 08-26-2022 End: 10-07-2023 Tobacco smoking status Ex-smoker (finding) [facility] [place] Tobacco smoking status Never [facility] [place] End: 10-19-1999 History of tobacco use Current smoker [facility] End: 10-19-1999 History of tobacco use Cigarette Smoker [facility] History of tobacco use Passive smoker [facility] Start: 09-05-2022 End: 10-06-2022 Tobacco use and exposure Smokeless tobacco non-user [facility] Start: 09-05-2022 End: 07-09-2023 Alcohol intake Ex-drinker (finding) [facility] Start: 1960 Sex Assigned At Not on file [facility] Start: 08-29-2022 End: 09-10-2022 Exposure to SARS-CoV-2 (event) Not sure [facility] Start: 04-06-2023 End: 07-07-2023 History of Social function [facility] Functional Status Date Assessment Result Facility 10-07-2023 Functional Status N/A [facility] Mck[facility] 10-15-[address] [facility] 10-07-2022 Functional Status N/A [facility] [place] 08-26-2022 Functional Status N/A [facility] [place] Clinical Notes 10-24-2021 to 10-07-2023 Note Date & Type Note Facility 10-07-2023 Note Chief Complaint consultation for colonoscopy HPI Staff 63 year old female presents on consultation from Dr. Whalen for surveillance colonoscopy. Mother with history of colon cancer, diagnosed age 76. Last colonoscopy completed 08/2017 with diverticulosis. Denies abdominal or rectal pain. No rectal bleeding or change in bowel habits. Denies nausea or vomiting. No unexplained weight loss. History of Present Illness 63 yo female with h/o htn, DMII, hyperlipidemia, GERD, breast cancer, referred for colorectal screening; patient with fmhx of colon cancer in her mother, dx in her 70's, last colonoscopy 2016 with diverticulosis; patient denies change in bms or blood in stools, no abd complaints; abd operations significant for cholecystectomy and vaginal hysterectomy; no asa or NSAID use, no SBE prophylaxis; denies fmhx of GI malignancy or IBD; no tobacco use. Review of Systems PHQ Score Initial Depression Screen Score: 0 SCORE ROS - Provider Constitutional: no fever, no sweats, no weight loss. Eyes: no glasses, no blurred vision, no visual loss. ENMT: no dentures, no hoarseness, no swallowing difficulties, no hearing loss, no ear infection(s), no nose bleeds. Cardiovascular: normal blood pressure, no chest pain, regular heartbeat, no heart murmur. Respiratory: no shortness of breath, no cough, no asthma, no wheezing. Gastrointestinal: no nausea, no vomiting, no diarrhea, no constipation, no blood in stool, no change in bowel habits, no abdominal pain, no hepatitis. Genitourinary: no kidney stones, no urine infection, no dysuria. Musculoskeletal: no pain, no weakness. Skin: no changing moles, no rash, no skin lumps. Neurologic: no seizures, no epilepsy, no headache. Psychiatric: no emotional or psychiatric problem. Heme/Lymph: no bleeding problems, no anemia, no blood clots, no transfusions. Allergy/Immunologic: no swollen lymph nodes/glands, no IV drug abuse. Other: Additional ROS info: Except as noted in the above Review of Systems and in the History of Present Illness, all other systems have been reviewed and are negative or noncontributory. Physical Exam Vitals & Measurements HR: 72(Peripheral) RR: 16 BP: 126/78 HT: 62 in HT: 157.4 cm WT: 81.1 kg WT: 178.42 lb BMI: 32.73 HEENT: normal conjunctiva, sclera clear, no scleral icterus, EOM intact, PERRLA, oral mucosa moist without lesions. Neck: trachea midline, no mass, symmetric, no thyromegaly or nodules, no adenopathy Respiratory: lungs CTA, respirations non labored. Cardiovascular: regular rate and rhythm, no murmur, no pedal edema or varicosities. Gastrointestinal: soft, non distended, no tenderness, no masses, no palpable hernias, diastasis recti no, no hepatosplenomegaly; normal bs Lymphatic: no cervical adenopathy, no supraclavicular adenopathy. Musculoskeletal: normal gait, digits and nails without infection, nodes, cyanosis, clubbing. Skin: no rashes, no lesions, no ulcers, no subcutaneous nodules, induration. Psychiatric/Neuro: oriented to time, place, person, judgement normal, affect appropriate for age, insight intact, no focal deficits. Tests: review of old records completed , Discussed surgical options, risks, and possible complications with patient. Assessment/Plan 1. Family history of colon cancer in mother (Z80.0: Family history of malignant neoplasm of digestive organs) plan surveillance colonoscopy under anesthesia, informed consent obtained. Follow-up No qualifying data available Problem List/Past Medical History Ongoing Abnormal ultrasound of breast Acid reflux Adrenal nodule BMI 32.0-32.9,adult Breast cancer of upper-outer quadrant of right female breast Cardiomegaly Diverticular disease of colon Family history of colon cancer in mother HTN (hypertension) Hyperlipidemia Hyperparathyroidism Mass of lower outer quadrant of right breast Mass of upper outer quadrant of right breast Nodule of lung Obesity Pure hypercholesterolemia Rosacea Thyroid nodule Tobacco user Type 2 diabetes mellitus without complication Vitamin D deficiency Historical No qualifying data Procedure/Surgical History Breast lumpectomy (10/23/2022), Colonoscopy (2016), Colonoscopy (2012), Colonoscopy (2009), Colonoscopy (2005), Biopsy of parathyroid gland, Cataract extraction, Cataract extraction, Cholecystectomy, LASIK, Parathyroidectomy, Repair of retinal detachment, Vaginal hysterectomy. Medications amLODIPine 5 mg Tab, 5 mg= 1 tab(s), Oral, Daily Arimidex 1 mg Tab, 1 mg= 1 tab(s), Oral, Daily losartan 25 mg Tab, 25 mg= 1 tab(s), Oral, BID Allergies doxycycline (Blisters) penicillin sulfa drugs tetracycline Social History Alcohol - Denies Alcohol Use, 08/26/2022 Substance Abuse - Denies Substance Abuse, 08/26/2022 Tobacco - Denies Tobacco Use, 10/15/2022 Former smoker, quit more than 30 days ago Tobacco Use:. Never Smokeless Tobacco Use:. Cigarettes, 1 per day. Started age 16.0 Years. Stopped age 38 Years., (more content not included)... [facility] Comment on above: Result Comment: Elec tronically Signed By: CABRERA GALEANO, Ciaran Jacobs\.br\Date and Time Signed: 10/07/23 15:37 EST 10-06-2023 Note HNO ID: [id number] Author: Blayne Pretty MD Service: ? Author Type: Physician Type: Progress Notes Filed: 10/07/2023 6:42 AM Note Text: PATIENT NAME: Angelique Chery DATE: 10/06/2023 PRIMARY CARE PHYSICIAN: Pedro Whalen, DO OTHER PHYSICIANS: Dr. Ciaran Rees, Dr. Earnest Davis, Dr. Toro Chan Portions of this encounter note have been copied from my note from 07/14/2023 and has been updated where appropriate, and reflect my current medical decision making from today. CC: This is a 63 year old female with a history of breast cancer, seen for scheduled follow-up. INTERIM HISTORY: Since the patient's last visit here she has had no significant medical changes. She remains on Arimidex and is tolerating well. She has noticed no changes in her breasts. No abdominal pain, change in bowel habits, or other GI symptoms. No bone pain or other systemic complaints. Overall she feels quite well. MEDICATIONS: Current Outpatient Medications Medication Sig anastrozole (ARIMIDEX) 1 mg tablet Take 1 tablet by mouth once daily. losartan (COZAAR) 25 mg tablet TAKE 1 TABLET BY MOUTH TWICE A DAY FOR 30 DAYS amLODIPine (NORVASC) 5 mg tablet TAKE 1 TABLET BY MOUTH EVERY DAY FOR 30 DAYS cholecalciferol, vitamin D3, (VITAMIN D3 ORAL) Take by mouth. No current facility-administered medications for this visit. ALLERGIES: ALLERGIES Allergen Reactions Doxycycline Unknown, Hives monocycline allery same reaction PAST MEDICAL HISTORY: PAST MEDICAL HISTORY Diagnosis Date Breast lump Right PAST SURGICAL HISTORY: PAST SURGICAL HISTORY Procedure Laterality Date LASIK PAST SURGICAL HISTORY OF Biopsy Parathyroid gland REMOVAL GALLBLADDER REMV CATARACT EXTRACAP,INSERT LENS REPAIR RETINAL DETACHMENT SCLERAL BUCKLING VAGINAL HYSTERECTOMY FAMILY HISTORY: FAMILY HISTORY Problem Relation Age of Onset Dementia Mother Colon Cancer Mother Breast Cancer Father other (Cardiac arrest) Father Leukemia Father SOCIAL HISTORY: Social History Tobacco Use Smoking status: Former Types: Cigarettes Quit date: 1999 Years since quittin.9 Passive exposure: Past Smokeless tobacco: Never Vaping Use Vaping Use: Never used Substance Use Topics Alcohol use: Not Currently Drug use: Never COMPLETE REVIEW OF SYSTEMS: CONSTITUTION: Negative for pain, fatigue, weight loss, or appetite loss. EENT: Negative for mouth soreness, antibiotics use, epistaxis, visual problems, neck or facial swelling, fever/chills, bleeding gums, or hearing loss. CV: Negative for edema, calf swelling, palpitations, or chest pain. RESPIRATORY: Negative for cough, SOB, hemoptysis, or wheezing. GI: Negative for nausea/vomiting, heartburn, vomiting blood, dysphasia, diarrhea, blood in stool, constipation, early satiety, PICA, vegetarian, poor nutrition, abdominal fullness, or abdominal pain. NEUROLOGICAL: Negative for numbness/tingling, dizziness, gait disturbance, headache, speech disturbance, tremor, hemiparesis/sensory loss, or change in mental status. MUSCULOSKELETAL: right arm/axillary tenderness with certain ROM SKIN: Negative for hair loss, bruising, nail changes, rash, itching, pallor, or jaundice. ENDO/URO: Negative for hot flashes, cold or heat intolerance, urinary frequency, urinary hesitancy, menorrhagia, or hematuria. PSYCH: Negative for anxiety, depression, or other. PHYSICAL EXAM: BP 139/61 Pulse 85 Temp 36.3 ?C (97.3 ?F) (Temporal) Resp 18 Ht 153.6 cm (5' 0.47 ) Wt 80.9 kg (178 lb 5.6 oz) SpO2 98% BMI 34.29 kg/m? General: Alert and oriented, no distress, pleasant and cooperative. Heart: Regular, normal S1 and S2, no murmurs, rubs, or gallops Lungs: Clear to auscultation bilaterally Abdomen: Benign Extremities: Feet/ankles without edema, posterior tibial pulses full and symmetrical, right arm with swelling BREAST: right breast upper outer quadrant fullness consistent with fibrous tissue from previous surgery/radiation. No new masses. No adenopathy. PATHOLOGY: 10/23/2022 Right breast lumpectomy and sentinel node procedure (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 Margins negative for invasive carcinoma. DCIS present at deep margin, focal. 2 benign lymph nodes identified (0/2). Oncotype recurrence score 12 08/26/2022 Right breast core biopsy ([facility]) Invasive ductal carcinoma, grade 2. ER 80 to 90%, MT 40 to 50%, HER2 negative RADIOLOGY/OTHER STUDIES: 07/06/2023 PET scan IMPRESSION: 1. Neck: No suspicious hypermetabolic foci 2. Chest: Surgical changes in the right breast right axillary region. Right breast density is associated with low-level uptake. Mild diffuse uptake associated with overlying cutaneous thickening. Possibly related to posttreatment changes. Otherwise no suspicious hypermetabolic foci. No hypermetabolic lymphadenopathy. 3. Abdomen and pelvis: No evidence of FDG marianna (more content not included)... [facility] 09-09-2023 Evaluation note Encounter Date Diagnosis Assessment Notes Aug, Wellness examination (ICD-10 - Z00.00) Healthy diet and exercise. Reviewed age-appropriate preventive testing recommended. Aug, Primary hypertension (ICD-10 - I10) This patient is instructed to consume a healthy, low-fat, low-salt diet. They are also encouraged to continue exercise to achieve/maintain a normal BMI. Aug, IFG (impaired fasting glucose) (ICD-10 - R73.01) Healthy diet and exercise. Weight loss A1C yearly Aug, Pure hypercholesterolemia (ICD-10 - E78.00) Instructed on diet and exercise with continued statin therapy.Discusse d the beneficial effects of lowering cholesterol in reducing the risk for cerebrovascular and cardiovascular disease. Aug, Left wrist pain (ICD-10 - M25.532) Ice/heat and splint. Voltaren Gel as needed. Since due to fall, XR were ordered Aug, Vitamin D deficiency (ICD-10 - E55.9) Continue Vit D supplement. Recheck level Aug, Thyroid nodule (ICD-10 - E04.1) CT: left sided 1.0cm - 05/2023 TSH yearly Nodule being monitored by Oncology Aug, Malignant neoplasm of upper-outer quadrant of right female breast (ICD-10 - C50.411) ERP, PRP, HER 2 negative. Lumpectomy w/ LN dissection 10/2022, Radiation treatment, Arimidex Completed surgery and continues on Arimidex x 5 years F/u Oncology Aug, Colon cancer screening (ICD-10 - Z12.11) Aug, Other Instructed patient on monthly SBE and yearly mammograms. [facility] Other 09-26-2023 NoteHNO ID: [id number] Author: Blayne Pretty MD Service: ? Author Type: Physician Type: Progress Notes Filed: 07/15/2023 7:52 AM Note Text: PATIENT NAME: Angelique Chery DATE: 07/14/2023 PRIMARY CARE PHYSICIAN: Pedro Whalen DO OTHER PHYSICIANS: Dr. Ciaran Rees, Dr. Earnest Davis, Dr. Toro Chan Portions of this encounter note have been copied from my note from 06/15/2023 and has been updated where appropriate, and reflect my current medical decision making from today. CC: This is a 63 year old female with a history of stage I breast cancer and recently discovered elevated tumor markers, seen for scheduled follow-up. INTERIM HISTORY: Labs obtained at the patient's last visit here revealed significantly abnormal LFTs. The patient was recently started on Lipitor which was discontinued, and subsequent LFTs improved. She underwent a PET scan to evaluate for metastases. The PET scan revealed subtle uptake in the right breast and axillary area, felt to be postop/postradiation changes. No evidence of metastases. A diagnostic mammogram and right breast ultrasound revealed an apparent seroma plus postop changes, but no evidence of malignancy. On follow-up today the patient feels well. She has no significant discomfort in her right breast. No other systemic symptoms. She remains on adjuvant hormonal therapy with Arimidex which she is tolerating. MEDICATIONS: Current Outpatient Medications Medication Sig atorvastatin (LIPITOR) 20 mg tablet Take 1 tablet by mouth every afternoon. anastrozole (ARIMIDEX) 1 mg tablet Take 1 tablet by mouth once daily. losartan (COZAAR) 25 mg tablet TAKE 1 TABLET BY MOUTH TWICE A DAY FOR 30 DAYS amLODIPine (NORVASC) 5 mg tablet TAKE 1 TABLET BY MOUTH EVERY DAY FOR 30 DAYS cholecalciferol, vitamin D3, (VITAMIN D3 ORAL) Take by mouth. No current facility-administered medications for this visit. ALLERGIES: ALLERGIES Allergen Reactions Doxycycline Unknown, Hives monocycline allery same reaction PAST MEDICAL HISTORY: PAST MEDICAL HISTORY Diagnosis Date Breast lump Right PAST SURGICAL HISTORY: PAST SURGICAL HISTORY Procedure Laterality Date LASIK PAST SURGICAL HISTORY OF Biopsy Parathyroid gland REMOVAL GALLBLADDER REMV CATARACT EXTRACAP,INSERT LENS REPAIR RETINAL DETACHMENT SCLERAL BUCKLING VAGINAL HYSTERECTOMY FAMILY HISTORY: FAMILY HISTORY Problem Relation Age of Onset Dementia Mother Colon Cancer Mother Breast Cancer Father other (Cardiac arrest) Father Leukemia Father SOCIAL HISTORY: Social History Tobacco Use Smoking status: Former Types: Cigarettes Quit date: 2000 Years since quittin.7 Passive exposure: Past Smokeless tobacco: Never Vaping Use Vaping Use: Never used Substance Use Topics Alcohol use: Not Currently Drug use: Never COMPLETE REVIEW OF SYSTEMS: CONSTITUTION: Negative for pain, fatigue, weight loss, or appetite loss. EENT: Negative for mouth soreness, antibiotics use, epistaxis, visual problems, neck or facial swelling, fever/chills, bleeding gums, or hearing loss. CV: Negative for edema, calf swelling, palpitations, or chest pain. RESPIRATORY: Negative for cough, SOB, hemoptysis, or wheezing. GI: Negative for nausea/vomiting, heartburn, vomiting blood, dysphasia, diarrhea, blood in stool, constipation, early satiety, PICA, vegetarian, poor nutrition, abdominal fullness, or abdominal pain. NEUROLOGICAL: Negative for numbness/tingling, dizziness, gait disturbance, headache, speech disturbance, tremor, hemiparesis/sensory loss, or change in mental status. MUSCULOSKELETAL: right arm/axillary tenderness with certain ROM SKIN: Negative for hair loss, bruising, nail changes, rash, itching, pallor, or jaundice. ENDO/URO: Negative for hot flashes, cold or heat intolerance, urinary frequency, urinary hesitancy, menorrhagia, or hematuria. PSYCH: Negative for anxiety, depression, or other. PHYSICAL EXAM: BP 132/78 Pulse 78 Temp 36.5 ?C (97.7 ?F) (Temporal) Resp 16 Wt 80.5 kg (177 lb 6.4 oz) SpO2 97% BMI 34.11 kg/m? General: Alert and oriented, no distress, pleasant and cooperative. Heart: Regular, normal S1 and S2, no murmurs, rubs, or gallops Lungs: Clear to auscultation bilaterally Abdomen: Benign Extremities: Feet/ankles without edema, posterior tibial pulses full and symmetrical, right arm with swelling BREAST: right breast upper outer quadrant fullness consistent with fibrous tissue from previous surgery/radiation. No new masses. No adenopathy. PATHOLOGY: 10/23/2022 Right breast lumpectomy and sentinel node procedure (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 Margins negative for invasive carcinoma. DCIS present at deep margin, focal. 2 benign lymph nodes identified (0/2). Oncotype recurrence score 12 08/26/2022 Right breast core biopsy ([facility] [place]) Invasive ductal carcinoma, grade 2. ER (more content not included)...[facility]09-22-2023 Miscellaneous Notes* Telephone Encounter - Sayra Cortez LPN - 07/10/2023 11:55 AM EDT The only order option is limited. We just typically write on the order-complete. I will adjust and refax the order. Sayra Cortez LPN * Telephone Encounter - Latisha Hutchinson - 07/10/2023 7:13 AM EDT Yury french called asking if we could put in an order for a Complete breast ultrasound instead of the Limited, thanks documented in this encounterA[facility] NoteHNO ID: [id number] Author: Toro Chan MD Service: ? Author Type: Physician Type: Progress Notes Filed: 07/21/2023 11:44 PM Note Text: Radiation Oncology - Follow Up Note PATIENT NAME: Angelique Chery PATIENT DIAGNOSIS/PATIENT IDENTIFICATION: Ms. Chery is a 63-year-old woman diagnosed with Stage I, [id number], IDC arising from the right breast, ER/MT positive, Her2 negative status post right breast wide local excision and sentinel lymph node biopsy on 10/23/[address] Rees after starting preoperative course of endocrine therapy with Arimidex under the care of Dr. Pretty. Pathology revealed 1.8 cm of intermediate grade IDC with negative invasive margins (focal positive margin for DCIS) with 0/2 sentinel lymph nodes positive for metastatic disease and no plans for further resection. Oncotype score returned low at 12 and chemotherapy was not pursued and she continued on Arimidex. She completed a course of postoperative radiation therapy to the right breast on 01/02/2023 (5005 cGy delivered in 20 fractions). INTERVAL HISTORY/ROS: Ms. Chery returns to clinic today for routine follow-up approximately six months after the completion of her radiation treatments. In the interim, had initial posttreatment imaging with bilateral mammogram and right breast ultrasound on 06/26/2023 which noted was felt to be a postoperative seroma in the right breast with recommendation for short interval follow-up in 6 months (BI-RADS 3). He is also met with Dr. Pretty and her tumor markers were noted to be slowly rising and a PET/CT was ordered and she is meeting with him next week to review the results.. She also had a clinical breast exam last month with Dr. Pretty on 06/15/2023 which was without definite concern for disease. Today she denies any pain/discomfort or skin irritation/breakdown in the right breast but does note some tightness with range of motion. She continues to use a moisturizer and denies any new lumps or bumps or any signs of lymphedema with good range of motion of the right upper extremity. She endorses good energy as she continues to work with good appetite and hydration and stable weight. She has been tolerating her endocrine therapy with Arimidex well without any hot flashes or joint pains. She otherwise denies any recent fevers, chills, headaches, difficulty with speech/swallowing, shortness of breath, chest pain/palpitations, abdominal pain, nausea, vomiting, change in bowel/urinary habits, difficulty with gait/balance, recent falls, etc. The remainder of the review of systems was performed and was otherwise noncontributory. ALLERGIES ALLERGIES Allergen Reactions Doxycycline Unknown, Hives monocycline allery same reaction MEDICATIONS: Current Outpatient Medications: anastrozole (ARIMIDEX) 1 mg tablet losartan (COZAAR) 25 mg tablet amLODIPine (NORVASC) 5 mg tablet cholecalciferol, vitamin D3, (VITAMIN D3 ORAL) atorvastatin (LIPITOR) 20 mg tablet PHYSICAL EXAM: GENERAL: middle-aged woman sitting in chair in no acute distress. VITALS: BP 136/82 Pulse 85 Temp 97.5 Resp 16 Wt 177 lb 12.8 oz (80.7kg) SpO2 99% KPS: 90 HEENT: NC/AT, anicteric sclera HEART: S1S2 LUNGS: non-labored breathing ABDOMEN: soft MUSCULOSKELETAL: no peripheral edema, moves all extremities. NEURO: no focal deficit; AANDO X3. RADIOLOGIC DATA: Bilateral Mammogram and Right Breast Ultrasound (06/26/2023) ASSESSMENT AND PLAN: Ms. Chery is a 63-year-old woman diagnosed with Stage I, [id number], IDC arising from the right breast, ER/MT positive, Her2 negative status post right breast wide local excision and sentinel lymph node biopsy on 10/23/[address] Rees after starting preoperative course of endocrine therapy with Arimidex under the care of Dr. Pretty. Pathology revealed 1.8 cm of intermediate grade IDC with negative invasive margins (focal positive margin for DCIS) with 0/2 sentinel lymph nodes positive for metastatic disease and no plans for further resection. Oncotype score returned low at 12 and chemotherapy was not pursued and she continued on Arimidex. She completed a course of postoperative radiation therapy to the right breast on 01/02/2023 (5005 cGy delivered in 20 fractions). Ms. Chery is doing well clinically approximately 6 months after the completion of her radiation treatments to the right breast with no significant residual sequela at this time. She had her initial posttreatment imaging with bilateral mammogram and right breast ultrasound on 06/26/2023 showing what appears to be a postoperative seroma with recommendation for short interval imaging in 6 months (BI-RADS 3). She also had a clinical breast exam with Dr. Pretty last month on 06/15/2023 which was without concern. Tumor markers were noted to be rising during that visit and a PET/CT was ordered. She is scheduled to meet with Dr. Pretty next week to review the results. I will pl (more content not included)... [facility]09-18-2023 NoteHNO ID: [id number] Author: Nancy Wakefield RT(R) Service: ? Author Type: Technologist Type: Progress Notes Filed: 07/06/2023 2:10 PM Note Text: RADIOLOGY SERVICE PROGRESS NOTE SERVICE DATE: 07/06/2023 SERVICE TIME: 2:09 PM PATIENT IDENTITY VERIFICATION COMPLETED USING TWO (2) STANDARD IDENTIFIERS: Name and Date of confirmed by patient verbally POST EXAM PIV STATUS: Discontinued PROCEDURE TYPE: NM INJECT: PET/CT BODY SCAN. 6.9 mCi F18 FDG. No other medications given.. ADMINISTRATION TIME: 1212 PATIENT DISCHARGED TO: Ambulatory patient, left MT department area. A Diagnostic radioactive procedure has taken place, with no further precautions necessary other than routine body substance precautions. More information regarding radiation safety can be found using this link: [email or web address] SIGNATURE: RT Es(R) PATIENT NAME: Angelique Chery DATE: July 06, 2023 TIME: 2:09 PM PAGER/CONTACT #:[facility]09-18-2023 NoteHNO ID: [id number] Author: Delilah Mendez RN Service: ? Author Type: Registered Nurse Type: Progress Notes Filed: 07/06/2023 1:06 PM Note Text: Radiology Service Progress Note DATE OF SERVICE: July 06, 2023 TIME: 1:05 PM PATIENT IDENTITY VERIFICATION COMPLETED USING TWO (2) STANDARD IDENTIFIERS: Name and Date of confirmed by patient verbally. FALL SCREENING: Has the patient had 2 falls in the last year or 1 fall with injury or currently using an Ambulatory Assistive Device (Walker, Cane, Wheelchair, Crutches, etc.)? No PATIENT GENDER DATA: Female. status: : No status: NO. ALLERGIES: Reviewed and unchanged CONTRAST ALLERGY: No EXAM: CT -CONTRAST INDUCED NEPHROPATHY RISK FACTORS: Patient age > 60 years CREATININE: Creatinine Date Value Ref Range Status 06/15/2023 0.75 0.58 - 0.96 mg/dL Final 04/06/2023 0.79 0.58 - 0.96 mg/dL Final 12/08/2022 0.79 0.58 - 0.96 mg/dL Final Estimated Glomerular Filtration Rate Date Value Ref Range Status 06/15/2023 90 >=60 mL/min/1.73m? Final Comment: Estimated Glomerular Filtration Rate (eGFR) is calculated using the 2020 CKD-EPI creatinine equation. This equation utilizes serum creatinine, sex, and age as parameters. The creatinine assay has traceable calibration to isotope dilution-mass spectrometry. Refer to KDIGO guidelines for clinical interpretation. In patients with unstable renal function, e.g. those with acute kidney injury, the eGFR may not accurately reflect actual GFR. P.O.C.T. RESULTS: POC done: Yes, See Lab Tab July 06, 2023 TREATMENT: No Hydration needed. IV SITE: Ambulatory: A peripheral IV was started in the Left with a Angio cath: 24 gauge. IV SITE APPEARANCE: Clean,Dry and Intact SIGNATURE: Delilah Mendez RN PATIENT NAME: Angelique Chery DATE: July 06, 2023 TIME: 1:05 [facility]09-07-2023 Miscellaneous Notes* Telephone Encounter - Indio Trivedi RN - 06/25/2023 8:[address] [facility] US called to verify order as Limited, and to only include the upper outer quadrant and axilla.Discussed with [facility] and our [facility] Breast US order, only allows for LTD (NO complete order available) Verbal order taken for complete breast US to include axilla. Indio Trivedi RN documented in this encounterAult[facility]08-30-2023 Miscellaneous Notes* Telephone Encounter - Indio Trivedi RN - 06/17/2023 12:54 PM EDT Pt informed of BR[facility] message. She will remain off Lipitor. She is agreeable to POC and denies any questions, needs or concerns at this time. Indio Trivedi RN * Telephone Encounter - Indio Trivedi RN - 06/17/2023 12:52 PM EDT ----- Message from Blayne Pretty MD sent at 06/17/2023 10:52 AM EDT ----- Please inform the patient that her LFTs are stable/slightly improved. Her liver ultrasound was essentially negative, therefore these abnormalities may be more chemical induced versus related to any type of cancer. Agree with stopping Lipitor. If her PET scan shows nothing in her liver and her LFTs remain abnormal we would consider referring her to hepatology. documented in this encounterAultman [facility]08-29-2023 Miscellaneous Notes* Telephone Encounter - Indio Trivedi RN - 06/16/2023 4:46 PM EDT Liver US reviewed by BR[facility]. Pt aware of normal results. Pt states she started Lipitor, ordered by herP, following her Mag labs. She did not take today and will stop indefinitely. She will come tomorrow afternoon to recheck her liver studies, as recommended by BRM. BRM: Please sign pended lab Indio Trivedi RN documented in this encounterAultman [facility]08-28-2023 Miscellaneous Notes* Telephone Encounter - Ruth Ann Berry - 06/15/2023 2:04 PM EDT Patient has been scheduled for US tomorrow, 06/16 at [place] [facility] at 7 am. Patient notified. Patient to be fasting for 8 hours, fat free supper tonight; patient notified of these instructions. Order faxed June 15, 2023 2:04 PM Ruth Ann Berry * Telephone Encounter - Lavern Tolbert APRN.CNP - 06/15/2023 1:58 PM EDT Signed. Lavern Tolbert APRN.MAGALI * Telephone Encounter - Indio Trivedi RN - 06/15/2023 1:24 PM EDT BRM: Placed new order for STAT US to be completed Indio Trivedi RN * Telephone Encounter - Indio Trivedi RN - 06/15/2023 1:04 PM EDT Pt aware of BRM findings. Discussed labs per request. Pt agrees to US. FYI, She does not have a gallbladder. Pt prefers [facility], but is willing to go wherever can get her in the soonest available. [facility] would like today or tomorrow if at all possible d/t drastic elevation of liver enzymes (new finding). PSS: please arrange Indio Trivedi RN * Telephone Encounter - Indio Trivedi RN - 06/15/2023 12:58 PM EDT ----- Message from Blayne Pretty MD sent at 06/15/2023 12:56 PM EDT ----- Please inform the patient that her LFTs are significant elevated which is a new finding. I would recommend a liver/gallbladder ultrasound [facility] for evaluation. documented in this encounterAultman [facility]08-28-2023 NoteHNO ID: [id number] Author: Blayne Pretty MD Service: ? Author Type: Physician Type: Progress Notes Filed: 06/15/2023 8:07 PM Note Text: PATIENT NAME: Angelique Chery DATE: 06/15/2023 PRIMARY CARE PHYSICIAN: Pedro Whalen, DO OTHER PHYSICIANS: Dr. Ciaran Rees, Dr. Earnest Davis, Dr. Toro Chan Portions of this encounter note have been copied from my note from 04/06/2023 and has been updated where appropriate, and reflect my current medical decision making from today. CC: This is a 63 year old female with a history of stage I breast cancer and recently discovered elevated tumor markers, seen for scheduled follow-up. INTERIM HISTORY: Labs obtained at the patient's last visit here revealed slight elevation of her tumor marker, which remained elevated on repeat. Subsequent staging scans were obtained. Bone scan was negative. CT chest/abdomen/pelvis revealed several abnormalities of unclear significance including a small pulmonary nodule, an internal mammary lymph node, small liver lesions, and small adrenal lesions. Also seen was a persistent mass in her right breast at the area of surgery/radiation. On follow-up today the patient feels well. She denies any unusual pain. No fevers, night sweats or weight loss. Appetite and energy remain stable. She remains on adjuvant hormonal therapy with Arimidex, and is tolerated well. MEDICATIONS: Current Outpatient Medications Medication Sig anastrozole (ARIMIDEX) 1 mg tablet Take 1 tablet by mouth once daily. losartan (COZAAR) 25 mg tablet TAKE 1 TABLET BY MOUTH TWICE A DAY FOR 30 DAYS amLODIPine (NORVASC) 5 mg tablet TAKE 1 TABLET BY MOUTH EVERY DAY FOR 30 DAYS cholecalciferol, vitamin D3, (VITAMIN D3 ORAL) Take by mouth. No current facility-administered medications for this visit. ALLERGIES: ALLERGIES Allergen Reactions Doxycycline Unknown, Hives monocycline allery same reaction PAST MEDICAL HISTORY: PAST MEDICAL HISTORY Diagnosis Date Breast lump Right PAST SURGICAL HISTORY: PAST SURGICAL HISTORY Procedure Laterality Date LASIK PAST SURGICAL HISTORY OF Biopsy Parathyroid gland REMOVAL GALLBLADDER REMV CATARACT EXTRACAP,INSERT LENS REPAIR RETINAL DETACHMENT SCLERAL BUCKLING VAGINAL HYSTERECTOMY FAMILY HISTORY: FAMILY HISTORY Problem Relation Age of Onset Dementia Mother Colon Cancer Mother Breast Cancer Father other (Cardiac arrest) Father Leukemia Father SOCIAL HISTORY: Social History Tobacco Use Smoking status: Former Types: Cigarettes Quit date: 1999 Years since quittin.6 Passive exposure: Past Smokeless tobacco: Never Vaping Use Vaping Use: Never used Substance Use Topics Alcohol use: Not Currently Drug use: Never COMPLETE REVIEW OF SYSTEMS: CONSTITUTION: Negative for pain, fatigue, weight loss, or appetite loss. EENT: Negative for mouth soreness, antibiotics use, epistaxis, visual problems, neck or facial swelling, fever/chills, bleeding gums, or hearing loss. CV: Negative for edema, calf swelling, palpitations, or chest pain. RESPIRATORY: Negative for cough, SOB, hemoptysis, or wheezing. GI: Negative for nausea/vomiting, heartburn, vomiting blood, dysphasia, diarrhea, blood in stool, constipation, early satiety, PICA, vegetarian, poor nutrition, abdominal fullness, or abdominal pain. NEUROLOGICAL: Negative for numbness/tingling, dizziness, gait disturbance, headache, speech disturbance, tremor, hemiparesis/sensory loss, or change in mental status. MUSCULOSKELETAL: right arm/axillary tenderness with certain ROM SKIN: Negative for hair loss, bruising, nail changes, rash, itching, pallor, or jaundice. ENDO/URO: Negative for hot flashes, cold or heat intolerance, urinary frequency, urinary hesitancy, menorrhagia, or hematuria. PSYCH: Negative for anxiety, depression, or other. PHYSICAL EXAM: BP 150/76 Pulse 76 Temp 36.4 ?C (97.6 ?F) (Temporal) Resp 18 Wt 80.2 kg (176 lb 12.8 oz) SpO2 97% BMI 33.99 kg/m? General: Alert and oriented, no distress, pleasant and cooperative. Heart: Regular, normal S1 and S2, no murmurs, rubs, or gallops Lungs: Clear to auscultation bilaterally Abdomen: Benign Extremities: Feet/ankles without edema, posterior tibial pulses full and symmetrical, right arm with swelling BREAST: right breast upper outer quadrant fullness consistent with fibrous tissue from previous surgery/radiation. No new masses. No adenopathy. PATHOLOGY: 10/23/2022 Right breast lumpectomy and sentinel node procedure (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 Margins negative for invasive carcinoma. DCIS present at deep margin, focal. 2 benign lymph nodes identified (0/2). Oncotype recurrence score 12 08/26/2022 Right breast core biopsy ([facility]) Invasive ductal carcinoma, grade 2. ER 80 to 90%, MT 40 to 50%, HER2 negative RADIOLOGY/OTHER STUDIES: 06/06/2023 CT chest, abdo (more content not included)...[facility]08-28-2023 History of Present illness Narrative* Blayne Pretty MD - 06/15/2023 7:01 AM EDT PATIENT NAME: Angelique Chery DATE: 06/15/2023 PRIMARY CARE PHYSICIAN: Pedro Whalen, OTHER PHYSICIANS: Dr. Ciaran Rees, Dr. Earnest Davis, Dr. Toro Chan Portions of this encounter note have been copied from my note from 04/06/2023 and has been updated where appropriate, and reflect my current medical decision making from today. CC: This is a 63 year old female with a history of stage I breast cancer and recently discovered elevated tumor markers, seen for scheduled follow-up. INTERIM HISTORY: Labs obtained at the patient's last visit here revealed slight elevation of her tumor marker, which remained elevated on repeat. Subsequent staging scans were obtained. Bone scan wasnegative. CT chest/abdomen/pelvis revealed several abnormalities of unclear significance including a small pulmonary nodule, an internal mammary lymph node, small liver lesions, and small adrenal lesions. Also seen was a persistent mass in her right breast at the area of surgery/radiation. On follow-up today the patient feels well. She denies any unusual pain. No fevers, night sweats or weight loss. Appetite and energy remain stable. She remains on adjuvant hormonal therapy with Arimidex, and is tolerated well. MEDICATIONS: Current Outpatient Medications Medication Sig anastrozole (ARIMIDEX) 1 mg tablet Take 1 tablet by mouth once daily. losartan (COZAAR) 25 mg tablet TAKE 1 TABLET BY MOUTH TWICE A DAY FOR 30 DAYS amLODIPine (NORVASC) 5 mg tablet TAKE 1 TABLET BY MOUTH EVERY DAY FOR 30 DAYS cholecalciferol, vitamin D3, (VITAMIN D3 ORAL) Take by mouth. No current facility-administered medications for this visit. ALLERGIES: ALLERGIES Allergen Reactions Doxycycline Unknown, Hives monocycline allery same reaction PAST MEDICAL HISTORY: PAST MEDICAL HISTORY Diagnosis Date Breast lump Right PAST SURGICAL HISTORY: PAST SURGICAL HISTORY Procedure Laterality Date LASIK PAST SURGICAL HISTORY OF Biopsy Parathyroid gland REMOVAL GALLBLADDER REMV CATARACT EXTRACAP,INSERT LENS REPAIR RETINAL DETACHMENT SCLERAL BUCKLING VAGINAL HYSTERECTOMY FAMILY HISTORY: FAMILY HISTORY Problem Relation Age of Onset Dementia Mother Colon Cancer Mother Breast Cancer Father other (Cardiac arrest) Father Leukemia Father SOCIAL HISTORY: Social History Tobacco Use Smoking status: Former Types: Cigarettes Quit date: 1999 Years since quittin.6 Passive exposure: Past Smokeless tobacco: Never Vaping Use Vaping Use: Never used Substance Use Topics Alcohol use: Not Currently Drug use: Never COMPLETE REVIEW OF SYSTEMS: CONSTITUTION: Negative for pain, fatigue, weight loss, or appetite loss. EENT: Negative for mouth soreness, antibiotics use, epistaxis, visual problems, neck or facial swelling, fever/chills, bleeding gums, or hearing loss. CV: Negative for edema, calf swelling, palpitations, or chest pain. RESPIRATORY: Negative for cough, SOB, hemoptysis, or wheezing. GI: Negative for nausea/vomiting, heartburn, vomiting blood, dysphasia, diarrhea, blood in stool, constipation, early satiety, PICA, vegetarian, poor nutrition, abdominal fullness, or abdominal pain. NEUROLOGICAL: Negative for numbness/tingling, dizziness, gait disturbance, headache, speech disturbance, tremor, hemiparesis/sensory loss, or change in mental status. MUSCULOSKELETAL: right arm/axillary tenderness with certain ROM SKIN: Negative for hair loss, bruising, nail changes, rash, itching, pallor, or jaundice. ENDO/URO: Negative for hot flashes, cold or heat intolerance, urinary frequency, urinary hesitancy,menorrhagia, or hematuria. PSYCH: Negative for anxiety, depression, or other. PHYSICAL EXAM: BP 150/76 Pulse 76 Temp 36.4 C (97.6 F) (Temporal) Resp 18 Wt 80.2 kg (176 lb 12.8 oz) SpO2 97% BMI 33.99 kg/m General: Alert and oriented, no distress, pleasant and cooperative. Heart: Regular, normal S1 and S2, no murmurs, rubs, or gallops Lungs: Clear to auscultation bilaterally Abdomen: Benign Extremities: Feet/ankles without edema, posterior tibial pulses full and symmetrical, right arm with swelling BREAST: right breast upper outer quadrant fullness consistent with fibrous tissue from previous surgery/radiation. No new masses. No adenopathy. PATHOLOGY: 10/23/2022 Right breast lumpectomy and sentinel node procedure (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 Margins negative for invasive carcinoma. DCIS present at deep margin, focal. 2 benign lymph nodes identified (0/2). Oncotype recurrence score 12 08/26/2022 Right breast core biopsy ([facility] [place]) Invasive ductal carcinoma, grade 2. ER 80 to 90%, MT 40 to 50%, HER2 negative RADIOLOGY/OTHER STUDIES: 06/06/2023 CT chest, abdomen and pelvis ([facility]) 3.2 x 2.3 cm right breast mass. 5 mm nodule in left upper lobe of lung. 2 right adrenal nodules measuring 1.4 cm and 1.2 cm. 8 mm right internal mammary lymph node. Mild atelectatic changes in the right middle lobe of lung. 1 cm left thyroid nodule. 4.2 x 1.7 cm intramuscular lipoma posterior to the left scapula. Small hepatic hypodensities, 4 mm each, too small to characterize. 05/18/2023 Nuclear bone scan ([facility]) No suspicious foci to suggest metastatic disease. 08/25/2022 Diagnostic mammogram and right breast ultrasound ([facility]) BI-RADS 5, highly suggestive of malignancy At 11:00 there is a mass approximately 2.1 x 2 x 1.4 cm in the right breast. Left breast is unremarkable in appearance. LABORATORY DATA: Hemoglobin (g/dL) Date Value 06/15/2023 12.9 Hematocrit (%) Date Value 06/15/2023 41.4 WBC (k/uL) Date Value 06/15/2023 6.03 Platelet Count (k/uL) Date Value 06/15/2023 199 CA 27-29 11/10/2022 28.8 12/08/2022 35.7 04/06/2023 42.2 05/07/2023 47.4. ASSESSMENT/PLAN: 1. Malignant neoplasm of upper-outer quadrant of right breast in female, estrogen receptor positive(HCC) - ICD9: 174.4, V86.0, ICD10: C50.411, Z17.0 Stage I right-sided breast cancer diagnosed August 2022 (core biopsy 08/26/2022). The patient's initial pathology indicated grade 2 invasive ductal carcinoma, ER/MT positive, HER2 negative. Genomic analysis revealed no deleterious mutations. In preparation for surgery neoadjuvant Arimidex started 1 11/12/2021. On 10/23/2022 the patient underwent lumpectomy and sentinel node procedure. Final pathology: Invasive tumor 1.8 cm with DCIS, 0 of 2 sentinel nodes involved. Oncotype analysis revealed a recurrence score of 12, which would predict a 9-year recurrence risk of 3% with hormonal therapy alone,and no benefit from adjuvant chemotherapy. Postop the patient continued adjuvant hormonal therapy with Arimidex. March 2023 routine labs revealed slight elevation of the CA 27-29, which remained elevated on repeat. Subsequent staging scans were obtained. Bone scan 05/18/[address] chest/abdomen/pelvis 06/06/2023 revealed several abnormalities of unclear significance including a small pulmonary nodule,an internal mammary lymph node, small liver lesions, and small adrenal lesions. Also seen was a pers istent mass in her right breast at the area of surgery/radiation. Options for further management were discussed at length with the patient and her . We will repeat labs today. We will arrange for a PET scan to rule out systemic metastases. She has a repeat right breast mammogram scheduled for 06/26/2023. We will also obtain a right breast ultrasound at that time. I will schedule a temporary return visit here in 4 weeks for follow-up. Blayne Pretty MD CC: Dr. Tommie Rees documented in this encounterAult[facility]08-[facility] Miscellaneous Notes* Telephone Encounter - Indio Trivedi RN - 06/02/2023 2:40 PM EDT Please sign pended CRE for pt to have completed for her CT at [facility]. Indio Trivedi RN * Telephone Encounter - Tila Dyer - 06/02/2023 7:52 AM EDT Called [facility] and had to leave a message to ask why only the bone scan was scheduled and not the ct atthe same time? And when they call back we will get it scheduled. * Telephone Encounter - Indio Trivedi RN - 06/01/2023 4:18 PM EDT [facility] looking for CT results. Bone scan negative; pt aware. Spoke to pt and she reports, no one called her to schedule CT's at our office. She is available by cell 05/11 telephone encounter does state schedule CT and pt to have bone scan at [facility] (completed 05/18) PSS: Please call to schedule LESLIE Indio Trivedi RN documented in this encounterAultman [facility]06-21-2023 Evaluation note* Encounter Date Diagnosis Assessment Notes Treatment Notes Treatment Clinical Notes Mar, Pure hypercholestero lemia (ICD-10 - E78.00) [facility] Other 06-20-2023 Miscellaneous Notes* Telephone Encounter - Latisha Menchaca - 04/07/2023 11:14 AM EDT Patient is called and scheduled for appoinments * Telephone Encounter - Toro Chan MD - 04/06/2023 4:29 PM EDT Mammogram at approximately six months post-radiation with follow-up afterwards. Thanks! Toro * Telephone Encounter - Sayra Cortez LPN - 04/06/2023 2:52 PM EDT Post treatment follow up was not arranged for Angelique . Patient was here for follow up with Marcela today and denies questions/concerns per Ruth Ann. Dr. Chan: angelique completed treatment 3/17/23. Do you want follow up with mammogram in June? please sign pended mammogram order. Latisha: Please schedule Angelique per Dr. Chan's recommendation. Sayra Cortez LPN documented in this encounterAultman [facility]06-19-2023 NoteHNO ID: [id number] Author: Marcela Washington PA-C Service: ? Author Type: Physician Transmission Maintenance Supervisor Type: Progress Notes Filed: 04/06/2023 3:04 PM Note Text: PATIENT NAME: Angelique Chery DATE: 04/06/2023 PRIMARY CARE PHYSICIAN: Pedro Wahlen, OTHER PHYSICIANS: Dr. Ciaran Rees, Dr. Earnest Davis, Dr. Toro Chan (Elements copied from Dr. Pretty's note dated December 08, 2022, have been reviewed and updated where appropriate, and all reflect current assessment and medical decision making during today's encounter, April 06, 2023) CC: This is a 62 year old female with recently diagnosed breast cancer, seen for scheduled follow-up. INTERIM HISTORY: Angelique returns for follow up. She remains on Arimidex and she does have some arthralgias at times, but it is manageable. She has noticed some difficulty raising her arm above her head and back behind her head. No swelling or redness. This has been ongoing since surgery. She just noticed it this morning was more sore than before when she was reaching for her phone. MEDICATIONS: Current Outpatient Medications Medication Sig anastrozole (ARIMIDEX) 1 mg tablet Take 1 tablet by mouth once daily. losartan (COZAAR) 25 mg tablet TAKE 1 TABLET BY MOUTH TWICE A DAY FOR 30 DAYS amLODIPine (NORVASC) 5 mg tablet TAKE 1 TABLET BY MOUTH EVERY DAY FOR 30 DAYS cholecalciferol, vitamin D3, (VITAMIN D3 ORAL) Take by mouth. No current facility-administered medications for this visit. ALLERGIES: ALLERGIES Allergen Reactions Doxycycline Unknown, Hives monocycline allery same reaction PAST MEDICAL HISTORY: PAST MEDICAL HISTORY Diagnosis Date Breast lump Right PAST SURGICAL HISTORY: PAST SURGICAL HISTORY Procedure Laterality Date LASIK PAST SURGICAL HISTORY OF Biopsy Parathyroid gland REMOVAL GALLBLADDER REMV CATARACT EXTRACAP,INSERT LENS REPAIR RETINAL DETACHMENT SCLERAL BUCKLING VAGINAL HYSTERECTOMY FAMILY HISTORY: FAMILY HISTORY Problem Relation Age of Onset Dementia Mother Colon Cancer Mother Breast Cancer Father other (Cardiac arrest) Father Leukemia Father SOCIAL HISTORY: Social History Tobacco Use Smoking status: Former Types: Cigarettes Quit date: 1999 Years since quittin.4 Passive exposure: Past Smokeless tobacco: Never Vaping Use Vaping Use: Never used Substance Use Topics Alcohol use: Not Currently Drug use: Never COMPLETE REVIEW OF SYSTEMS: CONSTITUTION: Negative for pain, fatigue, weight loss, or appetite loss. EENT: Negative for mouth soreness, antibiotics use, epistaxis, visual problems, neck or facial swelling, fever/chills, bleeding gums, or hearing loss. CV: Negative for edema, calf swelling, palpitations, or chest pain. RESPIRATORY: Negative for cough, SOB, hemoptysis, or wheezing. GI: Negative for nausea/vomiting, heartburn, vomiting blood, dysphasia, diarrhea, blood in stool, constipation, early satiety, PICA, vegetarian, poor nutrition, abdominal fullness, or abdominal pain. NEUROLOGICAL: Negative for numbness/tingling, dizziness, gait disturbance, headache, speech disturbance, tremor, hemiparesis/sensory loss, or change in mental status. MUSCULOSKELETAL: right arm/axillary tenderness with certain ROM SKIN: Negative for hair loss, bruising, nail changes, rash, itching, pallor, or jaundice. ENDO/URO: Negative for hot flashes, cold or heat intolerance, urinary frequency, urinary hesitancy, menorrhagia, or hematuria. PSYCH: Negative for anxiety, depression, or other. PHYSICAL EXAM: BP 138/64 Pulse 74 Temp 36.4 ?C (97.6 ?F) (Temporal) Resp 18 Ht 153.6 cm (5' 0.47 ) Wt 83.1 kg (183 lb 3.2 oz) SpO2 97% BMI 35.22 kg/m? General: Alert and oriented, no distress, pleasant and cooperative. Heart: Regular, normal S1 and S2, no murmurs, rubs, or gallops Lungs: Clear to auscultation bilaterally Abdomen: Benign Extremities: Feet/ankles without edema, posterior tibial pulses full and symmetrical, right arm with swelling BREAST: right breast incisions without erythema or edema, no lesions in either breast or axilla. PATHOLOGY: 10/23/2022 Right breast lumpectomy and sentinel node procedure (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 Margins negative for invasive carcinoma. DCIS present at deep margin, focal. 2 benign lymph nodes identified (0/2). Oncotype recurrence score 12 08/26/2022 Right breast core biopsy ([facility]) Invasive ductal carcinoma, grade 2. ER 80 to 90%, MT 40 to 50%, HER2 negative RADIOLOGY/OTHER STUDIES: 08/25/2022 Diagnostic mammogram and right breast ultrasound ([facility]) BI-RADS 5, highly suggestive of malignancy At 11:00 there is a mass approximately 2.1 x 2 x 1.4 cm in the right breast. Left breast is unremarkable in appearance. LABORATORY DATA: Hemoglobin (g/dL) Date Value 04/06/2023 12.4 Hematocrit (%) Date Value 04/06/2023 39.5 WBC (k/uL) Date Value (more content not included)...[facility] Evaluation note* Encounter Date Diagnosis Assessment Notes Treatment Notes Treatment Clinical Notes Mar, Wellness examination (ICD-10 - Z00.00) [facility] Other 06-02-2023 Evaluation note* Encounter Date Diagnosis Assessment Notes Treatment Notes Treatment Clinical Notes Mar, Sebaceous cyst (ICD-10 - L72.3) Desires to have excised. This has occurred only twice in past 2 years. Would recheck once infection clears Mar, Local infection of the skin and subcutaneous tissue, unspecified (ICD-10 - L08.9) Warm compresses, gentle massage. Begin antibiotics Mar, IFG (impaired fasting glucose) (ICD-10 - R73.01) Healthy diet, exercise and check A1C yearly [facility] Other 04-01-2023 Miscellaneous Notes* Telephone Encounter - Adela Ospina - 03/31/2023 8:38 AM EDT Patient coming in Thursday04/06/23 for follow up with labs per [facility] notes. Please add lab orders. Thanks. Adela Ospina MA documented in this encounterA[facility]03-27-2023 Evaluation note* Encounter Date Diagnosis Assessment Notes Treatment Notes Treatment Clinical Notes Dec, IFG (impaired fastin g glucose) (ICD-10 - R73.01) This patient is following a comprehensive diabetic treatment plan. They are checking their feet daily for calluses and nonhealing ulcers. They are being seen for yearly dilated eye examinations. Goals: SBP less than 130, LDL less than 100, FBS less than 140, AC and A1C less than 7%. They are checking their BS daily, will which are reviewed at the office visit. Dec, Primary hypertension (ICD-10 - I10) This patient is instructed to consume a healthy, low-fat, low-salt diet. They are also encouraged to continue exercise to achieve/maintain a normal BMI. Dec, Hyperlipidemia type II (ICD-10 - E78.01) Diet and exercise with continued statin therapy. Dec, Malignant neoplasm o f upper-outer quadrant of right female breast (ICD-10 - C50.411) ERP, PRP, HER 2 negative. Lumpectomy w/ LN dissection 10/2022, Radiation treatment, Arimidex Completed surgery and radiation therapy. Continue Arimidex for 5 yrs. Continue SBE Dec, History of hyperparathyroidism (ICD-10 - Z86.39) Check calcium and vitamin D Dec, Family hx of colon cancer (ICD-10 - Z80.0) Due for colonoscopy this year. - last scope in 2016 w/o polyps [facility] Other 03-20-2023 NoteHNO ID: [id number] Author: Jojo Power RN Service: ? Author Type: Registered Nurse Type: Progress Notes Filed: 01/05/2023 3:32 PM Note Text: Summary: [id number] Alert Week 1 [facility]ive Alert Management Note [facility] 1Y21 IRB: [id number] Real World Treatment Experience of Patients with Breast, Lung, or GI Cancer or Multiple Myeloma Using Remote Symptom Monitoring Informed Consent signed on: December STUDY ID #: [id number] Week 10/30 A severity rating of Present was reported for the following symptoms: Other Symptoms - Skin breakdown under arm and under breast Alert was managed by RN Did patient request a call back No The Carevive Care Team response included but was not limited to: Continue to Monitor, Follow Up at Next Visit, and Other: Continue to moisturize, if area is weeping or draining, please call the office Was study physician consulted / notified Yes-discussed ,YES - Chart routed to physician: Toro Chan MD Hedis Coordinator: Jojo Power RN The patient knows to follow provider's treatment plan and to continue to complete the weekly electronic surveys, to be sent for minimum of 12 weeks. Patient understands to call the office sooner if needed and has my contact information for any additional questions regarding the study. Jojo Power RN 3:31 PM January 05[facility]03-20-2023 History of Present illness Narrative* Jojo Power RN - 01/05/2023 3:28 PM EDTSumminhy: [id number] Alert Week 1 Carevive Alert Management Note [facility] 1Y21 IRB: [id number] Real World Treatment Experience of Patients with Breast, Lung, or GI Canceror Multiple Myeloma Using Remote Symptom Monitoring Informed Consent signed on: December STUDY ID #: [id number] Week 10/30 A severity rating of Present was reported for the following symptoms: Other Symptoms - Skin breakdown under arm and under breast Alert was managed by RN Did patient request a call back No The Carevive Care Team response included but was not limited to: Continue to Monitor, Follow Up at Next Visit, and Other: Continue to moisturize, if area is weeping or draining, please call the office Was study physician consulted / notified Yes-discussed ,YES - Chart routed to physician: Toro Chan MD Hedis Coordinator: Jojo Power RN The patient knows to follow provider's treatment plan and to continue to complete the weekly electronic surveys, to be sent for minimum of 12 weeks. Patient understands to call the office sooner if needed and has my contact information for any additional questions regarding the study. Jojo Power RN 3:31 PM January 05, 2023 documented in this encounterAultman [facility]03-17-2023 NoteHNO ID: [id number] Author: Toro Chan MD Service: ? Author Type: Physician Type: Progress Notes Filed: 01/09/2023 12:35 AM Note Text: [facility] Radiation Oncology Department RADIATION ONCOLOGY - COMPLETION NOTE PATIENT: ANGELIQUE CHERY : 1960 DATES OF TREATMENT: 12/08/2022 to 01/02/2023 DIAGNOSIS: Ms. Chery is a 62-year-old woman diagnosed with Stage I, [id number], IDC arising from the right breast, ER/MT positive, Her2 negative status post right breast wide local excision and sentinel lymph node biopsy on 10/23/[address] Rees after starting preoperative course of endocrine therapy with Arimidex under the care of Dr. Pretty. Pathology revealed 1.8 cm of intermediate grade IDC with negative invasive margins (focal positive margin for DCIS) with 0/2 sentinel lymph nodes positive for metastatic disease and no plans for further resection. Oncotype score returned low at 12 and chemotherapy was not pursued and she will continue on Arimidex. AREA TREATED: Right Breast DELIVERED DOSE: Area: Right Breast 4,005 cGy in 15 fractions, 2 field, 3D Conformal, 10 mV with weekly portal imaging DELIVERED DOSE: Area: Right Breast Boost 1,000 cGy in 5 fractions, 2 field, 3D Conformal, 10 mV with daily CBCT TOTAL: 5,005 cGy in 20 Fractions ELAPSED TIME: 25 days. CLINICAL SUMMARY: The patient tolerated course of post-operative radiation therapy well with mild treatment-related fatigue and dermatitis as expected. No other significant issues. The patient was able to complete treatment as intended without break interruption or modification of prescription plan. The patient will be evaluated in 3-4 weeks for postradiation follow-up and anticipate initial post-treatment mammography in approximately six months. Staff Physician Toro Chan M.D. / KG 34:49 AM Electronically Signed cc: Blayne Pretty MD ([facility]) Pedro Whalen, [address] [place] [address] [address] [place] [address] [facility] History of Present illness Narrative* Toro Chan MD - 01/02/2023 12:00 AM EDT [facility] Radiation Oncology Department RADIATION ONCOLOGY - COMPLETION NOTE PATIENT: ANGELIQUE CHERY : 1960 DATES OF TREATMENT: 12/08/2022 to 01/02/2023 DIAGNOSIS: Ms. Chery is a 62-year-old woman diagnosed with Stage I, [id number], IDC arising from theright breast, ER/MT positive, Her2 negative status post right breast wide local excision and sentinel lymph node biopsy on 10/23/[address] Rees after starting preoperative course of endocrine therapy with Arimidex under the care of Dr. Pretty. Pathology revealed 1.8 cm of intermediate grade IDC with negative invasive margins (focal positive margin for DCIS) with 0/2 sentinel lymph nodes positive for metastatic disease and no plans for further resection. Oncotype score returned low at 12 and chemotherapy was not pursued and she will continue on Arimidex. AREA TREATED: Right Breast DELIVERED DOSE: Area: Right Breast 4,005 cGy in 15 fractions, 2 field, 3D Conformal, 10 mV with weekly portal imaging DELIVERED DOSE: Area: Right Breast Boost 1,000 cGy in 5 fractions, 2 field, 3D Conformal, 10 mV with daily CBCT TOTAL: 5,005 cGy in 20 Fractions ELAPSED TIME: 25 days. CLINICAL SUMMARY: The patient tolerated course of post-operative radiation therapy well with mild treatment-related fatigue and dermatitis as expected. No other significant issues. The patient was able to complete treatment as intended without break interruption or modification of prescription plan. The patient will be evaluated in 3-4 weeks for postradiation follow-up and anticipate initial post-treatment mammography in approximately six months. Staff Physician Toro Chan M.D. / KG 34:49 AM Electronically Signed cc: Blayne Pretty MD ([facility]) Pedro Singh Marlee, DO [address] [facility] [address] [address] [place] [address] Via documented in this encounterA[facility]23 NoteHNO ID: [id number] Author: Toro Chan MD Service: ? Author Type: Physician Type: Progress Notes Filed: 01/06/2023 11:00 PM Note Text: RADIATION ONCOLOGY- ON TREATMENT REVIEW (OTR) NOTE PATIENT NAME: Angelique Chery PATIENT DIAGNOSIS: Ms. Chery is a 62-year-old woman diagnosed with Stage I, [id number], IDC arising from the right breast, ER/MT positive, Her2 negative status post right breast wide local excision and sentinel lymph node biopsy on 10/23/[address] Rees after starting preoperative course of endocrine therapy with Arimidex under the care of Dr. Pretty. Pathology revealed 1.8 cm of intermediate grade IDC with negative invasive margins (focal positive margin for DCIS) with 0/2 sentinel lymph nodes positive for metastatic disease and no plans for further resection. Oncotype score returned low at 12 and chemotherapy was not pursued and she will continue on Arimidex. COURSE: post-operative Area Treated: Right breast Current dose: 4205 cGy in 16 fx Planned dose: 5005 cGy in 20 fx SUBJECTIVE: Tolerating XRT well and reports improvement in her axillary rash/irritation and is started using a natural deodorant. She continues to note some kristen-incisional discomfort and mild itching and skin erythema without breakdown. She uses a moisturizer twice a day. She does endorse fatigue as she continues to work with stable appetite hydration and weight. PHYSICAL EXAM: KPS: 90 General Appearance: Alert and oriented. No acute distress. Skin erythema/hyperpigmentation: Mild Desquamation: No TOXICITY ASSESSMENT (CTC v4.0): Fatigue: grade 1 - Fatigue relieved by rest Radiation dermatitis: grade 1 - Faint erythema or dry desquamation Treatment chart checked: Yes Patient treatment site reviewed and verified:Yes Port films reviewed and current:Yes Medications started: None ASSESSMENT/PLAN: Clinically stable. Toxicity within expected parameters. Continue radiation treatment as planned. Signed by: Toro Chan [facility]03-09-2023 NoteHNO ID: [id number] Author: Toro Chan MD Service: ? Author Type: Physician Type: Progress Notes Filed: 01/06/2023 10:36 PM Note Text: RADIATION ONCOLOGY- ON TREATMENT REVIEW (OTR) NOTE PATIENT NAME: Angelique Chery PATIENT DIAGNOSIS: Ms. Chery is a 62-year-old woman diagnosed with Stage I, [id number], IDC arising from the right breast, ER/MT positive, Her2 negative status post right breast wide local excision and sentinel lymph node biopsy on 10/23/[address] Rees after starting preoperative course of endocrine therapy with Arimidex under the care of Dr. Pretty. Pathology revealed 1.8 cm of intermediate grade IDC with negative invasive margins (focal positive margin for DCIS) with 0/2 sentinel lymph nodes positive for metastatic disease and no plans for further resection. Oncotype score returned low at 12 and chemotherapy was not pursued and she will continue on Arimidex. COURSE: post-operative Area Treated: Right breast Current dose: 3471 cGy in 13 fx Planned dose: 5005 cGy in 20 fx SUBJECTIVE: XRT well and notes occasional kristen-incisional discomfort but no other pain/discomfort. She does note some erythema in the area of the axilla with no itching or swelling with intact range of motion. She does use a moisturizer at least twice a day. She endorses mild fatigue as she continues to work with stable weight appetite and hydration. PHYSICAL EXAM: KPS: 90 General Appearance: Alert and oriented. No acute distress. Skin erythema/hyperpigmentation: Mild Desquamation: No TOXICITY ASSESSMENT (CTC v4.0): Fatigue: grade 1 - Fatigue relieved by rest Radiation dermatitis: grade 1 - Faint erythema or dry desquamation Treatment chart checked: Yes Patient treatment site reviewed and verified:Yes Port films reviewed and current:Yes Medications started: None ASSESSMENT/PLAN: Clinically stable. Toxicity within expected parameters. Continue radiation treatment as planned. Signed by: Toro Chan [facility]03-08-2023 NoteHNO ID: [id number] Author: Jojo Power RN Service: ? Author Type: Registered Nurse Type: Progress Notes Filed: 12/24/2022 8:51 AM Note Text: Summary: [id number] Alert management Week 0 Carevive Alert Management Note [facility] Y2 IRB: [id number] Real World Treatment Experience of Patients with Breast, Lung, or GI Cancer or Multiple Myeloma Using Remote Symptom Monitoring Informed Consent signed on: December STUDY ID #: [id number] Week 0/12 A severity rating of Present was reported for the following symptoms: Rash Alert was managed by RN Did patient request a call back No [facility] Care Team response included but was not limited to: Continue to Monitor and Follow Up at Next Visit Was study physician consulted / notified YES - Chart routed to physician: Toro Chan MD [place] Coordinator: Jojo Power RN Phone: [phone] The patient knows to follow provider's treatment plan and to continue to complete the weekly electronic surveys, to be sent for minimum of 12 weeks. Patient understands to call the office sooner if needed and has my contact information for any additional questions regarding the study. Jojo Power RN 8:44 AM [facility] 24[facility]03-08-[facility]23 History of Present illness Narrative* Jojo Power RN - 12/24/2022 8:42 AM ESTSummary: [id number] Alert management Week 0 Carevive Alert Management Note [facility] 1Y21 IRB: [id number] Real World Treatment Experience of Patients with Breast, Lung, or GI Canceror Multiple Myeloma Using Remote Symptom Monitoring Informed Consent signed on: December STUDY ID #: [id number] Week 0/12 A severity rating of Present was reported for the following symptoms: Rash Alert was managed by RN Did patient request a call back No [facility] Care Team response included but was not limited to: Continue to Monitor and Follow Up at Next Visit Was study physician consulted / notified YES - Chart routed to physician: Toro Chan MD [place] Coordinator: Jojo Power RN Phone: [phone] The patient knows to follow provider's treatment plan and to continue to complete the weekly electronic surveys, to be sent for minimum of 12 weeks. Patient understands to call the office sooner if needed and has my contact information for any additional questions regarding the study. Jojo Power RN 8:44 AM December 24, 2022 documented in this encounterAultman [facility]03-03-2023 NoteHNO ID: [id number] Author: Jojo Power RN Service: ? Author Type: Registered Nurse Type: Progress Notes Filed: 12/19/2022 11:36 AM Note Text: Summary: [id number] Consent Presentaion Informed Consent Presentation IRB# [id number] [facility] 1Y21 Title: Real World Treatment Experience of Patients with Breast, Lung, or GI Cancer or Multiple Myeloma Using Remote Symptom Monitoring Consent expiration date 05/28/2023 Spoke with patient regarding [id number]. Treatment plan, including all potential risks/benefits, side effects and management, treatment alternatives, and follow-up explained. Roles of the clinical trial personnel to be involved and the financial responsibilities were discussed. Initial questions were answered and a copy of the informed consent was given to patient with the instructions to read it and call with any additional questions. Contact information for the research nurse was given to the patient. The patient verbalized appropriate understanding of all the aforementioned information presented. Patient requested to follow up on Thursday12/22/2022. Time of Presentation: 11:25 AM Jojo Power [facility] History of Present illness Narrative* Jojo Powre RN - 12/19/2022 11:32 AM ESTSummary: [id number] Consent Presentaion Informed Consent Presentation IRB# [id number] [facility] Y21 Title: Real World Treatment Experience of Patients with Breast, Lung, or GI Cancer or Multiple Myeloma Using Remote Symptom Monitoring Consent expiration date 05/28/2023 Spoke with patient regarding [id number]. Treatment plan, including all potential risks/benefits, sideeffects and management, treatment alternatives, and follow- up explained. Roles of the clinical trial personnel to be involved and the financial responsibilities were discussed. Initial questions wereanswered and a copy of the informed consent was given to patient with the instructions to read it and call with any additional questions. Contact information for the research nurse was given to the patient. The patient verbalized appropriate understanding of all the aforementioned information presented. Patient requested to follow up on Thursday12/22/2022. Time of Presentation: 11:25 AM Jojo Power RN documented in this encounterAultman [facility]03-01-2023 NoteHNO ID: [id number] Author: Toro Chan MD Service: ? Author Type: Physician Type: Progress Notes Filed: 12/24/2022 6:30 AM Note Text: RADIATION ONCOLOGY- ON TREATMENT REVIEW (OTR) NOTE PATIENT NAME: Angelique Chery PATIENT DIAGNOSIS: Ms. 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 Rees after starting preoperative course of endocrine therapy with Arimidex under the care of Dr. Pretty. Pathology revealed 1.8 cm of intermediate grade IDC with negative invasive margins (focal positive margin for DCIS) with 0/2 sentinel lymph nodes positive for metastatic disease and no plans for further resection. Oncotype score returned low at 12 and chemotherapy was not pursued and she will continue on Arimidex. COURSE: post-operative Area Treated: Right breast Current dose: 1869 cGy in 7 fx Planned dose: 5005 cGy in 20 fx SUBJECTIVE: Tolerating XRT well and denies any pain/discomfort or skin irritation/breakdown or itching/swelling in the right breast and reports using a moisturizer twice a day. She reports intact range of motion of the right upper extremity. She does note slight fatigue with good appetite and hydration and stable weight. PHYSICAL EXAM: KPS: 90 General Appearance: Alert and oriented. No acute distress. Skin erythema/hyperpigmentation: Minimal Desquamation: No TOXICITY ASSESSMENT (CTC v4.0): Fatigue: grade 1 - Fatigue relieved by rest Radiation dermatitis: grade 1 - Faint erythema or dry desquamation Treatment chart checked: Yes Patient treatment site reviewed and verified:Yes Port films reviewed and current:Yes Medications started: None ASSESSMENT/PLAN: Clinically stable. Toxicity within expected parameters. Continue radiation treatment as planned. Signed by: Toro Chan [facility]02-28-2023 History of Present illness Narrative* Toro Chan MD - 12/16/2022 11:44 PM EST Radiation Oncology - On Treatment Review (OTR) Note PATIENT NAME: Angelique Chery PATIENT Toro Chan MD documented in this encounterAultman [facility]02-28-2023 Nurse Note* Tila Johns RN - 12/16/2022 3:28 PM EST Status: Post-menopausal. Tila Johns RN documented in this encounterAultman [facility]02-23-2023 NoteHNO ID: [id number] Author: Toro Chan MD Service: ? Author Type: Physician Type: Progress Notes Filed: 12/24/2022 5:54 AM Note Text: RADIATION ONCOLOGY- ON TREATMENT REVIEW (OTR) NOTE PATIENT NAME: Angelique Chery PATIENT DIAGNOSIS: Ms. 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 Rees after starting preoperative course of endocrine therapy with Arimidex under the care of Dr. Pretty. Pathology revealed 1.8 cm of intermediate grade IDC with negative invasive margins (focal positive margin for DCIS) with 0/2 sentinel lymph nodes positive for metastatic disease and no plans for further resection. Oncotype score returned low at 12 and chemotherapy was not pursued and she will continue on Arimidex. COURSE: post-operative Area Treated: Right breast Current dose: 801 cGy in 3 fx Planned dose: 5005 cGy in 20 fx SUBJECTIVE: Tolerating [place] of XRT well and denies any pain/discomfort in the breast or any skin irritation/breakdown or itching/swelling. She reports intact range of motion of the right upper extremity. She does note fatigue as she is working full-time good appetite and hydration and stable weight. PHYSICAL EXAM: KPS: 90 General Appearance: Alert and oriented. No acute distress. Skin erythema/hyperpigmentation: No Desquamation: No TOXICITY ASSESSMENT (CTC v4.0): Fatigue: grade 1 - Fatigue relieved by rest Radiation dermatitis: grade 0 - No symptoms Treatment chart checked: Yes Patient treatment site reviewed and verified:Yes Port films reviewed and current:Yes Medications started: None ASSESSMENT/PLAN: Clinically stable. Toxicity within expected parameters. Continue radiation treatment as planned. We reviewed skincare as well as general precautions during radiation treatment to the breast and discussed the potential acute toxicities during treatment and their time course. Encouraged the use of a good moisturizer in the treatment area and discussed the importance of a well-balanced diet, hydration, and exercise/activity as tolerated through the course of treatment. Signed by: Toro Chan [facility]02-22-2023 History of Present illness Narrative* Toro Chan MD - 12/10/2022 11:37 PM EST Radiation Oncology - On Treatment Review (OTR) Note PATIENT NAME: Angelique Chery PATIENT Toro Chan MD documented in this encounterAultman [facility]02-22-2023 Nurse Note* Sayra Cortez LPN - 12/10/2022 2:53 PM EST Status: Post-menopausal. documented in this encounterAultman [facility]02-20-2023 NoteHNO ID: [id number] Author: Blayne Pretty MD Service: ? Author Type: Physician Type: Progress Notes Filed: 12/08/2022 9:19 PM Note Text: PATIENT NAME: Angelique Chery DATE: 11/10/2022 PRIMARY CARE PHYSICIAN: Pedro Whalen DO OTHER PHYSICIANS: Dr. Ciaran Rees, Dr. Earnest Davsi, Dr. Toro Chan Portions of this encounter note have been copied from my note from 10/06/2022 and has been updated where appropriate, and reflect my current medical decision making from today. CC: This is a 62 year old female with recently diagnosed breast cancer, seen for scheduled follow-up. INTERIM HISTORY: Since the patient's last visit here her Oncotype analysis was obtained, and revealed a recurrence score of 12. This would predict a 9-year recurrence risk of 3% with hormonal therapy alone, and no benefit from adjuvant chemotherapy. Currently the patient feels well with no complaints. She is completely healed from her previous breast surgery. Since her last visit she has remained on Arimidex 1 mg daily, and is tolerating it well. She is scheduled to start adjuvant radiation therapy later today. MEDICATIONS: Current Outpatient Medications Medication Sig losartan (COZAAR) 25 mg tablet TAKE 1 TABLET BY MOUTH TWICE A DAY FOR 30 DAYS amLODIPine (NORVASC) 5 mg tablet TAKE 1 TABLET BY MOUTH EVERY DAY FOR 30 DAYS cholecalciferol, vitamin D3, (VITAMIN D3 ORAL) Take by mouth. anastrozole (ARIMIDEX) 1 mg tablet Take 1 tablet by mouth once daily. OMEPRAZOLE ORAL Take by mouth. No current facility-administered medications for this visit. ALLERGIES: ALLERGIES Allergen Reactions Doxycycline Unknown, Hives monocycline allery same reaction PAST MEDICAL HISTORY: PAST MEDICAL HISTORY Diagnosis Date Breast lump Right PAST SURGICAL HISTORY: PAST SURGICAL HISTORY Procedure Laterality Date LASIK PAST SURGICAL HISTORY OF Biopsy Parathyroid gland REMOVAL GALLBLADDER REMV CATARACT EXTRACAP,INSERT LENS REPAIR RETINAL DETACHMENT SCLERAL BUCKLING VAGINAL HYSTERECTOMY FAMILY HISTORY: FAMILY HISTORY Problem Relation Age of Onset Dementia Mother Colon Cancer Mother Breast Cancer Father other (Cardiac arrest) Father Leukemia Father SOCIAL HISTORY: Social History Tobacco Use Smoking status: Former Types: Cigarettes Quit date: 1999 Years since quittin. Passive exposure: Past Smokeless tobacco: Never Vaping Use Vaping Use: Never used Substance Use Topics Alcohol use: Not Currently Drug use: Never COMPLETE REVIEW OF SYSTEMS: CONSTITUTION: Negative for pain, fatigue, weight loss, or appetite loss. EENT: Negative for mouth soreness, antibiotics use, epistaxis, visual problems, neck or facial swelling, fever/chills, bleeding gums, or hearing loss. CV: Negative for edema, calf swelling, palpitations, or chest pain. RESPIRATORY: Negative for cough, SOB, hemoptysis, or wheezing. GI: Negative for nausea/vomiting, heartburn, vomiting blood, dysphasia, diarrhea, blood in stool, constipation, early satiety, PICA, vegetarian, poor nutrition, abdominal fullness, or abdominal pain. NEUROLOGICAL: Negative for numbness/tingling, dizziness, gait disturbance, headache, speech disturbance, tremor, hemiparesis/sensory loss, or change in mental status. MUSCULOSKELETAL: Negative for joint pain, joint swelling, or proximal muscle weakness. SKIN: Negative for hair loss, bruising, nail changes, rash, itching, pallor, or jaundice. ENDO/URO: Negative for hot flashes, cold or heat intolerance, urinary frequency, urinary hesitancy, menorrhagia, or hematuria. PSYCH: Negative for anxiety, depression, or other. PHYSICAL EXAM: BP 154/94 Pulse 82 Temp 36.5 ?C (97.7 ?F) (Temporal) Resp 16 Ht 153.6 cm (5' 0.47 ) Wt 83.4 kg (183 lb 12.8 oz) SpO2 99% BMI 35.34 kg/m? GENERAL EXAM: Well developed/well nourished; in no acute distress. SKIN: Negative for lesions, rashes, or ulcers on the upper and lower extremities and face. Negative for palpations/nodules, purpura, and ecchymosis. EENT: Negative for conjunctiva, mucosal pallor, JVD, LAP, thyromegaly, and glossitis. Supple AND PERRL. EXTREMITIES: Negative for cyanosis, clubbing, and crepitus. LUNGS: Negative to auscultation, respiratory effort, and percussion. BREAST: Breasts not examined today CARDIOVASCULAR: Regular rate. Negative for murmurs/S3S4/abnormal sounds, edema, and carotid bruits. ABDOMEN: Negative for masses, hernia, and spleen/liver abnormalities. RECTAL: Not done PSYCHIATRIC: Negative for mood/affect changes, recent AND remote memory changes, and judgement and insight. NEUROLOGICAL: Alert, oriented x person, place, time. Cranial nerves 2-12 intact. Sensory for pain, light touch, vibration intact on all 4 extremities. Reflexes symmetric for biceps/brachioradial/patella/achilles. MUSCULOSKELETAL: Negative examination of joints, bones, muscles/tendons of all four extremiti (more content not included)...[facility] 12-08-2022 History of Present illness Narrative* Blayne Pretty MD - 12/08/2022 8:05 AM EST PATIENT NAME: Angelique Chery DATE: 11/10/2022 PRIMARY CARE PHYSICIAN: Pedro Whalen, DO OTHER PHYSICIANS: Dr. Ciaran Rees, Dr. Earnest Davis, Dr. Toro Chan Portions of this encounter note have been copied from my note from 10/06/2022 and has been updated where appropriate, and reflect my current medical decision making from today. CC: This is a 62 year old female with recently diagnosed breast cancer, seen for scheduled follow-up. INTERIM HISTORY: Since the patient's last visit here her Oncotype analysis was obtained, and revealed a recurrence score of 12. This would predict a 9-year recurrence risk of 3% with hormonal therapyalone, and no benefit from adjuvant chemotherapy. Currently the patient feels well with no complaints. She is completely healed from her previous breast surgery. Since her last visit she has remained on Arimidex 1 mg daily, and is tolerating it well. She is scheduled to start adjuvant radiation therapy later today. MEDICATIONS: Current Outpatient Medications Medication Sig losartan (COZAAR) 25 mg tablet TAKE 1 TABLET BY MOUTH TWICE A DAY FOR 30 DAYS amLODIPine (NORVASC) 5 mg tablet TAKE 1 TABLET BY MOUTH EVERY DAY FOR 30 DAYS cholecalciferol, vitamin D3, (VITAMIN D3 ORAL) Take by mouth. anastrozole (ARIMIDEX) 1 mg tablet Take 1 tablet by mouth once daily. OMEPRAZOLE ORAL Take by mouth. No current facility-administered medications for this visit. ALLERGIES: ALLERGIES Allergen Reactions Doxycycline Unknown, Hives monocycline allery same reaction PAST MEDICAL HISTORY: PAST MEDICAL HISTORY Diagnosis Date Breast lump Right PAST SURGICAL HISTORY: PAST SURGICAL HISTORY Procedure Laterality Date LASIK PAST SURGICAL HISTORY OF Biopsy Parathyroid gland REMOVAL GALLBLADDER REMV CATARACT EXTRACAP,INSERT LENS REPAIR RETINAL DETACHMENT SCLERAL BUCKLING VAGINAL HYSTERECTOMY FAMILY HISTORY: FAMILY HISTORY Problem Relation Age of Onset Dementia Mother Colon Cancer Mother Breast Cancer Father other (Cardiac arrest) Father Leukemia Father SOCIAL HISTORY: Social History Tobacco Use Smoking status: Former Types: Cigarettes Quit date: 1999 Years since quittin. Passive exposure: Past Smokeless tobacco: Never Vaping Use Vaping Use: Never used Substance Use Topics Alcohol use: Not Currently Drug use: Never COMPLETE REVIEW OF SYSTEMS: CONSTITUTION: Negative for pain, fatigue, weight loss, or appetite loss. EENT: Negative for mouth soreness, antibiotics use, epistaxis, visual problems, neck or facial swelling, fever/chills, bleeding gums, or hearing loss. CV: Negative for edema, calf swelling, palpitations, or chest pain. RESPIRATORY: Negative for cough, SOB, hemoptysis, or wheezing. GI: Negative for nausea/vomiting, heartburn, vomiting blood, dysphasia, diarrhea, blood in stool, constipation, early satiety, PICA, vegetarian, poor nutrition, abdominal fullness, or abdominal pain. NEUROLOGICAL: Negative for numbness/tingling, dizziness, gait disturbance, headache, speech disturbance, tremor, hemiparesis/sensory loss, or change in mental status. MUSCULOSKELETAL: Negative for joint pain, joint swelling, or proximal muscle weakness. SKIN: Negative for hair loss, bruising, nail changes, rash, itching, pallor, or jaundice. ENDO/URO: Negative for hot flashes, cold or heat intolerance, urinary frequency, urinary hesitancy,menorrhagia, or hematuria. PSYCH: Negative for anxiety, depression, or other. PHYSICAL EXAM: BP 154/94 Pulse 82 Temp 36.5 C (97.7 F) (Temporal) Resp 16 Ht 153.6 cm (5' 0.47 ) Wt 83.4 kg (183 lb 12.8 oz) SpO2 99% BMI 35.34 kg/m GENERAL EXAM: Well developed/well nourished; in no acute distress. SKIN: Negative for lesions, rashes, or ulcers on the upper and lower extremities and face. Negativefor palpations/nodules, purpura, and ecchymosis. EENT: Negative for conjunctiva, mucosal pallor, JVD, LAP, thyromegaly, and glossitis. Supple & PERRL. EXTREMITIES: Negative for cyanosis, clubbing, and crepitus. LUNGS: Negative to auscultation, respiratory effort, and percussion. BREAST: Breasts not examined today CARDIOVASCULAR: Regular rate. Negative for murmurs/S3S4/abnormal sounds, edema, and carotid bruits. ABDOMEN: Negative for masses, hernia, and spleen/liver abnormalities. RECTAL: Not done PSYCHIATRIC: Negative for mood/affect changes, recent & remote memory changes, and judgement and insight. NEUROLOGICAL: Alert, oriented x person, place, time. Cranial nerves 2-12 intact. Sensory for pain, light touch, vibration intact on all 4 extremities. Reflexes symmetric for biceps/brachioradial/patella/achilles. MUSCULOSKELETAL: Negative examination of joints, bones, muscles/tendons of all four extremities forinspection, percussion, and palpation. Negative for misallignment, asymmetry, crepitation, tenderness, mass, effusions. Range of motion normal. Negative for joint instability, laxity, dislocation. Gait steady. Negative for swelling, erythema, tenderness, soft tissue swelling, and atrophy. PATHOLOGY: 10/23/2022 Right breast lumpectomy and sentinel node procedure (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 Margins negative for invasive carcinoma. DCIS present at deep margin, focal. 2 benign lymph nodes identified (0/2). Oncotype recurrence score 12 08/26/2022 Right breast core biopsy ([facility] [place]) Invasive ductal carcinoma, grade 2. ER 80 to 90%, MT 40 to 50%, HER2 negative RADIOLOGY/OTHER STUDIES: 08/25/2022 Diagnostic mammogram and right breast ultrasound ([facility] [place]) BI-RADS 5, highly suggestive of malignancy At 11:00 there is a mass approximately 2.1 x 2 x 1.4 cm in the right breast. Left breast is unremarkable in appearance. LABORATORY DATA: Hemoglobin (g/dL) Date Value 12/08/2022 12.6 Hematocrit (%) Date Value 12/08/2022 39.5 WBC (k/uL) Date Value 12/08/2022 6.94 Platelet Count (k/uL) Date Value 12/08/2022 257 ASSESSMENT/PLAN: 1. Malignant neoplasm of upper-outer quadrant of right breast in female, estrogen receptor positive(HCC) - ICD9: 174.4, V86.0, ICD10: C50.411, Z17.0 Stage I right-sided breast cancer diagnosed August 2022 (core biopsy 08/26/2022). The patient's initial pathology indicated grade 2 invasive ductal carcinoma, ER/MT positive, HER2 negative. Genomic analysis revealed no deleterious mutations. In preparation for surgery neoadjuvant Arimidex started 1 11/12/2021. On 10/23/2022 the patient underwent lumpectomy and sentinel node procedure. Final pathology: Invasive tumor 1.8 cm with DCIS, 0 of 2 sentinel nodes involved. Oncotype analysis revealed a recurrence score of 12, which would predict a 9-year recurrence risk of 3% with hormonal therapy alone,and no benefit from adjuvant chemotherapy. Currently the patient has no evidence of disease. Option for management were discussed. Adjuvant chemotherapy not indicated. The patient will continue as is with Arimidex 1 mg daily, with plans to take for 5 years total (August 2027). She will proceed with adjuvant radiation therapy per Dr. Chan. I will see her back in 4 months with labs. Blayne Pretty MD CC: Dr. Ciaran Rees documented in this encounterAultman Orr[facility]02-09-[facility]23 NoteHNO ID: [id number] Author: Toro Chan MD Service: ? Author Type: Physician Type: Progress Notes Filed: 12/10/2022 6:42 AM Note Text: Radiation Oncology - Follow Up Note PATIENT NAME: Angelique Chery PATIENT DIAGNOSIS/PATIENT IDENTIFICATION: Ms. 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 Rees after starting preoperative course of endocrine therapy with Arimidex under the care of Dr. Pretty. Pathology revealed 1.8 cm of intermediate grade IDC with negative invasive margins (focal positive margin for DCIS) with 0/2 sentinel lymph nodes positive for metastatic disease and no plans for further resection. She has met with Dr. Pretty and is awaiting the results of her Oncotype DX score to make decision regarding adjuvant chemotherapy and was referred to the radiation medicine clinic to have a discussion regarding the role of radiation therapy in the postoperative treatment of her early stage breast cancer. Ms. Chery returns to clinic today for follow-up and simulation as previously discussed during consultation on 11/14/2022. In the interim, her Oncotype recurrence score returned low at 12 and chemotherapy was not recommended. She will continue on her Arimidex. We again briefly reviewed the rationale, logistics, and toxicity of radiation therapy to the right breast in this postoperative setting. After all of her questions were answered, informed consent was obtained. She will proceed to CT simulation following this visit to begin treatment planning and I anticipate starting radiation shortly. Thank you for allowing us to participate in the care of this patient. Signed by: Toro Chan MD I spent a total of 15 minutes on the date of the service which included preparing to see the patient, [id number] patient care, and counseling and educating the patient/family/caregiver. This document has been created with the use of voice recognition technology. It may contain inaccuracies, misspellings, inaccurate syntax or inappropriate word context that are a result of the inadequacies/shortcomings of said technology/software.[facility] 11-26-2022 History of Present illness Narrative* Toro Chan MD - 11/26/2022 11:31 PM EST Radiation Oncology - Follow Up Note PATIENT NAME: Angelique Chery PATIENT Signed by: Toro Chan MD I spent a total of 15 minutes on the date of the service which included preparing to see the patient, [id number] patient care, and counseling and educating the patient/family/caregiver. This document has been created with the use of voice recognition technology. It may contain inaccuracies, misspellings, inaccurate syntax or inappropriate word context that are a result of the inadequacies/shortcomings of said technology/software. documented in this encounterAultman Orrville [facility]02-08-2023 Nurse Note* Tila Johns RN - 11/26/2022 3:27 PM EST Radiation Therapy - Patient Education Note PATIENT NAME: Angelique Chery PATIENT November 26, 2022 [facility]AC[facility]LOC[facility]: [facility] READINESS TO LEARN Cognitive Ability: Alert and oriented Motivation to learn: Eager Family Support: High - Very involved in pt care Instruction provide to: Patient Patient learns best by: Multiple Methods Factors effecting learning: None Physical limitations effecting learning: None LEARNING RESPONSE Diagnosis: Pt simulated today for radiation therapy to right breast. Education Topic/Teaching Points: Radiation therapy, Side effects, and OTV: Method of instruction: Written instruction - handouts Patient /Family response: Patient verbalized understanding of radiation treatments, side effects, OTV, and transportation. Follow-up plan: Recommend - Recommend continued instruction and follow up as directed Supplemental material: Informational handouts on Breast packet. Referral (recommendation): None, Pt denied need for social work, van service, and automatic presser. Signed by: Tila Johns RN documented in this encounterAultman Orrville [facility]02-08-2023 NoteHNO ID: [id number] Author: Toro Chan MD Service: ? Author Type: Physician Type: Progress Notes Filed: 01/05/2023 3:37 PM Note Text: ANGELIQUE CHERY [id number] 11/26/2022 [facility] Department of Radiation Oncology Treatment Planning Note For reasons stated in the consult note, Angelique Chery is a candidate for radiation therapy. Based on review and interpretation of the relevant diagnostic studies together with the exam findings, Angelique Chery was simulated on 11/26/2022 at which time the target volume and/or requisite staples were delineated, as indicated in the simulation note, to be treated according to the prescription. The treatment target and organs at risk were contoured on the simulation scan. Special consideration to these and other structures was given in light of the potential for increased toxicities. After reviewing multiple treatment plans with dosimetry, the best plan was approved to deliver the prescribed course of radiation to the target area using 3D planning to allow for the best isodose distribution, treating to the 100% isodose line with 10MV and 2 staples. Custom MLC asym jaws for IMRT were the treatment devices used to shape/modify the beams. Limiting dose to normal tissue was confirmed upon review of the calculated dose volume histogram. A completed summary of this plan dated 12/05/22 incorporated herein by reference includes dose, beam arrangements, energy, blocking, isodose distribution, and/or ports and DVH. Electronically Signed Toro Chan M.D. :28 [facility]02-08-2023 NoteEducation (ANGELA) ANGELIQUE CHERY ([id number]) 1960 F Date Time Provider Department 11/26/22 TILA JOHNS Reason for Visit: Patient Education [91] Visit Notes: >> Tila Johns RN [facility] Nov 26, 2022 3:27 PM Status: Signed Radiation Therapy - Patient Education Note PATIENT NAME: Angelique Chery PATIENT November 26, 2022 [facility]: [facility] READINESS TO LEARN Cognitive Ability: Alert and oriented Motivation to learn: Eager Family Support: High - Very involved in pt care Instruction provide to: Patient Patient learns best by: Multiple Methods Factors effecting learning: None Physical limitations effecting learning: None LEARNING RESPONSE Diagnosis: Pt simulated today for radiation therapy to right breast. Education Topic/Teaching Points: Radiation therapy, Side effects, and OTV: Method of instruction: Written instruction - handouts Patient /Family response: Patient verbalized understanding of radiation treatments, side effects, OTV, and transportation. Follow-up plan: Recommend - Recommend continued instruction and follow up as directed Supplemental material: Informational handouts on Breast packet. Referral (recommendation): None, Pt denied need for social work, van service, and automatic presser. Signed by: Tila Johns RN During your visit today, we recorded the following information about you: Allergies As of Date: 11/26/2022 Noted Allergy Reaction DOXYCYCLINE 06/13/2013 16 - Unknown 4 - Hives Comments: monocycline allery same reaction Date Reviewed: 11/14/2022 Reviewed by: Clari Clark RN - Fully Assessed Prescriptions as of 11/26/2022 - losartan (COZAAR) 25 mg tablet TAKE 1 TABLET BY MOUTH TWICE A DAY FOR 30 DAYS - amLODIPine (NORVASC) 5 mg tablet TAKE 1 TABLET BY MOUTH EVERY DAY FOR 30 DAYS - cholecalciferol, vitamin D3, (VITAMIN D3 ORAL) Take by mouth. - anastrozole (ARIMIDEX) 1 mg tablet Take 1 tablet by mouth once daily. - OMEPRAZOLE ORAL Take by mouth. Encounter Status:Closed by TILA JOHNS on 11/26/22[facility] 11-26-2022 NoteHNO ID: [id number] Author: Toro Chan MD Service: ? Author Type: Physician Type: Progress Notes Filed: 11/27/2022 12:37 AM Note Text: ANGELIQUE CHERY [id number] 11/26/2022 [facility] Radiation Oncology Department SIMULATION NOTE DATE OF SIMULATION: 11/26/2022 THERAPIST: [facility] MACHINE: Sangart DIAGNOSIS: Malignant neoplasm of upper-outer quadrant of right female [id number] AREA: RT BREAST CONTRAST: None Consent in Epic: Yes PATIENT POSITION: Supine. FIXATION DEVICE: In order to achieve accurate and reproducible treatments, the patient is immobilized with orfit AIO system A time-out was conducted and recorded by the therapist. CT scan was completed for target localization and planning. Field arrangement will be determined after plan has been completed. The patient is scheduled for a verification simulation on the treatment machine to ensure proper set-up and field arrangement is correct prior to the first treatment of primary and boost staples if applicable. Patient education will be completed per nursing. Electronically Signed Toro Chan M.D. / NRS :20 [facility]02-08-2023 History of Present illness Narrative* Toro Chan MD - 11/26/2022 12:00 AM EST ANGELIQUE CHERY [id number] 11/26/2022 [facility] Radiation Oncology Department SIMULATION NOTE DATE OF SIMULATION: 11/26/2022 THERAPIST: [facility] MACHINE: Sangart DIAGNOSIS: Malignant neoplasm of upper-outer quadrant of right female [id number] AREA: RT BREAST CONTRAST: None Consent in Epic: Yes PATIENT POSITION: Supine. FIXATION DEVICE: In order to achieve accurate and reproducible treatments, the patient is immobilized with orfit AIO system A time-out was conducted and recorded by the therapist. CT scan was completed for target localization and planning. Field arrangement will be determined after plan has been completed. The patient is scheduled for a verification simulation on the treatment machine to ensure proper set-up and field arrangement is correct prior to the first treatment of primary and boost staples if applicable. Patient education will be completed per nursing. Electronically Signed Toro Chan M.D. / NRS 35:20 PM documented in this encounterAultman [facility]02-08-2023 History of Present illness Narrative* Toro Chan MD - 11/26/2022 12:00 AM EST ANGELIQUE CHERY [id number] 11/26/2022 [facility] Department of Radiation Oncology Treatment Planning Note For reasons stated in the consult note, Angelique Chery is a candidate for radiation therapy. Based on review and interpretation of the relevant diagnostic studies together with the exam findings, Angelique Chery was simulated on 11/26/2022 at which time the target volume and/or requisite staples were delineated, as indicated in the simulation note, to be treated according to the prescription. The treatment target and organs at risk were contoured on the simulation scan. Special consideration to these and other structures was given in light of the potential for increased toxicities. After reviewing multiple treatment plans with dosimetry, the best plan was approved to deliver the prescribed course of radiation to the target area using 3D planning to allow for the best isodose distribution, treating to the 100% isodose line with 10MV and 2 staples. Custom MLC asym jaws for IMRT were the treatment devices used to shape/modify the beams. Limiting dose to normal tissue was confirmed upon review of the calculated dose volume histogram. A completed summary of this plan dated 12/05/22 incorporated herein by reference includes dose, beamarrangements, energy, blocking, isodose distribution, and/or ports and DVH. Electronically Signed Toro Chan M.D. 32:28 AM documented in this encounterAultman [facility]02-07-2023 Miscellaneous Notes* Telephone Encounter - Lawson Eason - 11/25/2022 8:30 AM EST Called patient to schedule her as instructed, however she was unable to make it into office today. Patient has been scheduled for tomorrow for follow up & sim. Lawson Eason * Telephone Encounter - Nancy Maradiaga RN - 11/24/2022 4:28 PM EST Pt notified and verbalizes understanding. Radiation Team: Pt does not have a f/u w/ [facility] at this time. Nancy Maradiaga RN * Telephone Encounter - Blayne Pretty MD - 11/24/2022 4:15 PM EST Please inform the patient that her Oncotype recurrence score is low at 12, excellent news. No need for chemo. She should continue with Arimidex as planned. Okay to proceed with radiation per Dr. Chan. I will see her back as scheduled. * Telephone Encounter - Nancy Maradiaga RN - 11/24/2022 2:52 PM EST FYI: Pt's Oncotype results are in your mail folder. Nancy Maradiaga RN * Telephone Encounter - Nancy Maradiaga RN - 11/11/2022 2:28 PM EST FYI: Call placed to [employer] to assess status of pt's Oncotype testing. Specimen was receivedon 11/07/22. Prior authorization was initiated yesterday. Estimated result date is 11/21/22. Nothing required from our office at this time. Nancy Maradiaga RN documented in this encounterAultman [facility]01-28-2023 NoteHNO ID: [id number] Author: Toro Chan MD Service: ? Author Type: Physician Type: Progress Notes Filed: 11/26/2022 6:41 AM Note Text: Radiation Oncology - New Patient/Consult Note PATIENT NAME: Angelique Chery PATIENT REQUESTING PHYSICIAN: Dr. Blayne Pretty, Dr. Ciaran Rees DIAGNOSIS: Stage I, [id number], IDC arising from the right breast, ER/MT positive, Her2 negative. PATIENT IDENTIFICATION: This patient was seen in the Department of Radiation Oncology at the [facility] with Toro Chan MD. Final recommendations will be communicated back to the requesting physician by way of the shared medical record, or letter to requesting physician via [place] mail. HISTORY OF PRESENT ILLNESS: per note from Dr. Pretty on 11/10/2022: '1. Malignant neoplasm of upper-outer quadrant of right breast in female, estrogen receptor positive (HCC) - ICD9: 174.4, V86.0, ICD10: C50.411, Z17.0 Stage I right-sided breast cancer diagnosed August 2022 (core biopsy 08/26/2022). The patient's initial pathology indicated grade 2 invasive ductal carcinoma, ER/MT positive, HER2 negative. Genomic analysis revealed no deleterious mutations. In preparation for surgery neoadjuvant Arimidex started 09/12/2022. On 10/23/2022 the patient underwent lumpectomy and sentinel node procedure. Final pathology: Invasive tumor 1.8 cm with DCIS, 0 of 2 sentinel nodes involved. Oncotype analysis pending. Options for further management were discussed at length with the patient and her . We will send her tumor for Oncotype analysis. If she is found to have a high recurrence score (greater than 26) adjuvant chemotherapy will be discussed. If her recurrence score is low there would be no indications for chemotherapy, and the patient will continue as is with adjuvant hormonal therapy.' She is referred today to the radiation medicine clinic to have a discussion regarding the potential role of radiation therapy in the postoperative treatment of her early stage breast cancer as we await her Oncotype score to make decision regarding chemotherapy.. INTERVAL/HISTORY/REVIEW OF SYSTEMS: Ms. Chery reports that she has been recovering well from her recent surgery on 10/23/2022 with no residual discomfort and denies any postoperative complications with wound healing or infection. She reports tolerating her endocrine therapy with Arimidex well and denies any hot flashes. She otherwise denies any recent fevers/chills, new headaches, changes in weight/appetite, difficulty with speech/swallowing, shortness of breath, chest pain/palpitations, abdominal pain, nausea/vomiting, change in bowel/urinary function, difficulty with gait/balance. The remainder of the review of systems was performed and was otherwise non-contributory except as described above. PAST MEDICAL HISTORY: PAST MEDICAL HISTORY Diagnosis Date Breast lump Right PAST SURGICAL HISTORY: PAST SURGICAL HISTORY Procedure Laterality Date LASIK PAST SURGICAL HISTORY OF Biopsy Parathyroid gland REMOVAL GALLBLADDER REMV CATARACT EXTRACAP,INSERT LENS REPAIR RETINAL DETACHMENT SCLERAL BUCKLING VAGINAL HYSTERECTOMY FAMILY HISTORY: FAMILY HISTORY Problem Relation Age of Onset Dementia Mother Colon Cancer Mother Breast Cancer Father other (Cardiac arrest) Father Leukemia Father SOCIAL HISTORY: Ms. Chery is , has 3 children, and lives in the [place], [place] area. 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 RADIATION HISTORY: The patient denies any history of therapeutic radiation. ALLERGIES: ALLERGIES Allergen Reactions Doxycycline Unknown, Hives monocycline allery same reaction MEDICATIONS: Current Outpatient Medications: losartan (COZAAR) 25 mg tablet amLODIPine (NORVASC) 5 mg tablet cholecalciferol, vitamin D3, (VITAMIN D3 ORAL) anastrozole (ARIMIDEX) 1 mg tablet OMEPRAZOLE ORAL PHYSICAL EXAMINATION: GENERAL: middle-aged woman sitting in chair, in no acute distress. VITALS: BP 142/82 Pulse 77 Temp 98.2 Resp 18 Ht 5' .472 (1.54m) Wt 183 lb 3.2 oz (83.1kg) SpO2 99% BMI 35.22 kg/(m2). KPS: 90 HEENT: NC/AT, anicteric sclera HEART: S1S2 LUNGS: non-labored breathing ABDOMEN: soft MUSCULOSKELETAL: no peripheral edema, moves all extremities. NEURO: no focal deficit; AANDO X3. LABORATORY DATA: 11/10/2022 WBC 3.70 - 11.00 k/uL 6.09 Abs Neut (ANC) 1.45 - 7.50 k/uL 4.04 Hemoglobin 11.5 - 15.5 g/dL 13.1 Hematocrit 36.0 - 46.0 % 41.3 Platelet Count 150 - 400 k/uL 250 RBC 3.90 - 5.20 m/uL 4.66 MCV 80.0 - 100.0 fL 88.6 MCH 26.0 - 34.0 pg 28.1 MCHC 30.5 - 36.0 g/dL 31.7 MPV 9.0 - 12.7 fL 10.2 BUN 7 - 21 mg/dL 15 Creatinine 0.58 - 0.96 mg/dL 0.70 Sodium 136 - 144 mmol/L 141 Potassium 3.7 - 5.1 mmol/L 4.0 Calcium 8.5 - 10.2 mg/dL 9.6 Bilirubin, Total 0.2 - 1.3 mg/dL 0.5 AST 13 - 35 U/L 28 ALT 7 - 38 (more content not included)...[facility]01-27-2023 History of Present illness Narrative* Toro Chan MD - 11/14/2022 11:47 PM EST Images from the original note were not included. Radiation Oncology - New Patient/Consult Note PATIENT NAME: Angelique Chery PATIENT Signed: Toro Chan MD I spent a total of 60 minutes on the date of the service which included preparing to see the patient, [id number] patient care, and counseling and educating the patient/family/caregiver. This document has been created with the use of voice recognition technology. It may contain inaccuracies, misspellings, inaccurate syntax or inappropriate word context that are a result of the inadequacies/shortcomings of said technology/software. documented in this encounterAultman Orrville [facility]01-25-2023 Evaluation note* Encounter Date Diagnosis Assessment Notes Treatment Notes Treatment Clinical Notes Oct, Malignant neoplasm of upper-outer quadrant of right female breast (ICD-10 - C50.411) ERP/PRP, HER2 negative. s/p lumpectomy - 10/23/22 Oct, Estrogen receptor positive status [ER+] (ICD-10 - Z17.0) [facility] 01-23-2023 NoteHNO ID: [id number] Author: Blayne Pretty MD Service: ? Author Type: Physician Type: Progress Notes Filed: 11/10/2022 8:15 PM Note Text: PATIENT NAME: Angelique Chery DATE: 11/10/2022 PRIMARY CARE PHYSICIAN: Pedro Whalen, OTHER PHYSICIANS: Dr. Ciaran Rees, Dr. Earnest Davis, Dr. Toro Chan Portions of this encounter note have been copied from my note from 10/06/2022 and has been updated where appropriate, and reflect my current medical decision making from today. CC: This is a 62 year old female with recently diagnosed breast cancer, seen for scheduled follow-up. INTERIM HISTORY: Since the patient's last visit here she underwent surgery per Dr. Rees on 10/23/2022. Final pathology revealed a 1.8 cm invasive carcinoma with a component of DCIS. 0 of 2 sentinel nodes were involved. The patient tolerated her surgery well and has healed without complication. Currently she feels well with no particular complaints. The patient remains on hormonal therapy with Arimidex 1 mg daily, and is tolerating it well. MEDICATIONS: Current Outpatient Medications Medication Sig cholecalciferol, vitamin D3, (VITAMIN D3 ORAL) Take by mouth. anastrozole (ARIMIDEX) 1 mg tablet Take 1 tablet by mouth once daily. ergocalciferol, vitamin D2, (VITAMIN D2 ORAL) Take by mouth. OMEPRAZOLE ORAL Take by mouth. No current facility-administered medications for this visit. ALLERGIES: ALLERGIES Allergen Reactions Doxycycline Unknown, Hives monocycline allery same reaction PAST MEDICAL HISTORY: PAST MEDICAL HISTORY Diagnosis Date Breast lump Right PAST SURGICAL HISTORY: PAST SURGICAL HISTORY Procedure Laterality Date LASIK PAST SURGICAL HISTORY OF Biopsy Parathyroid gland REMOVAL GALLBLADDER REMV CATARACT EXTRACAP,INSERT LENS REPAIR RETINAL DETACHMENT SCLERAL BUCKLING VAGINAL HYSTERECTOMY FAMILY HISTORY: FAMILY HISTORY Problem Relation Age of Onset Dementia Mother Colon Cancer Mother Breast Cancer Father other (Cardiac arrest) Father Leukemia Father SOCIAL HISTORY: Social History Tobacco Use Smoking status: Former Types: Cigarettes Quit date: 1999 Years since quittin.0 Passive exposure: Past Smokeless tobacco: Never Vaping Use Vaping Use: Never used Substance Use Topics Alcohol use: Not Currently Drug use: Never COMPLETE REVIEW OF SYSTEMS: CONSTITUTION: Negative for pain, fatigue, weight loss, or appetite loss. EENT: Negative for mouth soreness, antibiotics use, epistaxis, visual problems, neck or facial swelling, fever/chills, bleeding gums, or hearing loss. CV: Negative for edema, calf swelling, palpitations, or chest pain. RESPIRATORY: Negative for cough, SOB, hemoptysis, or wheezing. GI: Negative for nausea/vomiting, heartburn, vomiting blood, dysphasia, diarrhea, blood in stool, constipation, early satiety, PICA, vegetarian, poor nutrition, abdominal fullness, or abdominal pain. NEUROLOGICAL: Negative for numbness/tingling, dizziness, gait disturbance, headache, speech disturbance, tremor, hemiparesis/sensory loss, or change in mental status. MUSCULOSKELETAL: Negative for joint pain, joint swelling, or proximal muscle weakness. SKIN: Negative for hair loss, bruising, nail changes, rash, itching, pallor, or jaundice. ENDO/URO: Negative for hot flashes, cold or heat intolerance, urinary frequency, urinary hesitancy, menorrhagia, or hematuria. PSYCH: Negative for anxiety, depression, or other. PHYSICAL EXAM: BP 150/90 Pulse 81 Temp 36.1 ?C (97 ?F) (Temporal) Resp 16 Ht 153.6 cm (5' 0.47 ) Wt 82.9 kg (182 lb 12.8 oz) SpO2 99% BMI 35.15 kg/m? GENERAL EXAM: Well developed/well nourished; in no acute distress. SKIN: Negative for lesions, rashes, or ulcers on the upper and lower extremities and face. Negative for palpations/nodules, purpura, and ecchymosis. EENT: Negative for conjunctiva, mucosal pallor, JVD, LAP, thyromegaly, and glossitis. Supple AND PERRL. EXTREMITIES: Negative for cyanosis, clubbing, and crepitus. LUNGS: Negative to auscultation, respiratory effort, and percussion. BREAST: Breasts not examined today CARDIOVASCULAR: Regular rate. Negative for murmurs/S3S4/abnormal sounds, edema, and carotid bruits. ABDOMEN: Negative for masses, hernia, and spleen/liver abnormalities. RECTAL: Not done PSYCHIATRIC: Negative for mood/affect changes, recent AND remote memory changes, and judgement and insight. NEUROLOGICAL: Alert, oriented x person, place, time. Cranial nerves 2-12 intact. Sensory for pain, light touch, vibration intact on all 4 extremities. Reflexes symmetric for biceps/brachioradial/patella/achilles. MUSCULOSKELETAL: Negative examination of joints, bones, muscles/tendons of all four extremities for inspection, percussion, and palpation. Negative for misallignment, asymmetry, crepitation, tenderness, mass, effusions. Range of motion normal. Negative for joint instabil (more content not included)...[facility]01-23-2023 History of Present illness Narrative* Blayne Pretty MD - 11/10/2022 7:19 AM EST PATIENT NAME: Angelique Chery DATE: 11/10/2022 PRIMARY CARE PHYSICIAN: Pedro Whalen, DO OTHER PHYSICIANS: Dr. Ciaran Rees Dr. Earnest Davis, Dr. Toro Chan Portions of this encounter note have been copied from my note from 10/06/2022 and has been updated where appropriate, and reflect my current medical decision making from today. CC: This is a 62 year old female with recently diagnosed breast cancer, seen for scheduled follow-up. INTERIM HISTORY: Since the patient's last visit here she underwent surgery per Dr. Rees on 10/23/2022. Final pathology revealed a 1.8 cm invasive carcinoma with a component of DCIS. 0 of 2 sentinel nodes were involved. The patient tolerated her surgery well and has healed without complication. Currently she feels well with no particular complaints. The patient remains on hormonal therapy with Arimidex 1 mg daily, and is tolerating it well. MEDICATIONS: Current Outpatient Medications Medication Sig cholecalciferol, vitamin D3, (VITAMIN D3 ORAL) Take by mouth. anastrozole (ARIMIDEX) 1 mg tablet Take 1 tablet by mouth once daily. ergocalciferol, vitamin D2, (VITAMIN D2 ORAL) Take by mouth. OMEPRAZOLE ORAL Take by mouth. No current facility-administered medications for this visit. ALLERGIES: ALLERGIES Allergen Reactions Doxycycline Unknown, Hives monocycline allery same reaction PAST MEDICAL HISTORY: PAST MEDICAL HISTORY Diagnosis Date Breast lump Right PAST SURGICAL HISTORY: PAST SURGICAL HISTORY Procedure Laterality Date LASIK PAST SURGICAL HISTORY OF Biopsy Parathyroid gland REMOVAL GALLBLADDER REMV CATARACT EXTRACAP,INSERT LENS REPAIR RETINAL DETACHMENT SCLERAL BUCKLING VAGINAL HYSTERECTOMY FAMILY HISTORY: FAMILY HISTORY Problem Relation Age of Onset Dementia Mother Colon Cancer Mother Breast Cancer Father other (Cardiac arrest) Father Leukemia Father SOCIAL HISTORY: Social History Tobacco Use Smoking status: Former Types: Cigarettes Quit date: 1999 Years since quittin.0 Passive exposure: Past Smokeless tobacco: Never Vaping Use Vaping Use: Never used Substance Use Topics Alcohol use: Not Currently Drug use: Never COMPLETE REVIEW OF SYSTEMS: CONSTITUTION: Negative for pain, fatigue, weight loss, or appetite loss. EENT: Negative for mouth soreness, antibiotics use, epistaxis, visual problems, neck or facial swelling, fever/chills, bleeding gums, or hearing loss. CV: Negative for edema, calf swelling, palpitations, or chest pain. RESPIRATORY: Negative for cough, SOB, hemoptysis, or wheezing. GI: Negative for nausea/vomiting, heartburn, vomiting blood, dysphasia, diarrhea, blood in stool, constipation, early satiety, PICA, vegetarian, poor nutrition, abdominal fullness, or abdominal pain. NEUROLOGICAL: Negative for numbness/tingling, dizziness, gait disturbance, headache, speech disturbance, tremor, hemiparesis/sensory loss, or change in mental status. MUSCULOSKELETAL: Negative for joint pain, joint swelling, or proximal muscle weakness. SKIN: Negative for hair loss, bruising, nail changes, rash, itching, pallor, or jaundice. ENDO/URO: Negative for hot flashes, cold or heat intolerance, urinary frequency, urinary hesitancy,menorrhagia, or hematuria. PSYCH: Negative for anxiety, depression, or other. PHYSICAL EXAM: BP 150/90 Pulse 81 Temp 36.1 C (97 F) (Temporal) Resp 16 Ht 153.6 cm (5' 0.47 ) Wt 82.9 kg (182 lb 12.8 oz) SpO2 99% BMI 35.15 kg/m GENERAL EXAM: Well developed/well nourished; in no acute distress. SKIN: Negative for lesions, rashes, or ulcers on the upper and lower extremities and face. Negativefor palpations/nodules, purpura, and ecchymosis. EENT: Negative for conjunctiva, mucosal pallor, JVD, LAP, thyromegaly, and glossitis. Supple & PERRL. EXTREMITIES: Negative for cyanosis, clubbing, and crepitus. LUNGS: Negative to auscultation, respiratory effort, and percussion. BREAST: Breasts not examined today CARDIOVASCULAR: Regular rate. Negative for murmurs/S3S4/abnormal sounds, edema, and carotid bruits. ABDOMEN: Negative for masses, hernia, and spleen/liver abnormalities. RECTAL: Not done PSYCHIATRIC: Negative for mood/affect changes, recent & remote memory changes, and judgement and insight. NEUROLOGICAL: Alert, oriented x person, place, time. Cranial nerves 2-12 intact. Sensory for pain, light touch, vibration intact on all 4 extremities. Reflexes symmetric for biceps/brachioradial/patella/achilles. MUSCULOSKELETAL: Negative examination of joints, bones, muscles/tendons of all four extremities forinspection, percussion, and palpation. Negative for misallignment, asymmetry, crepitation, tenderness, mass, effusions. Range of motion normal. Negative for joint instability, laxity, dislocation. Gait steady. Negative for swelling, erythema, tenderness, soft tissue swelling, and atrophy. PATHOLOGY: 10/23/2022 Right breast lumpectomy and sentinel node procedure (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 Margins negative for invasive carcinoma. DCIS present at deep margin, focal. 2 benign lymph nodes identified (0/2). 08/26/2022 Right breast core biopsy ([facility]) Invasive ductal carcinoma, grade 2. ER 80 to 90%, MT 40 to 50%, HER2 negative RADIOLOGY/OTHER STUDIES: 08/25/2022 Diagnostic mammogram and right breast ultrasound ([facility]) BI-RADS 5, highly suggestive of malignancy At 11:00 there is a mass approximately 2.1 x 2 x 1.4 cm in the right breast. Left breast is unremarkable in appearance. ASSESSMENT/PLAN: 1. Malignant neoplasm of upper-outer quadrant of right breast in female, estrogen receptor positive(HCC) - ICD9: 174.4, V86.0, ICD10: C50.411, Z17.0 Stage I right-sided breast cancer diagnosed August 2022 (core biopsy 08/26/2022). The patient's initial pathology indicated grade 2 invasive ductal carcinoma, ER/MT positive, HER2 negative. Genomic analysis revealed no deleterious mutations. In preparation for surgery neoadjuvant Arimidex started 1 11/12/2021. On 10/23/2022 the patient underwent lumpectomy and sentinel node procedure. Final pathology: Invasive tumor 1.8 cm with DCIS, 0 of 2 sentinel nodes involved. Oncotype analysis pending. Options for further management were discussed at length with the patient and her . We will send her tumor for Oncotype analysis. If she is found to have a high recurrence score (greater than 26) adjuvant chemotherapy will be discussed. If her recurrence score is low there would be no indications for chemotherapy, and the patient will continue as is with adjuvant hormonal therapy. Adjuvant radiation therapy is indicated, and we will refer to Dr. Chan to discuss options. We will notify the patient when her Oncotype results are available. I will schedule a temporary return to see her in 4 weeks for follow-up. Blayne Pretty MD CC: Dr. Ciaran Rees documented in this encounterCleveland [id number] Miscellaneous Notes* Telephone Encounter - Latisha Tao Sec - 11/04/2022 10:52 AM EST Oncotype sent. * Telephone Encounter - Latisha Tao Sec - 11/04/2022 9:34 AM EST Oncotype order in Brm box to be signed * Telephone Encounter - Lavern Tolbert APRN.BUSINESS PROJECT ANALYST - 11/03/2022 9:32 AM EST Signed. Lavern Tolbert APRN.BUSINESS PROJECT ANALYST * Telephone Encounter - Nancy Maradiaga RN - 11/03/2022 9:[address] Pretty would like pt's breast pathology from [facility] sent for Oncotype. Right Breast Lumpectomy - Collected 10/23/[address] [facility] Specimen #: [id number] DOMINIQUE/Lavern: Order pended. Clerical: VINCENT.... Nancy Maradiaga RN documented in this encounterA[facility]01-[facility] Evaluation note* Encounter Date Diagnosis Assessment Notes Treatment Notes Treatment Clinical Notes Oct, Infiltrating ductal carcinoma of left breast (ICD-10 - C50.912) [facility] Other 01-12-2023 Evaluation note* Encounter Date Diagnosis Assessment Notes Treatment Notes Treatment Clinical Notes Oct, Invasive ductal carcinoma of right breast (ICD-10 - C50.911) lumpectomy, radiation therapy [facility] Other 01-12-2023 Evaluation note* Encounter Date Diagnosis Assessment Notes Treatment Notes Treatment Clinical Notes Oct, Invasive ductal carcinoma of right breast (ICD-10 - C50.911) lumpectomy, radiation therapy and Arimidex [facility] [employer] Other 01-11-2023 Evaluation note* Encounter Date Diagnosis Assessment Notes Treatment Notes Treatment Clinical Notes Oct, Primary hypertension (ICD-10 - I10) [place] [employer] Other 01-05-2023 Hospital Discharge instructions Patient Education 10/23/2022 14:08:04 Post Op Patient Instructions - FT (CUSTOM) Follow Up Care 10/07/2022 10:14:49 With:Ciaran REES Address: [address] [place] [address], [facility] [address] [phone] (1) When:10/28/2022 Comments:at scheduled time in the [place] office. [facility]01-05-2023 Evaluation + Plan noteExtracted from: Title:Post-anesthesia - General Author:Bernardo Trujillo DO Date:10/23/22 Plan Transfer/ Discharge: Condition stable. Future Appointments Appointment Date:10/28/2022 02:40:00 PM Scheduled Provider:Ciaran REES MD Location:[facility] Appointment Type: Post Op 15 [facility]01-04-2023 Evaluation note* Encounter Date Diagnosis Assessment Notes Treatment Notes Treatment Clinical Notes Oct, Primary hypertension (ICD-10 - I10) [facility] [employer] Other 12-28-2022 Miscellaneous Notes* Telephone Encounter - Nunu Tamez - 10/15/2022 12:56 PM EST Cancer claim form completed and 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 Dr. Thomas signed due to [facility] being off work. Nunu Tamez documented in this encounterA[facility]12-21-2022 Miscellaneous Notes* Telephone Encounter - Genevieve Somers RN - 10/08/2022 3:30 PM EST [facility]-FYI: Received call from pt stating she needed to let Dr Pretty know her surgery has been scheduled for 10/23 and that should work out well with her already scheduled f/u appt with Dr Pretty on 11/10. Genevieve Somers RN documented in this encounterAultman [facility]12-19-2022 History of Present illness Narrative* Blayne Pretty MD - 10/06/2022 7:48 AM EST PATIENT NAME: Angelique Cheyr DATE: 10/06/2022 PRIMARY CARE PHYSICIAN: Pedro Whalen, OTHER PHYSICIANS: Dr. Ciaran Rees, Dr. Earnest Davis Portions of this encounter note have been copied from my note from 09/08/2022 and has been updated where appropriate, and reflect my current medical decision making from today. CC: This is a 62 year old female with recently diagnosed breast cancer, referred for further management. INTERIM HISTORY: Since the patient's initial visit here final pathology revealed her tumor was [id number]. Genomic analysis 09/10/2022 revealed no deleterious mutations. The patient was started onneoadjuvant hormonal therapy with Arimidex 09/12/2022 and is tolerating it well. Since starting Arimidex she believes her palpable breast mass has decreased in size. Currently she feels well with no p articular complaints. The patient is scheduled to see her surgeon (Dr. Rees) on 10/07/2022 to discuss surgical options. At this time she is most interested in undergoing lumpectomy rather than mastectomy. MEDICATIONS: Current Outpatient Medications Medication Sig anastrozole (ARIMIDEX) 1 mg tablet Take 1 tablet by mouth once daily. ergocalciferol, vitamin D2, (VITAMIN D2 ORAL) Take by mouth. OMEPRAZOLE ORAL Take by mouth. No current facility-administered medications for this visit. ALLERGIES: ALLERGIES Allergen Reactions Doxycycline Unknown, Hives monocycline allery same reaction PAST MEDICAL HISTORY: PAST MEDICAL HISTORY Diagnosis Date Breast lump Right PAST SURGICAL HISTORY: PAST SURGICAL HISTORY Procedure Laterality Date LASIK PAST SURGICAL HISTORY OF Biopsy Parathyroid gland REMOVAL GALLBLADDER REMV CATARACT EXTRACAP,INSERT LENS REPAIR RETINAL DETACHMENT SCLERAL BUCKLING VAGINAL HYSTERECTOMY FAMILY HISTORY: FAMILY HISTORY Problem Relation Age of Onset Dementia Mother Colon Cancer Mother Breast Cancer Father other (Cardiac arrest) Father Leukemia Father SOCIAL HISTORY: Social History Tobacco Use Smoking status: Former Types: Cigarettes Passive exposure: Past Smokeless tobacco: Never Substance Use Topics Alcohol use: Not Currently Drug use: Never COMPLETE REVIEW OF SYSTEMS: CONSTITUTION: Negative for pain, fatigue, weight loss, or appetite loss. EENT: Negative for mouth soreness, antibiotics use, epistaxis, visual problems, neck or facial swelling, fever/chills, bleeding gums, or hearing loss. CV: Negative for edema, calf swelling, palpitations, or chest pain. RESPIRATORY: Negative for cough, SOB, hemoptysis, or wheezing. GI: Negative for nausea/vomiting, heartburn, vomiting blood, dysphasia, diarrhea, blood in stool, constipation, early satiety, PICA, vegetarian, poor nutrition, abdominal fullness, or abdominal pain. NEUROLOGICAL: Negative for numbness/tingling, dizziness, gait disturbance, headache, speech disturbance, tremor, hemiparesis/sensory loss, or change in mental status. MUSCULOSKELETAL: Negative for joint pain, joint swelling, or proximal muscle weakness. SKIN: Negative for hair loss, bruising, nail changes, rash, itching, pallor, or jaundice. ENDO/URO: Negative for hot flashes, cold or heat intolerance, urinary frequency, urinary hesitancy,menorrhagia, or hematuria. PSYCH: Negative for anxiety, depression, or other. PHYSICAL EXAM: BP 188/84 Pulse 78 Temp 36.2 C (97.1 F) (Temporal) Resp 16 Ht 153.6 cm (5' 0.47 ) Wt 82.8 kg (182 lb 9.6 oz) SpO2 100% BMI 35.11 kg/m GENERAL EXAM: Well developed/well nourished; in no acute distress. SKIN: Negative for lesions, rashes, or ulcers on the upper and lower extremities and face. Negativefor palpations/nodules, purpura, and ecchymosis. EENT: Negative for conjunctiva, mucosal pallor, JVD, LAP, thyromegaly, and glossitis. Supple & PERRL. EXTREMITIES: Negative for cyanosis, clubbing, and crepitus. LUNGS: Negative to auscultation, respiratory effort, and percussion. BREAST: 2 cm mass in the right breast at the 11 o'clock position palpable. Left breast appears normal. No palpable axillary lymph nodes. CARDIOVASCULAR: Regular rate. Negative for murmurs/S3S4/abnormal sounds, edema, and carotid bruits. ABDOMEN: Negative for masses, hernia, and spleen/liver abnormalities. RECTAL: Not done PSYCHIATRIC: Negative for mood/affect changes, recent & remote memory changes, and judgement and insight. NEUROLOGICAL: Alert, oriented x person, place, time. Cranial nerves 2-12 intact. Sensory for pain, light touch, vibration intact on all 4 extremities. Reflexes symmetric for biceps/brachioradial/patella/achilles. MUSCULOSKELETAL: Negative examination of joints, bones, muscles/tendons of all four extremities forinspection, percussion, and palpation. Negative for misallignment, asymmetry, crepitation, tenderness, mass, effusions. Range of motion normal. Negative for joint instability, laxity, dislocation. Gait steady. Negative for swelling, erythema, tenderness, soft tissue swelling, and atrophy. PATHOLOGY: 08/26/2022 Right breast core biopsy ([facility]) Invasive ductal carcinoma, grade 2. ER 80 to 90%, MT 40 to 50%, HER2 negative RADIOLOGY/OTHER STUDIES: 08/25/2022 Diagnostic mammogram and right breast ultrasound ([facility]) BI-RADS 5, highly suggestive of malignancy At 11:00 there is a mass approximately 2.1 x 2 x 1.4 cm in the right breast. Left breast is unremarkable in appearance. ASSESSMENT/PLAN: 1. Malignant neoplasm of upper-outer quadrant of right breast in female, estrogen receptor positive(HCC) - ICD9: 174.4, V86.0, ICD10: C50.411, Z17.0 Clinical stage II right-sided breast cancer diagnosed August 2022 (core biopsy 08/26/2022). The patient's pathology indicates a grade 2 invasive ductal carcinoma, ER/MT positive, HER2 negative. Genomic analysis revealed no deleterious mutations. In preparation for surgery neoadjuvant Arimidex started 09/12/2022. Options for further management were discussed. At this time I see no indications for neoadjuvant chemotherapy, but she will continue as is with neoadjuvant Arimidex. She plans to see her surgeon on 10/07/2022 to discuss surgical options. At this time the patient is considering a lumpectomy. She is aware that adjuvant radiation therapy will be indicated after her lumpectomy. I will schedule a temporary return visit in 5 weeks, by which time she should have completed surgery and final pathology results will be available. Based on final path results we will then discuss options for postop treatment (adjuvant hormonal therapy +/- chemotherapy) and radiation. Blayne Pretty MD CC: Dr. Ciaran Rees documented in this [facility]12-12-2022 Miscellaneous Notes* Telephone Encounter - Nancy Maradiaga RN - 09/29/2022 10:08 AM EST FYI: Pt is scheduled to see Dr Rees on Thursday, 10/07. Nancy Maradiaga RN documented in this [facility]12-07-2022 Miscellaneous Notes* Telephone Encounter - VICTORIANO Bragg - 09/24/2022 10:45 AM EST Patient name and was confirmed at initiation of discussion. Angelique Chery's Integrated BRACAnalysis with Luis Felipe through [employer] was negative for a pathogenic variant. 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 Based on personal and family history, clinical suspicion of this finding is low. Please see 480 Biomedical message for further discussion. Kai Garcia MS, [facility] Licensed, Certified Genetic Counselor documented in this [facility]12-02-2022 Miscellaneous Notes* Telephone Encounter - Vianca Vaughn - 09/19/2022 8:26 AM EST Called pt, rescheduled to 10/06. * Telephone Encounter - Blayne Pretty MD - 09/18/2022 5:08 PM EST Ideally I see the patient back shortly after her genomic results are available to help her plan surgical options. Okay to postpone her appointment 10 to 14 days, at which time the genomic results should be back. Thanks, DOMINIQUE * Telephone Encounter - Nancy Maradiaga RN - 09/18/2022 3:18 PM EST Pt started Arimidex last week. Has an appointment to see you on Thursday, 09/22. Do you still want to see her or should we postpone since she just started the medication? Nancy Maradiaga RN documented in this encounterA[facility]12-01-2022 NoteHISTORY AND PHYSICAL EXAMINATION Date:09/17/2022 HISTORY: The patient is a 62-year-old white female with complaints of declining vision in her right eye. This has generally worsened and occurred over the last 1-2 years. She states, over that timeframe, she has become more symptomatic with oncoming headlights creating glare and halos. She states having difficulty with night time driving as a result. She also states having difficulty seeing distant objects such as the television and road signs. PAST OCULAR HISTORY: 1. Status post cataract extraction with intraocular lens placement for the left eye. 2. History of a YAG capsulotomy left eye. 3. History of a retinal detachment, status post pars plana vitrectomy and repair. 4. Bilateral LASIK surgery. PAST MEDICAL HISTORY: 1. Gallbladder removed. 2. Hysterectomy. 3. GERD. SOCIAL HISTORY: Denies tobacco, alcohol, recreational drug abuse. SYSTEMIC MEDICATIONS: Denies. ALLERGIES: To penicillin and doxycycline. REVIEW OF SYSTEMS: No pertinent positives. PHYSICAL EXAM: VITALS: Blood pressure measured at 135/76, with a respiration rate of 12 and a pulse of 73. GENERAL: She is awake, alert and oriented x3, well developed, well nourished, in no acute distress. HEART: Regular rate and rhythm. LUNGS: Clear bilaterally. ABDOMEN: Soft, non-tender, non-distended. EXTREMITIES: No pitting edema. OPHTHALMIC EXAM: Revealed a visual acuity of 20/40 -1 that glared to 20/200 in the right eye and 20/70 +2 that glared to 20/200 in the left eye. Pupils motility, muscle balance, confrontational visual staples within normal limits bilaterally. Pressures measured at 17 bilaterally. Slit lamp exam revealed blepharitis with a severe decrease in tear film bilaterally. Conjunctiva, cornea, anterior chamber and iris were within normal limits bilaterally. Lens status demonstrated a 3+ nuclear sclerosis in the right eye and a well centered posterior chamber intraocular lens in the left eye. FUNDUS EXAM: Revealed good views with good dilation bilaterally. Optic discs, macula, vessels, periphery and vitreous were within normal limits bilaterally. ASSESSMENT AND PLAN: 1. Visually significant cataract, right eye. After risks, benefits, alternatives, as well as expectations were delivered to the patient, she elected to go forward with cataract removal. She understands the risks include but not limited to infection, bleeding, loss of vision, loss of the eye itself. Secondly, she understands postoperatively she is likely to require spectacle correction for best visual acuity. Finally, a complete ophthalmic exam was performed, there is not determined to be any other source of visual decline other than that of the cataract. 2. COVID-19, the patient was briefed in the office and consented for elective cataract surgery in the setting of the pandemic of coronavirus. She understands that she is at heightened risk going into a hospital setting; however, feels that her activities of daily living are depleted severe enough by her cataracts that she is willing to incur this risk and go forward with her elective procedure.[facility] [id number] NoteOPERATIVE NOTE OPERATION DATE: 09/18/2022 SURGEON: Charity Hawthorne D.O. PREOPERATIVE DIAGNOSIS: Nuclear sclerotic cataract right eye. POSTOPERATIVE DIAGNOSIS: Nuclear sclerotic cataract right eye. PROCEDURE NAME: Cataract extraction with intraocular lens placement of the right eye. ANESTHESIA: Topical ESTIMATED BLOOD LOSS: Zero. COMPLICATIONS: None. PROCEDURE: The patient was brought to the Operating Room in supine position. After proper identification, the right eye was prepped and draped in a sterile ophthalmic fashion. A paracentesis created at the 11 o'clock position. Approximately 1 mL of unpreserved Xylocaine was injected into the anterior chamber followed by Amvisc Plus. Using a 2.6 mm Keratome blade, a clear corneal incision was created at the 9 o'clock limbus. A cystotome was then used to begin a curvilinear capsulorrhexis that was continued for 360 degrees with the Utrata forceps. BSS on a 26 gauge cannula was injected beneath the anterior capsule to hydrodissect as well as hydrodelineate the lens. After ensuring mobility, phacoemulsification was performed in a [id number]-type fashion. After all nuclear material had been removed from the eye, IA was introduced and all residual cortical material was cleaned up. Additional Amvisc Plus was injected into the posterior bag and a lens model MX60, 20.0 diopters was injected and dialed into position. After ensuring centration, IA was introduced into the anterior chamber and all residual Amvisc Plus was removed from the eye. BSS on a 30 gauge cannula was injected into the stroma of both the clear corneal incision as well as paracentesis to hydrate the wounds. Additional BSS was injected into the anterior chamber to pressurize the eye at approximately 20 to 22 mmHg by finger tension. Weck-Lindy sponges were used to check the wounds to be watertight and a shield was placed over top. The patient was sent to the postoperative area in satisfactory condition to follow up the following day for postoperative care.[facility] [id number] Miscellaneous Notes* Telephone Encounter - Lavern Tolbert APRN.MAGALI - 09/12/2022 12:05 PM EST The following approved medication requests have been transmitted electronically. Requested Prescriptions Signed Prescriptions Disp Refills anastrozole (ARIMIDEX) 1 mg tablet 30 tablet 1 Sig: Take 1 tablet by mouth once daily. Authorizing Provider: LAVERN TOLBERT APRN.MAGALI * Telephone Encounter - Nancy Maradiaga RN - 09/12/2022 11:[address] Pretty, the pt's Her 2 results were negative. Recommends pt start Arimidex 1 mg po daily. Pt notified and verbalizes understanding. Side effects reviewed w/ pt. Advised pt to call w/ any additional questions/concerns. Pt verbalizes understanding. Would like script sent to [facility] in [place]. Lavern: Script pended. Nancy Maradiaga RN documented in this encounterAult[facility]11-23-[facility] History of Present illness Narrative* Kai JuaquinVICTORIANO rogers - 09/10/2022 9:26 AM EST [facility] Consultation Note Genetic Counselor: Kai Garcia MS, [facility] Patient: Angelique Chery Patient Name and confirmed at initiation of visit. Appointment occurred via audiovisual communication through [facility] [employer] [facility] Virtual Visit. HIGH LEVEL SUMMARY: The patient's personal and family history is potentially suggestive of hereditary cancer syndromes. The patient provided informed consent for STAT Integrated BRACAnalysis with myRi24PageBooks through Booster. Results are expected in 1-2 weeks. IDENTIFICATION AND CHIEF COMPLAINT: Dr. Blayne Pretty requested a consultation for genetic counseling and risk assessment for Angelique Chery, a 62 year old female, for discussion of her personal and family history of cancer. She presents to clinic today to discuss the possibility of a genetic predisposition to cancer, and to further clarify her risks, as well as her family members' risks for cancer. HISTORY OF PRESENT ILLNESS: In August of 2022, at the age of 62, Angelique Chery was diagnosed with invasive ductal carcinoma of the Right breast. She has met with her breast surgeon and medical oncologist to discuss a treatment plan. She has an upcoming MRI and the HER-2 results are pending, which will help formulate a plan.Genetic testing results could impact her surgical decision making. PAST MEDICAL HISTORY Diagnosis Date Breast lump Right PAST SURGICAL HISTORY Procedure Laterality Date LASIK PAST SURGICAL HISTORY OF Biopsy Parathyroid gland REMOVAL GALLBLADDER REMV CATARACT EXTRACAP,INSERT LENS REPAIR RETINAL DETACHMENT SCLERAL BUCKLING VAGINAL HYSTERECTOMY CANCER SURVEILLANCE HISTORY: Colonoscopy: Yes EGD: Yes GI Polyps: No Pelvic Exam: s/p partial hysterectomy, ovaries in-tact Dermatology: Yes / benign SOCIAL HISTORY: Social History Tobacco Use Smoking status: Former Types: Cigarettes Passive exposure: Past Smokeless tobacco: Never Substance Use Topics Alcohol use: Not Currently Drug use: Never FAMILY HISTORY: We obtained a detailed, 4-generation family history. Significant diagnoses are listed below: Father: breast cancer at 43, acute leukemia in his 40's Paternal aunt: breast cancer Paternal female 1st cousin with breast cancer in her 40's Mother: colon cancer at 70 Maternal uncle, 2 maternal aunts (1 of them also had pancreatic cancer), maternal female 1st cousinwith colon cancer A copy of the patient's pedigree will be available under the scanned documents tab following today's visit. GENETIC COUNSELING RISK ASSESSMENT, DISCUSSION, AND SUGGESTED FOLLOW UP: We reviewed the natural history and genetic etiology of sporadic, familial and hereditary cancer syndromes. The patient's personal and family history is potentially suggestive of hereditary cancer syndromes. The patient meets NCCN HBOC testing criteria based on her personal history of breast cancer and close relative with male breast cancer. We discussed that identification of a hereditary cancer syndrome may help her care providers tailorher medical management. If a mutation is detected, the patient will be referred back to the referring provider and to any additional appropriate care providers to discuss the relevant options. Inheritance of hereditary cancer syndromes was discussed with the patient. If a mutation is not found in the patient, this will decrease the likelihood of a hereditary cancersyndrome as the explanation for the patient's personal and family history of cancer. However, it cannot completely rule out this possibility. Cancer surveillance options would be discussed for the patient according to the appropriate standard National Comprehensive Cancer Network and [place] [employer] guidelines, with consideration of their personal and family history risk factors. In this case, the patient will be referred back to their care providers for discussions of management. Based on this assessment of the patient's family and personal history, genetic testing is recommended. It was reviewed that if she were to have a hereditary cause for her breast cancer it would most likely be due to a BRCA1/2 mutation. It was also discussed that other genes beyond BRCA1/2 could account for the history and be tested along with BRCA1/2 via a multigene panel. It was reviewed that her family history of colon cancer could be due to a separate risk factor as well. This further highlights value of a multigene panel. After considering the risks, benefits, and limitations, the patient chose to pursue and provided informed consent for the following testing: STAT Integrated BRACAnalysis with Biolog[employer] Modular through Booster. The Biologics Modular panel includes APC, DAVID, AXIN2, BAP1, BARD1, BMPR1A, BRCA1, BRCA2, BRIP1, CDH1, CDK4, CDKN2A, CHEK2, CTNNA1, EGFR, EPCAM, FH, FLCN, GREM1, HOXB13, MEN1, MET, MITF, MLH1, MSH2, MSH3, MSH6, MUTYH, NTHL1, PALB2, PMS2, POLD1, POLE, PTEN, RAD51C, RAD51D, RET, SDHA, SDHB, SDHC, SDHD, SMAD4, STK11, TERT, TP53, TSC1, TSC2, and VHL We discussed that an NGS panel can rarely result in an unexpected finding in a gene which may or may not be related to the presenting phenotype. Per the patient's request, I will contact her by telephone to discuss these results. A follow up genetic counseling visit will be scheduled if requested. The patient was seen for a total of 40 minutes, greater than 50% of which was spent [id number] counseling. This plan is being carried out under the oversight of Dr. Sandra Vigil. This note will also be sent to the referring provider via the electronic medical record. Kai Garcia MS, [facility] Licensed, Certified Genetic Counselor EPIC CC: Dr. Blayne Vigil documented in this encounterAultman [facility]11-21-2022 History of Present illness Narrative* Blayne Pretty MD - 09/08/2022 6:45 AM EST PATIENT NAME: Angelique Chery DATE: 09/08/2022 PRIMARY CARE PHYSICIAN: Pedro Whalen DO OTHER PHYSICIANS: Dr. Ciaran Rees, Dr. Earnest Davis HPI: This is a 62 year old female with recently diagnosed breast cancer, referred for further management. The patient presented in August 2022 with a palpable right breast mass, initially noticed July2022. Diagnostic mammogram and right breast ultrasound 08/25/2022 confirmed a 2.1 cm mass in the upper outer quadrant. Core biopsies obtained 08/26/2022 confirmed invasive ductal carcinoma, grade 2, ER/MT positive, HER2 pending. The patient was seen by her surgeon to discuss surgical options including lumpectomy versus mastectomy. However, she has a strong family history for cancer including her father diagnosed with breast cancer at age 44, and a paternal aunt and cousin also with breast cancer.Therefore genetic testing prior to surgical decision is recommended. Other than discomfort in the right breast the patient feels well at this time. She has noticed no abnormalities in her left breast. Her review of systems is essentially negative. No unusual bone pain, weight loss, or other systemic symptoms. Her past medical history is significant for a simple hysterectomy in 1993 for an abnormal Pap smear, but apparently invasive cancer was not confirmed. She did not receive postmenopausal estrogen therapy MEDICATIONS: No current outpatient medications on file. No current facility-administered medications for this visit. ALLERGIES: ALLERGIES Not on File PAST MEDICAL HISTORY: PAST MEDICAL HISTORY Diagnosis Date Breast lump Right PAST SURGICAL HISTORY: PAST SURGICAL HISTORY Procedure Laterality Date LASIK PAST SURGICAL HISTORY OF Biopsy Parathyroid gland REMOVAL GALLBLADDER REMV CATARACT EXTRACAP,INSERT LENS REPAIR RETINAL DETACHMENT SCLERAL BUCKLING VAGINAL HYSTERECTOMY FAMILY HISTORY: FAMILY HISTORY Problem Relation Age of Onset Dementia Mother Colon Cancer Mother Breast Cancer Father other (Cardiac arrest) Father Leukemia Father SOCIAL HISTORY: Social History Tobacco Use Smoking status: Former Types: Cigarettes Passive exposure: Past Smokeless tobacco: Never Substance Use Topics Alcohol use: Not Currently Drug use: Never COMPLETE REVIEW OF SYSTEMS: CONSTITUTION: Negative for pain, fatigue, weight loss, or appetite loss. EENT: Negative for mouth soreness, antibiotics use, epistaxis, visual problems, neck or facial swelling, fever/chills, bleeding gums, or hearing loss. CV: Negative for edema, calf swelling, palpitations, or chest pain. RESPIRATORY: Negative for cough, SOB, hemoptysis, or wheezing. GI: Negative for nausea/vomiting, heartburn, vomiting blood, dysphasia, diarrhea, blood in stool, constipation, early satiety, PICA, vegetarian, poor nutrition, abdominal fullness, or abdominal pain. NEUROLOGICAL: Negative for numbness/tingling, dizziness, gait disturbance, headache, speech disturbance, tremor, hemiparesis/sensory loss, or change in mental status. MUSCULOSKELETAL: Negative for joint pain, joint swelling, or proximal muscle weakness. SKIN: Negative for hair loss, bruising, nail changes, rash, itching, pallor, or jaundice. ENDO/URO: Negative for hot flashes, cold or heat intolerance, urinary frequency, urinary hesitancy,menorrhagia, or hematuria. PSYCH: Negative for anxiety, depression, or other. PHYSICAL EXAM: BP 189/91 Pulse 80 Temp 36.6 C (97.8 F) (Temporal) Resp 16 Ht 153.6 cm (5' 0.47 ) Wt 82.5 kg (181 lb 12.8 oz) SpO2 96% BMI 34.95 kg/m GENERAL EXAM: Well developed/well nourished; in no acute distress. SKIN: Negative for lesions, rashes, or ulcers on the upper and lower extremities and face. Negativefor palpations/nodules, purpura, and ecchymosis. EENT: Negative for conjunctiva, mucosal pallor, JVD, LAP, thyromegaly, and glossitis. Supple & PERRL. EXTREMITIES: Negative for cyanosis, clubbing, and crepitus. LUNGS: Negative to auscultation, respiratory effort, and percussion. BREAST: 2 cm mass in the right breast at the 11 o'clock position palpable. Left breast appears normal. No palpable axillary lymph nodes. CARDIOVASCULAR: Regular rate. Negative for murmurs/S3S4/abnormal sounds, edema, and carotid bruits. ABDOMEN: Negative for masses, hernia, and spleen/liver abnormalities. RECTAL: Not done PSYCHIATRIC: Negative for mood/affect changes, recent & remote memory changes, and judgement and insight. NEUROLOGICAL: Alert, oriented x person, place, time. Cranial nerves 2-12 intact. Sensory for pain, light touch, vibration intact on all 4 extremities. Reflexes symmetric for biceps/brachioradial/patella/achilles. MUSCULOSKELETAL: Negative examination of joints, bones, muscles/tendons of all four extremities forinspection, percussion, and palpation. Negative for misallignment, asymmetry, crepitation, tenderness, mass, effusions. Range of motion normal. Negative for joint instability, laxity, dislocation. Gait steady. Negative for swelling, erythema, tenderness, soft tissue swelling, and atrophy. PATHOLOGY: 08/26/2022 Right breast core biopsy ([facility]) Invasive ductal carcinoma, grade 2. ER 80 to 90%, MT 40 to 50%, HER2 RADIOLOGY/OTHER STUDIES: 08/25/2022 Diagnostic mammogram and right breast ultrasound ([facility]) BI-RADS 5, highly suggestive of malignancy At 11:00 there is a mass approximately 2.1 x 2 x 1.4 cm in the right breast. Left breast is unremarkable in appearance. ASSESSMENT/PLAN: 1. Malignant neoplasm of upper-outer quadrant of right breast in female, estrogen receptor positive(HCC) - ICD9: 174.4, V86.0, ICD10: C50.411, Z17.0 Clinical stage II right-sided breast cancer diagnosed August 2022 (core biopsy 08/26/2022). The patient's pathology indicates a grade 2 invasive ductal carcinoma, ER/MT positive, HER2 pending. Options for further management were discussed at length with the patient and her family (more than 1 hour). Surgical options would include lumpectomy (followed by adjuvant radiation therapy) versus mastectomy. Her primary tumor would lend to appropriate cosmetic results with lumpectomy, but if she is found to have a deleterious (BRCA) mutation mastectomy would be preferred. We also discussed standard adjuvant systemic therapy options. Her tumor is ER/MT positive, therefore endocrine therapy is indicated. We are unable to determine the need for chemotherapy +/- HER2 based therapy until furtherresults are available. We will arrange for the patient to see medical genetics LESLIE. If the patient's biopsy confirms [id number] I would consider neoadjuvant chemotherapy pending genetic results. If the patient's recentbreast biopsy is HER2 negative I would consider neoadjuvant hormonal therapy pending genetic results and ultimate surgical decisions. I will notify the patient when the HER2 results are available. I will schedule a temporary return visit here in 2 weeks for follow-up. Blayne Pretty MD CC: Dr. Ciaran Rees, Dr. Earnest Davis documented in this encounterAultman [facility]01-06-2022 History general Narrative - Reported* Type Description Date Medical History Invasive ductal carcinoma of rig ht breast Surgical History Right breast lumpectomy w/ LN d issection 10/24/21 [facility] Other Evaluation + Plan note No data available for this section [facility] Future App[facility]ments Appointment Date:08/26/2022 11:00:00 AM Scheduled Provider:Ciaran REES MD Location:[facility] [address]ointment Type[address] Future Appointments Appointment Date:10/15/2022 02:30:00 PM Scheduled Provider: Location:[facility] Appointment Type:Surgical PAT FT Appointment Date:10/23/2022 10:00:00 AM Scheduled Provider: Location[facility] Appointment Type:NM Lymphoscintigraphy (FT) Appointment Date:10/23/2022 11:30:00 AM Scheduled Provider: Location:[facility] Appointment Type:Surgery FT Appointment Date:10/28/2022 02:40:00 PM Scheduled Provider:Ciaran REES MD Location:[facility] Appointment Type: Post Op 15 Future Scheduled Tests Radiology* NM Lymphoscintigraphy 10/23/22 [facility] [place] evaluation + Plan note Future Appointments Appointment Date:10/23/2022 10:00:00 AM Scheduled Provider: [facility] Type:NM Lymphoscintigraphy (FT) Appointment Date:10/23/2022 11:30:00 AM Scheduled Provider: Location:[facility] Appointment Type:Surgery FT Appointment Date:10/28/2022 02:40:00 PM Scheduled Provider:Ciaran REES MD Location:[facility] Appointment Type: Post Op 15 Future Scheduled Tests Radiology* NM Lymphoscintigraphy [facility] Future Appointments Appointment Date:11/04/2022 03:40:00 PM Scheduled Provider:Ciaran REES MD Location:[facility] Appointment Type: Established [facility] Evaluation + Plan note Future Appointments Appointment Date:11/18/2022 04:00:00 PM Scheduled Provider:Ciaran REES MD Location:[facility] Appointment Type: Post Op 15 [facility] evaluation + Plan note Future Appointments Appointment Date:12/28/2023 08:45:00 AM Scheduled Provider: Location:.[facility] Appointment Type:MA Diagnostic (FT) Appointment Date:12/28/2023 09:30:00 AM Scheduled Provider: Location:.[facility] Appointment Type:US Breast (FT) Future Scheduled Tests Radiology* US Breast Unilateral Rt Complete 12/28/23 * MA Mamm Diag w/CAD if perf and 3D [facility] Diagnosis Malignant neoplasm of upper-outer quadrant of right breast in female, estrogen receptor positive (HCC)- Primary documented in this encounter [facility]* Diagnosis Malignant neoplasm of upper-outer quadrant of right breast in female, estrogen receptor positive (HCC) documented in this encounter [facility] note* Diagnosis Malignant neoplasm of upper-outer quadrant of right breast in female, estrogen receptor positive (HCC)- Primary documented in this encounter [facility] note* Diagnosis Malignant neoplasm of upper-outer quadrant of right breast in female, estrogen receptor positive (HCC)- Primary documented in this encounter [facility] note* Diagnosis Malignant neoplasm of upper-outer quadrant of right breast in female, estrogen receptor positive (HCC)- Primary documented in this encounter [facility] note* Diagnosis Malignant neoplasm of upper-outer quadrant of right breast in female, estrogen receptor positive (HCC)- Primary documented in this encounter [facility] note* Diagnosis Malignant neoplasm of upper-outer quadrant of right breast in female, estrogen receptor positive (HCC)- Primary documented in this encounter [facility] noteNo [place] [employer] Other Evaluation note* Diagnosis Malignant neoplasm of upper-outer quadrant of right breast in female, estrogen receptor positive (HCC)- Primary documented in this encounter [facility] note* Diagnosis Malignant neoplasm of upper-outer quadrant of right breast in female, estrogen receptor positive (HCC)- Primary documented in this encounter [facility] note* Diagnosis Malignant neoplasm of upper-outer quadrant of right breast in female, estrogen receptor positive (HCC)- Primary documented in this encounter [facility] note* Diagnosis Malignant neoplasm of upper-outer quadrant of right female breast, unspecified estrogen receptor status (HCC)- Primary Abnormal tumor markers Other abnormal tumor markers documented in this encounter [facility] note* Diagnosis Abnormal liver function tests- Primary Other abnormal blood chemistry Malignant neoplasm of upper-outer quadrant of right female breast, unspecified estrogen receptor status (HCC) Elevated liver function tests Other abnormal blood chemistry documented in this encounter [facility] note* Diagnosis Malignant neoplasm of upper-outer quadrant of right breast in female, estrogen receptor positive (HCC)- Primary Elevated tumor markers Other abnormal tumor markers documented in this encounter [facility] note* Diagnosis Abnormal liver function tests- Primary Other abnormal blood chemistry [facility] Narrative - Reported* Type Description Date Medical History Invasive ductal carcinoma of rig ht breast Medical History IFG (impaired fasting glucose) Medical History Hyperlipidemia type II Medical History History of hyperparathyroidism Surgical History Right breast lumpectomy w/ LN d issection 10/24/21 Surgical History CATARACT EXTRACTION, RIGHT 2021 Surgical History CORE NEEDLE BIOPSY OF RIGHT CAMMIE AST 08/2022 Surgical History CHOLECYSTECTOMY 2003 Surgical History COLONOSCOPY 2005,2009,2012, 2016 Surgical History PARATHYROIDECTOMY 2018 Hospitalization History SEE SURGICAL HX [facility] Other History general Narrative - Reported* Type Description Date Medical History Invasive ductal carcinoma of rig ht breast Medical History IFG (impaired fasting glucose) Medical History Hyperlipidemia type II Medical History History of hyperparathyroidism Medical History JUNIOR 5mm mass Medical History B/L adrenal nodules Medical History Left thyroid nodule Surgical History Right breast lumpectomy w/ LN d issection 10/24/21 Surgical History CATARACT EXTRACTION, RIGHT 2021 Surgical History CORE NEEDLE BIOPSY OF RIGHT CAMMIE AST 08/2022 Surgical History CHOLECYSTECTOMY 2003 Surgical History COLONOSCOPY 2005,2009,2012, 2016 Surgical History PARATHYROIDECTOMY 2018 Hospitalization History SEE SURGICAL HX [facility] Other Hospital Discharge instructions No data available for this section [facility] No data available for this section [facility] Diagnostic Procedure Only (Routine) - Pending Review Specialty Diagnoses / Procedures Referred By Contac Referred To Contact [facility] Diagnoses Malignant neoplasm of upper-outer quadrant of right breast in female, estrogen receptor positive (HCC) Procedures [facility] DIAGNOSTIC BILATERAL DIAGNOSTIC MAMMOGRAPHY COMPUTER-AIDED DETCJ BI Toro Chan MD [address] [place] [address] [place] [id number] [facility] [address] [place] [id number] Referral ID Status Reason Start Date Expiration Date Visits Requested Visits Authorized [id number] Pending Review Auto-Generat ed Referral 07/08/2023 05/05/2024 1 1 [facility] for referral (narrative)* Diagnostic Procedure Only (Urgent) - Pending Review Specialty Diagnoses / Procedures Referred By Contac t Referred To Contact US IMAGING Diagnoses Malignant neoplasm of upper-outer quadrant of right female breast, unspecified estrogen receptor status (HCC) Elevated liver function tests Procedures US ABD RIGHT UPPER QUADRANT US ABDOMINAL REAL TIME W/IMAGE LIMITED Lavern Tolbert, AUGUSTIN [address] [place] [address] Us [facility] [id number] Referral ID Status Reason Start Date Expiration Date Visits Requested Visits Authorized [id number] Pending Review Auto-Generat ed Referral 06/15/2023 07/14/2024 1 1 [facility] Diagnostic Procedure Only (Routine) - Pending Review Specialty Diagnoses / Procedures Referred By Contac t Referred To Contact BR IMAGING Diagnoses Malignant neoplasm of upper-outer quadrant of right breast in female, estrogen receptor positive (HCC) Procedures US BREAST LTD RIGHT US BREAST UNI REAL TIME WITH IMAGE LIMITED Blayne Pretty MD [address] [place] [address] [place] [address] [facility] [address] [place] [address] Referral ID Status Reason Start Date Expiration Date Visits Requested Visits Authorized [id number] Pending Review Auto-Generat ed Referral 06/15/2023 07/14/2024 1 1 * Diagnostic Procedure Only (Routine) - Pending Review Specialty Diagnoses / Procedures Referred By Contac t Referred To Contact MOLECULAR & FUNCTIONAL IMAGING Diagnoses Malignant neoplasm of upper-outer quadrant of right breast in female, estrogen receptor positive (HCC) Procedures NM PET/CT SKULL-THIGH INITIAL PET IMAGING CT ATTENUATION SKULL BASE MID-THIGH Blayne Pretty MD [address] [place] [address] [place] [address] [facility] [address] [place] [address] Referral ID Status Reason Start Date Expiration Date Visits Requested Visits Authorized [id number] Pending Review Auto-Generat ed Referral 06/15/2023 07/14/2024 1 1 [facility] Reason for Referral Reason Patient being referr ed for screening colonoscopy Diagnosis 1 Colon cancer screeni ng (Z12.11) Referral Organization [facility] Referring Provider First Name Pedro Referring Provider Last Name Marlee Referring Provider Specialty Internal Me dicine Referred Organization [facility] Referred Provider Ciaran Rees Referred Address [address], [place],[address] Referred Provider Specialty Surgery Referral Priority Routine General Notes She is due for a scr eening colonoscopy. She denies change in appetite, weight or bowel habits. She denies heartburn or dysphagia. She denies abdominal pain, melena or hematochezia. She denies a personal hx of polyps. Specialty Diagnoses / Procedures Referred By Shashi schreiber Referred To Contact Radiation Oncology Diagnoses Malignant neoplasm of upper-outer quadrant of right breast in female, estrogen receptor positive (HCC) Procedures RAD/ONC CONSULT OFFICE/OUTPATIENT [facility] 60-74 MINUTES Blayne Pretty MD [address] [place] [address] [place] [address] Referral ID Status Reason Start Date Expiration Date Visits Requested Visits Authorized [id number] Authorized PCP Requested Referral 11/10/2022 11/10/2023 1 1 Specialty Diagnoses / Procedures Referred By Shashi schreiber Referred To Contact Diagnoses Malignant neoplasm of upper-outer quadrant of right breast in female, estrogen receptor positive (HCC) Procedures CONSULT TO MEDICAL GENETICS - CANCER MEDICAL GENETICS COUNSELING EACH 30 MINUTES Blayne Pretty MD [address] [place] [address] [place] [address] [address] Referral ID Status Reason Start Date Expiration Date Visits Requested Visits Authorized [id number] Authorized PCP Requested Referral Auto-Generate d Referral 2 09/08/2023 1 1 Summary Purpose Family History No Family History Records FoundNo Family History Records Found No data available for this section No Family History Records FoundNo Family History Records Found Advance Directives No Advanced Directives Records FoundNo Advanced Directives Records FoundNo Advanced Directives Records FoundNo Advanced Directives Records Found Additional Source Comments Patient Care team informatio n (unrecognized section and content) Marketing Sales Manager Relationship Specialty Start Date End Date Pedro Whalen, DO [address] [facility] [place] [address] PCP - General Internal Medicine 10/19/15 Marketing Sales Manager Relationship Specialty Start Date End Date Pedro Whalen, DO [address] [place] [address] PCP - General Internal Medicine 10/19/15 Marketing Sales Manager Relationship Specialty Start Date End Date Pedro Whalen, DO [address] [place] [address] PCP - General Internal Medicine 10/19/15 Marketing Sales Manager Relationship Specialty Start Date End Date Pedro Whalen, DO [address] [place] [address] PCP - General Internal Medicine 10/19/15 Marketing Sales Manager Relationship Specialty Start Date End Date Pedro Whalen, DO [address] [place] [address] PCP - General Internal Medicine 10/19/15 Marketing Sales Manager Relationship Specialty Start Date End Date Pedro Whalen, DO [address] [place] [address] PCP - General Internal Medicine 10/19/15 Marketing Sales Manager Relationship Specialty Start Date End Date Pedro Whalen, DO [address] [place] [address] PCP - General Internal Medicine 10/19/15 Marketing Sales Manager Relationship Specialty Start Date End Date Pedro Whalen, DO [address] [place] [address] PCP - General Internal Medicine 10/19/15 Marketing Sales Manager Relationship Specialty Start Date End Date Pedro Whalen, DO [address] [place] [address] PCP - General Internal Medicine 10/19/15 Marketing Sales Manager Relationship Specialty Start Date End Date Pedro Whalen, DO [address] [place] [address] PCP - General Internal Medicine 10/19/15 Marketing Sales Manager Relationship Specialty Start Date End Date Pedro Whalen, DO [address] [place] [address] PCP - General Internal Medicine 10/19/15 Marketing Sales Manager Relationship Specialty Start Date End Date Pedro Whalen, DO [address] [place] [address] PCP - General Internal Medicine 10/19/15 Marketing Sales Manager Relationship Specialty Start Date End Date Pedro Whalen, DO [address] [place] [address] PCP - General Internal Medicine 10/19/15 Marketing Sales Manager Relationship Specialty Start Date End Date Pedro Whalen, DO [address] [place] [address] PCP - General Internal Medicine 10/19/15 Marketing Sales Manager Relationship Specialty Start Date End Date Pedro Whalen, DO [address] [place] [address] PCP - General Internal Medicine 10/19/15 Marketing Sales Manager Relationship Specialty Start Date End Date Pedro Whalen, DO [address] [place] [address] PCP - General Internal Medicine 10/19/15 Marketing Sales Manager Relationship Specialty Start Date End Date Pedro Whalen, DO [address] [place] [address] PCP - General Internal Medicine 10/19/15 Marketing Sales Manager Relationship Specialty Start Date End Date MarleePedro, DO [address] [place] [address] PCP - General Internal Medicine 10/19/15 Marketing Sales Manager Relationship Specialty Start Date End Date Pedro Whalen DO [address] [facility] [place] [address] PCP - General Internal Medicine 10/19/15 Marketing Sales Manager Relationship Specialty Start Date End Date Pedro Whalen DO [address] [facility] [place] [address] PCP - General Internal Medicine 10/19/15 Marketing Sales Manager Relationship Specialty Start Date End Date Pedro Whalen DO [address] [facility] [place] [address] PCP - General Internal Medicine 10/19/15 Marketing Sales Manager Relationship Specialty Start Date End Date Pedro Whalen DO [address] [facility] [place] [address] PCP - General Internal Medicine 10/19/15 Marketing Sales Manager Relationship Specialty Start Date End Date Pedro Whalen DO [address] [facility] [place] [address] PCP - General Internal Medicine 10/19/15 Source Comments (unrecognize d section and content) In the event this informatio n is protected by the Federal Confidentiality of Alcohol and Drug Abuse Patient Records regulations: The Federal rules restrict any use of the information to criminally investigate or prosecute any alcohol or drug abuse patient.[facility] the event this information is protected by the Federal Confidentiality of Alcohol and Drug Abuse Patient Records regulations: The Federal rules restrict any use of the information to criminally investigate or prosecute any alcohol or drug abuse patient.[facility] the event this information is protected by the Federal Confidentiality of Alcohol and Drug Abuse Patient Records regulations: The Federal rules restrict any use of the information to criminally investigate or prosecute any alcohol or drug abuse patient.[facility] the event this information is protected by the Federal Confidentiality of Alcohol and Drug Abuse Patient Records regulations: The Federal rules restrict any use of the information to criminally investigate or prosecute any alcohol or drug abuse patient.[facility] the event this information is protected by the Federal Confidentiality of Alcohol and Drug Abuse Patient Records regulations: The Federal rules restrict any use of the information to criminally investigate or prosecute any alcohol or drug abuse patient.[facility] the event this information is protected by the Federal Confidentiality of Alcohol and Drug Abuse Patient Records regulations: The Federal rules restrict any use of the information to criminally investigate or prosecute any alcohol or drug abuse patient.[facility] the event this information is protected by the Federal Confidentiality of Alcohol and Drug Abuse Patient Records regulations: The Federal rules restrict any use of the information to criminally investigate or prosecute any alcohol or drug abuse patient.[facility] the event this information is protected by the Federal Confidentiality of Alcohol and Drug Abuse Patient Records regulations: The Federal rules restrict any use of the information to criminally investigate or prosecute any alcohol or drug abuse patient.[facility] the event this information is protected by the Federal Confidentiality of Alcohol and Drug Abuse Patient Records regulations: The Federal rules restrict any use of the information to criminally investigate or prosecute any alcohol or drug abuse patient.[facility] the event this information is protected by the Federal Confidentiality of Alcohol and Drug Abuse Patient Records regulations: The Federal rules restrict any use of the information to criminally investigate or prosecute any alcohol or drug abuse patient.[facility] the event this information is protected by the Federal Confidentiality of Alcohol and Drug Abuse Patient Records regulations: The Federal rules restrict any use of the information to criminally investigate or prosecute any alcohol or drug abuse patient.[facility] the event this information is protected by the Federal Confidentiality of Alcohol and Drug Abuse Patient Records regulations: The Federal rules restrict any use of the information to criminally investigate or prosecute any alcohol or drug abuse patient.[facility] the event this information is protected by the Federal Confidentiality of Alcohol and Drug Abuse Patient Records regulations: The Federal rules restrict any use of the information to criminally investigate or prosecute any alcohol or drug abuse patient.[facility] the event this information is protected by the Federal Confidentiality of Alcohol and Drug Abuse Patient Records regulations: The Federal rules restrict any use of the information to criminally investigate or prosecute any alcohol or drug abuse patient.[facility] the event this information is protected by the Federal Confidentiality of Alcohol and Drug Abuse Patient Records regulations: The Federal rules restrict any use of the information to criminally investigate or prosecute any alcohol or drug abuse patient.[facility] the event this information is protected by the Federal Confidentiality of Alcohol and Drug Abuse Patient Records regulations: The Federal rules restrict any use of the information to criminally investigate or prosecute any alcohol or drug abuse patient.[facility] the event this information is protected by the Federal Confidentiality of Alcohol and Drug Abuse Patient Records regulations: The Federal rules restrict any use of the information to criminally investigate or prosecute any alcohol or drug abuse patient.[facility] the event this information is protected by the Federal Confidentiality of Alcohol and Drug Abuse Patient Records regulations: The Federal rules restrict any use of the information to criminally investigate or prosecute any alcohol or drug abuse patient.[facility] the event this information is protected by the Federal Confidentiality of Alcohol and Drug Abuse Patient Records regulations: The Federal rules restrict any use of the information to criminally investigate or prosecute any alcohol or drug abuse patient.[facility] the event this information is protected by the Federal Confidentiality of Alcohol and Drug Abuse Patient Records regulations: The Federal rules restrict any use of the information to criminally investigate or prosecute any alcohol or drug abuse patient.[facility] the event this information is protected by the Federal Confidentiality of Alcohol and Drug Abuse Patient Records regulations: The Federal rules restrict any use of the information to criminally investigate or prosecute any alcohol or drug abuse patient.[facility] the event this information is protected by the Federal Confidentiality of Alcohol and Drug Abuse Patient Records regulations: The Federal rules restrict any use of the information to criminally investigate or prosecute any alcohol or drug abuse patient.[facility] the event this information is protected by the Federal Confidentiality of Alcohol and Drug Abuse Patient Records regulations: The Federal rules restrict any use of the information to criminally investigate or prosecute any alcohol or drug abuse patient.[facility] the event this information is protected by the Federal Confidentiality of Alcohol and Drug Abuse Patient Records regulations: The Federal rules restrict any use of the information to criminally investigate or prosecute any alcohol or drug abuse patient.[facility] the event this information is protected by the Federal Confidentiality of Alcohol and Drug Abuse Patient Records regulations: The Federal rules restrict any use of the information to criminally investigate or prosecute any alcohol or drug abuse patient.[facility] the event this information is protected by the Federal Confidentiality of Alcohol and Drug Abuse Patient Records regulations: The Federal rules restrict any use of the information to criminally investigate or prosecute any alcohol or drug abuse patient.[facility] the event this information is protected by the Federal Confidentiality of Alcohol and Drug Abuse Patient Records regulations: The Federal rules restrict any use of the information to criminally investigate or prosecute any alcohol or drug abuse patient.[facility] the event this information is protected by the Federal Confidentiality of Alcohol and Drug Abuse Patient Records regulations: The Federal rules restrict any use of the information to criminally investigate or prosecute any alcohol or drug abuse patient.[facility] the event this information is protected by the Federal Confidentiality of Alcohol and Drug Abuse Patient Records regulations: The Federal rules restrict any use of the information to criminally investigate or prosecute any alcohol or drug abuse patient.[facility] the event this information is protected by the Federal Confidentiality of Alcohol and Drug Abuse Patient Records regulations: The Federal rules restrict any use of the information to criminally investigate or prosecute any alcohol or drug abuse patient.[facility] the event this information is protected by the Federal Confidentiality of Alcohol and Drug Abuse Patient Records regulations: The Federal rules restrict any use of the information to criminally investigate or prosecute any alcohol or drug abuse patient.[facility] the event this information is protected by the Federal Confidentiality of Alcohol and Drug Abuse Patient Records regulations: The Federal rules restrict any use of the information to criminally investigate or prosecute any alcohol or drug abuse patient.[facility] the event this information is protected by the Federal Confidentiality of Alcohol and Drug Abuse Patient Records regulations: The Federal rules restrict any use of the information to criminally investigate or prosecute any alcohol or drug abuse patient.[facility] the event this information is protected by the Federal Confidentiality of Alcohol and Drug Abuse Patient Records regulations: The Federal rules restrict any use of the information to criminally investigate or prosecute any alcohol or drug abuse patient.[facility] Reason for Visit (unrecogniz ed section and content) Reason Comments Breast Cancer Reason Comments Breast Cancer Specialty Diagnoses / Procedures Referred By Contac t Referred To Contact Diagnoses Malignant neoplasm of upper-outer quadrant of right breast in female, estrogen receptor positive (HCC) Procedures CONSULT TO MEDICAL GENETICS - CANCER MEDICAL GENETICS COUNSELING EACH 30 MINUTES Blayne Pretty MD [address] [place] [address] [place] [address] [address] Referral ID Status Reason Start Date Expiration Date V isits Requested Visits Authorized [id number] Closed PCP Requested Referral Auto-Generated Referral 09/08/2022 09/08/2023 1 1 Reason Comments Treatment Planning Arimidex Reason Comments Appointment Reason Comments Results Reason Comments Consult Surgery Reason Comments Patient Update FYI-No Action Needed Reason Comments Forms Reason Comments Oncotype DX Reason Comments Patient Education Reason Onset Date Comments Simulation Request Form 11/26/2022 Reason Comments Care Coordination Oncotype Update Reason Comments Research [id number] Consent P resentation Reason Comments Radiotherapy On-treatment Visit Reason Comments Research [id number] Alert man agement Week 0 Reason Comments Research [id number] Alert Wesamantha k 1 Reason Comments Lab Orders Reason Comments Orders Reason Comments Results Orders Reason Comments Breast Cancer Reason Comments Results Appointment Reason Comments Orders INFORMATION SOURCE (unrecogn ized section and content) DATE CREATED AUTHOR 09/22/2022 [facility] DATE CREATED AUTHOR AUTHOR'S ORGANIZ ATION 11/25/2022 [facility] DATE CREATED AUTHOR AUTHOR'S ORGANIZ ATION 10/08/2023 [facility] DATE CREATED AUTHOR AUTHOR'S ORGANIZ ATION 10/28/2023 [facility] FOR RECORDS PERTAINING TO PATIENTS WHO ARE OR HAVE BEEN ENROLLED IN A CHEMICAL DEPENDENCY/SUBSTANCEABUSE PROGRAM, SOME INFORMATION MAY BE OMITTED. This clinical summary was aggregated from multiple sources. Caution should be exercised in using it in the provision of clinical care. This summary normalizes information from multiple sources, and as a consequence, information in this document may materially change the coding, format and clinical context of patient data. In addition, data may be omitted in some cases. CLINICAL DECISIONS SHOULD BE BASED ON THE PRIMARY CLINICAL RECORDS. [employer] [facility]. provides no warranty or guarantee of the accuracy or completeness of information in this document.
[2023-11-04] MEDS: LACTATED RINGER'S SOLUTION 1,000 ML 50 ML IV (08:30)
[2023-11-04 09:27] VITALS: BP 89/44; PULSE 76; RESP 14; TEMP 36.6; O2SAT 99
[2023-11-04 09:42] VITALS: BP 121/62; PULSE 76; RESP 16; O2SAT 100
[2023-11-04 09:57] VITALS: BP 136/70; PULSE 76; RESP 16; O2SAT 98
== END 2023-11-04 09:57 | disposition home or self-care (01) ==
PROVIDERS: PCP Internal Medicine; Visit Provider Surgery
PROC: (CPT 811; principal; 2023-11-04 09:00)
DX: Z12.11 Encounter for screening for malignant neoplasm of colon (principal); Z80.0 Family history of malignant neoplasm of digestive organs; K57.30 Diverticulosis of large intestine without perforation or abscess without bleeding; K21.9 Gastro-esophageal reflux disease without esophagitis; C50.411 Malignant neoplasm of upper-outer quadrant of right female breast; I10 Essential (primary) hypertension; E21.3 Hyperparathyroidism, unspecified; R91.8 Other nonspecific abnormal finding of lung field; E78.00 Pure hypercholesterolemia, unspecified; E66.9 Obesity, unspecified; Z68.32 Body mass index [BMI] 32.0-32.9, adult; E55.9 Vitamin D deficiency, unspecified; Z90.49 Acquired absence of other specified parts of digestive tract; Z90.710 Acquired absence of both cervix and uterus; Z87.891 Personal history of nicotine dependence
CPT/HCPCS: 45378; J2704

== ENCOUNTER 2024-02-04 09:45 | Outpatient (OUT) | payer BC, SELFPAY ==
--- OUTSIDE RECORDS SUMMARY | 2024-02-04 10:13 | XMS_ITS | CCD ---
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 Name Role Phone PEDRO WHALEN Primary Care Physician [phone] Pedro Whalen DO Primary Care Provider Pedro Whalen DO Primary Care Provider DR PEDRO WHALEN Primary Care Unavailable CHARITY HAWTHORNE Consulting Unavailable CHARITY HAWTHORNE Attending Unavailable CHARITY HAWTHORNE Admitting Unavailable Pedro Whalen Unavailable Sa Dustinju A Attending Unavailable Dustin, Toro A Referring Unavailable Dustin Toro A Admitting Unavailable Ciaran REES Attending Unavailable MARLEE PEDRO Referring Unavailable Ciaran REES Attending Unavailable Dustin, Toro A Referring Unavailable Dustin, Toro A Admitting Unavailable Dustin, Toro A Attending Unavailable Blayne Pretty Admitting Unavailable Blayne Pretty Attending Unavailable Blayne Pretty Referring Unavailable BLAYNE PRETTY Attending Unavailable MARLEE, PEDRO E Primary Care Unavailable BLAYNE PRETTY Referring Unavailable MARLEE, PEDRO E Primary Care Unavailable FELIX MARCELA M Referring Unavailable MARLEE, PEDRO E Primary Care Unavailable DUSTIN, TORO Attending Unavailable MARLEE, PEDRO E Primary Care Unavailable BLAYNE PRETTY Referring Unavailable MARLEE, PEDRO E Primary Care Unavailable BLAYNE PRETTY Referring Unavailable BALL, PEDRO E Primary Care Unavailable BLAYNE PRETTY Attending Unavailable BLAYNE PRETTY Referring Unavailable MARLEE, PEDRO E Primary Care Unavailable BALL, PEDRO E Primary Care Unavailable FELIX, MARCELA M Referring Unavailable BLAYNE PRETTY Referring Unavailable BALL, PEDRO E Primary Care Unavailable FELIX, MARCELA M Attending Unavailable BALL, PEDRO E Primary Care Unavailable FELIX, MARCELA M Referring Unavailable DUSTIN, TORO Attending Unavailable MARLEE, PEDRO E Primary Care Unavailable BLAYNE PRETTY Attending Unavailable BALL, PEDRO E Primary Care Unavailable BLAYNE PRETTY Referring Unavailable BALL, PEDRO E Referring Unavailable BALL, PEDRO E Primary Care Unavailable Allergies Allergy Classification Reported Allergen(s) Allergy Type Date of Onset Reaction(s) Facility (20 sources) Doxycycline; Translations: [doxycycline] Drug Allergy 06-13-20 13 Unknown, [facility] Comment on above: monocycline allery s coral reaction (1 source) Doxycycline Drug Allergy 06-13-20 13 [facility] (1 source) Penicillins Drug allergy (disorder) [facility] (11 sources) Penicillins (Antibiotic) Propensity to adverse reactions Unknown [employer] Other (9 sources) Sulfamethoxazole Drug Allergy Unknown [employer] Other (14 sources) Tetracycline; Translations: [tetracycline] Drug Allergy Unknown [facility] [place] (8 sources) Penicillin; Translations: [penicillin] Drug Allergy Unknown [facility] [place] (7 sources) Substance with penicillin structure and antibacterial mechanism of action (substance) Drug allergy Unknown [employer] Other (5 sources) patient allergy list reviewed by nurse or physicia Propensity to adverse reactions 12-19-19 Comment:Done [employer] Other (7 sources) Sulfamethoxazole-Tr imethoprim *ANTI-INFECTIVE AGEN Propensity to adverse reactions Comment:Fatigu e [employer] Other (3 sources) Sulfonamides (Antibiotic); Translations: [sulfa drugs] Propensity to adverse reactions to drug [facility] [place] Medications Current Medications Medication Drug Class(es) Dates Sig (Normalized) Sig (Original) acetaminophen 325 mg / oxyCODONE hydrochloride 5 mg oral tablet (1 source) Opioid Agonist Start: 10-23-2022 End: 10-28-2022 acetaminophen-oxyc odone 325 mg-5 mg Tab 1 tab(s), Oral, q3hr Pain, 18 tab(s), Refill(s) 0, take with food or milk, [facility]/pharmacy #[id number], 157.5, cm, 10/15/22 14:57:00 EST, Height/Length Dosing, 82.1, kg, 10/15/22 14:57:00 EST, Weight Dosing Start Date: 10/23/22 Stop Date: 10/28/22 Status: Ordered anastrozole 1 mg oral tablet (20 sources) Aromatase Inhibitor Start: 10-06-2023 End: 09-20-2026 take 1 tablet by mouth once daily anastrozole (ARIMIDEX) 1 mg tablet Take 1 tablet by mouth once daily. 30 tablet 11 10/06/2023 09/20/2026 Active Start: 09-12-2022 End: 12-08-2022 take 1 tablet by mouth once daily Arimidex 1 mg Tab 1 mg = 1 tab(s), Oral, Daily, Hormone, Refills(s) 0 Start Date: 10/07/22 Status: Ordered Comment on above: Take 1 tablet by adina th once daily. clindamycin 150 mg oral capsule (8 sources) Lincosamide Antibacterial Start: 03-20-20 take 3 capsules by mouth twice daily Clindamycin HCl 150 MG 3 capsules Orally twice daily for 7 days Mar, Active omeprazole 10 mg delayed release oral capsule (20 sources) Proton Pump Inhibitor Start: 10-15-20 take 1 capsule by mouth once daily [...] Drug Class(es) Dates Sig (Normalized) Sig (Original) amLODIPine 5 mg oral tablet (20 sources) Dihydropyridine Calcium Channel Mark Start: 10-29-2022 take 1 tablet by mouth once daily amLODIPine (NORVASC) 5 mg tablet TAKE 1 TABLET BY MOUTH EVERY DAY FOR 30 DAYS 0 10/29/2022 Active Comment on above: TAKE 1 TABLET BY ADINA TH EVERY DAY FOR 30 DAYS ascorbic acid 4700 mg / polyethylene glycol 3350 122448 mg / potassium chloride 1015 mg / [...] Active Comment on above: Take by mouth. losartan potassium 25 mg oral tablet (20 sources) Angiotensin 2 Receptor Mark Start: 10-15-2022 take 1 tablet by mouth twice daily losartan (COZAAR) 25 mg tablet TAKE 1 TABLET BY MOUTH TWICE A DAY FOR 30 DAYS 0 10/29/2022 Active Start: 10-15-2022 take 1 tablet by mouth once da juan manuel losartan 25 mg Tab 25 mg = 1 tab(s), Oral, Daily, High blood pressure Start Date: 10/15/22 Status: Ordered Comment on above: TAKE 1 TABLET BY ADINA TH TWICE A DAY FOR 30 DAYS Problems Active Problems Problem Classification Problem Date Documented Date Episodic/Chronic Cancer of breast (20 sources) Malignant neoplasm of upper-outer quadrant of female breast; Translations: [Malignant neoplasm of upper-outer quadrant of right female breast] Onset: 2 Chronic Cataract (4 sources) Age-related nuclear cataract, right eye; Translations: [AGE-REL NUCLEAR CATARACT RT EYE] Onset: 2 Chronic Diabetes mellitus without complication (5 sources) Type 2 diabetes mellitus without complication; Translations: [Diabetes mellitus without mention of complication, type II or unspecified type, not stated as uncontrolled] 09-16-2023 Chronic Disorders of lipid metabolism (20 sources) Pure hypercholesterolemia; Translations: [Familial hypercholesterolemia] Onset: 6 Chronic Diverticulosis and diverticulitis (20 sources) Diverticular disease of colon; Translations: [Diverticulosis of colon] Onset: 5 09-16-2023 Chronic Esophageal disorders (9 sources) Gastro-esophageal reflux disease without esophagitis; Translations: [...] acute conjunctivitis, bilateral] Episodic Nonmalignant breast conditions (18 sources) Lump in lower outer quadrant of right breast; Translations: [Unspecified lump in the right breast, lower outer quadrant] Onset: 2 Episodic Nutritional deficiencies (9 sources) Vitamin D deficiency; Translations: [Vitamin D deficiency, unspecified] Onset: 3 Chronic Other and ill-defined heart disease (5 sources) Cardiomegaly; Translations: [Cardiomegaly] Onset: 7 09-16-2023 Chronic Other endocrine disorders (4 sources) Adrenal mass; Translations: [Other specified disorders of adrenal gland] Chronic Other endocrine disorders (2 sources) Hyperparathyroidism 09-16-2023 Chronic Other gastrointestinal disorders (2 sources) Adrenal mass 09-16-2023 Episodic Other inflammatory condition of skin (7 sources) Rosacea; Translations: [Rosacea, unspecified] 09-16-2023 Chronic Other lower respiratory disease (6 sources) Nodule of lung; Translations: [Solitary pulmonary nodule] 09-16-2023 Episodic Other non-traumatic joint disorders (1 source) Pain in left wrist Episodic Other nutritional; endocrine; and metabolic disorders (12 sources) Body mass index 30+ - obesity; Translations: [Body mass index 31.0-31.9, adult] Onset: 7 08-26-2022 Chronic Other nutritional; endocrine; and metabolic disorders (5 sources) Hypercalcemia; Translations: [Hypercalcemia] Chronic Other nutritional; endocrine; and metabolic disorders (5 sources) Obesity; Translations: [Obesity, unspecified] 09-16-2023 Chronic [...] endocrine, nutritional and metabolic disease] Episodic Other upper respiratory infections (6 sources) Acute maxillary sinusitis; Translations: [Acute recurrent maxillary sinusitis] Onset: 5 Episodic Residual codes; unclassified (1 source) Acquired absence of both cervix and uterus; Translations: [ACQUIRED ABSENCE BOTH CERVIX AND UTERUS] Onset: 2 Episodic Residual codes; unclassified (20 sources) Family history of malignant neoplasm of gastrointestinal tract; Translations: [Family history of colon cancer] Episodic Residual codes; unclassified (1 source) Family history of malignant neoplasm of digestive organs Episodic Residual codes; unclassified (1 source) Family history of malignant neoplasm of digestive organ; Translations: [Family history of malignant neoplasm of digestive organs] Onset: 3 Episodic Residual codes; unclassified (2 sources) Family history of cancer of colon 09-16-2023 Episodic Residual codes; unclassified (2 sources) Tobacco user 09-16-2023 Episodic Skin and subcutaneous tissue infections (7 sources) Localized infection of skin AND/OR subcutaneous tissue; Translations: [Local infection of the skin and subcutaneous tissue, unspecified] Episodic Substance-related disorders (5 sources) Tobacco user; Translations: [Nicotine dependence, cigarettes, in remission] Chronic Thyroid disorders (8 sources) Thyroid nodule; Translations: [Nontoxic single thyroid nodule] Onset: 3 Chronic Unclassified (3 sources) Long-term current use of drug therapy; Translations: [Long-term (current) use of other medications] Onset: 7 Past or Other Problems Problem Classification Problem Date Documented Date Episodic/Chronic Abdominal pain (3 sources) Left lower quadrant pain; Translations: [Left lower quadrant pain] Onset: 05-07-2015 Episodic Diabetes mellitus without complication (20 sources) Impaired fasting glycemia; Translations: [Impaired fasting glucose] Onset: 10-06-2023 Episodic Genitourinary symptoms and ill-defined conditions (3 sources) Dysuria; Translations: [Dysuria] Onset: 01-16-2015 Episodic Other liver diseases (3 sources) Elevated levels of transaminase & lactic acid dehydrogenase; Translations: [Nonspecific elevation of levels of transaminase or lactic acid dehydrogenase (LDH)] Onset: 09-15-2017 Episodic Other screening for suspected conditions (not mental disorders or infectious disease) (15 sources) Ultrasonography of breast abnormal; Translations: [Abnormal finding on evaluation procedure] Onset: 07-14-2023 08-29-2022 Episodic Other skin disorders (4 sources) Sebaceous cyst; Translations: [Sebaceous cyst] Resolved: 10-07-2022 Episodic Residual codes; unclassified (3 sources) Estrogen receptor positive status [ER+]; Translations: [Malignant neoplasm of upper-outer quadrant of right breast in female, estrogen receptor positive (HCC) (HCC)] Onset: 07-06-2023 Episodic Retinal detachments; defects; vascular occlusion; and retinopathy (5 sources) Serous retinal detachment; Translations: [Serous retinal detachment, left eye] Onset: 06-03-2022 Episodic Screening and history of mental health and substance abuse codes (3 sources) History of tobacco use; Translations: [Personal history of tobacco use, presenting hazards to health] Onset: 09-15-2017 Episodic Results Test Name Value Interpretation Reference Range Facility [facility] 12-31-2023 CNOV Office Visit (RADTSA ) -------- DIONNAKAREN ([id number]) 1960 F Date Time Provider Department 12/31/23 2:00 PM TORO CHAN During your visit today, we recorded the following information about you: Temperature Pulse Respiration Blood pressure 97.7 degrees 77/minute 18/minute 150/78 Weight 82 kg Toro Chan MD 01/12/2024 5:51 AM Addendum /Radiation Oncology - Follow Up Note/ PATIENT NAME: Karen Chery PATIENT DIAGNOSIS/PATIENT IDENTIFICATION: Ms. 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 In the interim, she has short interval right breast ultrasound on 12/28/2023 which is read as benign, BI-RADS 2 with recommendation to return to annual mammography. No concerns were identified on clinical breast exam by Dr. Pretty in September. She also continues on Arimidex which she has been managing with some aches and pains and no hot flashes. Today she notes an occasional twinge of the breast but denies any other pain or discomfort and reports no skin irritation or breakdown and continues to use a moisturizer weekly. She notes no new lumps or bumps in the breast with intact range of motion of the right upper extremity. She endorses good energy appetite and hydration with stable weight. She otherwise denies any recent fevers, chills, [...] tablet cholecalciferol, vitamin D3, (VITAMIN D3 ORAL) PHYSICAL EXAM: GENERAL: middle-aged woman sitting in chair in no acute distress. VITALS: BP 150/78 Pulse 77 Temp 97.7 Resp 18 Wt 180 lb 12.4 oz (82.0kg) SpO2 98% KPS: 90 HEENT: NC/AT, anicteric sclera HEART: S1S2 LUNGS: non-labored breathing ABDOMEN: soft MUSCULOSKELETAL: no peripheral edema, moves all extremities. NEURO: no focal deficit; AANDO X3. RADIOLOGIC DATA: Right Breast US (12/28/2023) ASSESSMENT AND PLAN: Ms. 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 Chery is doing well clinically approximately one year after the completion of her postoperative radiation treatments to the right breast with no significant residual sequela at this time. Wound clinical radiographic evidence of disease based on clinical breast exam by Dr. Pretty as well as short interval right breast ultrasound from 12/28/2023 showing benign changes (BI-RADS 2). She will return to annual mammography for surveillance and continue her follow-up with Dr. Pretty. The patient is aware to contact the clinic in the interim should any questions or concerns arise. Thank you for allowing us to participate in the care of this patient. Signed by: Toro Chan MD I spent a total of 20 minutes on the date of the service which included prepar (more content not included)... Normal [facility] CNPChristiana 12-28-2023 CNPN Telephone (RADTSA) -------- KAREN CHERY ([id number]) 1960 F Date Time Provider Department 12/28/23 TORO CHAN During your visit today, we recorded the following information about you: Sayra Cortez LPN 12/28/2023 9:28 AM Signed Rudy with [facility] [place] called stating Angelique is there for scheduled bilateral john and shayan breast ultrasound. She said Angelique requested clarification if she needed a mammogram and US at this time or just US. Rudy said the previous mammogram done 2022 only recommends a [address] Chan not in office at the time the call was received. I told Rudy that if Angelique refuses to have the mammogram done and Dr. Chan still wants it done, we can call to reschedule. I reviewed the above with Dr. Chan and he said the mammogram report from 2022 states Birad 3-short term interval recommended. If she didn't have the mammogram he will review the US results with her at her scheduled follow up 12/31/23 and make further recommendations at that time. I called [facility] [place] and notified Juliette of the above. She states Angelique did not have mammogram today and the radiologist hasn't read the US yet. Angelique is still there and she will relay 's response to the patient. Sayra Cortez RN Allergies As of Date: 12/28/2023 Noted Allergy Reaction DOXYCYCLINE 06/13/2013 16 - Unknown 4 - Hives Comments: monocycline allery same reaction Date Reviewed: 10/06/2023 Reviewed by: Bhavesh January - Fully Assessed Reason for Visit: mammogram question [Other] Prescriptions as of 12/29/2023 - anastrozole (ARIMIDEX) 1 mg tablet Take 1 tablet by mouth once daily. - losartan (COZAAR) 25 mg tablet TAKE 1 TABLET BY MOUTH TWICE A DAY FOR 30 DAYS - amLODIPine (NORVASC) 5 mg tablet TAKE 1 TABLET BY MOUTH EVERY DAY FOR 30 DAYS - cholecalciferol, vitamin D3, (VITAMIN D3 ORAL) Take by mouth. Problem List As Of Date: 12/28/2023 (None) Encounter Status:Closed by SAYRA CORTEZ on 12/29/23 Normal [facility] Consent for Treatmenton 12-17 Consent for Treatment [id number]#1.00TIF F Normal [facility] US Breast Unilateral Rt Comp leteon 12-28-2023 US Breast Unilateral Rt Complete Exam Date/Time: 12/28/2023 09:14 EDT Reason for Exam: C50.411 Report [facility] [phone] IMPRESSION: BI-RADS 2: BENIGN. RETURNING THE PATIENT TO AN ANNUAL MAMMOGRAPHY SCHEDULE IS SUGGESTED. CLINICAL HISTORY: C50.411. COMPARISON: 06/26/2023. COMMENT: An ultrasound was obtained at all clock face positions and in the central/ retroareolar region of the right breast. At 10:00, on scanning where the patient feels a lump, there is a focal structure, wider than tall, that measures approximately 2.2 x 1.6 x 2.3 cm, and projecting off the anterior margin of this, there is a component 0.4 cm in diameter and 0.8 cm in length that extends towards the dermis. This structure is nearly anechoic, except for a linear septation posteriorly. This has decreased some in size when compared to the prior ultrasound exam. The appearance is consistent with postoperative seroma. At 1:00, there is a 0.25 cm diameter cyst. The ultrasound examination of the right breast is otherwise unremarkable. No solid breast mass nor suspicious lesion is evident. Ordering Provider: Toro Chan FINAL REPORT Dictated: 12/28/2023 9:38 am Tomas Ferrer M.D. Signed (Electronic Signature): 12/28/2023 9:38 am Signed by: Tomas Ferrer M.D. Transcribed by: YARELY Technologist: LAXMI Normal [facility] Outside Colonoscopyon 2023 Outside Colonoscopy [id number] 2019 [id number]#1.00TIF F [facility] Reminderson 11-24-2023 Reminders - From: Jeanne Villareal LPN To: Jaspreet - Clinical; Sent: 11/24/2023 07:49:17 EST Show up: 10/04/2028 07:00:00 EST Subject: colonoscopy recall Due Date/Time: 11/04/2028 07:00:00 EST Reminder/Recall Patient due for surveillance colonoscopy 11/04/2028 due to family history of colon cancer, [facility] Pre-Certification Formon Pre-Certification Form [id number]#1.00TIF F [facility] Insurance Correspondenceon 0 10-27-2023 Insurance Correspondence [id number]#1.00TIF F [facility] Consent for Procedure/Surger yon 10-08-2023 Consent for Procedure/Surgery [id number]#1.00TIF F [facility] Ambulatory Visit Summaryon 1 12-08-2022 Ambulatory Visit Summary ANGELIQUE CHERY Sanjeev :1960 Visit Date:10/07/2023 Ambulatory Visit Instructions Your Care Team Attending Physician - Ciaran REES MD Primary Care Physician - PEDRO WHALNE DO Referring Physician - PEDRO WHALEN DO [...] you for choosing us for your care. Alicia [facility] [place] 10-07-2023 MARLYN Telephone (HEMASA) -------- ANGELIQUE CHERY ([id number]) 1960 F Date Time Provider Department 10/07/23 [...] reaction Date Reviewed: 10/06/2023 Reviewed by: Bhavesh Adela - Fully Assessed Reason for Visit: Results [...] Status:Closed by NANCY MARADIAGA on 10/07/23 Normal [facility] Consultation Noteon 10-07-20 Consultation Note [id number]#1.00TIF F Normal [facility] 25(OH)D3 SerPl-mCncon 2022 25-hydroxyvitamin D3 [Mass/Vol] 55.0 ng/mL Normal 31.0-80.0 [facility] Comment on above: Order Comment: Speci men Type: BLOOD SPECIMEN Ordering Facility: Dr Whalen and Dr Hodge Office Address: [address] [place] [address] Result Comment: Clas sification of 25 OH Vitamin D status: Deficiency/Insufficiency: < or = 30 ng/ml. Sufficiency/Optimal Levels: 31-80 ng/mL Toxicity: > 100 ng/mL. Test performed by chemiluminescent immunoassay. Performed By: #### 3 016-3 #### [facility] CLIA [id number] [address] [place] [address] [place] CBC W Auto Differential pane l (Bld)on 10-06-2023 Basophils (Bld) [#/Vol] 0.03 10*3/uL Normal <0.11 [facility] Comment on above: Order Comment: Speci men Type: BLOOD SPECIMEN Ordering Facility: Dr Teresa Hodge Office Address: [address] [place] [address] Performed By: #### 3 016-3 #### [facility] CLIA [id number] [address] [place] [address] [place] Basophils/100 WBC (Bld) 0.4 % Normal [facility] Comment on above: Order Comment: Speci men Type: BLOOD SPECIMEN Ordering Facility: Dr Teresa Hodge Office Address: [address] [place] [address] Performed By: #### 3 016-3 #### [facility] CLIA [id number] [address] [place] [address] [place] Differential cell count method Nom (Bld) Auto Normal [facility] Comment on above: Order Comment: Speci men Type: BLOOD SPECIMEN Ordering Facility: Dr Teresa Hodge Office Address: [address] [place] [address] Performed By: #### 3 016-3 #### [facility] CLIA [id number] [address] [place] [address] [place] Eosinophils (Bld) [#/Vol] 0.17 10*3/uL Normal <0.46 [facility] Comment on above: Order Comment: Speci men Type: BLOOD SPECIMEN Ordering Facility: Dr Teresa Hodge Office Address: [address] [place] [address] Performed By: #### 3 016-3 #### [facility] CLIA [id number] [address] [place] [address] [place] Eosinophils/100 WBC (Bld) 2.4 % Normal [facility] Comment on above: Order Comment: Speci men Type: BLOOD SPECIMEN Ordering Facility: Dr Teresa Hodge Office Address: [address] [place] [address] Performed By: #### 3 016-3 #### [facility] CLIA [id number] [address] [place] [address] [place] Erythrocyte distribution width (RBC) [Ratio] 14.2 % Normal 11.5-15.0 [facility] Comment on above: Order Comment: Speci men Type: BLOOD SPECIMEN Ordering Facility: Dr Teresa Hodge Office Address: [address] [place] [address] Performed By: #### 3 016-3 #### [facility] CLIA [id number] [address] [place] [address] [place] Hematocrit (Bld) [Volume fraction] 39.7 % Normal 36.0-46.0 [facility] Comment on above: Order Comment: Speci men Type: BLOOD SPECIMEN Ordering Facility: Dr Teresa Hodge Office Address: [address] [place] [address] Performed By: #### 3 016-3 #### [facility] CLIA [id number] [address] [place] [address] [place] Hemoglobin (Bld) [Mass/Vol] 12.9 g/dL Normal 11.5-15.5 [facility] Comment on above: Order Comment: Speci men Type: BLOOD SPECIMEN Ordering Facility: Dr Teresa Hodge Office Address: [address] [place] [address] Performed By: #### 3 016-3 #### [facility] CLIA [id number] [address] [place] [address] [place] Immature granulocytes (Bld) [#/Vol] 0.07 10*3/uL Normal <0.10 [facility] Comment on above: Order Comment: Speci men Type: BLOOD SPECIMEN Ordering Facility: Dr Teresa Hodge Office Address: [address] [place] [address] Performed By: #### 3 016-3 #### [facility] CLIA [id number] [address] [place] [address] [place] [place] Immature granulocytes/100 WBC (Bld) 1.0 % Normal [facility] Comment on above: Order Comment: Speci men Type: BLOOD SPECIMEN Ordering Facility: Dr Teresa Hodge Office Address: [address] [place] [address] Performed By: #### 3 016-3 #### [facility] CLIA [id number] [address] [place] [address] [place] Lymphocytes (Bld) [#/Vol] 1.33 10*3/uL Normal 1.00-4.00 [facility] Comment on above: Order Comment: Speci men Type: BLOOD SPECIMEN Ordering Facility: Dr Teresa Hodge Office Address: [address] [place] [address] Performed By: #### 3 016-3 #### [facility] CLIA [id number] [address] [place] [address] [place] Lymphocytes/100 WBC (Bld) 19.1 % Normal [facility] Comment on above: Order Comment: Speci men Type: BLOOD SPECIMEN Ordering Facility: Dr Teresa Hodge Office Address: [address] [place] [address] Performed By: #### 3 016-3 #### [facility] CLIA [id number] [address] [place] [address] [place] MCH (RBC) [Entitic mass] 29.1 pg Normal 26.0-34.0 [facility] Comment on above: Order Comment: Speci men Type: BLOOD SPECIMEN Ordering Facility: Dr Teresa Hodge Office Address: [address] [place] [address] Performed By: #### 3 016-3 #### [facility] CLIA [id number] [address] [place] [address] [place] MCHC (RBC) [Mass/Vol] 32.5 g/dL Normal 30.5-36.0 [facility] Comment on above: Order Comment: Speci men Type: BLOOD SPECIMEN Ordering Facility: Dr Teresa Hodge Office Address: [address] [place] [address] Performed By: #### 3 016-3 #### [facility] CLIA [id number] [address] [place] [address] [place] MCV (RBC) [Entitic vol] 89.4 fL Normal 80.0-100.0 [facility] Comment on above: Order Comment: Speci men Type: BLOOD SPECIMEN Ordering Facility: Dr Teresa Hodge Office Address: [address] [place] [address] Performed By: #### 3 016-3 #### [facility] CLIA [id number] [address] [place] [address] [place] Monocytes (Bld) [#/Vol] 0.55 10*3/uL Normal <0.87 [facility] Comment on above: Order Comment: Speci men Type: BLOOD SPECIMEN Ordering Facility: Dr Teresa Hodge Office Address: [address] [place] [address] Performed By: #### 3 016-3 #### [facility] CLIA [id number] [address] [place] [address] [place] Monocytes/100 WBC (Bld) 7.9 % Normal [facility] Comment on above: Order Comment: Speci men Type: BLOOD SPECIMEN Ordering Facility: Dr Teresa Hodge Office Address: [address] [place] [address] Performed By: #### 3 016-3 #### [facility] CLIA [id number] [address] [place] [address] [place] Neutrophils (Bld) [#/Vol] 4.83 10*3/uL Normal 1.45-7.50 [facility] Comment on above: Order Comment: Speci men Type: BLOOD SPECIMEN Ordering Facility: Dr Teresa Hodge Office Address: [address] [place] [address] Performed By: #### 3 016-3 #### [facility] CLIA [id number] [address] [place] [address] [place] Neutrophils/100 WBC (Bld) 69.2 % Normal [facility] Comment on above: Order Comment: Speci men Type: BLOOD SPECIMEN Ordering Facility: Dr Teresa Hodge Office Address: [address] [place] [address] Performed By: #### 3 016-3 #### [facility] CLIA [id number] [address] [place] [address] [place] Nucleated RBC (Bld) [#/Vol] 10*3/uL Normal <0.01 [facility] Comment on above: Order Comment: Speci men Type: BLOOD SPECIMEN Ordering Facility: Dr Teresa Hodge Office Address: [address] [place] [address] Performed By: #### 3 016-3 #### [facility] CLIA [id number] [address] [place] [address] [place] Nucleated RBC/100 WBC (Bld) [Ratio] 0.0 /100 WBC Normal [facility] Comment on above: Order Comment: Speci men Type: BLOOD SPECIMEN Ordering Facility: Dr eTresa Hodge Office Address: [address] [place] [address] Performed By: #### 3 016-3 #### [facility] CLIA [id number] [address] [place] [address] [place] Platelet mean volume (Bld) [Entitic vol] 10.1 fL Normal 9.0-12.7 [facility] Comment on above: Order Comment: Speci men Type: BLOOD SPECIMEN Ordering Facility: Dr Teresa Hodge Office Address: [address] [place] [address] Performed By: #### 3 016-3 #### [facility] CLIA [id number] [address] [place] [address] [place] Platelets (Bld) [#/Vol] 219 10*3/uL Normal 150-400 [facility] Comment on above: Order Comment: Speci men Type: BLOOD SPECIMEN Ordering Facility: Dr Teresa Hodge Office Address: [address] [place] [address] Performed By: #### 3 016-3 #### [facility] CLIA [id number] [address] [place] [address] [place] RBC (Bld) [#/Vol] 4.44 10*6/uL Normal 3.90-5.20 [facility] Comment on above: Order Comment: Speci men Type: BLOOD SPECIMEN Ordering Facility: Dr Teresa Hodge Office Address: [address] [place] [address] Performed By: #### 3 016-3 #### [facility] CLIA [id number] [address] [place] [address] [place] WBC (Bld) [#/Vol] 6.98 10*3/uL Normal 3.70-11.00 [facility] Comment on above: Order Comment: Speci men Type: BLOOD SPECIMEN Ordering Facility: Dr Teresa Hodge Office Address: [address] [place] [address] Performed By: #### 3 016-3 #### [facility] CLIA [id number] [address] [place] [address] [place] CNOVSPon 10-06-2023 CNOVS Visit (SP) Office ([place]) -------- ANGELIQUE CHERY ([id number]) 1960 F Date Time Provider Department 10/06/23 3:30 PM BLAYNE PRETTY During your visit today, we recorded the following information about you: Temperature Pulse Respiration Blood pressure 97.3 degrees 85/minute 18/minute 139/61 Weight Height 80.9 kg 1.536 m Blayne Pretty MD 10/07/2023 6:42 AM Signed PATIENT NAME: Angelique Chery DATE: 10/06/2023 PRIMARY CARE PHYSICIAN: Pedro Whalen DO OTHER [...] Types: Cigarettes Quit date: 2000 Years since quittin.9 Passive exposure: Past Smokeless [...] [place]pect[place] Invasive ductal carcinoma, 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 Margins negative for invasive carcinoma. DCIS present at deep margin, focal. 2 benign lymph nodes identified (0/2). Oncotype recurrence score 12 08/26/2022 Right breast core biopsy [place] Invasive ductal carcinoma, grade 2. ER 80 to 90%, LA 40 to 50%, HER2 negative RADIOLOGY/OTHER STUDIES: 07/06/2023 PET scan IMPRESSION: 1. Neck: No suspicious hypermetabolic foci 2. Chest: Surgical changes in the right breast right axillary reg (more content not included)... Normal [facility] Cancer Ag27-29 SerPl-aCncon 10-06-2023 Cancer Ag 27-29 Qn 47.6 [arb'U]/mL High <38.6 [facility] Comment on above: Order Comment: Speci men Type: BLOOD SPECIMENOrdering Facility: [facility] Address: [address] [place] [address] Result Comment: The CA27.29 test was performed using the Siemens Allegro Diagnosticsaur XP chemiluminometric immunoassay method. Results obtained with different assay methods or kits cannot be used interchangeably. Performed By: #### 1 7842-6 ####[facility] [id number] [facility] [place] [address] [place] [facility] [place] Comprehensive metabolic 2000 panelon 10-06-2023 Albumin [Mass/Vol] 4.2 g/dL Normal 3.9-4.9 [facility] Comment on above: Order Comment: Speci men Type: BLOOD SPECIMENOrdering Facility: [facility] Address: [address] [place] [address] Performed By: #### 2 4323-8 ####[facility] [id number] [place] [address] ALP [Catalytic activity/Vol] 244 U/L High 34-123 [facility] Comment on above: Order Comment: Speci men Type: BLOOD SPECIMENOrdering Facility: [facility] Address: [address] [place] [address] Performed By: #### 2 4323-8 ####[facility] [id number] [place] [address] ALT [Catalytic activity/Vol] 21 U/L Normal 7-38 [facility] Comment on above: Order Comment: Speci men Type: BLOOD SPECIMENOrdering Facility: [facility] Address: [address] [place] [address] Performed By: #### 2 4323-8 ####[facility] [id number] [place] [address] Anion gap [Moles/Vol] 10 mmol/L Normal 9-18 [facility] Comment on above: Order Comment: Speci men Type: BLOOD SPECIMENOrdering Facility: [facility] Address: [address] [place] [address] Performed By: #### 2 4323-8 ####[facility] [id number] [place] [address] AST [Catalytic activity/Vol] 34 U/L Normal 13-35 [facility] Comment on above: Order Comment: Speci men Type: BLOOD SPECIMENOrdering Facility: [facility] Address: [address] [place] [address] Performed By: #### 2 4323-8 ####[facility] [id number] [place] [address] Bilirubin [Mass/Vol] 0.7 mg/dL Normal 0.2-1.3 [facility] Comment on above: Order Comment: Speci men Type: BLOOD SPECIMENOrdering Facility: [facility] Address: [address] [place] [address] Performed By: #### 2 4323-8 ####[facility] [id number] [place] [address] Calcium [Mass/Vol] 9.9 mg/dL Normal 8.5-10.2 [facility] Comment on above: Order Comment: Speci men Type: BLOOD SPECIMENOrdering Facility: [facility] Address: [address] [place] [address] Performed By: #### 2 4323-8 ####[facility] [id number] [place] [address] Chloride [Moles/Vol] 102 mmol/L Normal 97-105 [facility] Comment on above: Order Comment: Speci men Type: BLOOD SPECIMENOrdering Facility: [facility] Address: [address] [place] [address] Performed By: #### 2 4323-8 ####[facility] [id number] [place] [address] CO2 [Moles/Vol] 29 mmol/L Normal 22-30 [facility] Comment on above: Order Comment: Speci men Type: BLOOD SPECIMENOrdering Facility: [facility] Address: [address] [place] [address] Performed By: #### 2 4323-8 ####[facility] [id number] [place] [address] Creatinine [Mass/Vol] 0.77 mg/dL Normal 0.58-0.96 [facility] Comment on above: Order Comment: Speci men Type: BLOOD SPECIMENOrdering Facility: [facility] Address: [address] [place] [address] Performed By: #### 2 4323-8 ####[facility] [id number] [place] [address] Creatinine and Glomerular filtration rate.predicted panel (S/P/Bld) 87 mL/min/1.73m??? Normal >=60 [facility] Comment on above: Order Comment: Speci men Type: BLOOD SPECIMENOrdering Facility: [facility] Address: [address] [place] [address] Result Comment: Salima mated Glomerular Filtration Rate [...] actual GFR. Performed By: #### 2 4323-8 ####[facility] [id number] [place] [address] Glucose [Mass/Vol] 109 mg/dL High 74-99 [facility] Comment on above: Order Comment: Speci men Type: BLOOD SPECIMENOrdering Facility: [facility] Address: [address] [place] [address] Result Comment: The [place] Diabetes Association (ADA) provides guidance for cutoff [...] Standards of Medical Care in Diabetes 2016, [place] [employer] Association. Diabetes Care. 2016.39(Suppl 1). Performed By: #### 2 4323-8 ####[facility] [id number] [place] [address] Potassium [Moles/Vol] 4.1 mmol/L Normal 3.7-5.1 [facility] Comment on above: Order Comment: Speci men Type: BLOOD SPECIMENOrdering Facility: [facility] Address: [address] [place] [address] Performed By: #### 2 4323-8 ####[facility] [id number] [place] [address] Protein [Mass/Vol] 8.8 g/dL High 6.3-8.0 [facility] Comment on above: Order Comment: Speci men Type: BLOOD SPECIMENOrdering Facility: [facility] Address: [address] [place] [address] Performed By: #### 2 4323-8 ####[facility] [id number] [place] [address] Sodium [Moles/Vol] 141 mmol/L Normal 136-144 [facility] Comment on above: Order Comment: Speci men Type: BLOOD SPECIMENOrdering Facility: [facility] Address: [address] [place] [address] Performed By: #### 2 4323-8 ####[facility] [id number] [place] [address] Urea nitrogen [Mass/Vol] 14 mg/dL Normal 7-21 [facility] Comment on above: Order Comment: Nic espinosa Type: BLOOD SPECIMENOrdering Facility: [facility] Address: [address] [place] [address] Performed By: #### 2 4323-8 ####[facility] [id number] [place] [id number] HbA1c (Bld)on 10-06-2023 Average glucose Estimated from glycated hemoglobin (Bld) [Mass/Vol] 108 mg/dL Normal [facility] Comment on above: Order Comment: Nic espinosa Type: BLOOD SPECIMEN Ordering Facility: Dr Whalen and Dr Hodge Office Address: [address] [place] [address] Result Comment: eAG: (Estimated average glucose) is a calculated value from HgbA1c and is insurance claim representative of the average blood glucose level in the last 2-3 month period. Performed By: #### 3 016-3 #### [facility] CLIA [id number] [address] [place] [address] [place] HbA1c (Bld) [Mass fraction] 5.4 % Normal 4.3-5.6 [facility] Comment on above: Order Comment: Nic espinosa Type: BLOOD SPECIMEN Ordering Facility: Dr Teresa Hodge Office Address: [address] [place] [address] Result Comment: [place] Diabetes Association guidelines indicate that patients with HgbA1c in the range 5.7-6.4% are at increased risk for development of diabetes, and intervention by lifestyle modification may be beneficial. HgbA1c greater or equal to 6.5% is considered diagnostic of diabetes. Performed By: #### 3 016-3 #### [facility] CLIA [id number] [address] [place] [address] [place] TSH SerPl-aCncon 10-06-2023 TSH Qn 0.786 m[IU]/L Normal 0.270-4.200 [facility] Comment on above: Order Comment: Nic espinosa Type: BLOOD SPECIMEN Ordering Facility: Dr Whalen and Dr Hodge Office Address: [address] [place] [address] Performed By: #### 3 016-3 #### [facility] CLIA [id number] [address] [place] [address] [place] Physician Referralon 023 Physician Referral [id number] [id number]#1.00TIF F Normal [facility] Consultation Noteon 07-15-20 23 Consultation Note [id number]#1.00CD:1 27 Normal [facility] CBC W Auto Differential pane l (Bld)on 07-14-2023 Basophils (Bld) [#/Vol] 0.03 10*3/uL Normal <0.11 [facility] Comment on above: Order Comment: Speci men Type: BLOOD SPECIMEN [facility] Facility: [facility] Address: [address] [address] Performed By: #### 5 7021-8 #### [facility] CLIA [id number] [address] [place] [address] Basophils/100 WBC (Bld) 0.4 % Normal [facility] Comment on above: Order Comment: Speci men Type: BLOOD SPECIMEN Ordering Facility: [facility] Address: [address] [place] [address] Performed By: #### 5 7021-8 #### [facility] CLIA [id number] [address] [place] [address] Differential cell count method Nom (Bld) Auto Normal [facility] Comment on above: Order Comment: Speci men Type: BLOOD SPECIMEN Ordering Facility: [facility] Address: [address] [place] [address] Performed By: #### 5 7021-8 #### [facility] CLIA [id number] [address] [place] [address] Eosinophils (Bld) [#/Vol] 0.22 10*3/uL Normal <0.46 [facility] Comment on above: Order Comment: Speci men Type: BLOOD SPECIMEN Ordering Facility: [facility] Address: [address] [place] [address] Performed By: #### 5 7021-8 #### [facility] CLIA [id number] [address] [place] [address] Eosinophils/100 WBC (Bld) 3.1 % Normal [facility] Comment on above: Order Comment: Speci men Type: BLOOD SPECIMEN Ordering Facility: [facility] Address: [address] [place] [address] Performed By: #### 5 7021-8 #### [facility] CLIA [id number] [address] [place] [address] Erythrocyte distribution width (RBC) [Ratio] 15.0 % Normal 11.5-15.0 [facility] Comment on above: Order Comment: Speci men Type: BLOOD SPECIMEN Ordering Facility: [facility] Address: [address] [place] [address] Performed By: #### 5 7021-8 #### [facility] CLIA [id number] [address] [place] [address] Hematocrit (Bld) [Volume fraction] 40.5 % Normal 36.0-46.0 [facility] Comment on above: Order Comment: Speci men Type: BLOOD SPECIMEN Ordering Facility: [facility] Address: [address] [place] [address] Performed By: #### 5 7021-8 #### [facility] CLIA [id number] [address] [place] [address] Hemoglobin (Bld) [Mass/Vol] 12.7 g/dL Normal 11.5-15.5 [facility] Comment on above: Order Comment: Speci men Type: BLOOD SPECIMEN Ordering Facility: [facility] Address: [address] [place] [address] Performed By: #### 5 7021-8 #### [facility] CLIA [id number] [address] [place] [address] Immature granulocytes (Bld) [#/Vol] 0.09 10*3/uL Normal <0.10 [facility] Comment on above: Order Comment: Speci men Type: BLOOD SPECIMEN Ordering [facility]: [facility] Address: [address] [address] Performed By: #### 5 7021-8 #### [facility] CLIA [id number] [address] [place] [address]68[address] Immature granulocytes/100 WBC (Bld) 1.3 % Normal [facility] Comment on above: Order Comment: Speci men Type: BLOOD SPECIMEN Ordering Facility: [facility] Address: [address] [place] [address] Performed By: #### 5 7021-8 #### [facility] CLIA [id number] [address] [place] [address] Lymphocytes (Bld) [#/Vol] 1.25 10*3/uL Normal 1.00-4.00 [facility] Comment on above: Order Comment: Speci men Type: BLOOD SPECIMEN Ordering Facility: [facility] Address: [address] [place] [address] Performed By: #### 5 7021-8 #### [facility] CLIA [id number] [address] [place] [address] 40093 Lymphocytes/100 WBC (Bld) 17.8 % Normal [facility] Comment on above: Order Comment: Speci men Type: BLOOD SPECIMEN Ordering Facility: [facility] Address: [address] [place] [address] Performed By: #### 5 7021-8 #### [facility] CLIA [id number] [address] [place] [address]45[address] MCH (RBC) [Entitic mass] 28.7 pg Normal 26.0-34.0 [facility] Comment on above: Order Comment: Speci men Type: BLOOD SPECIMEN Ordering Facility: [facility] Address: [address] [place] [address] Performed By: #### 5 7021-8 #### [facility] CLIA [id number] [address] [place] [address] 35825 MCHC (RBC) [Mass/Vol] 31.4 g/dL Normal 30.5-36.0 [facility] Comment on above: Order Comment: Speci men Type: BLOOD SPECIMEN Ordering Facility: [facility] Address: [address] [place] [address] Performed By: #### 5 7021-8 #### [facility] CLIA [id number] [address] [place] [address] 25051 MCV (RBC) [Entitic vol] 91.6 fL Normal 80.0-100.0 [facility] Comment on above: Order Comment: Speci men Type: BLOOD SPECIMEN Ordering Facility: [facility] Address: [address] [place] [address] Performed By: #### 5 7021-8 #### [facility] CLIA [id number] [address] [place] [address] 05032 Monocytes (Bld) [#/Vol] 0.67 10*3/uL Normal <0.87 [facility] Comment on above: Order Comment: Speci men Type: BLOOD SPECIMEN Ordering Facility: [facility] Address: [address] [place] [address] Performed By: #### 5 7021-8 #### [facility] CLIA [id number] [address] [place] [address] 17375 Monocytes/100 WBC (Bld) 9.5 % Normal [facility] Comment on above: Order Comment: Speci men Type: BLOOD SPECIMEN Ordering Facility: [facility] Address: [address] [place] [address] Performed By: #### 5 7021-8 #### [facility] CLIA [id number] [address] [place] [address] Neutrophils (Bld) [#/Vol] 4.76 10*3/uL Normal 1.45-7.50 [facility] Comment on above: Order Comment: Speci men Type: BLOOD SPECIMEN Ordering Facility: [facility] Address: [address] [place] [address] Performed By: #### 5 7021-8 #### [facility] CLIA [id number] [address] [place] [address] 37929 Neutrophils/100 WBC (Bld) 67.9 % Normal [facility] Comment on above: Order Comment: Speci men Type: BLOOD SPECIMEN Ordering Facility: [facility] Address: [address] [address] Performed By: #### 5 7021-8 #### [facility] CLIA [id number] [address] [place] [address] 36424 Nucleated RBC (Bld) [#/Vol] 10*3/uL Normal <0.01 [facility] Comment on above: Order Comment: Speci men Type: BLOOD SPECIMEN Ordering Facility: [facility] Address: [address] [place] [address] Performed By: #### 5 7021-8 #### [facility] CLIA [id number] [address] [place] [address] 81968 Nucleated RBC/100 WBC (Bld) [Ratio] 0.0 /100 WBC Normal [facility] Comment on above: Order Comment: Speci men Type: BLOOD SPECIMEN Ordering Facility: [facility] Address: [address] [place] [address] Performed By: #### 5 7021-8 #### [facility] CLIA [id number] [address] [place] [address] 89758 Platelet mean volume (Bld) [Entitic vol] 9.9 fL Normal 9.0-12.7 [facility] Comment on above: Order Comment: Speci men Type: BLOOD SPECIMEN Ordering Facility: [facility] Address: [address] [place] [address] Performed By: #### 5 7021-8 #### [facility] CLIA [id number] [address] [place] [address] 22057 Platelets (Bld) [#/Vol] 232 10*3/uL Normal 150-400 [facility] Comment on above: Order Comment: Speci men Type: BLOOD SPECIMEN Ordering Facility: [facility] Address: [address] [place] [address] Performed By: #### 5 7021-8 #### [facility] CLIA [id number] [address] [place] [address] 80591 RBC (Bld) [#/Vol] 4.42 10*6/uL Normal 3.90-5.20 [facility] Comment on above: Order Comment: Speci men Type: BLOOD SPECIMEN [facility] [facility] Address: [address] [place] [address] Performed By: #### 5 7021-8 #### [facility] CLIA [id number] [address] [place] [address] WBC (Bld) [#/Vol] 7.02 10*3/uL Normal 3.70-11.00 [facility] Comment on above: Order Comment: Speci men Type: BLOOD SPECIMEN Ordering Facility: [facility] Address: [address] [place] [address] Performed By: #### 5 7021-8 #### [facility] [place] [id number] [address] [place] [address] CNOVSPon 07-14-2023 CNOVS Visit (SP) Office (HEMASA) -------- ANGELIQUE CHERY ([id number]) 1960 F Date Time Provider Department 07/14/23 [...] Right breast lumpectomy and sentinel node procedure [place] Invasive ductal carcinom (more content not included)... Normal [facility] Cancer Ag27-29 SerPl-aCncon 09-26-2023 Cancer Ag 27- Qn 48.3 [arb'U]/mL High <38.6 C [facility] Comment on above: Order Comment: Speci men Type: BLOOD SPECIMENOrdering Facility: [facility] Address: [address] [address] Result Comment: The CA27.29 test was performed using the Siemens Allegro Diagnosticsaur XP chemiluminometric immunoassay method. Results obtained with different assay methods or kits cannot be used interchangeably. Performed By: #### 1 7842-6 ####[facility] [id number] [facility] [id number] [facility] Comprehensive metabolic 2000 panelon 07-14-2023 Albumin [Mass/Vol] 4.2 g/dL Normal 3.9-4.9 [facility] Comment on above: Order Comment: Speci men Type: BLOOD SPECIMENOrdering Facility: [facility] Address: [address] [address] Performed By: #### 2 4323-8 ####[facility] [id number] [place] [address] ALP [Catalytic activity/Vol] 241 U/L High 34-123 [facility] Comment on above: Order Comment: Speci men Type: BLOOD SPECIMENOrdering Facility: [facility] Address: [address] [address] Performed By: #### 2 4323-8 ####[facility] [id number] [place] [address] ALT [Catalytic activity/Vol] 26 U/L Normal 7-38 [facility] Comment on above: Order Comment: Speci men Type: BLOOD SPECIMENOrdering Facility: [facility] Address: [address] [address] Performed By: #### 2 4323-8 ####[facility] [id number] [place] [address] Anion gap [Moles/Vol] 8 mmol/L Low 9-18 [facility] Comment on above: Order Comment: Speci men Type: BLOOD SPECIMENOrdering Facility: [facility] Address: [address] [address] Performed By: #### 2 4323-8 ####[facility]CLIA [id number] [place] [address] AST [Catalytic activity/Vol] 44 U/L High 13-35 [facility] Comment on above: Order Comment: Speci men Type: BLOOD SPECIMENOrdering Facility: [facility] Address: [address] [address] Performed By: #### 2 4323-8 ####[facility]CLIA [id number] [place] [address] Bilirubin [Mass/Vol] 0.8 mg/dL Normal 0.2-1.3 [facility] Comment on above: Order Comment: Speci men Type: BLOOD SPECIMENOrdering Facility: [facility] Address: [address] [address] Performed By: #### 2 4323-8 ####[facility] LABCLIA [id number] [place] [address] Calcium [Mass/Vol] 9.8 mg/dL Normal 8.5-10.2 [facility] Comment on above: Order Comment: Speci men Type: BLOOD SPECIMENOrdering Facility: [facility] Address: [address] [address] Performed By: #### 2 4323-8 ####[facility] [id number] [place] [address] Chloride [Moles/Vol] 103 mmol/L Normal 97-105 [facility] Comment on above: Order Comment: Speci men Type: BLOOD SPECIMENOrdering Facility: [facility] Address: [address] [address] Performed By: #### 2 4323-8 ####[facility] [id number] [place] [address] CO2 [Moles/Vol] 29 mmol/L Normal 22-30 [facility] Comment on above: Order Comment: Speci men Type: BLOOD SPECIMENOrdering Facility: [facility] Address: [address] [place] [address] Performed By: #### 2 4323-8 ####[facility] [id number] [place] [address] Creatinine [Mass/Vol] 0.85 mg/dL Normal 0.58-0.96 [facility] Comment on above: Order Comment: Speci men Type: BLOOD SPECIMENOrdering Facility: [facility] Address: [address] [place] [address] Performed By: #### 2 4323-8 ####[facility] [id number] [place] [address] Creatinine and Glomerular filtration rate.predicted panel (S/P/Bld) 77 mL/min/1.73m??? Normal >=60 [facility] Comment on above: Order Comment: Speci men Type: BLOOD SPECIMENOrdering Facility: [facility] Address: [address] [place] [address] Result Comment: Salima mated Glomerular Filtration Rate [...] actual GFR. Performed By: #### 2 4323-8 ####[facility]IA [id number] [place] [address] Glucose [Mass/Vol] 98 mg/dL Normal 74-99 [facility] Comment on above: Order Comment: Speci men Type: BLOOD SPECIMENOrdering Facility: [facility] Address: [address] [place] [address] Result Comment: The [place] Diabetes Association (ADA) provides guidance for cutoff [...] Standards of Medical Care in Diabetes 2016, [place] [employer]. Diabetes Care. 2016.39(Suppl 1). Performed By: #### 2 4323-8 ####[facility] [id number] [place] [address] Potassium [Moles/Vol] 4.3 mmol/L Normal 3.7-5.1 [facility] Comment on above: Order Comment: Speci men Type: BLOOD SPECIMENOrdering Facility: [facility] Address: [address] [address] Performed By: #### 2 4323-8 ####[facility] [id number] [place] [address] Protein [Mass/Vol] 8.9 g/dL High 6.3-8.0 [facility] Comment on above: Order Comment: Speci men Type: BLOOD SPECIMENOrdering Facility: [facility] Address: [address] [address] Performed By: #### 2 4323-8 ####[facility] [id number] [place] [address] Sodium [Moles/Vol] 140 mmol/L Normal 136-144 [facility] Comment on above: Order Comment: Speci men Type: BLOOD SPECIMENOrdering Facility: [facility] Address: [address] [address] Performed By: #### 2 4323-8 ####[facility]CLIA [id number] [place] [address] Urea nitrogen [Mass/Vol] 12 mg/dL Normal 7-21 [facility] Comment on above: Order Comment: Speci men Type: BLOOD SPECIMENOrdering Facility: [facility] Address: [address] [place] [address] Performed By: #### 2 4323-8 ####[facility]CLIA [id number] [place] [address] Physician Orderon 07-13-2023 Physician Order [id number]#1.00CD:1 27 Normal [facility] 07-10-2023 [facility] Telephone (NCCAP) -------- ANGELIQUE CHERY ([id number]) 1960 F Date Time Provider Department 07/10/23 [facility] During your visit today, we recorded the following information about you: Latisha Hutchinson 07/10/2023 7:14 AM Signed [facility] called asking if we could put [...] Encounter Status:Closed by LATISHA HUTCHINSON on 07/13/23 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 Normal [facility] Physician Orderon 07-09-2023 Physician Order [id number]#1.00CD: 127 Normal [facility] NM PET/CT SKULL-THIGH INITon 07-06-2023 NM PET/CT [...] SKELETON: There are no hypermetabolic osseous lesions. Operation Shift Supervisor (topogram) images:No additional findings. IMPRESSION: 1. Neck: [...] any questions regarding this interpretation, please call [phone]. If you are unable to reach us at the number above, please feel free to contact [facility] at [phone]. [id number] Normal [facility] Consent for Treatmenton Consent for Treatment [id number]#1.00CD: 127 Normal [facility] Consent for Treatment [id number]#1.00CD: 127 Normal [facility] MA Mamm Diag w/CAD if perf a [...] IMPORTANT TO YOUR HEALTH. Report THE CURRENT [employer] [...] interval follow-up Recommendation: Follow-up at short interval [facility] US Breast Unilateral Rt Comp leteon 06-26-2023 [...] Mejia MD Transcribed by: YARELY Technologist: GURMEET [facility] [place] 06-25-2023 MARLYN Telephone (HEMASA) -------- ANGELIQUE CHERY ([id number]) 1960 F Date Time Provider Department 06/25/23 INDIO TRIVEDI During your visit today, we recorded the following information about you: Indio Trivedi RN 06/25/2023 8:18 AM Signed [facility] US called to verify order as Limited, and to only include the upper outer quadrant and axilla. Discussed with BRSanjeev and our [facility] Breast US order, only allows for LTD (NO complete order available) Verbal order taken for complete breast US to include axilla. Indio Trivedi RN Allergies As of Date: 06/25/2023 Noted Allergy Reaction DOXYCYCLINE 06/13/2013 16 - Unknown 4 - Hives Comments: monocycline allery same reaction Date Reviewed: 06/15/2023 Reviewed by: Lavern Tolbert APRN.OFFICE CLIN ASST - Fully Assessed Reason for Visit: Orders [...] Status:Closed by INDIO TRIVEDI on 06/25/23 Normal [facility] Physician Orderon 06-25-2023 Physician Order [id number]#1.00CD :127 Normal [facility] CNPN Telephone (HEMASA) -------- ANGELIQUE CHERY ([id number]) 1960 F Date Time Provider Department 06/17/23 [...] 06/17/2023 12:56 PM Signed Pt informed of BRM message. She will remain off Lipitor. She is agreeable to POC and denies any questions, needs or concerns at this time. Indio Trivedi RN Allergies As of Date: 06/17/2023 Noted Allergy Reaction DOXYCYCLINE 06/13/2013 16 - Unknown 4 - Hives Comments: monocycline allery same reaction Date Reviewed: 06/15/2023 Reviewed by: Lavern Tolbert APRN.OFFICE CLIN ASST - Fully Assessed Reason for Visit: Results [...] Status:Closed by INDIO TRIVEDI on 06/17/23 Normal [facility] Hepatic function 2000 panelo n 06-17-2023 Albumin [Mass/Vol] 3.9 g/dL Normal 3.9-4.9 [facility] Comment on above: Order Comment: Speci men Type: BLOOD SPECIMENOrdering Facility: [facility] Address: [address] [phone] Performed By: #### 2 4325-3 ####[facility]CL[facility] [id number] [place] [address] ALP [Catalytic activity/Vol] 518 U/L High 34-123 [facility] Comment on above: Order Comment: Speci men Type: BLOOD SPECIMENOrdering Facility: [facility] Address: [address] [phone] Performed By: #### 2 4325-3 ####[facility]CLIA [id number] [place] [address] ALT [Catalytic activity/Vol] 174 U/L High 7-38 [facility] Comment on above: Order Comment: Speci men Type: BLOOD SPECIMENOrdering Facility: [facility] Address: [address] [place] [address] Performed By: #### 2 4325-3 ####[facility]CLIA [id number] [place] [address] AST [Catalytic activity/Vol] 314 U/L High 13-35 [facility] Comment on above: Order Comment: Speci men Type: BLOOD SPECIMENOrdering Facility: [facility] Address: [address] [place] [address] Performed By: #### 2 4325-3 ####[facility]CLIA [id number] [place] [address] Bilirubin [Mass/Vol] 1.4 mg/dL High 0.2-1.3 [facility] Comment on above: Order Comment: Speci men Type: BLOOD SPECIMENOrdering Facility: [facility] Address: [address] [place] [address] Performed By: #### 2 4325-3 ####[facility]CLIA [id number] [place] [address] Bilirubin.conjugated [Mass/Vol] 0.7 mg/dL High <0.2 [facility] Comment on above: Order Comment: Speci men Type: BLOOD SPECIMENOrdering Facility: [facility] Address: [address] [place] [address] Performed By: #### 2 4325-3 ####[facility]CL[facility] [id number] [place] [address] Protein [Mass/Vol] 9.0 g/dL High 6.3-8.0 [facility] Comment on above: Order Comment: Speci men Type: BLOOD SPECIMENOrdering Facility: [facility] Address: [address] [place] [address] Performed By: #### 2 4325-3 ####[facility] [id number] [place] [address] [place] 06-16-2023 MAGALIN Telephone (HEMASA) -------- ANGELIQUE CHERY ([id number]) 1960 F Date Time Provider Department 06/16/23 INDIO TRIVEDI During your visit today, we [...] Date Reviewed: 06/15/2023 Reviewed by: Lavern Tolbert APRN.OFFICE CLIN ASST - Fully Assessed Reason for Visit: Results [95] Primary Visit Diagnosis:Abnormal liver function tests [R79.89] Order(s):HEPATIC FUNCTION PNL [SQHFP] Order #: [id number] FUTURE Prescriptions as of 06/16/2023 - atorvastatin [...] Status:Closed by INDIO TRIVEDI on 06/16/23 Normal [facility] Consultation Noteon 06-16-20 Consultation Note [id number]#1.00CD: 127 Normal [facility] CBC W Auto Differential pane l (Bld)on 06-15-2023 Basophils (Bld) [#/Vol] 10*3/uL Normal <0.11 [facility] Comment on above: Order Comment: Speci men Type: BLOOD SPECIMEN Ordering Facility: Dr Whalen and Dr Hodge Office Address: [address] [place] [address] Performed By: #### 3 016-3 #### [facility] CLIA [id number] [address] [place] [address] [place] Basophils/100 WBC (Bld) 0.3 % Normal [facility] Comment on above: Order Comment: Speci men Type: BLOOD SPECIMEN Ordering Facility: Dr Teresa Hodge Office Address: [address] [place] [address] Performed By: #### 3 016-3 #### [facility] CLIA [id number] [address] [place] [address] [place] Differential cell count method Nom (Bld) Auto Normal [facility] Comment on above: Order Comment: Speci men Type: BLOOD SPECIMEN Ordering Facility: Dr Teresa Hodge Office Address: [address] [place] [address] Performed By: #### 3 016-3 #### [facility] CLIA [id number] [address] [place] [address] [place] Eosinophils (Bld) [#/Vol] 0.17 10*3/uL Normal <0.46 [facility] Comment on above: Order Comment: Speci men Type: BLOOD SPECIMEN Ordering Facility: Dr Teresa Hodge Office Address: [address] [place] [address] Performed By: #### 3 016-3 #### [facility] CLIA [id number] [address] [place] [address] [place] Eosinophils/100 WBC (Bld) 2.8 % Normal [facility] Comment on above: Order Comment: Speci men Type: BLOOD SPECIMEN Ordering Facility: Dr Teresa Hodge Office Address: [address] [place] [address] Performed By: #### 3 016-3 #### [facility] CLIA [id number] [address] [place] [address] [place] Erythrocyte distribution width (RBC) [Ratio] 16.4 % High 11.5-15.0 [facility] Comment on above: Order Comment: Speci men Type: BLOOD SPECIMEN Ordering Facility: Dr Teresa Hodge Office Address: [address] [place] [address] Performed By: #### 3 016-3 #### [facility] CLIA [id number] [address] [place] [address] [place] Hematocrit (Bld) [Volume fraction] 41.4 % Normal 36.0-46.0 [facility] Comment on above: Order Comment: Speci men Type: BLOOD SPECIMEN Ordering Facility: Dr Teresa Hodge Office Address: [address] [place] [address] Performed By: #### 3 016-3 #### [facility] CLIA [id number] [address] [place] [address] [place] Hemoglobin (Bld) [Mass/Vol] 12.9 g/dL Normal 11.5-15.5 [facility] Comment on above: Order Comment: Speci men Type: BLOOD SPECIMEN Ordering Facility: Dr Teresa Hodge Office Address: [address] [place] [address] Performed By: #### 3 016-3 #### [facility] CLIA [id number] [address] [place] [address] [place] Immature granulocytes (Bld) [#/Vol] 0.10 10*3/uL High <0.10 [facility] Comment on above: Order Comment: Speci men Type: BLOOD SPECIMEN Ordering Facility: Dr Teresa Hodge Office Address: [address] [place] [address] Performed By: #### 3 016-3 #### [facility] CLIA [id number] [address] [place] [address] [place] Immature granulocytes/100 WBC (Bld) 1.7 % Normal [facility] Comment on above: Order Comment: Speci men Type: BLOOD SPECIMEN Ordering Facility: Dr Teresa Hodge Office Address: [address] [place] [address] Performed By: #### 3 016-3 #### [facility] CLIA [id number] [address] [place] [address] [place] Lymphocytes (Bld) [#/Vol] 0.90 10*3/uL Low 1.00-4.00 [facility] Comment on above: Order Comment: Speci men Type: BLOOD SPECIMEN Ordering Facility: Dr Teresa Hodge Office Address: [address] [place] [address] Performed By: #### 3 016-3 #### [facility] CLIA [id number] [address] [place] [address] [place] Lymphocytes/100 WBC (Bld) 14.9 % Normal [facility] Comment on above: Order Comment: Speci men Type: BLOOD SPECIMEN Ordering Facility: Dr Teresa Hodge Office Address: [address] [place] [address] Performed By: #### 3 016-3 #### [facility] CLIA [id number] [address] [place] [address] [place] MCH (RBC) [Entitic mass] 28.2 pg Normal 26.0-34.0 [facility] Comment on above: Order Comment: Speci men Type: BLOOD SPECIMEN Ordering Facility: Dr Teresa Hodge Office Address: [address] [place] [address] Performed By: #### 3 016-3 #### [facility] CLIA [id number] [address] [place] [address] [place] MCHC (RBC) [Mass/Vol] 31.2 g/dL Normal 30.5-36.0 [facility] Comment on above: Order Comment: Speci men Type: BLOOD SPECIMEN Ordering Facility: Dr Teresa Hodge Office Address: [address] [place] [address] Performed By: #### 3 016-3 #### [facility] CLIA [id number] [address] [place] [address] [place] MCV (RBC) [Entitic vol] 90.6 fL Normal 80.0-100.0 [facility] Comment on above: Order Comment: Speci men Type: BLOOD SPECIMEN Ordering Facility: Dr Teresa Hodge Office Address: [address] [place] [address] Performed By: #### 3 016-3 #### [facility] CLIA [id number] [address] [place] [address] [place] Monocytes (Bld) [#/Vol] 0.49 10*3/uL Normal <0.87 [facility] Comment on above: Order Comment: Speci men Type: BLOOD SPECIMEN Ordering Facility: Dr Teresa Hodge Office Address: [address] [place] [address] Performed By: #### 3 016-3 #### [facility] CLIA [id number] [address] [place] [address] [place] Monocytes/100 WBC (Bld) 8.1 % Normal [facility] Comment on above: Order Comment: Speci men Type: BLOOD SPECIMEN Ordering Facility: Dr Teresa Hodge Office Address: [address] [place] [address] Performed By: #### 3 016-3 #### [facility] CLIA [id number] [address] [place] [address] [place] Neutrophils (Bld) [#/Vol] 4.35 10*3/uL Normal 1.45-7.50 [facility] Comment on above: Order Comment: Speci men Type: BLOOD SPECIMEN Ordering Facility: Dr Teresa Hodge Office Address: [address] [place] [address] Performed By: #### 3 016-3 #### [facility] CLIA [id number] [address] [place] [address] [place] Neutrophils/100 WBC (Bld) 72.2 % Normal [facility] Comment on above: Order Comment: Speci men Type: BLOOD SPECIMEN Ordering Facility: Dr Teresa Hodge Office Address: [address] [place] [address] Performed By: #### 3 016-3 #### [facility] CLIA [id number] [address] [place] [address] [place] Nucleated RBC (Bld) [#/Vol] 10*3/uL Normal <0.01 [facility] Comment on above: Order Comment: Speci men Type: BLOOD SPECIMEN Ordering Facility: Dr Teresa Hodge Office Address: [address] [place] [address] Performed By: #### 3 016-3 #### [facility] CLIA [id number] [address] [place] [address] [place] Nucleated RBC/100 WBC (Bld) [Ratio] 0.0 /100 WBC Normal [facility] Comment on above: Order Comment: Speci men Type: BLOOD SPECIMEN Ordering Facility: Dr Teresa Hodge Office Address: [address] [place] [address] Performed By: #### 3 016-3 #### [facility] CLIA [id number] [address] [place] [address] [place] Platelet mean volume (Bld) [Entitic vol] 10.3 fL Normal 9.0-12.7 [facility] Comment on above: Order Comment: Speci men Type: BLOOD SPECIMEN Ordering Facility: Dr Teresa Hodge Office Address: [address] [place] [address] Performed By: #### 3 016-3 #### [facility] CLIA [id number] [address] [place] [address] [place] Platelets (Bld) [#/Vol] 199 10*3/uL Normal 150-400 [facility] Comment on above: Order Comment: Speci men Type: BLOOD SPECIMEN Ordering Facility: Dr Teresa Hodge Office Address: [address] [place] [address] Performed By: #### 3 016-3 #### [facility] CLIA [id number] [address] [place] [address] [place] RBC (Bld) [#/Vol] 4.57 10*6/uL Normal 3.90-5.20 [facility] Comment on above: Order Comment: Speci men Type: BLOOD SPECIMEN Ordering Facility: Dr Teresa Hodge Office Address: [address] [place] [address] Performed By: #### 3 016-3 #### [facility] CLIA [id number] [address] [place] [address] [place] WBC (Bld) [#/Vol] 6.03 10*3/uL Normal 3.70-11.00 [facility] Comment on above: Order Comment: Speci men Type: BLOOD SPECIMEN Ordering Facility: Dr Teresa Hodge Office Address: [address] [place] [address] Performed By: #### 3 016-3 #### [facility] CLIA [id number] [address] [place] [address] [place] CNOVSPon 06-15-2023 CNOVSP Visit (SP) Office (HEMASA) -------- ANGELIQUE CHERY ([id number]) 1960 F Date Time Provider Department 06/15/23 [...] Right [place] Invasive ductal carcinoma, 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 Margins negative for invasive carcinoma. (more content not included)... Normal [facility] CNPNon 06-15-2023 CNPN Telephone (HEMASA) -------- ANGELIQUE CHERY ([id number]) 1960 F Date Time Provider Department 06/15/23 [...] 06/15/2023 1:08 PM Signed Pt aware of BR findings. Discussed labs per request. Pt agrees to US. FYI, She does not have a gallbladder. Pt prefers [facility], but is willing to go wherever can get her in the soonest available. BRM would like today or tomorrow if at all possible d/t drastic elevation of liver enzymes (new finding). PSS: please arrange LAURA Macias Natalie, RN 06/15/2023 1:24 PM Signed BRM: Placed new order for STAT US to be completed LAURA Macias Holly, APRN.MAGALI 06/15/2023 1:59 PM Signed Signed. Lavern Tolbert APRN.Ruth Ann Lara 06/15/2023 2:05 PM Signed Patient has been scheduled for US tomorrow, 06/16 at [place] at 7 am. Patient notified. Patient to be fasting for 8 hours, fat free supper tonight; patient notified of these instructions. Order faxed June 15, 2023 2:04 PM Ruth Ann Berry Allergies As of Date: 06/15/2023 Noted Allergy Reaction DOXYCYCLINE 06/13/2013 16 - Unknown 4 - Hives Comments: monocycline allery same reaction Date Reviewed: 06/15/2023 Reviewed by: Lavern Tolbert APRN.OFFICE CLIN ASST - Fully Assessed Reason for Visit: Results [95] Orders [681] Primary Visit Diagnosis:Abnormal liver function tests [R79.89] Other Visit Diagnoses:Malignant neoplasm of upper-outer quadrant of right female breast, unspecified estrogen receptor status (HCC) [C50.411] Elevated liver function tests [R79.89] Order(s):US ABD RIGHT UPPER QUADRANT [[id number]] Order #: [id number] FUTURE Prescriptions as of 06/15/2023 - atorvastatin [...] Status:Closed by INDIO TRIVEDI on 06/15/23 Normal [facility] Cancer Ag27-29 SerPl-aCncon 06-15-2023 Cancer Ag 27-29 Qn 51.9 [arb'U]/mL High <38.6 C [facility] Comment on above: Order Comment: Speci men Type: BLOOD SPECIMENOrdering Facility: [facility] Address: [place] [address] Result Comment: The CA27.29 test was performed using the Siemens Allegro Diagnosticsaur XP chemiluminometric immunoassay method. Results obtained with different assay methods or kits cannot be used interchangeably. Performed By: #### 1 7842-6 ####[facility] LABCLIA [id number] LEVI [facility] HOSPITALAnusha [id number] [address] [place] Comprehensive metabolic 2000 panelon 06-15-2023 Albumin [Mass/Vol] 4.0 g/dL Normal 3.9-4.9 [facility] Comment on above: Order Comment: Speci men Type: BLOOD SPECIMENOrdering Facility: [facility] Address: [address] [address] Performed By: #### 2 4323-8 ####[facility] LABCLIA [id number] [place] [address] ALP [Catalytic activity/Vol] 536 U/L High 34-123 [facility] Comment on above: Order Comment: Speci men Type: BLOOD SPECIMENOrdering Facility: [facility] Address: [address] [address] Performed By: #### 2 4323-8 ####[facility] LABIA [id number] [place] [address] ALT [Catalytic activity/Vol] 187 U/L High 7-38 [facility] Comment on above: Order Comment: Speci men Type: BLOOD SPECIMENOrdering Facility: [facility] Address: [address] [place] [address] Performed By: #### 2 4323-8 ####[facility] LABIA [id number] [place] [address] Anion gap [Moles/Vol] 12 mmol/L Normal 9-18 [facility] Comment on above: Order Comment: Speci men Type: BLOOD SPECIMENOrdering Facility: [facility] Address: [address] [address] Performed By: #### 2 4323-8 ####[facility] LABIA [id number] [place] [address] AST [Catalytic activity/Vol] 377 U/L High 13-35 [facility] Comment on above: Order Comment: Speci men Type: BLOOD SPECIMENOrdering Facility: [facility] Address: [address] [address] Performed By: #### 2 4323-8 ####[facility] LABCLIA [id number] [place] [address] Bilirubin [Mass/Vol] 1.6 mg/dL High 0.2-1.3 [facility] Comment on above: Order Comment: Speci men Type: BLOOD SPECIMENOrdering Facility: [facility] Address: [address] [address] Performed By: #### 2 4323-8 ####[facility] LABCLIA [id number] [place] [address] Calcium [Mass/Vol] 9.8 mg/dL Normal 8.5-10.2 [facility] Comment on above: Order Comment: Speci men Type: BLOOD SPECIMENOrdering Facility: [facility] Address: [address] [place] [address] Performed By: #### 2 4323-8 ####[facility] LABCLIA [id number] [place] [address] Chloride [Moles/Vol] 103 mmol/L Normal 97-105 [facility] Comment on above: Order Comment: Speci men Type: BLOOD SPECIMENOrdering Facility: [facility] Address: [address] [place] [address] Performed By: #### 2 4323-8 ####[facility] LABCLIA [id number] [place] [address] CO2 [Moles/Vol] 25 mmol/L Normal 22-30 [facility] Comment on above: Order Comment: Speci men Type: BLOOD SPECIMENOrdering Facility: [facility] Address: [address] [place] [address] Performed By: #### 2 4323-8 ####[facility] LABCLIA [id number] [place] [address] Creatinine [Mass/Vol] 0.75 mg/dL Normal 0.58-0.96 [facility] Comment on above: Order Comment: Nic espinosa Type: BLOOD SPECIMENOrdering Facility: [facility] Address: [address] [id number] Performed By: #### 2 4323-8 ####[facility] LABCLIA [id number] [place] [address] Creatinine and Glomerular filtration rate.predicted panel (S/P/Bld) 90 mL/min/1.73m??? Normal >=60 [facility] Comment on above: Order Comment: Nic espinosa Type: BLOOD SPECIMENOrdering Facility: [facility] Address: [address] [address] Result Comment: Salima mated Glomerular Filtration Rate [...] actual GFR. Performed By: #### 2 4323-8 ####[facility] LABCLIA [id number] [place] [address] Glucose [Mass/Vol] 104 mg/dL High 74-99 [facility] Comment on above: Order Comment: Nic espinosa Type: BLOOD SPECIMENOrdering Facility: [facility] Address: [address] [id number] Result Comment: The [place] Diabetes Association (ADA) provides guidance for cutoff [...] Standards of Medical Care in Diabetes 2016, [place] [employer]. Diabetes Care. 2016.39(Suppl 1). Performed By: #### 2 4323-8 ####[facility] LABCLIA [id number] [place] [address] Potassium [Moles/Vol] 3.8 mmol/L Normal 3.7-5.1 [facility] Comment on above: Order Comment: Speci men Type: BLOOD SPECIMENOrdering Facility: [facility] Address: [address] [address] Performed By: #### 2 4323-8 ####[facility] LABCLIA [id number] [place] [address] Protein [Mass/Vol] 9.2 g/dL High 6.3-8.0 [facility] Comment on above: Order Comment: Speci men Type: BLOOD SPECIMENOrdering Facility: [facility] Address: [address] [address] Performed By: #### 2 4323-8 ####[facility] LABCLIA [id number] [place] [address] Sodium [Moles/Vol] 140 mmol/L Normal 136-144 [facility] Comment on above: Order Comment: Speci men Type: BLOOD SPECIMENOrdering Facility: [facility] Address: [address] [address] Performed By: #### 2 4323-8 ####[facility] LABCLIA [id number] [place] [address] Urea nitrogen [Mass/Vol] 12 mg/dL Normal 7-21 [facility] Comment on above: Order Comment: Speci men Type: BLOOD SPECIMENOrdering Facility: [facility] Address: [address] [address] Performed By: #### 2 4323-8 ####[facility] LABCLIA [id number] [place] [address] Physician Orderon 06-15-2023 Physician Order [id number]#1.00CD:1 27 [facility] [place] 06-08-2023 CNPN Telephone (HEMTSA) -------- GERDAANGELIQUE LOPEZ ([id number]) 1960 F Date Time Provider Department 06/08/23 [...] Date Reviewed: 06/02/2023 Reviewed by: Lavern Tolbert APRN.OFFICE CLIN ASST - Fully Assessed Reason for Visit: Appointment [186] Primary Visit Diagnosis:Malignant neoplasm of upper-outer quadrant of right female breast, unspecified estrogen receptor status (HCC) [C50.411] Order(s):CBC + DIFF [SQCBCDIF] Order #: [id number] FUTURE COMP METABOLIC PANEL [SQCMP] Order #: [id number] FUTURE CA 27.29 BLOOD [[id number]] Order #: [id number] FUTURE Prescriptions as of 06/08/2023 - anastrozole [...] Encounter Status:Closed by SALOME ARVIZU on 06/08/23 [facility] [place] 06-01-2023 MARLYN Telephone (HEMTSA) -------- ANGELIQUE CHERY ([id number]) 1960 F Date Time Provider Department 06/01/23 INDIO TRIVEDI During your visit today, we [...] and pt to have bone scan at [facility] (completed 05/18) PSS: Please call to schedule LESLIE LAURA Macias Angela D 06/02/2023 8:00 AM Signed Called [facility] and had to leave a message to ask why only the bone scan was scheduled and not the ct at the same time? And when they call back we will get it scheduled. Indio Trivedi RN 06/02/2023 2:42 PM Signed Please sign pended CRE for pt to have completed for her CT at [facility]. LAURA Macias, Latisha 06/03/2023 7:55 AM Signed CRE order faxed Indio Trivedi RN 06/03/2023 8:31 AM Signed Spoke with [facility] scheduling. CT CAP auth's rec'd. She will call pt today to schedule. LAURA Macias, Latisha 06/04/2023 10:49 AM Signed Patient is scheduled sat jun [address] Allergies As of Date: 06/01/2023 Noted Allergy Reaction DOXYCYCLINE 06/13/2013 16 - Unknown 4 - Hives Comments: monocycline allery same reaction Date Reviewed: 04/08/2023 Reviewed by: Marcela Washington PADemond - Fully Assessed Reason for Visit: Appointment [186] Primary Visit Diagnosis:Malignant neoplasm of upper-outer quadrant of right female breast, unspecified estrogen receptor status (HCC) [C50.411] Other Visit Diagnosis:Abnormal tumor markers [R97.8] Order(s):CREATININE BLD [SQCRET] Order #: [id number] FUTURE Prescriptions as of 06/04/2023 - anastrozole [...] Encounter Status:Closed by LAVERN TOLBERT on 06/02/23 [facility] [place] 05-11-2023 MAGALIN Telephone (HEMASA) -------- ANGELIQUE CHERY ([id number]) 1960 F Date Time Provider Department 05/11/23 [...] Pt would like bone scan done at [facility]. Thanks LAURA Casanova Jodi 05/12/2023 10:09 AM Signed Hello there, could you please put order in and Ill be happy to get it scheduled. Thank you. Nancy Maradiaga RN 05/12/2023 10:15 AM Signed Orders pended. LAURA Mancilla Jodi 05/12/2023 10:30 AM Signed Left message at [place] to call us back to schedule. Lavern Tolbert APRN.CNP 05/12/2023 10:35 AM Signed Signed. AUGUSTIN Hummel Jodi 05/13/2023 1:18 PM Signed Spoke to [facility], they do have the order, they are checking for prior authorization and they will be calling patient to schedule. Allergies As of Date: 05/11/2023 Noted Allergy Reaction DOXYCYCLINE 06/13/2013 16 - Unknown 4 - Hives Comments: monocycline allery same reaction Date Reviewed: 04/08/2023 Reviewed by: Marcela Washington PA-C - Fully Assessed Reason for Visit: Care Coordination [3491] Cmt: New orders Primary Visit Diagnosis:Malignant neoplasm of upper-outer quadrant of right breast in female, estrogen receptor positive (HCC) [C50.411, Z17.0] Other Visit Diagnosis:Elevated tumor markers [R97.8] Order(s):CT ABD/PEL W IVCON [[id number]] Order #: [id number] FUTURE CT CHEST W IVCON [[id number]] Order #: [id number] FUTURE [] iv contrast (will be provided [...] 1 EachRfl: 0 NM BONE WHOLE BODY [[id number]] Order #: [id number] FUTURE Prescriptions as of 05/29/2023 - anastrozole [...] Encounter Status:Closed by RIRI OSPINA on 05/29/23 Normal [facility] Cancer Ag27-29 SerPl-aCncon 05-07-2023 Cancer Ag 27-29 Qn 47.4 [arb'U]/mL High <38.6 C [facility] Comment on above: Order Comment: Speci men Type: BLOOD SPECIMENOrdering Facility: [facility] Address: [address] [place] [address] Result Comment: The CA27.29 test was performed using the Siemens Allegro Diagnosticsaur XP chemiluminometric immunoassay method. Results obtained with different assay methods or kits cannot be used interchangeably. Performed By: #### 1 7842-6 ####[facility] LABCLIA [id number] [address] [place] 04-08-2023 MAGALIN Telephone (SANDRA) -------- ANGELIQUE CHERY ([id number]) 1960 F Date Time Provider Department 04/08/23 [...] now. She will see the appt on MyChart, so she will not need called. LAURA [...] positive (HCC) [C50.411, Z17.0] Order(s):CA 27.29 BLOOD [[id number]] Order #: [id number] FUTURE Prescriptions as of 04/08/2023 - anastrozole [...] Status:Closed by BLAYNE PRETTY on 04/08/23 Normal [facility] Physician Orderon 04-07-2023 Physician Order [id number]:1 27 Normal [facility] CBC W Auto Differential pane l (Bld)on 04-06-2023 Basophils (Bld) [#/Vol] 10*3/uL Normal <0.11 [facility] Comment on above: Order Comment: Speci men Type: BLOOD SPECIMENOrdering Facility: [facility] Address: [address] [address] Performed By: #### 5 7021-8 ####[facility] LABCLIA [id number] [place] [address] Basophils/100 WBC (Bld) 0.4 % Normal [facility] Comment on above: Order Comment: Speci men Type: BLOOD SPECIMENOrdering Facility: [facility] Address: [address] [place] [address] Performed By: #### 5 7021-8 ####[facility] LABCLIA [id number] [place] [address] Differential cell count method Nom (Bld) Auto Normal [facility] Comment on above: Order Comment: Speci men Type: BLOOD SPECIMENOrdering Facility: [facility] Address: [address] [place] [address] Performed By: #### 5 7021-8 ####[facility] LABCLIA [id number] [place] [address] Eosinophils (Bld) [#/Vol] 0.11 10*3/uL Normal <0.46 [facility] Comment on above: Order Comment: Speci men Type: BLOOD SPECIMENOrdering Facility: [facility] Address: [address] [place] [address] Performed By: #### 5 7021-8 ####[facility] LABCLIA [id number] [place] [address] Eosinophils/100 WBC (Bld) 2.1 % Normal [facility] Comment on above: Order Comment: Speci men Type: BLOOD SPECIMENOrdering Facility: [facility] Address: [address] [place] [address] Performed By: #### 5 7021-8 ####[facility] LABCLIA [id number] [place] [address] Erythrocyte distribution width (RBC) [Ratio] 15.0 % Normal 11.5-15.0 [facility] Comment on above: Order Comment: Speci men Type: BLOOD SPECIMENOrdering Facility: [facility] Address: [address] [address] Performed By: #### 5 7021-8 ####[facility] LABCLIA [id number] [place] [address] Hematocrit (Bld) [Volume fraction] 39.5 % Normal 36.0-46.0 [facility] Comment on above: Order Comment: Speci men Type: BLOOD SPECIMENOrdering Facility: [facility] Address: [address] [address] Performed By: #### 5 7021-8 ####[facility] LABCLIA [id number] [place] [address] Hemoglobin (Bld) [Mass/Vol] 12.4 g/dL Normal 11.5-15.5 [facility] Comment on above: Order Comment: Speci men Type: BLOOD SPECIMENOrdering Facility: [facility] Address: [address] [address] Performed By: #### 5 7021-8 ####[facility] LABCLIA [id number] [place] [address] Immature granulocytes (Bld) [#/Vol] 0.06 10*3/uL Normal <0.10 [facility] Comment on above: Order Comment: Speci men Type: BLOOD SPECIMENOrdering Facility: [facility] Address: [address] [address] Performed By: #### 5 7021-8 ####[facility] LABCLIA [id number] [place] [address] Immature granulocytes/100 WBC (Bld) 1.2 % Normal [facility] Comment on above: Order Comment: Speci men Type: BLOOD SPECIMENOrdering Facility: [facility] Address: [address] [address] Performed By: #### 5 7021-8 ####[facility] LABCLIA [id number] [place] [address] Lymphocytes (Bld) [#/Vol] 1.06 10*3/uL Normal 1.00-4.00 [facility] Comment on above: Order Comment: Speci men Type: BLOOD SPECIMENOrdering Facility: [facility] Address: [address] [place] [address] Performed By: #### 5 7021-8 ####[facility] LABCLIA [id number] [place] [address] Lymphocytes/100 WBC (Bld) 20.3 % Normal [facility] Comment on above: Order Comment: Speci men Type: BLOOD SPECIMENOrdering Facility: [facility] Address: [address] [place] [address] Performed By: #### 5 7021-8 ####[facility] LABCLIA [id number] [place] [address] MCH (RBC) [Entitic mass] 28.1 pg Normal 26.0-34.0 [facility] Comment on above: Order Comment: Speci men Type: BLOOD SPECIMENOrdering Facility: [facility] Address: [address] [place] [address] Performed By: #### 5 7021-8 ####[facility] LABCLIA [id number] [place] [address] MCHC (RBC) [Mass/Vol] 31.4 g/dL Normal 30.5-36.0 [facility] Comment on above: Order Comment: Speci men Type: BLOOD SPECIMENOrdering Facility: [facility] Address: [address] [place] [address] Performed By: #### 5 7021-8 ####[facility] LABIA [id number] [place] [address] MCV (RBC) [Entitic vol] 89.4 fL Normal 80.0-100.0 [facility] Comment on above: Order Comment: Speci men Type: BLOOD SPECIMENOrdering Facility: [facility] Address: [address] [address] Performed By: #### 5 7021-8 ####[facility] LABCLIA [id number] [place] [address] Monocytes (Bld) [#/Vol] 0.50 10*3/uL Normal <0.87 [facility] Comment on above: Order Comment: Speci men Type: BLOOD SPECIMENOrdering Facility: [facility] Address: [address] [address] Performed By: #### 5 7021-8 ####[facility] LABCLIA [id number] [place] [address] Monocytes/100 WBC (Bld) 9.6 % Normal [facility] Comment on above: Order Comment: Speci men Type: BLOOD SPECIMENOrdering Facility: [facility] Address: [address] [address] Performed By: #### 5 7021-8 ####[facility] LABCLIA [id number] [place] [address] Neutrophils (Bld) [#/Vol] 3.46 10*3/uL Normal 1.45-7.50 [facility] Comment on above: Order Comment: Speci men Type: BLOOD SPECIMENOrdering Facility: [facility] Address: [address] [address] Performed By: #### 5 7021-8 ####[facility] LABCLIA [id number] [place] [address] Neutrophils/100 WBC (Bld) 66.4 % Normal [facility] Comment on above: Order Comment: Speci men Type: BLOOD SPECIMENOrdering Facility: [facility] Address: [address] [place] [address] Performed By: #### 5 7021-8 ####[facility] LABCLIA [id number] [place] [address] Nucleated RBC (Bld) [#/Vol] 10*3/uL Normal <0.01 [facility] Comment on above: Order Comment: Speci men Type: BLOOD SPECIMENOrdering Facility: [facility] Address: [address] [place] [address] Performed By: #### 5 7021-8 ####[facility] LABCLIA [id number] [place] [address] Nucleated RBC/100 WBC (Bld) [Ratio] 0.0 /100 WBC Normal [facility] Comment on above: Order Comment: Speci men Type: BLOOD SPECIMENOrdering Facility: [facility] Address: [address] [place] [address] Performed By: #### 5 7021-8 ####[facility] LABIA [id number] [place] [address] Platelet mean volume (Bld) [Entitic vol] 9.7 fL Normal 9.0-12.7 [facility] Comment on above: Order Comment: Speci men Type: BLOOD SPECIMENOrdering Facility: [facility] Address: [address] [place] [address] Performed By: #### 5 7021-8 ####[facility] LABCLIA [id number] [place] [address] Platelets (Bld) [#/Vol] 216 10*3/uL Normal 150-400 [facility] Comment on above: Order Comment: Speci men Type: BLOOD SPECIMENOrdering Facility: [facility] Address: [address] [place] [address] Performed By: #### 5 7021-8 ####[facility] LABIA [id number] [place] [address] RBC (Bld) [#/Vol] 4.42 10*6/uL Normal 3.90-5.20 [facility] Comment on above: Order Comment: Speci men Type: BLOOD SPECIMENOrdering Facility: [facility] Address: [place] [address] Performed By: #### 5 7021-8 ####[facility] [id number] [place] [address] WBC (Bld) [#/Vol] 5.21 10*3/uL Normal 3.70-11.00 [facility] Comment on above: Order Comment: Speci men Type: BLOOD SPECIMENOrdering Facility: [facility] Address: [place] [address] Performed By: #### 5 7021-8 ####[facility] LABIA [id number] [place] [address] CNOVSPon 04-06-2023 CNOVSP Visit (SP) Office (HEMASA) -------- ANGELIQUE CHERY ([id number]) 1960 F Date Time Provider Department 04/06/23 [...] Right breast lumpectomy and sentinel node [place] Invasive ductal carcinoma, 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 Margins negative for invasive carcinoma. DCIS present at deep margin, focal. 2 benign lymph nodes identified (0/2). Oncotype recurrence score 12 08/26/2022 Right breast core biopsy [place] Invasive ductal carcinoma, grade 2. ER 80 to 90%, LA 40 to 50%, HER2 negative RADIOLOGY/OTHER STUDIES: 08/25/2022 Diagnostic mammogram and right breast ultrasound ([facility] BI-RADS 5, high (more content not included)... Normal [facility] [place] 04-06-2023 CNPN Telephone (RADTSA) -------- ANGELIQUE CHERY ([id number]) 1960 F Date Time Provider Department 04/06/23 [...] female, estrogen receptor positive (HCC) [C50.411, Z17.0] Order(s):[facility] DIAGNOSTIC BILATERAL [[id number]] Order #: [id number] FUTURE Prescriptions as of 04/07/2023 - anastrozole [...] Status:Closed by SAYRA CORTEZ on 04/07/23 Normal [facility] Cancer Ag27-29 SerPl-aCncon 04-06-2023 Cancer Ag 27-29 Qn 42.2 [arb'U]/mL High <38.6 C [facility] Comment on above: Order Comment: Speci men Type: BLOOD SPECIMENOrdering Facility: [facility] Address: [address] [address] Result Comment: The CA27.29 test was performed using the Siemens Centaur XP chemiluminometric immunoassay method. Results obtained with different assay methods or kits cannot be used interchangeably. Performed By: #### 1 7842-6 ####[facility] LABCLIA [id number] [facility] [id number] [facility] Comprehensive metabolic 2000 panelon 04-06-2023 Albumin [Mass/Vol] 4.5 g/dL Normal 3.9-4.9 [facility] Comment on above: Order Comment: Speci men Type: BLOOD SPECIMENOrdering Facility: [facility] Address: [address] [place] [address] Performed By: #### 2 4323-8 ####[facility] LABCLIA [id number] [place] [address] ALP [Catalytic activity/Vol] 212 U/L High 34-123 [facility] Comment on above: Order Comment: Speci men Type: BLOOD SPECIMENOrdering Facility: [facility] Address: [address] [place] [address] Performed By: #### 2 4323-8 ####[facility] [id number] [place] [address] ALT [Catalytic activity/Vol] 15 U/L Normal 7-38 [facility] Comment on above: Order Comment: Speci men Type: BLOOD SPECIMENOrdering Facility: [facility] Address: [address] [address] Performed By: #### 2 4323-8 ####[facility] [id number] [place] [address] Anion gap [Moles/Vol] 8 mmol/L Low 9-18 [facility] Comment on above: Order Comment: Speci men Type: BLOOD SPECIMENOrdering Facility: [facility] Address: [address] [place] [address] Performed By: #### 2 4323-8 ####[facility] [id number] [place] [address] AST [Catalytic activity/Vol] 26 U/L Normal 13-35 [facility] Comment on above: Order Comment: Speci men Type: BLOOD SPECIMENOrdering Facility: [facility] Address: [address] [place] [address] Performed By: #### 2 4323-8 ####[facility] [id number] [place] [address] Bilirubin [Mass/Vol] 0.6 mg/dL Normal 0.2-1.3 [facility] Comment on above: Order Comment: Speci men Type: BLOOD SPECIMENOrdering Facility: [facility] Address: [address] [place] [address] Performed By: #### 2 4323-8 ####[facility] [id number] [place] [address] Calcium [Mass/Vol] 10.1 mg/dL Normal 8.5-10.2 [facility] Comment on above: Order Comment: Speci men Type: BLOOD SPECIMENOrdering Facility: [facility] Address: [address] [place] [address] Performed By: #### 2 4323-8 ####[facility] [id number] [place] [address] Chloride [Moles/Vol] 104 mmol/L Normal 97-105 [facility] Comment on above: Order Comment: Speci men Type: BLOOD SPECIMENOrdering Facility: [facility] Address: [address] [place] [address] Performed By: #### 2 4323-8 ####[facility]CL[facility] [id number] [place] [address] CO2 [Moles/Vol] 28 mmol/L Normal 22-30 [facility] Comment on above: Order Comment: Speci men Type: BLOOD SPECIMENOrdering Facility: [facility] Address: [address] [address] Performed By: #### 2 4323-8 ####[facility] [id number] [place] [address] Creatinine [Mass/Vol] 0.79 mg/dL Normal 0.58-0.96 [facility] Comment on above: Order Comment: Speci men Type: BLOOD SPECIMENOrdering Facility: [facility] Address: [address] [address] Performed By: #### 2 4323-8 ####[facility] [id number] [place] [address] ESTIMATED GLOMERULAR FILTRATION RATE 85 mL/min/1.73m??? Normal >=60 [facility] Comment on above: Order Comment: Speci men Type: BLOOD SPECIMENOrdering Facility: [facility] Address: [address] [address] Result Comment: Salima mated Glomerular Filtration Rate [...] actual GFR. Performed By: #### 2 4323-8 ####[facility] [id number] [place] [address] Glucose [Mass/Vol] 96 mg/dL Normal 74-99 [facility] Comment on above: Order Comment: Nic espinosa Type: BLOOD SPECIMENOrdering Facility: [facility] Address: [address] [address] Result Comment: The [place] Diabetes Association (ADA) provides guidance for cutoff [...] Standards of Medical Care in Diabetes 2016, [place] [employer]. Diabetes Care. 2016.39(Suppl 1). Performed By: #### 2 4323-8 ####[facility] [id number] [place] [address] Potassium [Moles/Vol] 3.8 mmol/L Normal 3.7-5.1 [facility] Comment on above: Order Comment: Speci men Type: BLOOD SPECIMENOrdering Facility: [facility] Address: [address] [place] [address] Performed By: #### 2 4323-8 ####[facility] LABIA [id number] [place] [address] Protein [Mass/Vol] 8.3 g/dL High 6.3-8.0 [facility] Comment on above: Order Comment: Speci men Type: BLOOD SPECIMENOrdering Facility: [facility] Address: [address] [place] [address] Performed By: #### 2 4323-8 ####[facility]CLIA [id number] [place] [address] Sodium [Moles/Vol] 140 mmol/L Normal 136-144 [facility] Comment on above: Order Comment: Speci men Type: BLOOD SPECIMENOrdering Facility: [facility] Address: [address] [place] [address] Performed By: #### 2 4323-8 ####[facility]CLIA [id number] [place] [address] Urea nitrogen [Mass/Vol] 11 mg/dL Normal 7-21 [facility] Comment on above: Order Comment: Speci men Type: BLOOD SPECIMENOrdering Facility: [facility] Address: [address] [place] [address] Performed By: #### 2 4323-8 ####[facility]CLIA [id number] [place] [address] Lipid 1996 panelon 3 Cholesterol [Mass/Vol] 249 mg/dL High <200 [facility] Comment on above: Order Comment: Speci men Type: BLOOD SPECIMEN Ordering Facility: Dr Whalen and Dr Hodge Office Address: [address] [place] [address] Result Comment: <200 mg/dL, Desirable 200-239 mg/dL, Borderline high >239 mg/dL, High Performed By: #### 3 016-3 #### [facility] CLIA [id number] [address] [place] [address] [place] Cholesterol in HDL [Mass/Vol] 34 mg/dL Low >39 [facility] Comment on above: Order Comment: Speci men Type: BLOOD SPECIMEN Ordering Facility: Dr Teresa Hodge Office Address: [address] [place] [address] Result Comment: 40-5 9 mg/dL, Acceptable >59 mg/dL, High: Negative risk factor for coronary heart disease <40 mg/dL, Low: Positive risk factor for coronary heart disease Performed By: #### 3 016-3 #### [facility] CLIA [id number] [address] [place] [address] [place] Cholesterol in LDL [Mass/Vol] 178 mg/dL High <100 [facility] Comment on above: Order Comment: Speci men Type: BLOOD SPECIMEN Ordering Facility: Dr Teresa Hodge Office Address: [address] [place] [address] Result Comment: <100 mg/dL, Optimal 100-129 mg/dL, Near optimal/above optimal 130-159 mg/dL, Borderline high 160-189 mg/dL, High >189 mg/dL, Very high Secondary prevention optimal LDL Cholesterol levels are recommended to be < 70 mg/dL Performed By: #### 3 016-3 #### [facility] CLIA [id number] [address] [place] [address] [place] Cholesterol in LDL/Cholesterol in HDL [Mass ratio] 5.24 {ratio} High <2.54 [facility] Comment on above: Order Comment: Nic espinosa Type: BLOOD SPECIMEN Ordering Facility: Dr Teresa Hodge Office Address: [address] [place] [address] Result Comment: Refe rence: 1. National Cholesterol Education Program ATP III Guideline At-A-Glance Quick Desk Reference: National Heart, Lung, and Blood [place]. National Institutes of Health. 2001: NIH Publication No. 01-3305. 2. An International Atherosclerosis Society position paper: global recommendations for the management of dyslipidemia: executive summary, Atherosclerosis. 2014: 232(2):410-413. Performed By: #### 3 016-3 #### [facility] CLIA [id number] [address] [place] [address] [place] Cholesterol in VLDL [Mass/Vol] 37 mg/dL High <30 [facility] Comment on above: Order Comment: Nic espinosa Type: BLOOD SPECIMEN Ordering Facility: Dr Teresa Hodge Office Address: [address] [place] [address] Performed By: #### 3 016-3 #### [facility] CLIA [id number] [address] [place] [address] [place] Cholesterol non HDL [Mass/Vol] 215 mg/dL High <130 [facility] Comment on above: Order Comment: Nic espinosa Type: BLOOD SPECIMEN Ordering Facility: Dr Teresa Hodge Office Address: [address] [place] [address] Result Comment: <130 mg/dL, Optimal 130-159 mg/dL, Near optimal/above optimal 160-189 mg/dL, Borderline high 190-219 mg/dL, High >219 mg/dL, Very high Secondary prevention optimal non HDL Cholesterol levels are recommended to be <100 mg/dL Performed By: #### 3 016-3 #### [facility] CLIA [id number] [address] [place] [address] [place] Cholesterol.total/Cho lesterol in HDL [Mass ratio] 7.32 {ratio} High <5.10 [facility] Comment on above: Order Comment: Speci men Type: BLOOD SPECIMEN Ordering Facility: Dr Teresa Hodge Office Address: [address] [place] [address] Performed By: #### 3 016-3 #### [facility] CLIA [id number] [address] [place] [address] [place] FASTING TIME 15 hrs Normal [facility] Comment on above: Order Comment: Speci men Type: BLOOD SPECIMEN Ordering Facility: Dr Teresa Hodge Office Address: [address] [place] [address] Performed By: #### 3 016-3 #### [facility] CLIA [id number] [address] [place] [address] [place] Triglyceride [Mass/Vol] 185 mg/dL High <150 [facility] Comment on above: Order Comment: Speci men Type: BLOOD SPECIMEN Ordering Facility: Dr Teresa Hodge Office Address: [address] [place] [address] Result Comment: <150 mg/dL, Normal 150-199 mg/dL, Borderline high 200-499 mg/dL, High >499 mg/dL, Very high Performed By: #### 3 016-3 #### [facility] CLIA [id number] [address] [place] [address] [place] TSH SerPl-aCncon 04-06-2023 TSH Qn 0.675 m[IU]/L Normal 0.270-4.200 [facility] Comment on above: Order Comment: Speci men Type: BLOOD SPECIMEN Ordering Facility: Dr Teresa Hodge Office Address: [address] [place] [address] Performed By: #### 3 016-3 #### [facility] CLIA [id number] [address] [place] [address] [place] CNPNon 03-31-2023 [facility] Telephone ([place]) -------- ANGELIQUE CHERY ([id number]) 1960 F Date Time Provider Department 03/31/23 MARCELA WASHINGTON During your visit today, we recorded the following information about you: Adela Bhavesh 03/31/2023 8:39 AM Signed Patient coming in Thursday04/06/23 for follow up with labs per [facility] notes. Please add lab orders. Thanks. Adela Ospina MA Allergies As of Date: 03/31/2023 Noted Allergy Reaction DOXYCYCLINE 06/13/2013 16 - Unknown 4 - Hives Comments: monocycline allery same reaction Date Reviewed: 03/31/2023 Reviewed by: Marcela Washington PA-C - Fully Assessed Reason for Visit: Lab Orders [5888] Primary Visit Diagnosis:Malignant neoplasm of upper-outer quadrant of right breast in female, estrogen receptor positive (HCC) [C50.411, Z17.0] Order(s):COMP METABOLIC PANEL [SQCMP] Order #: [id number] FUTURE CA 27.29 BLOOD [OCIC2421] Order #: [id number] FUTURE CBC + DIFF [SQCBCDIF] Order #: [id number] FUTURE Prescriptions as of 04/01/2023 - anastrozole [...] Encounter Status:Closed by LAVERN TOLBERT on 04/01/23 [facility] Consultation Noteon 01-12-20 Consultation Note [id number]#[id number]:1 27 Normal [facility] CBC W Auto Differential pane l (Bld)on 12-08-2022 Basophils (Bld) [#/Vol] 0.04 10*3/uL <0.11 k/uL [facility] Basophils/100 WBC (Bld) 0.6 % [facility] Differential cell count method Nom (Bld) Auto [facility] Eosinophils (Bld) [#/Vol] 0.15 10*3/uL <0.46 k/uL [facility] Eosinophils/100 WBC (Bld) 2.2 % [facility] Erythrocyte distribution width (RBC) [Ratio] 14.7 % 11.5 - 15.0 % [facility] Hematocrit (Bld) [Volume fraction] 39.5 % 36.0 - 46.0 % [facility] Hemoglobin (Bld) [Mass/Vol] 12.6 g/dL 11.5 - 15.5 g/dL [facility] Immature granulocytes (Bld) [#/Vol] 0.08 10*3/uL <0.10 k/uL [facility] Immature granulocytes/100 WBC (Bld) 1.2 % [facility] Lymphocytes (Bld) [#/Vol] 1.42 10*3/uL 1.00 - 4.00 k/uL [facility] Lymphocytes/100 WBC (Bld) 20.5 % [facility] MCH (RBC) [Entitic mass] 28.1 pg 26.0 - 34.0 pg [facility] MCHC (RBC) [Mass/Vol] 31.9 g/dL 30.5 - 36.0 g/dL [facility] MCV (RBC) [Entitic vol] 88.2 fL 80.0 - 100.0 fL [facility] Monocytes (Bld) [#/Vol] 0.56 10*3/uL <0.87 k/uL [facility] Monocytes/100 WBC (Bld) 8.1 % [facility] Neutrophils (Bld) [#/Vol] 4.69 10*3/uL 1.45 - 7.50 k/uL [facility] Neutrophils/100 WBC (Bld) 67.4 % [facility] Nucleated RBC (Bld) [#/Vol] <0.01 k/uL [facility] Nucleated RBC/100 WBC (Bld) [Ratio] 0.0 /100 WBC [facility] Platelet mean volume (Bld) [Entitic vol] 10.1 fL 9.0 - 12.7 fL [facility] Platelets (Bld) [#/Vol] 257 10*3/uL 150 - 400 k/uL [facility] RBC (Bld) [#/Vol] 4.48 10*6/uL 3.90 - 5.2 0 m/uL [facility] WBC (Bld) [#/Vol] 6.94 10*3/uL 3.70 - 11. 00 k/uL [facility] Comprehensive metabolic 2000 panelon 12-08-2022 Albumin [Mass/Vol] 4.3 g/dL 3.9 - 4.9 g/dL [facility] ALP [Catalytic activity/Vol] 222 U/L High 34 - 123 U/L [facility] ALT [Catalytic activity/Vol] 20 U/L 7 - 38 U/L [facility] Anion gap [Moles/Vol] 10 mmol/L 9 - 18 mmol/L [facility] AST [Catalytic activity/Vol] 34 U/L 13 - 35 U/L [facility] Bilirubin [Mass/Vol] 0.5 mg/dL 0.2 - 1 .3 mg/dL [facility] Calcium [Mass/Vol] 9.9 mg/dL 8.5 - 10. 2 mg/dL [facility] Chloride [Moles/Vol] 102 mmol/L 97 - 10 5 mmol/L [facility] CO2 [Moles/Vol] 29 mmol/L 22 - 30 mmol/L [facility] Creatinine [Mass/Vol] 0.79 mg/dL 0.58 - 0.96 mg/dL [facility] Estimated Glomerular Filtration Rate 85 mL/min/1.73m >=60 mL/min/1.73m [facility] Glucose [Mass/Vol] 109 mg/dL High 74 - 99 mg/dL [facility] Potassium [Moles/Vol] 3.5 mmol/L Low 3.7 - 5.1 mmol/L [facility] Protein [Mass/Vol] 7.9 g/dL 6.3 - 8.0 g/dL [facility] Sodium [Moles/Vol] 141 mmol/L 136 - 144 mmol/L [facility] Urea nitrogen [Mass/Vol] 12 mg/dL 7 - 21 mg/dL [facility] CA 27.29 BLOODon 11-10-2022 Cancer Ag 27-29 Qn 28.8 [arb'U]/mL <38.6 U/mL [facility] CBC W Auto Differential pane l (Bld)on 11-10-2022 Basophils (Bld) [#/Vol] <0.11 k/uL [facility] Basophils/100 WBC (Bld) 0.3 % [facility] Differential cell count method Nom (Bld) Auto [facility] Eosinophils (Bld) [#/Vol] 0.23 10*3/uL <0.46 k/uL [facility] Eosinophils/100 WBC (Bld) 3.8 % [facility] Erythrocyte distribution width (RBC) [Ratio] 14.6 % 11.5 - 15.0 % [facility] Hematocrit (Bld) [Volume fraction] 41.3 % 36.0 - 46.0 % [facility] Hemoglobin (Bld) [Mass/Vol] 13.1 g/dL 11.5 - 15.5 g/dL [facility] Immature granulocytes (Bld) [#/Vol] 0.05 10*3/uL <0.10 k/uL [facility] Immature granulocytes/100 WBC (Bld) 0.8 % [facility] Lymphocytes (Bld) [#/Vol] 1.26 10*3/uL 1.00 - 4.00 k/uL [facility] Lymphocytes/100 WBC (Bld) 20.7 % [facility] MCH (RBC) [Entitic mass] 28.1 pg 26.0 - 34.0 pg [facility] MCHC (RBC) [Mass/Vol] 31.7 g/dL 30.5 - 36.0 g/dL [facility] MCV (RBC) [Entitic vol] 88.6 fL 80.0 - 100.0 fL [facility] Monocytes (Bld) [#/Vol] 0.49 10*3/uL <0.87 k/uL [facility] Monocytes/100 WBC (Bld) 8.0 % [facility] Neutrophils (Bld) [#/Vol] 4.04 10*3/uL 1.45 - 7.50 k/uL [facility] Neutrophils/100 WBC (Bld) 66.4 % [facility] Nucleated RBC (Bld) [#/Vol] <0.01 k/uL [facility] Nucleated RBC/100 WBC (Bld) [Ratio] 0.0 /100 WBC [facility] Platelet mean volume (Bld) [Entitic vol] 10.2 fL 9.0 - 12.7 fL [facility] Platelets (Bld) [#/Vol] 250 10*3/uL 150 - 400 k/uL [facility] RBC (Bld) [#/Vol] 4.66 10*6/uL 3.90 - 5.2 0 m/uL [facility] WBC (Bld) [#/Vol] 6.09 10*3/uL 3.70 - 11. 00 k/uL [facility] Comprehensive metabolic 2000 panelon 11-10-2022 Albumin [Mass/Vol] 4.5 g/dL 3.9 - 4.9 g/dL [facility] ALP [Catalytic activity/Vol] 219 U/L High 34 - 123 U/L [facility] ALT [Catalytic activity/Vol] 22 U/L 7 - 38 U/L [facility] Anion gap [Moles/Vol] 11 mmol/L 9 - 18 mmol/L [facility] AST [Catalytic activity/Vol] 28 U/L 13 - 35 U/L [facility] Bilirubin [Mass/Vol] 0.5 mg/dL 0.2 - 1 .3 mg/dL [facility] Calcium [Mass/Vol] 9.6 mg/dL 8.5 - 10. 2 mg/dL [facility] Chloride [Moles/Vol] 102 mmol/L 97 - 10 5 mmol/L [facility] CO2 [Moles/Vol] 28 mmol/L 22 - 30 mmol/L [facility] Creatinine [Mass/Vol] 0.70 mg/dL 0.58 - 0.96 mg/dL [facility] Estimated Glomerular Filtration Rate 98 mL/min/1.73m >=60 mL/min/1.73m [facility] Glucose [Mass/Vol] 118 mg/dL High 74 - 99 mg/dL [facility] Potassium [Moles/Vol] 4.0 mmol/L 3.7 - 5.1 mmol/L [facility] Protein [Mass/Vol] 8.2 g/dL High 6.3 - 8.0 g/dL [facility] Sodium [Moles/Vol] 141 mmol/L 136 - 144 mmol/L [facility] Urea nitrogen [Mass/Vol] 15 mg/dL 7 - 21 mg/dL [facility] CHEMISTRYOrdered By: SYSTEM SYSTEM on 10-15-2022 Anion gap [Moles/Vol] 11 mmol/L Normal 6 - 16 mEq/L [facility] Chloride [Moles/Vol] 101 mmol/L Normal 101 - 1 11 mmol/L [facility] CO2 [Moles/Vol] 27 mmol/L Normal 21 - 31 mmol/L [facility] Creatinine [Mass/Vol] 0.7 mg/dL Normal 0.5 - 1.3 mg/dL [facility] GFR/1.73 sq M.predicted among blacks MDRD (S/P/Bld) [Vol rate/Area] mL/min/1.73 m2 Normal >=59mL/min/1 .73 m2 [facility] S GFR/1.73 sq M.predicted among non-blacks MDRD (S/P/Bld) [Vol rate/Area] mL/min/1.73 m2 Normal >=59mL/min/1 .73 m2 [facility] Glucose [Mass/Vol] 86 mg/dL Normal 55 - 199 mg/dL [facility] Potassium [Moles/Vol] 3.7 mmol/L Normal 3.5 - 5.3 mmol/L [facility] Sodium [Moles/Vol] 135 mmol/L Normal 135 - 145 mmol/L [facility] Urea nitrogen [Mass/Vol] 14 mg/dL Normal 5 - 21 mg/dL [facility] HEMATOLOGYOrdered By: Rosemary Roe on 10-15-2022 Erythrocyte distribution width (RBC) [Ratio] 14.7 % High 10.9 - 14.2 % [facility] Hematocrit (Bld) [Volume fraction] 41.2 % Normal 34.0 - 46.0 % [facility] Hemoglobin (Bld) [Mass/Vol] 13.2 g/dL Normal 12.0 - 16.0 gm/dL [facility] MCH (RBC) [Entitic mass] 28.1 pg Normal 27.0 - 34.0 pg [facility] MCHC (RBC) [Mass/Vol] 32.0 g/dL Normal 31.4 - 36.0 gm/dL [facility] MCV (RBC) [Entitic vol] 87.6 fL Normal 80.0 - 100.0 fL [facility] Platelet mean volume (Bld) [Entitic vol] 8.8 fL Normal 6.4 - 10.8 fL [facility] Platelets (Bld) [#/Vol] 238.0 E9/L Normal 150.0 - 500.0 E9/L [facility] RBC (Bld) [#/Vol] 4.7 E12/L Normal 4.3 - 5.9 E12/L [facility] WBC corrected for nucl RBC Auto (Bld) [#/Vol] 6.6 E9/L Normal 4.0 - 11.0 E9/L [facility] Vital Signs Date Time Vital Sign Value Performing Clinician Facility 12-31-2023 13:53-0400 Body temperature 97.7 [degF] Toro Chan MD Work Phone: [facility] 12-31-2023 13:53-0400 Body weight 82 kg Toro Chan MD Work Phone: [facility] 12-31-2023 13:53-0400 Diastolic blood pressure 78 mm[Hg] Toro Chan MD Work Phone: [facility] 12-31-2023 13:53-0400 Heart rate 77 /min Toro Chan MD Work Phone: [facility] 12-31-2023 13:53-0400 Respiratory rate 18 /min Toro Chan MD Work Phone: [facility] 12-31-2023 13:53-0400 SaO2% (BldA) [Mass fraction] 98 % Toro Chan MD Work Phone: [facility] 12-31-2023 13:53-0400 Systolic blood pressure 150 mm[Hg] Toro Chan MD Work Phone: [facility] 10-07-2023 15:01-0500 Blood Pressure Location Ciaran [facility] [place] 10-07-2023 15:01-0500 Diastolic blood pressure 78 mm[Hg] Ciaran [facility] [place] 10-07-2023 15:01-0500 Heart rate 72 /min Ciaran GAVIRIAL [facility] [place] 10-07-2023 15:01-0500 Respiratory rate 16 /min Ciaran GAVIRIAL [facility] [place] 10-07-2023 15:01-0500 Systolic blood pressure 126 mm[Hg] Ciaran GAVIRIAL [facility] [place] 09-09-2023 10:30-0500 Body height 162.56 cm Pedro Ball Other [employer] Other 09-09-2023 10:30-0500 Body mass index (BMI) [Ratio] 30.93 kg/m2 Pedro Ball Other [employer] Other 09-09-2023 10:30-0500 Body weight 81.74 kg Pedro Ball Other [employer] Other 09-09-2023 10:30-0500 Diastolic blood pressure 86 mm[Hg] Pedro Ball Other [employer] Other 09-09-2023 10:30-0500 Respiratory rate 12 /min Pedro Ball Other [employer] Other 09-09-2023 10:30-0500 Systolic blood pressure 150 mm[Hg] Pedro Ball Other [employer] Other 06-15-2023 10:45-0400 Body temperature 97.59 [degF] Blayne Pretty MD Work Phone: [facility] 06-15-2023 10:45-0400 Body weight 80.2 kg Blayne Pretty MD Work Phone: [facility] 06-15-2023 10:45-0400 Diastolic blood pressure 76 mm[Hg] Blayne Pretty MD Work Phone: [facility] 06-15-2023 10:45-0400 Heart rate 76 /min Blayne Pretty MD Work Phone: [facility] 06-15-2023 10:45-0400 Respiratory rate 18 /min Blayne Pretty MD Work Phone: [facility] 06-15-2023 10:45-0400 SaO2% (BldA) [Mass fraction] 97 % Blayne Pretty MD Work Phone: [facility] 06-15-2023 10:45-0400 Systolic blood pressure 150 mm[Hg] Blayne Pretty MD Work Phone: [facility] 05-28-2023 13:56-0400 Body height 162.56 cm Pedro Ball Other [employer] Other 05-28-2023 13:56-0400 Diastolic blood pressure 76 mm[Hg] Pedro Ball Other [employer] Other 05-28-2023 13:56-0400 Systolic blood pressure 128 mm[Hg] Pedro Ball Other [employer] Other 05-21-2023 13:23-0400 Body height 162.56 cm Pedro Ball Other [employer] Other 05-21-2023 13:23-0400 Diastolic blood pressure 83 mm[Hg] Pedro Ball Other [employer] Other 05-21-2023 13:23-0400 Systolic blood pressure 131 mm[Hg] Pedro Ball Other [employer] Other 03-20-2023 11:30-0400 Body height 162.56 cm Pedro Ball Other [employer] Other 03-20-2023 11:30-0400 Body mass index (BMI) [Ratio] 31.24 kg/m2 Pedro Ball Other [employer] Other 03-20-2023 11:30-0400 Body weight 82.56 kg Pedro Ball Other [employer] Other 03-20-2023 11:30-0400 Diastolic blood pressure 84 mm[Hg] Pedro Ball Other [employer] Other 03-20-2023 11:30-0400 Respiratory rate 12 /min Pedro Ball Other [employer] Other 03-20-2023 11:30-0400 Systolic blood pressure 138 mm[Hg] Pedro Ball Other [employer] Other 01-12-2023 10:00-0400 Body height 162.56 cm Pedro Ball Other [employer] Other 01-12-2023 10:00-0400 Body mass index (BMI) [Ratio] 31.58 kg/m2 Pedro Ball Other [employer] Other 01-12-2023 10:00-0400 Body weight 83.46 kg Pedro Ball Other [employer] Other 01-12-2023 10:00-0400 Diastolic blood pressure 79 mm[Hg] Pedro Ball Other [employer] Other 01-12-2023 10:00-0400 Respiratory rate 12 /min Pedro Ball Other [employer] Other 01-12-2023 10:00-0400 Systolic blood pressure 161 mm[Hg] Pedro Ball Other [employer] Other 12-16-2022 15:27-0500 Body temperature 98.29 [degF] Toro Chan MD Work Phone: [facility] 12-16-2022 15:27-0500 Body weight 82.56 kg Toro Chan MD Work Phone: [facility] 12-16-2022 15:27-0500 Diastolic blood pressure 68 mm[Hg] Toro Chan MD Work Phone: [facility] 12-16-2022 15:27-0500 Heart rate 75 /min Toro Chna MD Work Phone: [facility] 12-16-2022 15:27-0500 Respiratory rate 16 /min Toro Chan MD Work Phone: [facility] 12-16-2022 15:27-0500 SaO2% (BldA) [Mass fraction] 99 % Toro Chan MD Work Phone: [facility] 12-16-2022 15:27-0500 Systolic blood pressure 152 mm[Hg] Toro Chan MD Work Phone: [facility] 12-10-2022 14:53-0500 Body temperature 98.29 [degF] Toro Chan MD Work Phone: [facility] 12-10-2022 14:53-0500 Body weight 82.56 kg Toro Chan MD Work Phone: [facility] 12-10-2022 14:53-0500 Diastolic blood pressure 75 mm[Hg] Toro Chan MD Work Phone: [facility] 12-10-2022 14:53-0500 Heart rate 79 /min Toro Chan MD Work Phone: [facility] 12-10-2022 14:53-0500 Respiratory rate 16 /min Toro Chan MD Work Phone: [facility] 12-10-2022 14:53-0500 SaO2% (BldA) [Mass fraction] 99 % Toro Chan MD Work Phone: [facility] 12-10-2022 14:53-0500 Systolic blood pressure 129 mm[Hg] Toor Chan MD Work Phone: [facility] 12-08-2022 12:52-0500 Body height 153.6 cm Blayne Pretty MD Work Phone: [facility] 12-08-2022 12:52-0500 Body temperature 97.7 [degF] Blayne Pretty MD Work Phone: [facility] 12-08-2022 12:52-0500 Body weight 83.37 kg Blayne Pretty MD Work Phone: [facility] 12-08-2022 12:52-0500 Diastolic blood pressure 94 mm[Hg] Blayne Pretty MD Work Phone: [facility] 12-08-2022 12:52-0500 Heart rate 82 /min Blayne Pretty MD Work Phone: [facility] 12-08-2022 12:52-0500 Respiratory rate 16 /min Blayne Pretty MD Work Phone: [facility] 12-08-2022 12:52-0500 SaO2% (BldA) [Mass fraction] 99 % Blayne Pretty MD Work Phone: [facility] 12-08-2022 12:52-0500 Systolic blood pressure 154 mm[Hg] Blayne Pretty MD Work Phone: [facility] 11-14-2022 09:04-0500 Body height 153.6 cm Toro Chan MD Work Phone: [facility] 11-14-2022 09:04-0500 Body temperature 98.2 [degF] Toro Chan MD Work Phone: [facility] 11-14-2022 09:04-0500 Body weight 83.1 kg Toro Chan MD Work Phone: [facility] 11-14-2022 09:04-0500 Diastolic blood pressure 82 mm[Hg] Toro Chan MD Work Phone: [facility] 11-14-2022 09:04-0500 Heart rate 77 /min Toro Chan MD Work Phone: [facility] 11-14-2022 09:04-0500 Respiratory rate 18 /min Toro Chan MD Work Phone: [facility] 11-14-2022 09:04-0500 SaO2% (BldA) [Mass fraction] 99 % Toro Chan MD Work Phone: [facility] 11-14-2022 09:04-0500 Systolic blood pressure 142 mm[Hg] Toro Chan MD Work Phone: [facility] 11-10-2022 09:42-0500 Body height 153.6 cm Blayne Pretty MD Work Phone: [facility] 11-10-2022 09:42-0500 Body temperature 97 [degF] Blayne Pretty MD Work Phone: [facility] 11-10-2022 09:42-0500 Body weight 82.92 kg Blayne Pretty MD Work Phone: [facility] 11-10-2022 09:42-0500 Diastolic blood pressure 90 mm[Hg] Blayne Pretty MD Work Phone: [facility] 11-10-2022 09:42-0500 Heart rate 81 /min Blayne Pretty MD Work Phone: [facility] 11-10-2022 09:42-0500 Respiratory rate 16 /min Blayne Pretty MD Work Phone: [facility] 11-10-2022 09:42-0500 SaO2% (BldA) [Mass fraction] 99 % Blayne Pretty MD Work Phone: [facility] 11-10-2022 09:42-0500 Systolic blood pressure 150 mm[Hg] Blayne Pretty MD Work Phone: [facility] 11-04-2022 16:15-0500 Blood Pressure Location Ciaran NILL [facility] [place] 11-04-2022 16:15-0500 Diastolic blood pressure 90 mm[Hg] Ciaran NILL [facility] [place] 11-04-2022 16:15-0500 Systolic blood pressure 160 mm[Hg] Ciaran NILL [facility] [place] 10-23-2022 15:24-0500 Heart rate 80 /min Ciaran NILL [facility] 10-23-2022 15:24-0500 SaO2% (BldA) [Mass fraction] 98 % Ciaran NILL [facility] 10-23-2022 15:23-0500 Body temperature 97.88 [degF] Ciaran NILL [facility] 10-23-2022 15:23-0500 Respiratory rate 16 /min Ciaran NILL [facility] 10-23-2022 15:22-0500 Diastolic blood pressure 83 mm[Hg] Ciaran NILL [facility] 10-23-2022 15:22-0500 Mean blood pressure 110 mm[Hg] Ciaran NILL [facility] 10-23-2022 15:22-0500 Systolic blood pressure 162 mm[Hg] Ciaran NILL [facility] 10-23-2022 14:25-0500 Heart rate 85 /min Ciaran NILL [facility] 10-23-2022 14:25-0500 SaO2% (BldA) [Mass fraction] 100 % Ciaran NILL [facility] 10-23-2022 14:24-0500 Body temperature 97.52 [degF] Ciaran NILL [facility] 10-23-2022 14:23-0500 Respiratory rate 15 /min Ciaran NILL [facility] 10-23-2022 14:23-0500 Diastolic blood pressure 92 mm[Hg] Ciaran NILL [facility] 10-23-2022 14:23-0500 Mean blood pressure 116 mm[Hg] Ciaran NILL [facility] 10-23-2022 14:23-0500 Systolic blood pressure 164 mm[Hg] Ciaran NILL [facility] 10-23-2022 14:23-0500 SaO2% (BldA) [Mass fraction] 96 % Ciaran NILL [facility] 10-23-2022 14:15-0500 Body temperature 97.7 [degF] Ciaran NILL [facility] 10-23-2022 14:15-0500 Diastolic blood pressure 90 mm[Hg] Ciaran NILL [facility] 10-23-2022 14:15-0500 Heart rate 86 /min Ciaran NILL [facility] 10-23-2022 14:15-0500 Respiratory rate 16 /min Ciaran NILL [facility] 10-23-2022 14:15-0500 Systolic blood pressure 157 mm[Hg] Ciaran NILL [facility] 10-23-2022 14:10-0500 Respiratory rate 18 /min Ciaran NILL [facility] 10-23-2022 14:05-0500 Respiratory rate 16 /min Ciaran NILL [facility] 10-23-2022 13:49-0500 Body temperature 97.52 [degF] Ciaran NILL [facility] 10-23-2022 13:45-0500 Respiratory rate 17 /min Ciaran NILL [facility] 10-23-2022 11:31-0500 Mean blood pressure 128 mm[Hg] Ciaran NILL [facility] 10-23-2022 09:30-0500 Heart rate 74 /min Ciaran NILL [facility] 10-23-2022 09:28-0500 Body temperature 98.06 [degF] Ciaran NILL [facility] 10-15-2022 14:40-0500 Diastolic blood pressure 95 mm[Hg] Ciaran NILL [facility] 10-15-2022 14:40-0500 Heart rate 69 /min Ciaran NILL [facility] 10-15-2022 14:40-0500 Mean blood pressure 123 mm[Hg] Ciaran NILL [facility] 10-15-2022 14:40-0500 Systolic blood pressure 178 mm[Hg] Ciaran NILL [facility] 10-15-2022 14:40-0500 Body temperature 98.06 [degF] Ciaran NILL [facility] 10-15-2022 14:39-0500 Heart rate 72 /min Ciaran NILL [facility] 10-15-2022 14:39-0500 SaO2% (BldA) [Mass fraction] 100 % Ciaran NILL [facility] 10-15-2022 14:38-0500 Respiratory rate 18 /min Ciaran NILL [facility] 10-15-2022 14:38-0500 Diastolic blood pressure 90 mm[Hg] Ciaran NILL [facility] 10-15-2022 14:38-0500 Mean blood pressure 117 mm[Hg] Ciaran NILL [facility] 10-15-2022 14:38-0500 Systolic blood pressure 170 mm[Hg] Ciaran NILL [facility] 10-07-2022 08:44-0500 Blood Pressure Location Ciaran NILL [facility] [place] 10-07-2022 08:44-0500 Diastolic blood pressure 93 mm[Hg] Ciaran NILL [facility] 10-07-2022 08:44-0500 Heart rate 86 /min Ciaran NILL [facility] [place] 10-07-2022 08:44-0500 Respiratory rate 16 /min Ciaran NILL [facility] [place] 10-07-2022 08:44-0500 Systolic blood pressure 175 mm[Hg] Ciaran NILL [facility] 10-06-2022 09:14-0500 Body height 153.6 cm Blayne Pretty MD Work Phone: [facility] 10-06-2022 09:14-0500 Body temperature 97.11 [degF] Blayne Pretty MD Work Phone: [facility] 10-06-2022 09:14-0500 Body weight 82.83 kg Blayne Pretty MD Work Phone: [facility] 10-06-2022 09:14-0500 Diastolic blood pressure 84 mm[Hg] Blayne Pretty MD Work Phone: [facility] 10-06-2022 09:14-0500 Heart rate 78 /min Blayne Pretty MD Work Phone: [facility] 10-06-2022 09:14-0500 Respiratory rate 16 /min Blayne Pretty MD Work Phone: [facility] 10-06-2022 09:14-0500 SaO2% (BldA) [Mass fraction] 100 % Blayne Pretty MD Work Phone: [facility] 10-06-2022 09:14-0500 Systolic blood pressure 188 mm[Hg] Blayne Pretty MD Work Phone: [facility] 09-08-2022 15:25-0500 Body height 153.6 cm Blayne Pretty MD Work Phone: [facility] 09-08-2022 15:25-0500 Body temperature 97.81 [degF] Blayne Pretty MD Work Phone: [facility] 09-08-2022 15:25-0500 Body weight 82.46 kg Blayne Pretty MD Work Phone: [facility] 09-08-2022 15:25-0500 Diastolic blood pressure 91 mm[Hg] Blayne Pretty MD Work Phone: [facility] 09-08-2022 15:25-0500 Heart rate 80 /min Blayne Pretty MD Work Phone: [facility] 09-08-2022 15:25-0500 Respiratory rate 16 /min Blayne Pretty MD Work Phone: [facility] 09-08-2022 15:25-0500 SaO2% (BldA) [Mass fraction] 96 % Blayne Pretty MD Work Phone: [facility] 09-08-2022 15:25-0500 Systolic blood pressure 189 mm[Hg] Blayne Pretty MD Work Phone: [facility] 08-26-2022 10:58-0500 Blood Pressure Location Ciaran REES [facility] [place] 08-26-2022 10:58-0500 Diastolic blood pressure 78 mm[Hg] Ciaran NILL [facility] 08-26-2022 10:58-0500 Heart rate 84 /min Ciaran GAVIRIAL [facility] 08-26-2022 10:58-0500 Respiratory rate 16 /min Ciaran GAVIRIAL [facility] 08-26-2022 10:58-0500 Systolic blood pressure 192 mm[Hg] Ciaran GAVIRIAL [facility] Encounters Encounter Date Encounter Type Care Provider Facility Start: 12-31-2023 End: 12-31-2023 ambulatory TORO CHAN Facility:[facility] Start: 12-31-2023 End: 12-31-2023 Patient encounter procedure Toro Chan MD Work Phone: [facility] Comment on above: Malignant neoplasm o f upper-outer quadrant of right breast in female, estrogen receptor positive (HCC) (Primary Dx) Start: 12-28-2023 Telephone encounter Toro Chan MD Work Phone: [facility] Comment on above: mammogram question Start: 12-28-2023 End: 12-29-2023 ambulatory Toro Chan [place] Start: 12-28-2023 End: 12-28-2023 Patient encounter procedure Toro Chan [facility] Start: 11-04-2023 End: 11-05-2023 ambulatory Ciaran R NILL Facility:[id number] Start: 10-07-2023 End: 10-08-2023 ambulatory Ciaran R NILL Facility:[facility] Start: 10-07-2023 End: 10-07-2023 Patient encounter procedure Ciaran R NILL General Surgery Nill/Said [place] Start: 10-06-2023 End: 10-06-2023 ambulatory PEDRO WHALEN Facility:[facility] Start: 10-06-2023 Encounter for genera l adult medical examination without abnormal findings BLAYNE PRETTY [facility] Start: 09-14-2023 End: 09-14-2023 ambulatory Pedro Whalen Other [employer] Other Start: 09-14-2023 Telephone encounter Pedro Whalen [facility] Start: 09-09-2023 End: 09-09-2023 ambulatory Pedro Whalen Other [employer] Other Start: 09-09-2023 Encounter for genera l adult medical examination without abnormal findings Pedro Whalen [facility] Start: 09-09-2023 Periodic preventive med est patient 40-64yrs Pedro Whalen [facility] Start: 07-14-2023 End: 07-14-2023 ambulatory BLAYNE PRETTY [employer] Other Start: 07-14-2023 Telephone encounter Pedro Whalen KATIE [facility] Start: 07-10-2023 Telephone encounter Toro Chan MD Work Phone: [facility] Comment on above: Orders Start: 07-09-2023 End: 07-09-2023 ambulatory PEDRO WHALEN Facility:[facility] Start: 07-06-2023 End: 07-06-2023 ambulatory PEDRO WHALEN Facility:[facility] Start: 06-26-2023 End: 06-27-2023 ambulatory Blayne Pretty [facility] Start: 06-26-2023 End: 06-26-2023 Patient encounter procedure Blayne Pretty [facility] Start: 06-25-2023 Telephone encounter Indio Vogel Hematology/Oncology Comment on above: Orders Start: 06-17-2023 Telephone encounter Indio Vogel Hematology/Oncology Comment on above: Results; Appointment Start: 06-17-2023 End: 06-17-2023 ambulatory PEDRO WHALEN [employer] [facility] [employer] Other Start: 06-16-2023 Telephone encounter Indio Vogel [...] 05-28-2023 End: 05-28-2023 ambulatory Pedro Whalen Other [employer] Other Start: 05-28-2023 Telephone encounter Pedro Whalen KATIE [facility] Start: 05-21-2023 End: 05-21-2023 ambulatory Pedro Whalen Other [employer] Other Start: 05-21-2023 Telephone encounter Pedro Whalen FP [facility] Start: 05-15-2023 End: 05-15-2023 ambulatory Pedro Whalen Other [employer] Other Start: 05-15-2023 Telephone encounter Pedro Whalen FP [facility] Start: 05-07-2023 End: 05-07-2023 ambulatory PEDRO Singh MARLEE Facility:[facility] Start: 04-08-2023 End: 04-08-2023 ambulatory Pedro Whalen Other [employer] Other Start: 04-08-2023 Telephone encounter Pedro Whalen KATIE [facility] Start: 04-06-2023 End: 04-06-2023 ambulatory BLAYNE PRETTY Facility:[facility] Start: 04-06-2023 Telephone encounter Toro Chan MD Work Phone: [facility] Comment on above: Orders Start: 03-31-2023 Telephone encounter Marcela watts PA-C Work Phone: Hematology/Oncology Comment on above: Lab Orders Start: 03-20-2023 End: 03-20-2023 ambulatory Pedro Whalen Other [employer] Other Start: 03-20-2023 Encounter for genera l adult medical examination without abnormal findings Pedro Whalen [facility] Start: 03-20-2023 Office outpatient vi sit 15 minutes Pedro Whalen [facility] Start: 03-20-2023 Telephone encounter Pedro Whalen [facility] Start: 01-12-2023 End: 01-12-2023 ambulatory Pedro Whalen Other [employer] Other Start: 01-12-2023 Office outpatient vi sit 25 minutes Pedro Whalen [facility] Start: 01-05-2023 Chart abstracting Jojo devlin RN Work Phone: Hematology/Oncology Comment on above: Research ([id number] Alert Week 1) Start: 01-02-2023 Patient encounter procedure Toro Chan MD Work Phone: [facility] Start: 01-02-2023 Radiation Oncology Note Toro agustin MD Work Phone: [facility] Comment on above: Completion Note Start: 12-24-2022 Chart abstracting Jojo devlin RN Work Phone: Hematology/Oncology Comment on above: Research ([id number] Alert management Week 0) Start: 12-19-2022 Chart abstracting Jojo devlin RN Work Phone: Hematology/Oncology Comment on above: Research ([id number] Consent Presentation) Start: 12-16-2022 End: 12-16-2022 Patient encounter procedure Toro Chan MD Work Phone: [facility] Comment on above: Malignant neoplasm o f upper-outer quadrant of right breast in female, estrogen receptor positive (HCC) (Primary Dx) Start: 12-10-2022 End: 12-10-2022 Patient encounter procedure Toro Chan MD Work Phone: [facility] Comment on above: Malignant neoplasm o f upper-outer quadrant of right breast in female, estrogen receptor positive (HCC) (Primary Dx) Start: 12-09-2022 End: 12-09-2022 ambulatory Pedro Marlee Other [employer] Other Start: 12-09-2022 Telephone encounter Pedro Burnham [facility] Start: 12-08-2022 End: 12-08-2022 ambulatory Blayne Pretty MD Work Phone: Hematology/Oncology Comment on above: Malignant neoplasm o f upper-outer quadrant of right breast in female, estrogen receptor positive (HCC) (Primary Dx) Start: 12-08-2022 End: 12-08-2022 Patient encounter procedure Blayne Pretty MD Work Phone: [facility] Start: 11-26-2022 End: 11-26-2022 ambulatory Tila Juárez RN [facility] Comment on above: Patient Education Start: 11-26-2022 End: 11-27-2022 Patient encounter procedure Toro Chan MD Work Phone: [facility] Comment on above: Malignant neoplasm o f upper-outer quadrant of right breast in female, estrogen receptor positive (HCC) (Primary Dx) Start: 11-26-2022 Radiation Oncology Note Toro agustin MD Work Phone: [facility] Comment on above: Simulation Note Treatment Planning Start: 11-26-2022 Telephone encounter Pedro Burnham [facility] Start: 11-14-2022 End: 11-14-2022 Patient encounter procedure Toro Chan MD Work Phone: [facility] Comment on above: Malignant neoplasm o f upper-outer quadrant of right breast in female, estrogen receptor positive (HCC) (Primary Dx) Start: 11-12-2022 End: 11-12-2022 ambulatory Pedro Whalen Other [employer] Other Start: 11-12-2022 Telephone encounter Pedro Burnham [facility] Start: 11-11-2022 Telephone encounter Nancy [...] MD Work Phone: [facility] Start: 11-04-2022 End: 11-04-2022 Patient encounter procedure Ciaran REES [facility] Nill/Said [place] Start: 11-03-2022 Telephone encounter Nancy leonard RN Work Phone: Hematology/Oncology Comment on above: Oncotype DX Start: 10-30-2022 End: 10-30-2022 ambulatory Pedro Whalen Other [employer] Other Start: 10-30-2022 Telephone encounter Pedro Whalen [facility] Start: 10-29-2022 End: 10-29-2022 ambulatory Pedro Whalen Other [employer] Other Start: 10-29-2022 Telephone encounter Pedro Whalen [facility] Start: 10-28-2022 End: 10-28-2022 Patient encounter procedure Ciaran R NILL [facility] [place] Start: 10-24-2022 End: 10-24-2022 ambulatory Pedro Whalen Other [employer] Other Start: 10-24-2022 Telephone encounter Pedro WILSON [facility] Start: 10-23-2022 End: 10-23-2022 Admission to same day surgery center Ciaran REES [facility] Start: 10-22-2022 End: 10-22-2022 ambulatory Pedro Whalen Other [employer] Other Start: 10-22-2022 Telephone encounter Pedro WILSON [facility] Start: 10-21-2022 End: 10-21-2022 ambulatory Pedro Whalen Other [employer] Other Start: 10-21-2022 Telephone encounter Pedro Burnham [facility] Start: 10-15-2022 ambulatory Facility:[id number] Start: 10-15-2022 End: 10-15-2022 Patient encounter procedure Ciaran REES [facility] Start: 10-15-2022 Telephone encounter Blayne ness MD Work Phone: Hematology/Oncology Comment on above: Forms Start: 10-08-2022 Telephone encounter Genevieve Somers RN Hematology/Oncology Comment on above: Patient Update; FYI- No Action Needed Start: 10-07-2022 End: 10-07-2022 Patient encounter procedure Ciaran REES [facility] General Surgery [place] Start: 10-06-2022 End: 10-06-2022 ambulatory Blayne Pretty MD Work Phone: Hematology/Oncology Comment on above: Malignant neoplasm o f upper-outer quadrant of right breast in female, estrogen receptor positive (HCC) (Primary Dx) Start: 10-06-2022 End: 10-06-2022 Patient encounter procedure Blayne Pretty MD Work Phone: [place] Start: 09-29-2022 Telephone encounter Nancy Maradiaga Hematology/Oncology Comment on above: Consult (Surgery) Start: 09-24-2022 Telephone encounter Kai Garcia [facility] Work Phone: [facility] Comment on above: Results Start: 09-18-2022 Telephone encounter Nancy Maradiaga Hematology/Oncology Comment on above: Appointment Start: 09-18-2022 End: 09-18-[address] PEDRO WHALEN Facility:[facility] Start: 09-12-2022 Telephone encounter Nancy leonard RN Work Phone: Hematology/Oncology Comment on above: Treatment Planning ( Arimidex) Start: 09-10-2022 End: 09-10-2022 ambulatory Kai Garcia C Work Phone: [facility] Comment on above: Malignant neoplasm o f upper-outer quadrant of right breast in female, estrogen receptor positive (HCC) Start: 09-10-2022 End: 09-10-2022 Telemedicine consultation with patient Kai Garcia LGNicholas Work Phone: [facility] Start: 09-08-2022 End: 09-08-2022 ambulatory Blayne Pretty MD Work Phone: Hematology/Oncology Comment on above: Malignant neoplasm o f upper-outer quadrant of right breast in female, estrogen receptor positive (HCC) (Primary Dx) Start: 09-08-2022 End: 09-08-2022 Patient encounter procedure Blayne Pretty MD Work Phone: [place] Start: 09-05-2022 Chart abstracting Blayne porras MD Work Phone: Hematology/Oncology Start: 08-26-2022 End: 08-26-2022 Patient encounter procedure Ciaran REES [facility] General Surgery [place] Start: 08-25-2022 End: 08-25-2022 Patient encounter procedure Earnest Davis [facility] Start: 08-19-2022 End: 08-19-2022 Lab Drop off Earnest Davis [facility] Procedures Date Procedure Procedure Detail Performing Clinician Start: 04-06-2023 Lipid 1996 panel - S deisi or Plasma Toro Chan MD Work Phone: Start: 10-23-2022 Lumpectomy of breast Mi otis REES Start: 07-05-2017 Screening for malign ant neoplasm of colon Pedro Whalen Other Start: 10-19-2016 Colonoscopy Ciaran NI ELOISA Start: 06-06-2015 General examination of patient Pedro Whalen Other Start: 10-19-2012 Colonoscopy Ciaran NI LL Start: 10-19-2009 Colonoscopy Ciaran NI LL Start: 10-19-2005 Colonoscopy Ciaran NI LL Biopsy of parathyroid gland Ciaran GAVIRIAL Cholecystectomy Ciaran REES Extraction of cataract Giovanni GAVIRIAL Extraction of cataract Giovanni GAVIRIAL Laser assisted in si tu keratomileusis Ciaran GAVIRIAL Parathyroidectomy Ciaran NI ELOISA Repair of retina for retinal detachment Ciaran REES Screening for malign ant neoplasm of colon Pedro Whalen Other Vaginal hysterectomy Ciaran REES Plan of Treatment Date Care Activity Detail Author Start: 04-06-2028 Lipid 1996 panel - S deisi or Plasma Lipid Screening [facility] Start: 04-06-2028 Lipid panel Lipid Screening [facility] Start: 04-06-2028 LIPID SCREEN LIPID SCREEN [facility] Start: 10-06-2026 Diabetes Screening Diabetes Screenin [facility] Start: 06-15-2026 DIABETES SCREEN DIABETES SCREEN [facility] Start: 06-15-2026 Diabetes Screening Diabetes Screenin [facility] Start: 04-06-2026 DIABETES SCREEN DIABETES SCREEN [facility] Start: 12-08-2025 DIABETES SCREEN DIABETES SCREEN [facility] Start: 11-10-2025 DIABETES SCREEN DIABETES SCREEN [facility] Start: 06-28-2024 End: 01-29-2025 MG Breast - bilateral Diagnostic JOHN DIAGNOSTIC BILATERAL Radiology Routine Malignant neoplasm of upper-outer quadrant of right breast in female, estrogen receptor positive (HCC) Expected: 06/28/2024 (Approximate), Expires: 01/29/2025 [facility] Work Phone: Comment on above: Expected: 06/28/2024 (Approximate), Expires: 01/29/2025 Start: 06-28-2024 End: 01-29-2025 US Breast - left US BREAST COMPLETE LEFT Radiology Routine Malignant neoplasm of upper-outer quadrant of right breast in female, estrogen receptor positive (HCC) Expected: 06/28/2024, Expires: 01/29/2025 [facility] Work Phone: Comment on above: Expected: 06/28/2024 , Expires: 01/29/2025 Start: 06-28-2024 End: 01-29-2025 US Breast - right US BREAST COMPLETE RIGHT Radiology Routine Malignant neoplasm of upper-outer quadrant of right breast in female, estrogen receptor positive (HCC) Expected: 06/28/2024, Expires: 01/29/2025 [facility] Work Phone: Comment on above: Expected: 06/28/2024 , Expires: 01/29/2025 Start: 10-19-2023 Depression Assessment Depression Ass essment [facility] Start: 07-08-2023 End: 05-05-2024 JOHN DIAGNOSTIC BILATERAL JOHN DIAGNOSTIC BILATERAL Radiology Routine Malignant neoplasm of upper-outer quadrant of right breast in female, estrogen receptor positive (HCC) Expected: 07/08/2023, Expires: 05/05/2024 [facility] Work Phone: Comment on above: Expected: 07/08/2023 , Expires: 05/05/2024 Start: 06-19-2023 Covid-19 Vaccine () Covid-19 Vaccine () [facility] Start: 06-19-2023 Influenza vaccination [facility] Start: 06-16-2023 End: 08-16-2023 Hepatic function 2000 panel - Serum or Plasma HEPATIC FUNCTION PNL Lab Routine Abnormal liver function tests Expected: 06/16/2023, Expires: 08/16/2023 [facility] Work Phone: Comment on above: Expected: 06/16/2023 , Expires: 08/16/2023 Start: 06-02-2023 End: 08-02-2023 CREATININE BLD CREATININE BLD Lab Routine Malignant neoplasm of upper-outer quadrant of right female breast, unspecified estrogen receptor status (HCC) Abnormal tumor markers Expected: 06/02/2023, Expires: 08/02/2023 [facility] Work Phone: Comment on above: Expected: 06/02/2023 , Expires: 08/02/2023 Start: 03-31-2023 End: 05-31-2023 Cancer Ag 27-29 [Units/volume] in Serum or Plasma CA 27.29 BLOOD Lab Routine Malignant neoplasm of upper-outer quadrant of right breast in female, estrogen receptor positive (HCC) Expected: 03/31/2023, Expires: 05/31/2023 [facility] Work Phone: Comment on above: Expected: 03/31/2023 , Expires: 05/31/2023 Start: 03-31-2023 End: 05-31-2023 CBC W Auto Differential panel - Blood CBC + DIFF Lab Routine Malignant neoplasm of upper-outer quadrant of right breast in female, estrogen receptor positive (HCC) Expected: 03/31/2023, Expires: 05/31/2023 [facility] Work Phone: Comment on above: Expected: 03/31/2023 , Expires: 05/31/2023 Start: 03-31-2023 End: 05-31-2023 Comprehensive metabolic 2000 panel - Serum or Plasma COMP METABOLIC PANEL Lab Routine Malignant neoplasm of upper-outer quadrant of right breast in female, estrogen receptor positive (HCC) Expected: 03/31/2023, Expires: 05/31/2023 [facility] Work Phone: Comment on above: Expected: 03/31/2023 , Expires: 05/31/2023 Start: 12-08-2022 End: 02-07-2023 Cancer Ag 27-29 [Units/volume] in Serum or Plasma [facility] Work Phone: Comment on above: Expected: 12/08/2022 , Expires: 02/07/2023 Start: 11-03-2022 End: 01-03-2023 ONCOTYPE DX ONCOTYPE DX Lab Routine Malignant neoplasm of upper-outer quadrant of right breast in female, estrogen receptor positive (HCC) Expected: 11/03/2022, Expires: 01/03/2023 [facility] Work Phone: Comment on above: Expected: 11/03/2022 , Expires: 01/03/2023 Start: 10-19-2022 DEPRESSION ASSESSMENT DEPRESSION ASS ESSMENT [facility] Start: 09-10-2022 End: 11-10-2022 MISC SEND OUT TST 1 MISC SEND OUT TST 1 Lab Routine Malignant neoplasm of upper-outer quadrant of right breast in female, estrogen receptor positive (HCC) Expected: 09/10/2022, Expires: 11/10/2022 [facility] Work Phone: Comment on above: Expected: 09/10/2022 , Expires: 11/10/2022 Start: 06-19-2022 Influenza vaccination INFLUENZA (#1) [facility] Start: 11-19-2021 COVID-19 VACCINE (4 - Booster for Moderna series) COVID-19 VACCINE (4 - Booster for Moderna series) [facility] Start: 11-19-2021 COVID-19 VACCINE (4 - Moderna series) COVID-19 VACCINE (4 - Moderna series) [facility] Start: 10-19-2021 DEPRESSION ASSESSMENT DEPRESSION ASS ESSMENT [facility] Start: 2020 RSV Vaccine (1 - 1-d ose 60+ series) RSV Vaccine (1 - 1-dose 60+ series) [facility] Start: 2010 SHINGRIX VACCINE (1 of 2) SHINGRIX VACCINE (1 of 2) [facility] Start: 2005 COLOGUARD (FIT-DNA) COLOGUARD (FIT-D NA) [facility] Start: 2005 Colonoscopy COLONOSCOPY [facility] Start: 2005 COLORECTAL CANCER SCREENING COLORECTAL CANCER SCREENING [facility] Start: [address] COLONOGRAPHY [facility] Start: 2005 DIABETES SCREEN DIABETES SCREEN [facility] Start: 2005 FECAL OCCULT BLOOD FECAL OCCULT BLOO D [facility] Start: 2005 LIPID SCREEN LIPID SCREEN [facility] Start: 2005 Screening for malign ant neoplasm of colon [facility] Start: 2005 SIGMOIDOSCOPY SIGMOIDOSCOPY [facility] Start: 2000 Mammography [facility] Start: 2000 Screening for malign ant neoplasm of breast Mammogram Screening [facility] Start: 1990 HPV TESTING HPV TESTING [facility] Start: 1990 Screening for malign ant neoplasm of cervix HPV Testing [facility] Start: 1981 PAP TESTING PAP TESTING [facility] Start: 1981 Screening for malign ant neoplasm of cervix Pap Testing [facility] Start: 1979 Urine microalbumin profile [facility] Start: 1978 HEPATITIS C SCREENING HEPATITIS C [facility] Start: 1978 Hepatitis C screening Hepatitis C [facility] Start: 1978 HIV SCREENING HIV SCREENING [facility] Start: 1978 HIV screening HIV Screening [facility] Start: 1960 COVID-19 VACCINE (#1) COVID-19 VACCI NE (#1) [facility] CT SIM PLANNING RADIATION ONCOLOGY CT SIM PLANNING RADIATION ONCOLOGY Radiology Routine Malignant neoplasm of upper-outer quadrant of right breast in female, estrogen receptor positive (HCC) Ordered: 11/26/2022 [facility] Work Phone: Comment on above: Ordered: 11/26/2022 End: 07-14-[address] attenuation skull base mid-thigh NM PET/CT SKULL-THIGH INITIAL Radiology Routine Malignant neoplasm of upper-outer quadrant of right breast in female, estrogen receptor positive (HCC) 1 Occurrences starting 06/15/2023 until 07/14/2024 [facility] Work Phone: Comment on above: 1 Occurrences starti ng 06/15/2023 until 07/14/2024 End: 07-14-2024 US ABD RIGHT UPPER QUADRANT US ABD RIGHT UPPER QUADRANT Radiology STAT Malignant neoplasm of upper-outer quadrant of right female breast, unspecified estrogen receptor status (HCC) Elevated liver function tests 1 Occurrences starting 06/15/2023 until 07/14/2024 [facility] Work Phone: Comment on above: 1 Occurrences starti ng 06/15/2023 until 07/14/2024 End: 07-14-2024 US BREAST LTD RIGHT US BREAST LTD RIGHT Radiology Routine Malignant neoplasm of upper-outer quadrant of right breast in female, estrogen receptor positive (HCC) 1 Occurrences starting 06/15/2023 until 07/14/2024 [facility] Work Phone: Comment on above: 1 Occurrences starti ng 06/15/2023 until 07/14/2024 [facility] Immunizations Immunization Date Immunization Notes Care Provider Carmelo gallardo 09-09-2023 influenza, injectable, quadrivalent, preservative free Pedro Whalen Other [employer] Other 08-19-2023 influenza virus vaccine, unspecified formulation Ciaran REES [facility] 09-24-2021 SARS-CoV-2 (COVID-19 ) mRNA-1273 vaccine Ciaran REES [facility] Comment on above: Result Comment: 2021: [id number] 01-26-2021 SARS-CoV-2 (COVID-19 ) mRNA-1273 vaccine Ciaran REES [facility] 12-29-2020 SARS-CoV-2 (COVID-19 ) mRNA-1273 vaccine Ciaran REES [facility] 08-11-2020 influenza virus vaccine, unspecified formulation Toro Chan MD Work Phone: [facility] NEGATED: Highlighted row has not occurred!10-07-2022 influenza virus vaccine, unspecified formulation Ciaran GAVIRIADheeraj [facility] Payers Date Payer Category Payer Unknown [id number] 2021 Unknown [id number] 1960 Unknown [id number] 1960 Unknown [id number] 1960 Unknown [id number] [id number] 1960 Unknown [id number] [id number] 1960 Unknown [id number] [id number] [id number] 1960 Unknown [id number] [id number] 1960 Unknown [id number] [id number] 1959 Unknown [id number] Social History Date Type Detail Facility Tobacco smoking status [facility] Start: 04-06-2023 End: 12-31-2023 Sex Assigned At Female [facility] Start: 08-26-2022 End: 10-06-2022 Tobacco smoking status Ex-smoker (finding) [facility] Tobacco smoking status Never [facility] End: 10-19-1999 History of tobacco use Current smoker [facility] End: 10-19-1999 History of tobacco use Cigarette Smoker [facility] History of tobacco use Passive smoker [facility] Start: 09-05-2022 End: 10-06-2022 Tobacco use and exposure Smokeless tobacco non-user [facility] Start: 09-05-2022 End: 10-06-2023 Alcohol intake Ex-drinker (finding) [facility] Start: 1960 Sex Assigned At Not on file [facility] Start: 08-29-2022 End: 09-10-2022 Exposure to SARS-CoV-2 (event) Not sure [facility] Start: 04-06-2023 End: 12-31-2023 History of Social function [facility] Functional Status Date Assessment Result Facility 10-07-2023 Functional Status N/A [facility] 10-15-2022 Functional Status No [facility] 10-07-2022 Functional Status N/A [facility] 08-26-2022 Functional Status N/A [facility] Clinical Notes 10-24-2021 to 12-31-2023 Toro Chan MD - 12/31/2023 2:02 PM EDTTelephone Encounter - Sayra Cortez LPN - 12/28/2023 9:23 AM EDT Note Date & Type Note Facility 12-31-2023 Note HNO ID: [id number] Author: TORO CHAN MD Service: ? Author Type: Physician Type: Progress Notes Filed: 01/12/2024 05:51 Note Text: /Radiation Oncology - Follow Up Note/ PATIENT NAME: Karen Chery PATIENT DIAGNOSIS/PATIENT IDENTIFICATION: Ms. Chery is a 63-year-old woman diagnosed with Stage I, [id number], IDC arising from the right breast, ER/LA positive, Her2 negative status post right breast [...] to clinic today for routine follow-up approximately one year after the completion of her radiation treatments and six months since her last visit on 07/09/2023. In the interim, she has short interval right breast ultrasound on 12/28/2023 which is read as benign, BI-RADS 2 with recommendation to return to annual mammography. No concerns were identified on clinical breast exam by Dr. Pretty in September. She also continues on Arimidex which she has been managing with some aches and pains and no hot flashes. Today she notes an occasional twinge of the breast but denies any other pain or discomfort and reports no skin irritation or breakdown and continues to use a moisturizer weekly. She notes no new lumps or bumps in the breast with intact range of motion of the right upper extremity. She endorses good energy appetite and hydration with stable weight. She otherwise denies any recent fevers, chills, [...] tablet cholecalciferol, vitamin D3, (VITAMIN D3 ORAL) PHYSICAL EXAM: GENERAL: middle-aged woman sitting in chair in no acute distress. VITALS: BP 150/78 Pulse 77 Temp 97.7 Resp 18 Wt 180 lb 12.4 oz (82.0kg) SpO2 98% KPS: 90 HEENT: NC/AT, anicteric sclera HEART: S1S2 LUNGS: non-labored breathing ABDOMEN: soft MUSCULOSKELETAL: no peripheral edema, moves all extremities. NEURO: no focal deficit; AANDO X3. RADIOLOGIC DATA: Right Breast US (12/28/2023) ASSESSMENT AND PLAN: Ms. Chery is a 63-year-old woman diagnosed with Stage I, [id number], IDC arising from the right breast, ER/LA positive, Her2 negative status post right breast [...] Ms. Chery is doing well clinically approximately one year after the completion of her postoperative radiation treatments to the right breast with no significant residual sequela at this time. Wound clinical radiographic evidence of disease based on clinical breast exam by Dr. Pretty as well as short interval right breast ultrasound from 12/28/2023 showing benign changes (BI-RADS 2). She will return to annual mammography for surveillance and continue her follow-up with Dr. Pretty. The patient is aware to contact the clinic in the interim should any questions or concerns arise. Thank you for allowing us to participate in the care of this patient. Signed by: Toro Chan MD I spent a total of 20 minutes on the date of the service which included preparing to see the patient, [id number] patient care, and counseling and educating the patient/family/caregiver. This document has been created with the use of voice recognition technology. It may contain inaccuracies, misspellings, inaccurate syntax or inappropriate word context that are a r (more content not included)... [facility] 12-31-2023 History of Present illness Narrative Images from the original note were not included. /Radiation Oncology - Follow Up Note/ PATIENT NAME: Karen Chery PATIENT DIAGNOSIS/PATIENT IDENTIFICATION: Ms. Chery is a 63-year-old woman diagnosed with Stage I, [id number], IDC arising from the right breast, ER/LA positive, Her2 negative status post right breast [...] cGy delivered in 20 fractions). INTERVAL HISTORY/ROS: She otherwise denies any recent fevers, chills, [...] tablet cholecalciferol, vitamin D3, (VITAMIN D3 ORAL) PHYSICAL EXAM: GENERAL: middle-aged woman sitting in chair in no acute distress. VITALS: BP 150/78 Pulse 77 Temp 97.7 Resp 18 Wt 180 lb 12.4 oz (82.0kg) SpO2 98% KPS: 90 HEENT: NC/AT, anicteric sclera HEART: S1S2 LUNGS: non-labored breathing ABDOMEN: soft MUSCULOSKELETAL: no peripheral edema, moves all extremities. NEURO: no focal deficit; A&O X3. RADIOLOGIC DATA: Right Breast US (12/28/2023) ASSESSMENT AND PLAN: Ms. Chery is a 63-year-old woman diagnosed with Stage I, [id number], IDC arising from the right breast, ER/LA positive, Her2 negative status post right breast [...] 01/02/2023 (5005 cGy delivered in 20 fractions). Signed by: Toro Chan MD I spent a total of 20 minutes on the date of the service which included preparing to see the patient, [id number] patient care, and counseling and educating the patient/family/caregiver. This document has been created with the use of voice recognition technology. It may contain inaccuracies, misspellings, inaccurate syntax or inappropriate word context that are a result of the inadequacies/shortcomings of said technology/software.// documented in this encounter [facility] 12-28-2023 Miscellaneous Notes Rudy with [facility] [place] de[facility] called stating Angelique is there for scheduled bilateral john and shayan breast ultrasound. She said Angelique requested clarification if she needed a mammogram and US at this time or just US. Rudy said the previous mammogram done 2022 only recommends a [address] Chan not in office at the time the call was received. I told Rudy that if Angelique refuses to have the mammogram done and Dr. Chan still wants it done, we can call to reschedule. I reviewed the above with Dr. Chan and he said the mammogram report from 2022 states Birad 3-short term interval recommended. If she didn't have the mammogram he will review the US results with her at her scheduled follow up 12/31/23 and make further recommendations at that time. I called [facility] mamm[facility] and notified Juliette of the above. She states Angelique did not have mammogram today and the radiologist hasn't read the US yet. Angelique is still there and she will relay 's response to the patient. Sayra Cortez RN documented in this encounter [facility] 10-07-2023 Note Chief Complaint consultation for colonoscopy [...] age 38 Years., (more content not included)... [facility] Comment on above: Result Comment: Elec tronically Signed By: CABRERA GALEANO, Ciaran Jacobs\michael\Date and Time Signed: 10/07/23 15:37 EST 10-06-2023 Note HNO ID: [id number] Author: Blayne Pretty MD Service: ? Author [...] Right breast lumpectomy and sentinel node procedure ([facility]) Invasive ductal carcinoma, 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 Margins negative for invasive carcinoma. DCIS present at deep margin, focal. 2 benign lymph nodes identified (0/2). Oncotype recurrence score 12 08/26/2022 Right breast core biopsy ([facility]) Invasive ductal carcinoma, grade 2. ER 80 to 90%, LA 40 to 50%, HER2 negative RADIOLOGY/OTHER STUDIES: [...] of FDG marianna (more content not included)... [facility] 09-09-2023 Evaluation note Encounter Date Diagnosis Assessment [...] patient on monthly SBE and yearly mammograms. [employer] Other 09-26-2023 NoteHNO ID: [id number] Author: Blayne Pretty MD Service: ? Author [...] Right breast lumpectomy and sentinel node procedure ([facility]) Invasive ductal carcinoma, 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 Margins negative for invasive carcinoma. DCIS present at deep margin, focal. 2 benign lymph nodes identified (0/2). Oncotype recurrence score 12 08/26/2022 Right breast core biopsy ([facility]) Invasive ductal carcinoma, grade 2. ER (more content not included)...[facility]09-22-2023 Miscellaneous Notes* Telephone Encounter - Sayra Cortez LPN - 07/10/2023 11:55 AM EDT The only order option is limited. We just typically write on the order-complete. I will adjust and refax the order. Sayra Cortez LPN * Telephone Encounter - Latisha Hutchinson - 07/10/2023 7:13 AM EDT Yury covarrubias called asking if we could put in an order for a Complete breast ultrasound instead of the Limited, thanks documented in [facility] encounterReg[facility] Center09-[facility]-2023 NoteHNO ID: [id number] Author: Toro Chan MD Service: ? Author Type: Physician Type: Progress Notes Filed: 07/21/2023 11:44 PM Note Text: Radiation Oncology - Follow Up Note PATIENT NAME: Angelique Chery PATIENT DIAGNOSIS/PATIENT IDENTIFICATION: Ms. Chery is a 63-year-old woman diagnosed with Stage I, [id number], IDC arising from the right breast, ER/LA positive, Her2 negative status post right breast [...] a 63-year-old woman diagnosed with Stage I, [id number], IDC arising from the right breast, ER/LA positive, Her2 negative status post right breast [...] I will pl (more content not included)... [facility]09-18-2023 NoteHNO ID: [id number] Author: Nancy Wakefield, RT(R) Service: ? Author Type: Technologist Type: [...] 1212 PATIENT DISCHARGED TO: Ambulatory patient, left [place] department area. A Diagnostic radioactive procedure has taken place, with no further precautions necessary other than routine body substance precautions. More information regarding radiation safety can be found using this link: [email or web address] SIGNATURE: RT Es(R) PATIENT NAME: Angelique Chery DATE: July 06, 2023 TIME: 2:09 PM PAGER/CONTACT #:[facility]09-18-2023 NoteHNO ID: [id number] Author: Delilah Mendez RN Service: ? Author [...] Chery DATE: July 06, 2023 TIME: 1:05 [facility]09-07-2023 Miscellaneous Notes* Telephone Encounter - Indio Trivedi RN - 06/25/2023 8:14 AM EDT [facility] called to verify order as Limited, and to only include the upper outer quadrant and axilla.Discussed with BRSanjeev and our [facility] Breast US order, only allows for LTD (NO complete order available) Verbal order taken for complete breast US to include axilla. Indio Trivedi RN documented in [facility]Reg[facility]08-30-2023 Miscellaneous Notes* Telephone Encounter - Indio Trivedi [...] referring her to hepatology. documented in this encounterRegional [facility] Center08-29-2023 Miscellaneous Notes* Telephone Encounter - Indio Trivedi RN - 06/16/2023 4:46 PM EDT Liver US reviewed by BRM. Pt aware of normal results. Pt states she started Lipitor, ordered by [facility], following her March labs. She did not take today and will stop indefinitely. She will come tomorrow afternoon to recheck her liver studies, as recommended by BRM. BRM: Please sign pended lab Indio Trivedi RN documented in this encounterRegional [facility] Center08-28-2023 Miscellaneous Notes* Telephone Encounter - Ruth Ann Berry - 06/15/2023 2:04 PM EDT Patient has been scheduled for US tomorrow, 06/16 at [place] at 7 am. Patient notified. Patient to be fasting for 8 hours, fat free supper tonight; patient notified of these instructions. Order faxed June 15, 2023 2:04 PM Ruth Ann Berry * Telephone Encounter - Lavern Tolbert APRN.CNP - 06/15/2023 1:58 PM EDT Signed. Lavern Tolbert APRN.CNP * Telephone Encounter - Indio Trivedi RN [...] ultrasound LESLIE for evaluation. documented in this encounterRegional [facility] Center08-28-2023 NoteHNO ID: [id number] Author: Blayne Pretty MD Service: ? Author [...] Right breast lumpectomy and sentinel node procedure ([facility]) Invasive ductal carcinoma, 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 Margins negative for invasive carcinoma. DCIS present at deep margin, focal. 2 benign lymph nodes identified (0/2). Oncotype recurrence score 12 08/26/2022 Right breast core biopsy ([facility]) Invasive ductal carcinoma, grade 2. ER 80 to 90%, LA 40 to 50%, HER2 negative RADIOLOGY/OTHER STUDIES: 06/06/2023 CT chest, abdo (more content not included)...[facility]08[facility] History of Present illness Narrative* Blayne Pretty [...] Types: Cigarettes Quit date: 2000 Years since quittin.6 Passive exposure: Past Smokeless [...] Right breast lumpectomy and sentinel node procedure ([facility]) Invasive ductal carcinoma, 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 Margins negative for invasive carcinoma. DCIS present at deep margin, focal. 2 benign lymph nodes identified (0/2). Oncotype recurrence score 12 08/26/2022 Right breast core biopsy ([facility]) Invasive ductal carcinoma, grade 2. ER 80 to 90%, LA 40 to 50%, HER2 negative RADIOLOGY/OTHER STUDIES: 06/06/2023 CT chest, abdomen and pelvis ([facility]) 3.2 x 2.3 cm right breast [...] small to characterize. 05/18/2023 Nuclear bone scan ([facility]) No suspicious foci to suggest metastatic disease. 08/25/2022 Diagnostic mammogram and right breast ultrasound ([facility]) BI-RADS 5, highly suggestive of malignancy At [...] pathology indicated grade 2 invasive ductal carcinoma, ER/LA positive, HER2 negative. Genomic analysis revealed no [...] CC: Dr. Tommie Rees documented in this encounterRegional Medical Center08-15-2023 Miscellaneous Notes* Telephone Encounter - Indio Trivedi RN - 06/02/2023 2:40 PM EDT Please sign pended CRE for pt to have completed for her CT at [facility]. Indio Trivedi RN * Telephone Encounter - Tila Dyer - 06/02/2023 7:52 AM EDT Called [facility] and had to leave a [...] and pt to have bone scan at [facility] (completed 05/18) PSS: Please call to schedule LESLIE Indio Trivedi RN documented in this encounterRegional Medical Center06-21-2023 Evaluation note* Encounter Date Diagnosis Assessment Notes Treatment Notes Treatment Clinical Notes Mar, Pure hypercholestero lemia (ICD-10 - E78.00) [employer] Other 06-20-2023 Miscellaneous Notes* Telephone Encounter - [...] recommendation. Sayra Cortez LPN documented in this encounterRegional Medical Center06-19-2023 NoteHNO ID: [id number] Author: Marcela Washington PA-C Service: ? Author Type: Physician Tugboat Operator Type: Progress Notes Filed: 04/06/2023 3:04 PM Note Text: PATIENT NAME: Angelique Chery DATE: 04/06/2023 PRIMARY CARE PHYSICIAN: Pedro Whalen, DO OTHER [...] Types: Cigarettes Quit date: 2000 Years since quittin.4 Passive exposure: Past Smokeless [...] Right breast lumpectomy and sentinel node procedure ([facility]) Invasive ductal carcinoma, 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 Margins negative for invasive carcinoma. DCIS present at deep margin, focal. 2 benign lymph nodes identified (0/2). Oncotype recurrence score 12 08/26/2022 Right breast core biopsy [place] Invasive ductal carcinoma, grade 2. ER 80 to 90%, LA 40 to 50%, HER2 negative RADIOLOGY/OTHER STUDIES: 08/25/2022 Diagnostic mammogram and right breast ultrasound ([facility]) BI-RADS 5, highly suggestive of malignancy At 11:00 there is a mass approximately 2.1 x 2 x 1.4 cm in the right breast. Left breast is unremarkable in appearance. LABORATORY DATA: Hemoglobin (g/dL) Date Value 04/06/2023 12.4 Hematocrit (%) Date Value 04/06/2023 39.5 WBC (k/uL) Date Value (more content not included)...[facility]06-02-2023 Evaluation note* Encounter Date Diagnosis Assessment Notes Treatment Notes Treatment Clinical Notes Mar, Wellness examination (ICD-10 - Z00.00) [employer] Other 06-02-2023 Evaluation note* Encounter Date Diagnosis [...] Healthy diet, exercise and check A1C yearly [employer] Other 04-01-2023 Miscellaneous Notes* Telephone Encounter - Adela Ospina - 03/31/2023 8:38 AM EDT Patient coming in Thursday04/06/23 for follow up with labs per [facility] notes. Please add lab orders. Thanks. Adela Ospina MA documented in this encounterRegional [facility] Center03-27-2023 Evaluation note* Encounter Date Diagnosis Assessment Notes [...] colonoscopy this year. - last scope in 2017 w/o polyps [employer] Other 03-20-2023 History of Present illness Narrative* Jojo Power RN - 01/05/2023 3:28 PM EDTSummary: [id number] [facility] 1Y21 IRB: [id number] [...] Chart routed to physician: Toro Chan MD Adjunct Psychology Instructor: Jojo Power RN The patient knows to follow provider's treatment plan and to continue to complete the weekly electronic surveys, to be sent for minimum of 12 weeks. Patient understands to call the office sooner if needed and has my contact information for any additional questions regarding the study. Jojo Power RN 3:31 PM January 05, 2023 documented in this encounterRegional Medical Center03-17-2023 History of Present illness Narrative* Toro Chan MD - 01/02/2023 12:00 AM EDT [facility] Radiation Oncology Department RADIATION ONCOLOGY - COMPLETION NOTE PATIENT: ANGELIQUE CHERY : 1960 DATES OF TREATMENT: 12/08/2022 to 01/02/2023 DIAGNOSIS: Ms. Chery is a 62-year-old woman diagnosed with Stage I, [id number], IDC arising from theright breast, ER/LA positive, Her2 negative status post right breast [...] months. Staff Physician Toro Chan M.D. / BE 34:49 AM Electronically Signed cc: Blayne Pretty MD ([facility]) Pedro Whalen, DO [address] [facility] [address] [address] [place] [address] [address] documented in this encounterRegional Medical Center03-08-2023 History of Present illness Narrative* Jojo Power RN - 12/24/2022 8:42 AM ESTSummary: [id number] Alert management Week 0 [facility] Alert Management Note [facility] IRB: [id number] Real World Treatment Experience of [...] Chart routed to physician: Toro Chan MD Adjunct Psychology Instructor: Jojo Power RN Phone: [phone] The patient knows to follow provider's treatment plan and to continue to complete the weekly electronic surveys, to be sent for minimum of 12 weeks. Patient understands to call the office sooner if needed and has my contact information for any additional questions regarding the study. Jojo Power RN 8:44 AM December 24, 2022 documented in this encounterRegional Medical Center03-03-2023 History of Present illness Narrative* Jojo Power RN - 12/19/2022 11:32 AM ESTSummary: [id number] Consent Presentaion Informed Consent Presentation IRB# [id number] [facility] Title: Real World Treatment Experience of Patients with Breast, Lung, or GI Cancer or Multiple Myeloma Using Remote Symptom Monitoring Consent expiration date 05/28/2023 Spoke with patient regarding [id number]. Treatment plan, including all potential risks/benefits, sideeffects [...] AM Jojo Power RN documented in this [facility]02-28-2023 History of Present illness Narrative* Toro Chan MD - 12/16/2022 11:44 PM EST Radiation Oncology - On Treatment Review (OTR) Note PATIENT NAME: Angelique Chery PATIENT Toro Chan MD documented in this [facility]02-28-2023 Nurse Note* Tila Juárez RN - 12/16/2022 3:28 PM EST Status: Post-menopausal. Tila Juárez RN documented in this [facility]02-22-2023 History of Present illness Narrative* Toro Chan MD - 12/10/2022 11:37 PM EST Radiation Oncology - On Treatment Review (OTR) Note PATIENT NAME: Angelique Chery PATIENT Toro Chan MD documented in this [facility]02-22-2023 Nurse Note* Sayar Cortez LPN - 12/10/2022 2:53 PM EST Status: Post-menopausal. documented in this [facility]02-20-2023 History of Present illness Narrative* Blayne Pretty [...] Right breast lumpectomy and sentinel node procedure ([facility] Invasive ductal carcinoma, 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 Margins negative for invasive carcinoma. DCIS present at deep margin, focal. 2 benign lymph nodes identified (0/2). Oncotype recurrence score 12 08/26/2022 Right breast core biopsy ([facility] Invasive ductal carcinoma, grade 2. ER 80 to 90%, LA 40 to 50%, HER2 negative RADIOLOGY/OTHER STUDIES: 08/25/2022 Diagnostic mammogram and right breast ultrasound ([facility]) BI-RADS 5, highly suggestive of malignancy At [...] pathology indicated grade 2 invasive ductal carcinoma, ER/LA positive, HER2 negative. Genomic analysis revealed no [...] CC: Dr. Ciaran Rees documented in this encounterRegional Medical Center02-08-2023 History of Present illness Narrative* Toro Chan MD - 11/26/2022 11:31 PM EST Radiation Oncology - Follow Up Note PATIENT NAME: Angelique Chery PATIENT Signed by: Toro Chan MD I spent a total of 15 minutes on the date of the service which included preparing to see the patient, mnuz-[id number] patient care, and counseling and educating the patient/family/caregiver. This document has been created with the use of voice recognition technology. It may contain inaccuracies, misspellings, inaccurate syntax or inappropriate word context that are a result of the inadequacies/shortcomings of said technology/software. 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 Signed by: Tila Juárez, RN documented in this encounterRegional Medical Center02-08-2023 History of Present illness Narrative* Toro Chan MD - 11/26/2022 12:00 AM EST ANGELIQUE CHERY [id number] 11/26/2022 [facility] Radiation Oncology Department SIMULATION NOTE DATE OF SIMULATION: 11/26/2022 THERAPIST: Lila Oliva MACHINE: [employer] DIAGNOSIS: Malignant neoplasm of upper-outer quadrant of right female dxesfgL64.411 AREA: RT BREAST CONTRAST: None Consent in [...] / NRS 35:20 PM documented in this encounterRegional Medical Center02-08-2023 History of Present illness Narrative* Toro Chan MD - 11/26/2022 12:00 AM EST ANGELIQUE CHERY [id number] 11/26/2022 [facility] Department of Radiation Oncology Treatment Planning Note [...] Chan M.D. 32:28 AM documented in this encounterRegional Medical Center02-07-2023 Miscellaneous Notes* Telephone Encounter - Lawson Eason [...] 2:28 PM EST FYI: Call placed to [employer] to assess status of pt's Oncotype testing. Specimen was receivedon 11/07/22. Prior authorization was initiated yesterday. Estimated result date is 11/21/22. Nothing required from our office at this time. Nancy Maradiaga RN documented in this encounterRegional Medical Center01-27-2023 History of Present illness Narrative* Toro Chan MD - 11/14/2022 11:47 PM EST Images from the original note were not included. Radiation Oncology - New Patient/Consult Note PATIENT NAME: Angelique Chery PATIENT Signed: Toro Chan MD I spent a total of 60 minutes on the date of the service which included preparing to see the patient, bnhe-[id number] patient care, and counseling and educating the patient/family/caregiver. This document has been created with the use of voice recognition technology. It may contain inaccuracies, misspellings, inaccurate syntax or inappropriate word context that are a result of the inadequacies/shortcomings of said technology/software. documented in this encounterRegional Medical Center01-25-2023 Evaluation note* Encounter Date Diagnosis Assessment Notes Treatment Notes Treatment Clinical Notes Oct, Malignant neoplasm of upper-outer quadrant of right female breast (ICD-10 - C50.411) ERP/PRP, HER2 negative. s/p lumpectomy - 10/23/22 Oct, Estrogen receptor positive status [ER+] (ICD-10 - Z17.0) [employer] Other 01-23-2023 History of Present illness Narrative* Blayne Pretty [...] Right breast lumpectomy and sentinel node procedure [place] Invasive ductal carcinoma, 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 Margins negative for invasive carcinoma. DCIS present at deep margin, focal. 2 benign lymph nodes identified (0/2). 08/26/2022 Right breast core biopsy ([facility] Invasive ductal carcinoma, grade 2. ER 80 to 90%, LA 40 to 50%, HER2 negative RADIOLOGY/OTHER STUDIES: 08/25/2022 Diagnostic mammogram and right breast ultrasound ([facility]) BI-RADS 5, highly suggestive of malignancy At [...] pathology indicated grade 2 invasive ductal carcinoma, ER/LA positive, HER2 negative. Genomic analysis revealed no [...] CC: Dr. Ciaran Rees documented in this encounterRegional Medical Center01-17-2023 Miscellaneous Notes* Telephone Encounter - Latisha Tao Sec - 11/04/2022 10:52 AM EST Oncotype sent. * Telephone Encounter - Latisha Tao Sec - 11/04/2022 9:34 AM EST Oncotype order in Brm box to be signed * Telephone Encounter - Lavern Tolbert APRN.OFFICE CLIN ASST - 11/03/2022 9:32 AM EST Signed. Lavern Tolbert APRN.OFFICE CLIN ASST * Telephone Encounter - Nancy Maradiaga RN - 11/03/2022 9:[address] Pretty would like pt's breast pathology from [facility] sent for Oncotype. Right Breast Lumpectomy - Collected 10/23/22 @ [facility] Specimen #: [id number] DOMINIQUE/Lavern: Order pended. Clerical: VINCENT.... Nancy Maradiaga RN documented in this encounterRegional Medical Center01-12-2023 Evaluation note* Encounter Date Diagnosis Assessment Notes Treatment Notes Treatment Clinical Notes Oct, Infiltrating ductal carcinoma of left breast (ICD-10 - C50.912) [employer] Other 01-12-2023 Evaluation note* Encounter Date Diagnosis Assessment Notes Treatment Notes Treatment Clinical Notes Oct, Invasive ductal carcinoma of right breast (ICD-10 - C50.911) lumpectomy, radiation therapy [employer] Other 01-12-2023 Evaluation note* Encounter Date Diagnosis Assessment Notes Treatment Notes Treatment Clinical Notes Oct, Invasive ductal carcinoma of right breast (ICD-10 - C50.911) lumpectomy, radiation therapy and Arimidex [employer] Other 01-11-2023 Evaluation note* Encounter Date Diagnosis Assessment Notes Treatment Notes Treatment Clinical Notes Oct, Primary hypertension (ICD-10 - I10) [employer] Other 01-05-2023 Hospital Discharge instructions Patient Education 10/23/2022 14:08:04 Post Op Patient Instructions - FT (CUSTOM) Follow Up Care 10/07/2022 10:14:49 With:Ciaran REES Address: [address] [place] [address] [address] [place] [address]- Business (1) When:10/28/2022 Comments:at scheduled time in the [place] office. [facility]01-05-2023 Evaluation + Plan noteExtracted from: Title:Post-anesthesia - General Author:Bernardo Trujillo DO Date:10/23/22 Plan Transfer/ Discharge: Condition stable. Future Appointments Appointment Date:10/28/2022 02:40:00 PM Scheduled Provider:Ciaran REES MD Location:[facility] Appointment Type: Post Op 15 [facility]01-04-2023 Evaluation note* Encounter Date Diagnosis Assessment Notes Treatment Notes Treatment Clinical Notes Oct, Primary hypertension (ICD-10 - I10) [facility] [employer] Other 12-28-2022 Miscellaneous Notes* Telephone Encounter - Nunu Landin - 10/15/2022 12:56 PM EST Cancer claim form completed and placed at front elevator operator for hand picker per patient request. Dr. Thomas signed due to [facility] being off work. Nunu Landin documented in this encounterRegional Medical Center12-21-2022 Miscellaneous Notes* Telephone Encounter - Genevieve Somers RN - 10/08/2022 3:30 PM EST [facility]-FYI: Received call from pt stating she needed to let Dr Pretty know her surgery has been scheduled for 10/23 and that should work out well with her already scheduled f/u appt with Dr Pretty on 11/10. Genevieve Somers RN documented in this encounterRegional Medical Center12-19-2022 History of Present illness Narrative* Blayne Pretty MD - 10/06/2022 7:48 AM EST PATIENT NAME: Angelique Chery DATE: 10/06/2022 PRIMARY CARE PHYSICIAN: Pedro Whalen DO OTHER [...] here final pathology revealed her tumor was [id number]. Genomic analysis 09/10/2022 revealed no deleterious mutations. [...] atrophy. PATHOLOGY: 08/26/2022 Right breast core biopsy ([facility] Invasive ductal carcinoma, grade 2. ER 80 to 90%, LA 40 to 50%, HER2 negative RADIOLOGY/OTHER STUDIES: 08/25/2022 Diagnostic mammogram and right breast ultrasound ([facility] BI-RADS 5, highly suggestive of malignancy At [...] indicates a grade 2 invasive ductal carcinoma, ER/LA positive, HER2 negative. Genomic analysis revealed no [...] CC: Dr. Ciaran Rees documented in this encounterRegional Medical Center12-12-2022 Miscellaneous Notes* Telephone Encounter - Nancy Maradiaga RN - 09/29/2022 10:08 AM EST FYI: Pt is scheduled to see Dr Rees on Thursday, 10/07. Nancy Maradiaga RN documented in this encounterRegional Medical Center12-07-2022 Miscellaneous Notes* Telephone Encounter - VICTORIANO Bragg - 09/24/2022 10:45 AM EST Patient name and was confirmed at initiation of discussion. Angelique Chery's Integrated BRACAnalysis with [employer] through [employer] was negative for a pathogenic variant. 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 Based on personal and family history, clinical suspicion of this finding is low. Please see tripJane message for further discussion. Kai Garcia MS, [facility] Licensed, Certified Genetic Counselor documented in this [facility]12-02-2022 Miscellaneous Notes* Telephone Encounter - Vianca [...] the genomic results should be back. Thanks, [facility] * Telephone Encounter - Nancy Maradiaga RN - 09/18/2022 3:18 PM EST Pt started Arimidex last week. Has an appointment to see you on Thursday, 09/22. Do you still want to see her or should we postpone since she just started the medication? Nancy Maradiaga RN documented in this encounterRegional Medical Center12-01-2022 NoteHISTORY AND PHYSICAL EXAMINATION Date:09/17/2022 HISTORY: The [...] and go forward with her elective procedure.[facility] [id number] NoteOPERATIVE NOTE OPERATION DATE: 09/18/2022 SURGEON: Charity [...] ensuring mobility, phacoemulsification was performed in a nnqckag-bjl-asuvhy-type fashion. After all nuclear material had been [...] up the following day for postoperative care.[facility] [id number] Miscellaneous Notes* Telephone Encounter - Lavern Tolbert APRN.CNP - 09/12/2022 12:05 PM EST The following approved medication requests have been transmitted electronically. Requested Prescriptions Signed Prescriptions Disp Refills anastrozole (ARIMIDEX) 1 mg tablet 30 tablet 1 Sig: Take 1 tablet by mouth once daily. Authorizing Provider: LAVERN TOLBERT APRN.CNP * Telephone Encounter - Nancy Maradiaga RN - 09/12/2022 11:[address] Pretty, the pt's Her 2 results were negative. Recommends pt start Arimidex 1 mg po daily. Pt notified and verbalizes understanding. Side effects reviewed w/ pt. Advised pt to call w/ any additional questions/concerns. Pt verbalizes understanding. Would like script sent to [facility] in [place]. Lavern: Script pended. Nancy Maradiaga RN documented in this encounterRegional Medical Center11-23-2022 History of Present illness Narrative* VICTORIANO Bragg - 09/10/2022 9:26 AM EST [facility] Consultation Note Genetic Counselor: Kai Garcia MS, [facility] Patient: Angelique Chery Patient Name and confirmed at initiation of visit. Appointment occurred via audiovisual communication through [employer] Virtual Visit. HIGH LEVEL SUMMARY: The patient's personal and family history is potentially suggestive of hereditary cancer syndromes. The patient provided informed consent for STAT Integrated BRACAnalysis with [employer] through [employer]. Results are expected in 1-2 weeks. IDENTIFICATION [...] appropriate standard National Comprehensive Cancer Network and [place] [employer] guidelines, with consideration of their [...] the following testing: STAT Integrated BRACAnalysis with Luis Felipe through [employer]. The myRisk panel includes APC, DAVID, AXIN2, BAP1, BARD1, [...] greater than 50% of which was spent lieo-te-gqjn counseling. This plan is being carried out under the oversight of Dr. Sandra Vigil. This note will also be sent to the referring provider via the electronic medical record. Kai Garcia MS, [facility] Licensed, Certified Genetic Counselor [facility] CC: Dr. Blayne Vigil documented in this encounterRegional Medical Center11-21-2022 History of Present illness Narrative* Blayne Pretty [...] 08/26/2022 confirmed invasive ductal carcinoma, grade 2, ER/LA positive, HER2 pending. The patient was seen [...] atrophy. PATHOLOGY: 08/26/2022 Right breast core biopsy ([facility] Invasive ductal carcinoma, grade 2. ER 80 to 90%, LA 40 to 50%, HER2 RADIOLOGY/OTHER STUDIES: 08/25/2022 Diagnostic mammogram and right breast ultrasound ([facility] BI-RADS 5, highly suggestive of malignancy At [...] indicates a grade 2 invasive ductal carcinoma, ER/LA positive, HER2 pending. Options for further management [...] adjuvant systemic therapy options. Her tumor is ER/LA positive, therefore endocrine therapy is indicated. We are unable to determine the need for chemotherapy +/- HER2 based therapy until furtherresults are available. We will arrange for the patient to see medical genetics LESLIE. If the patient's biopsy confirms [id number] I would consider neoadjuvant chemotherapy pending genetic [...] Rees, Dr. Earnest Davis documented in this encounterRegional Medical Center01-06-2022 History general Narrative - Reported* Type Description Date Medical History Invasive ductal carcinoma of rig ht breast Surgical History Right breast lumpectomy w/ LN d issection 10/24/21 [employer] Other Evaluation + Plan note No data available for this section [facility] Future Appointments Appointment Date:08/26/2022 11:00:00 AM Scheduled Provider:Ciaran REES MD Location:[facility] [address] Type[address] note Future Appointments Appointment Date:10/15/2022 02:30:00 PM Scheduled Provider: Location:[facility] Appointment Type:Surgical PAT FT Appointment Date:10/23/2022 10:00:00 AM Scheduled Provider: [facility] Type:NM Lymphoscintigraphy (FT) Appointment Date:10/23/2022 11:30:00 AM Scheduled Provider: Location:[facility] Appointment Type:Surgery FT Appointment Date:10/28/2022 02:40:00 PM Scheduled Provider:Ciaran REES MD Location:[facility] Appointment Type: Post Op 15 Future Scheduled Tests Radiology* NM Lymphoscintigraphy 10/23/22 [facility] General Surgery [place] Evaluation + Plan note Future Appointments Appointment Date:10/23/2022 10:00:00 AM Scheduled Provider: [facility] App[facility] Type:NM Lymphoscintigraphy (FT) Appointment Date:10/23/2022 11:30:00 AM Scheduled Provider: Location:[facility] Appointment Type:Surgery FT Appointment Date:10/28/2022 02:40:00 PM Scheduled Provider:Ciaran REES MD Location:[facility] Appointment Type: Post Op 15 Future Scheduled Tests Radiology* NM Lymphoscintigraphy [facility] App[facility]ments Appointment Date:11/04/2022 03:40:00 PM Scheduled Provider:[facility]ES [facility]: Established 15 General Surgery [place] Evaluation + Plan note Future Appointments Appointment Date:11/18/2022 04:00:00 PM Scheduled Provider:[facility]iaran REES [facility]: Post Op 15 General Surgery [place] Evaluation + Plan note Future Appointments Appointment Date:12/28/2023 08:45:00 AM Scheduled Provider: Location:.MAMMOGRAM Appointment Type:MA Diagnostic (FT) Appointment Date:12/28/2023 09:30:00 AM Scheduled Provider: Location:.[facility]TRASOUND Appointment Type:US Breast (FT) Future Scheduled Tests Radiology* US Breast Unilateral Rt Complete 12/28/23 * MA Mamm Diag w/CAD if perf and 3D Shayan 12/28/23 General Surgery [place] Evaluation note* Diagnosis Malignant neoplasm of upper-outer quadrant of right breast in female, estrogen receptor positive (HCC)- Primary documented in this encounter [facility] note* Diagnosis Malignant neoplasm of upper-outer quadrant of right breast in female, estrogen receptor positive (HCC) documented in this encounter [facility] note* Diagnosis Malignant neoplasm of upper-outer quadrant of right breast in female, estrogen receptor positive (HCC)- Primary [facility]* Diagnosis Malignant neoplasm of upper-outer quadrant of right breast in female, estrogen receptor positive (HCC)- Primary documented in this encounter [facility] note* Diagnosis Malignant neoplasm of upper-outer quadrant of right breast in female, estrogen receptor positive (HCC)- Primary documented in this encounter [facility] note* Diagnosis Malignant neoplasm of upper-outer quadrant of right breast in female, estrogen receptor positive (HCC)- Primary documented in this encounter [facility] note* Diagnosis Malignant neoplasm of upper-outer quadrant of right breast in female, estrogen receptor positive (HCC)- Primary documented in this encounter [facility] noteNo [facility] [employer] Other Evaluation note* Diagnosis Malignant neoplasm of upper-outer quadrant of right breast in female, estrogen receptor positive (HCC)- Primary documented in this encounter [facility] note* Diagnosis Malignant neoplasm of upper-outer quadrant of right breast in female, estrogen receptor positive (HCC)- Primary documented in this encounter [facility] note* Diagnosis Malignant neoplasm of upper-outer quadrant of right breast in female, estrogen receptor positive (HCC)- Primary documented in this encounter [facility] note* Diagnosis Malignant neoplasm of upper-outer quadrant of right female breast, unspecified estrogen receptor status (HCC)- Primary Abnormal tumor markers Other abnormal tumor markers documented in this encounter [facility] note* Diagnosis Abnormal liver function tests- Primary Other abnormal blood chemistry Malignant neoplasm of upper-outer quadrant of right female breast, unspecified estrogen receptor status (HCC) Elevated liver function tests Other abnormal blood chemistry [facility] Diagnosis Malignant neoplasm of upper-outer quadrant of right breast in female, estrogen receptor positive (HCC)- Primary Elevated tumor markers Other abnormal tumor markers documented in this encounter [facility] note* Diagnosis Abnormal liver function tests- Primary Other abnormal blood chemistry documented in this encounter [facility] note* Diagnosis Malignant neoplasm of upper-outer quadrant of right breast in female, estrogen receptor positive (HCC)- Primary documented in this encounter [facility] general Narrative - Reported* Type Description [...] History PARATHYROIDECTOMY 2018 Hospitalization History SEE SURGICAL [employer] Other History general Narrative - Reported* Type [...] History CHOLECYSTECTOMY 2003 Surgical History COLONOSCOPY 2005,2009,2012, 2017 Surgical History PARATHYROIDECTOMY 2018 Hospitalization History SEE SURGICAL HX [employer] Other Hospital Discharge instructions No data available for this section [facility] No data available for this section [facility] Diagnostic Procedure Only (Routine) - Pending Review Specialty Diagnoses / Procedures Referred By Shashi t Referred To Contact [facility] IMAGING Diagnoses Malignant neoplasm of upper-outer quadrant of right breast in female, estrogen receptor positive (HCC) Procedures JOHN DIAGNOSTIC BILATERAL DIAGNOSTIC MAMMOGRAPHY COMPUTER-AIDED DETCJ Toro Patel MD [address] [place] [address] [place] [address] [facility] [address] [place] [phone] Referral ID Status Reason Start Date Expiration Date Visits Requested Visits Authorized [id number] Pending Review Auto-Generat ed Referral 07/08/2023 05/05/2024 1 1 [facility] for referral (narrative)* Diagnostic Procedure Only (Urgent) - Pending Review Specialty Diagnoses / Procedures Referred By Contac t Referred To Contact US IMAGING Diagnoses Malignant neoplasm of upper-outer quadrant of right female breast, unspecified estrogen receptor status (HCC) Elevated liver function tests Procedures US ABD RIGHT UPPER QUADRANT US ABDOMINAL REAL TIME W/IMAGE LIMITED Lavern Tolbert APRN.CNP [address] [place] [address] [address] [place] [id number] [place] [address] Referral ID Status Reason Start Date Expiration Date Visits Requested Visits Authorized [id number] Pending Review Auto-Generat ed Referral 06/15/2023 07/14/2024 1 1 [facility] for referral (narrative)* Diagnostic Procedure Only (Routine) - Pending Review Specialty Diagnoses / Procedures Referred By Contac t Referred To Contact BR IMAGING Diagnoses Malignant neoplasm of upper-outer quadrant of right breast in female, estrogen receptor positive (HCC) Procedures US BREAST LTD RIGHT US BREAST UNI REAL TIME WITH IMAGE LIMITED Blayne Pretty MD [address] [place] [address] [facility] [address] [place] [address] Referral ID Status Reason Start Date Expiration Date Visits Requested Visits Authorized [id number] Pending Review Auto-Generat ed Referral 06/15/2023 07/14/2024 1 1 * Diagnostic Procedure Only (Routine) - Pending Review Specialty Diagnoses / Procedures Referred By Contac t Referred To Contact MOLECULAR & FUNCTIONAL IMAGING Diagnoses Malignant neoplasm of upper-outer quadrant of right breast in female, estrogen receptor positive (HCC) Procedures NM PET/CT SKULL-THIGH INITIAL PET IMAGING CT ATTENUATION SKULL BASE MID-THIGH Blayne Pretty MD [address] [place] [address] [place] [address] Molecular & Functional Imaging [address] [place] [address] Referral ID Status Reason Start Date Expiration Date Visits Requested Visits Authorized [id number] Pending Review Auto-Generat ed Referral 06/15/2023 07/14/2024 1 1 [facility] for referral (narrative)* Diagnostic Procedure Only (Routine) - Pending Review Specialty Diagnoses / Procedures Referred By Contac t Referred To Contact BR IMAGING Diagnoses Malignant neoplasm of upper-outer quadrant of right breast in female, estrogen receptor positive (HCC) Procedures US BREAST COMPLETE RIGHT US BREAST UNI REAL TIME WITH IMAGE COMPLETE Toro Chan MD [address] [place] [address] [place] [address] [facility] [address] [place] [phone] Referral ID Status Reason Start Date Expiration Date Visits Requested Visits Authorized [id number] Pending Review Auto-Generat ed Referral 06/28/2024 01/29/2025 1 1 * Diagnostic Procedure Only (Routine) - Pending Review Specialty Diagnoses / Procedures Referred By Contac t Referred To Contact BR IMAGING Diagnoses Malignant neoplasm of upper-outer quadrant of right breast in female, estrogen receptor positive (HCC) Procedures US BREAST COMPLETE LEFT US BREAST UNI REAL TIME WITH IMAGE COMPLETE Toro Chan MD [address] [place] [address] [place] [address] [facility] [address] [place] [address] Referral ID Status Reason Start Date Expiration Date Visits Requested Visits Authorized [id number] Pending Review Auto-Generat ed Referral 06/28/2024 01/29/2025 1 1 * Diagnostic Procedure Only (Routine) - Pending Review Specialty Diagnoses / Procedures Referred By Contac t Referred To Contact BR IMAGING Diagnoses Malignant neoplasm of upper-outer quadrant of right breast in female, estrogen receptor positive (HCC) Procedures JOHN DIAGNOSTIC BILATERAL DIAGNOSTIC MAMMOGRAPHY COMPUTER-AIDED DETCJ BI Toro Chan MD [facility] [place] [address] [facility] [address] [place] [address] Referral ID Status Reason Start Date Expiration Date Visits Requested Visits Authorized [id number] Pending Review Auto-Generat ed Referral 06/28/2024 01/29/2025 1 1 [facility] Reason for Referral Reason Patient being referr ed for screening colonoscopy Diagnosis 1 Colon cancer screeni ng (Z12.11) Referral Organization [facility] Referring Provider First Name Pedro Referring Provider Last Name Marlee Referring Provider Specialty Internal Me dicine Referred Organization [facility] Referred Provider Ciaran Rees Referred Address [address] [place] [phone] Referred Provider Specialty Surgery Referral Priority Routine General Notes She is due for a scr eening colonoscopy. She denies change in appetite, weight or bowel habits. She denies heartburn or dysphagia. She denies abdominal pain, melena or hematochezia. She denies a personal hx of polyps. Specialty Diagnoses / Procedures Referred By Shashi Referred To Contact Radiation Oncology Diagnoses Malignant neoplasm of upper-outer quadrant of right breast in female, estrogen receptor positive (HCC) Procedures RAD/ONC CONSULT OFFICE/OUTPATIENT [facility] 60-74 MINUTES Blayne Pretty MD [facility] [place] [address] Referral ID Status Reason Start Date Expiration Date Visits Requested Visits Authorized [id number] Authorized PCP Requested Referral 11/10/2022 11/10/2023 1 1 Specialty Diagnoses / Procedures Referred By Shashi schreiber Referred To Contact Diagnoses Malignant neoplasm of upper-outer quadrant of right breast in female, estrogen receptor positive (HCC) Procedures CONSULT TO MEDICAL GENETICS - CANCER MEDICAL GENETICS COUNSELING EACH 30 MINUTES Blayne Pretty MD [facility] [place] [address] [facility] [address] [place] [address] Referral ID Status Reason Start Date Expiration Date Visits Requested Visits Authorized [id number] Authorized PCP Requested Referral Auto-Generate d Referral 2 09/08/2023 1 1 Summary Purpose Family History No Family History Records FoundNo Family History Records Found No data available for this section No data available for this section No Family History Records FoundNo Family History Records Found Advance Directives No Advanced Directives Records FoundNo Advanced Directives Records FoundNo Advanced Directives Records FoundNo Advanced Directives Records Found Additional Source Comments Patient Care team informatio n (unrecognized section and content) [employer] 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 Specialty Start Date End Date Pedro Whalen, DO [address] [place] [address] PCP - General Internal Medicine 10/19/15 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 Specialty Start Date End Date Pedro Whalen, DO [address] [place] [address] PCP - General Internal Medicine 10/19/15 [employer] 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 Specialty Start Date End Date Pedro Whalen, DO [address] [place] [address] PCP - General Internal Medicine 10/19/15 [employer] 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 Specialty Start Date End Date Pedro Whalen, DO [address] [place] [address] PCP - General Internal Medicine 10/19/15 [employer] 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 Specialty Start Date End Date Pedro Whalen, DO [address] [place] [address] PCP - General Internal Medicine 10/19/15 [employer] 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 Specialty Start Date End Date Pedro Whalen, DO [address] [place] [address] PCP - General Internal Medicine 10/19/15 [employer] 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 Specialty Start Date End Date Pedro Whalen, DO [address] [place] [address] PCP - General Internal Medicine 10/19/15 [employer] 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 Specialty Start Date End Date Pedro Whalen, DO [address] [place] [address] PCP - General Internal Medicine 10/19/15 [employer] 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 Specialty Start Date End Date Pedro Whalen, DO [address] [place] [address] PCP - General Internal Medicine 10/19/15 [employer] 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 Specialty Start Date End Date Pedro Whalen, DO [address] [place] [address] PCP - General Internal Medicine 10/19/15 Solid [employer] 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 Specialty Start Date End Date Pedro Whalen, DO [address] [place] [address] PCP - General Internal Medicine 10/19/15 Solid [employer] 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 Specialty Start Date End Date Pedro Whalen, DO [address] [place] [address] PCP - General Internal Medicine 10/19/15 Solid [employer] 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 Specialty Start Date End Date Pedro Whalen, DO [address] [place] [address] PCP - General Internal Medicine 10/19/15 Solid [employer] 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 Specialty Start Date End Date Pedro Whalen, DO [address] [place] [address] PCP - General Internal Medicine 10/19/15 Solid [employer] 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 Specialty Start Date End Date Pedro Whalen, DO [address] [place] [address] PCP - General Internal Medicine 10/19/15 Solid [employer] 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 Specialty Start Date End Date Pedro Whalen, DO [address] [facility] [place] [address] PCP - General Internal Medicine 10/19/15 Solid T[employer] 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 Specialty Start Date End Date Pedro Whalen, DO [address] [facility] [place] [address] PCP - General Internal Medicine 10/19/15 Solid [employer] 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 Specialty Start Date End Date Pedro Whalen, DO [address] [facility] [place] [address] PCP - General Internal Medicine 10/19/15 Solid T[employer] 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 Specialty Start Date End Date Pedro Whalen DO [address] [facility] [place] [address] PCP - General Internal Medicine 10/19/15 Solid T[employer] 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 Specialty Start Date End Date Pedro Whalen, DO [address] [facility] [place] [address] PCP - General Internal Medicine 10/19/15 Solid T[employer] 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 Specialty Start Date End Date Pedro Whalen, DO [address] [facility] [place] [address] PCP - General Internal Medicine 10/19/15 Solid [employer] 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 Specialty Start Date End Date MarleePedro Samantha DO [address] [facility] [place] [address] PCP - General Internal Medicine 10/19/15 Solid [employer] 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 Specialty Start Date End Date Pedro Whalen DO [address] [facility] [place] [address] PCP - General Internal Medicine 10/19/15 Solid T[employer] 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 Specialty Start Date End Date Pedro Whalen DO [address] [facility] [place] [address] PCP - General Internal Medicine 10/19/15 Solid [employer] 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 Specialty Start Date End Date Pedro Whalen DO [address] [facility] [place] [address] PCP - General Internal Medicine 10/19/15 Source Comments (unrecognize d section and content) In the event this informatio n is protected by the Federal Confidentiality of Alcohol and Drug Abuse Patient Records regulations: The Federal rules restrict any use of the information to criminally investigate or prosecute any alcohol or drug abuse patient.[facility] the event this information is protected by the Federal Confidentiality of Alcohol and Drug Abuse Patient Records regulations: The Federal rules restrict any use of the information to criminally investigate or prosecute any alcohol or drug abuse patient.[facility] CenterIn the event this information is protected by the Federal Confidentiality of Alcohol and Drug Abuse Patient Records regulations: The Federal rules restrict any use of the information to criminally investigate or prosecute any alcohol or drug abuse patient.[facility] CenterIn the event this information is protected by the Federal Confidentiality of Alcohol and Drug Abuse Patient Records regulations: The Federal rules restrict any use of the information to criminally investigate or prosecute any alcohol or drug abuse patient.[facility] CenterIn the event this information is protected by the Federal Confidentiality of Alcohol and Drug Abuse Patient Records regulations: The Federal rules restrict any use of the information to criminally investigate or prosecute any alcohol or drug abuse patient.[facility] CenterIn the event this information is protected by the Federal Confidentiality of Alcohol and Drug Abuse Patient Records regulations: The Federal rules restrict any use of the information to criminally investigate or prosecute any alcohol or drug abuse patient.[facility] CenterIn the event this information is protected by the Federal Confidentiality of Alcohol and Drug Abuse Patient Records regulations: The Federal rules restrict any use of the information to criminally investigate or prosecute any alcohol or drug abuse patient.[facility] CenterIn the event this information is protected by the Federal Confidentiality of Alcohol and Drug Abuse Patient Records regulations: The Federal rules restrict any use of the information to criminally investigate or prosecute any alcohol or drug abuse patient.[facility] CenterIn the event this information is protected by the Federal Confidentiality of Alcohol and Drug Abuse Patient Records regulations: The Federal rules restrict any use of the information to criminally investigate or prosecute any alcohol or drug abuse patient.[facility] CenterIn the event this information is protected by the Federal Confidentiality of Alcohol and Drug Abuse Patient Records regulations: The Federal rules restrict any use of the information to criminally investigate or prosecute any alcohol or drug abuse patient.[facility] CenterIn the event this information is protected by the Federal Confidentiality of Alcohol and Drug Abuse Patient Records regulations: The Federal rules restrict any use of the information to criminally investigate or prosecute any alcohol or drug abuse patient.[facility] CenterIn the event this information is protected by the Federal Confidentiality of Alcohol and Drug Abuse Patient Records regulations: The Federal rules restrict any use of the information to criminally investigate or prosecute any alcohol or drug abuse patient.[facility] CenterIn the event this information is protected by the Federal Confidentiality of Alcohol and Drug Abuse Patient Records regulations: The Federal rules restrict any use of the information to criminally investigate or prosecute any alcohol or drug abuse patient.[facility] CenterIn the event this information is protected by the Federal Confidentiality of Alcohol and Drug Abuse Patient Records regulations: The Federal rules restrict any use of the information to criminally investigate or prosecute any alcohol or drug abuse patient.[facility] CenterIn the event this information is protected by the Federal Confidentiality of Alcohol and Drug Abuse Patient Records regulations: The Federal rules restrict any use of the information to criminally investigate or prosecute any alcohol or drug abuse patient.[facility] CenterIn the event this information is protected by the Federal Confidentiality of Alcohol and Drug Abuse Patient Records regulations: The Federal rules restrict any use of the information to criminally investigate or prosecute any alcohol or drug abuse patient.[facility] CenterIn the event this information is protected by the Federal Confidentiality of Alcohol and Drug Abuse Patient Records regulations: The Federal rules restrict any use of the information to criminally investigate or prosecute any alcohol or drug abuse patient.[facility] CenterIn the event this information is protected by the Federal Confidentiality of Alcohol and Drug Abuse Patient Records regulations: The Federal rules restrict any use of the information to criminally investigate or prosecute any alcohol or drug abuse patient.[facility] CenterIn the event this information is protected by the Federal Confidentiality of Alcohol and Drug Abuse Patient Records regulations: The Federal rules restrict any use of the information to criminally investigate or prosecute any alcohol or drug abuse patient.[facility] CenterIn the event this information is protected by the Federal Confidentiality of Alcohol and Drug Abuse Patient Records regulations: The Federal rules restrict any use of the information to criminally investigate or prosecute any alcohol or drug abuse patient.[facility] CenterIn the event this information is protected by the Federal Confidentiality of Alcohol and Drug Abuse Patient Records regulations: The Federal rules restrict any use of the information to criminally investigate or prosecute any alcohol or drug abuse patient.[facility] CenterIn the event this information is protected by the Federal Confidentiality of Alcohol and Drug Abuse Patient Records regulations: The Federal rules restrict any use of the information to criminally investigate or prosecute any alcohol or drug abuse patient.[facility] CenterIn the event this information is protected by the Federal Confidentiality of Alcohol and Drug Abuse Patient Records regulations: The Federal rules restrict any use of the information to criminally investigate or prosecute any alcohol or drug abuse patient.[facility] CenterIn the event this information is protected by the Federal Confidentiality of Alcohol and Drug Abuse Patient Records regulations: The Federal rules restrict any use of the information to criminally investigate or prosecute any alcohol or drug abuse patient.[facility] CenterIn the event this information is protected by the Federal Confidentiality of Alcohol and Drug Abuse Patient Records regulations: The Federal rules restrict any use of the information to criminally investigate or prosecute any alcohol or drug abuse patient.[facility] CenterIn the event this information is protected by the Federal Confidentiality of Alcohol and Drug Abuse Patient Records regulations: The Federal rules restrict any use of the information to criminally investigate or prosecute any alcohol or drug abuse patient.[facility] CenterIn the event this information is protected by the Federal Confidentiality of Alcohol and Drug Abuse Patient Records regulations: The Federal rules restrict any use of the information to criminally investigate or prosecute any alcohol or drug abuse patient.[facility] CenterIn the event this information is protected by the Federal Confidentiality of Alcohol and Drug Abuse Patient Records regulations: The Federal rules restrict any use of the information to criminally investigate or prosecute any alcohol or drug abuse patient.[facility] CenterIn the event this information is protected by the Federal Confidentiality of Alcohol and Drug Abuse Patient Records regulations: The Federal rules restrict any use of the information to criminally investigate or prosecute any alcohol or drug abuse patient.[facility] CenterIn the event this information is protected by the Federal Confidentiality of Alcohol and Drug Abuse Patient Records regulations: The Federal rules restrict any use of the information to criminally investigate or prosecute any alcohol or drug abuse patient.[facility] CenterIn the event this information is protected by the Federal Confidentiality of Alcohol and Drug Abuse Patient Records regulations: The Federal rules restrict any use of the information to criminally investigate or prosecute any alcohol or drug abuse patient.[facility] CenterIn the event this information is protected by the Federal Confidentiality of Alcohol and Drug Abuse Patient Records regulations: The Federal rules restrict any use of the information to criminally investigate or prosecute any alcohol or drug abuse patient.[facility] CenterIn the event this information is protected by the Federal Confidentiality of Alcohol and Drug Abuse Patient Records regulations: The Federal rules restrict any use of the information to criminally investigate or prosecute any alcohol or drug abuse patient.[facility] CenterIn the event this information is protected by the Federal Confidentiality of Alcohol and Drug Abuse Patient Records regulations: The Federal rules restrict any use of the information to criminally investigate or prosecute any alcohol or drug abuse patient.[facility] CenterIn the event this information is protected by the Federal Confidentiality of Alcohol and Drug Abuse Patient Records regulations: The Federal rules restrict any use of the information to criminally investigate or prosecute any alcohol or drug abuse patient.[facility] CenterIn the event this information is protected by the Federal Confidentiality of Alcohol and Drug Abuse Patient Records regulations: The Federal rules restrict any use of the information to criminally investigate or prosecute any alcohol or drug abuse patient.[facility] Reason for Visit (unrecogniz ed section and content) Reason Comments Breast Cancer Reason Comments Breast Cancer Specialty Diagnoses / Procedures Referred By Contac t Referred To Contact Diagnoses Malignant neoplasm of upper-outer quadrant of right breast in female, estrogen receptor positive (HCC) Procedures CONSULT TO MEDICAL GENETICS - CANCER MEDICAL GENETICS COUNSELING EACH 30 MINUTES Blayne Pretty MD [address] [place] [address] [place] [address] [address] Referral ID Status Reason Start Date Expiration Date V isits Requested Visits Authorized [id number] Closed PCP Requested Referral Auto-Generated Referral 09/08/2022 09/08/2023 1 1 Reason Comments Treatment Planning Arimidex Reason Comments Appointment Reason Comments Results Reason Comments Consult Surgery Reason Comments Patient Update FYI-No Action Needed Reason Comments Forms Reason Comments Oncotype DX Reason Comments Patient Education Reason Onset Date Comments Simulation Request Form 11/26/2022 Reason Comments Care Coordination Oncotype Update Reason Comments Research [id number] Consent P resentation Reason Comments Radiotherapy On-treatment Visit Reason Comments Research [id number] Alert man agement Week 0 Reason Comments Research [id number] Alert Wee k 1 Reason Comments Lab Orders Reason Comments Orders Reason Comments Results Orders Reason Comments Breast Cancer Reason Comments Results Appointment Reason Comments Orders Reason Comments mammogram question Reason Comments Breast Cancer INFORMATION SOURCE (unrecogn ized section and content) DATE CREATED AUTHOR 09/22/2022 [facility] DATE CREATED AUTHOR AUTHOR'S ORGANIZ ATION 11/25/2022 [facility] DATE CREATED AUTHOR AUTHOR'S ORGANIZ ATION 12/29/2023 [facility] DATE CREATED AUTHOR AUTHOR'S ORGANIZ ATION 01/12/2024 [facility] FOR RECORDS PERTAINING TO PATIENTS [...] BE BASED ON THE PRIMARY CLINICAL RECORDS. [employer] [facility] provides no warranty or guarantee of the accuracy or completeness of information in this document.
[2024-02-04 10:36] LABS: Bilirubin Urine NEGATIVE (NEGATIVE); Blood Urine NEGATIVE (NEGATIVE); Clarity Urine CLEAR (CLEAR); Color Urine LT. YELLOW (YELLOW); Glucose Urine UA NEGATIVE (NEGATIVE); Ketones Urine NEGATIVE (NEGATIVE); Leukocyte Esterase Urine SMALL (NEGATIVE); Nitrite Urine NEGATIVE (NEGATIVE); Protein Urine NEGATIVE (NEG/TRACE); Specific Gravity Urine <=1.005 (1.005-1.025); Urobilinogen Urine 0.2 EU/dL (0.2-1.0); pH Urine 5.5 (5.0-9.0)
== END 2024-02-04 09:46 | disposition home or self-care (01) ==
LOC: LAB 09:46
PROVIDERS: PCP Internal Medicine; Visit Provider Internal Medicine
DX: R30.0 Dysuria (principal)
CPT/HCPCS: 81003; 87086; 87150; 87186